=== PATIENT | female | born 1940 | race Caucasian/White ===

== ENCOUNTER → 2016-03-09 | Outpatient (CLI) | payer OTHER ==
[~2016-03-09] MED LIST: ACET-1311 PO; AMX500 PO; ATOR-24 PO; BACIOIN15 TD; BISA10SU3 PR; BUSP-8 PO; CLC150 PO; DEXT40GE PO; DIVA125C PO; DONE10TA12 SL; DPKSR250 PO; DPKSR500 PO; GABA-113 PO; GLGKIT IM; HALO5INJ IM; HYDR-5688 PO; HYDR25TA5 PO; KLN5 PO; KPP250 PO; LEVE500T13 PO; LIDO1PAD2 TOP; LORA-741 PO; MEGE40SU PO; MEGE40TA13 PO; MELA1TAB54 PO; MGNO400 PO; MOML PO; MULT-1042 PO; MULT-506 PO; NRN/600 PO; NUTR1LIQ52 PO; POLY335019 PO; POTA10CA28 PO; POTA10TA PO; RIVA1TAB7 PO; SERT25TA PO; SERT50TA PO; SODI1ENE PR; SRQ25 PO; TRAZ50TA35 PO; TRIA1SPR4 NAE; VALP250S16 PO; [UNRECOGNIZED DRUG - CODE] PO; [UNRECOGNIZED DRUG - OTHER] IM
--- NOTE | 2016-03-18 09:49 | CODING QUERY NO DIAGNOSIS ---
: 1940 TREATMENT RENDERED WITHOUT A DIAGNOSIS To promote full compliance with coding requirements relating to patient care, physician participation is requested in all cases of aircraft fueler uncertainty. Please assist us with providing a diagnosis/symptom for the test(s) below: A diagnosis/symptom was not documented on your Order. A valid diagnosis/symptom is required to bill all insurances. Please remember that we are unable to code a diagnosis of rule out, probable, possible, questionable, or suspected. Tests that require a diagnosis: * VALPROIC ACID DOS: 03/09/16 DIAGNOSIS: Provider Signature: Date: Thank you Alyce Umanzor [employer] Information Management Once completed, please kindly fax back to [phone] For questions please call [phone]
== END ==
LOC: C.LABUPHEI 07:56
PROVIDERS: ATTEND Family Medicine
DX: R56.9 Unspecified convulsions (principal); Z79.01 Long term (current) use of anticoagulants; Z51.81 Encounter for therapeutic drug level monitoring

== ENCOUNTER → 2016-03-22 | Outpatient (CLI) | payer OTHER ==
[2016-03-22 10:16] LABS: URINE APPEARANCE CLEAR (CLEAR); URINE BILIRUBIN NEG (NEG); URINE COLOR DK YELLOW; URINE EPITHELIAL CELL AUTO 20-30 /lpf (0-5); URINE NITRITE NEG (NEG); URINE PH 5.5 (4.5-7.5); URINE SPECIFIC GRAVITY 1.024 (1.000-1.030); UROBILINOGEN NEG (NEG)
[2016-03-22 10:17] LABS: MANUAL MICROSCOPIC REQUIRED? NO; REVIEW REQ? NO
== END ==
LOC: C.LABUPHEI 09:39
PROVIDERS: ATTEND Family Medicine
DX: R39.15 Urgency of urination (principal)

== ENCOUNTER → 2016-04-08 | Outpatient (CLI) | payer OTHER ==
[2016-04-08 09:28] LABS: ALT/SGPT 10 U/L (12-78); BLOOD UREA NITROGEN 23 mg/dl (7-18); BUN/CREATININE RATIO 29.9 (10-20); CALCIUM 8.8 mg/dl (8.5-10.1); CARBON DIOXIDE 26 mmol/L (21-32); CHLORIDE 103 mmol/L (98-107); CREATININE 0.76 mg/dl (0.60-1.20); GLUCOSE 54 mg/dl (70-99); POTASSIUM 3.6 mmol/L (3.5-5.1); SODIUM 139 mmol/L (136-145)
[2016-04-08 09:31] LABS: ALB/GLOB RATIO 0.7 (0.9-2); ALKALINE PHOSPHATASE 141 U/L (45-117); AST/SGOT 18 U/L (15-37)
--- NOTE | 2016-04-15 08:46 | CODING QUERY NO DIAGNOSIS ---
TREATMENT RENDERED WITHOUT A DIAGNOSIS : 1940 To promote full compliance with coding requirements relating to patient care, physician participation is requested in all cases of pipe liner uncertainty. Please assist us with providing a diagnosis/symptom for the test(s) below: A diagnosis/symptom was not documented on your Order. A valid diagnosis/symptom is required to bill all insurances. Please remember that we are unable to code a diagnosis of rule out, probable, possible, questionable, or suspected. DOS: 04/08/16 Tests that require a diagnosis: * COMPREHENSIVE METABO DIAGNOSIS: * VALPROIC ACID (DEPAK_. DIAGNOSIS: Provider Signature: Date: Thank you Alyce Umanzor [employer] Information Management Once completed, please kindly fax back to [phone] For questions please call [phone]
== END ==
LOC: C.LABUPHEI 08:40
PROVIDERS: ATTEND Family Medicine
DX: R56.9 Unspecified convulsions (principal); F41.9 Anxiety disorder, unspecified

== ENCOUNTER → 2016-04-12 | Outpatient (CLI) | payer OTHER ==
[2016-04-12 10:15] LABS: PREALBUMIN 15.5 mg/dl (20-40); THYROID STIMULATING HORMONE 1.05 uIu/ml (0.300-4.500)
== END | disposition home or self-care (01) ==
LOC: C.LABUPHEI 09:28
PROVIDERS: ATTEND Family Medicine
DX: E04.1 Nontoxic single thyroid nodule (principal); I10 Essential (primary) hypertension

== ENCOUNTER → 2016-04-21 | Outpatient (CLI) | payer OTHER ==
--- NOTE | 2016-04-21 16:02 | DIAGNOSTIC IMAGING REPORT ---
CT OF THE CHEST WITHOUT IV CONTRAST CLINICAL HISTORY: Right lower chest and back pain. COMPARISON STUDY: Chest radiograph January 28, 2016. CT DOSE: 338.35 mGycm TECHNIQUE: Axial images of the chest were obtained without IV contrast. Images were reviewed in the axial, sagittal, and coronal planes. IV contrast was not administered for this examination. FINDINGS: There is no pneumothorax or pleural effusion. The size of the heart is normal. No enlarged thoracic lymph nodes are present. Several thyroid nodules are noted. The lungs are clear. Central airways are patent. There are multiple healing right-sided rib fractures. No acute rib fractures are identified although sensitivity is diminished due to motion artifact. There are several old left-sided rib fractures. There is a mild fracture involving the superior endplate of T6 which is age-indeterminate. There is a moderate compression fracture of L1 which is likely old. The gallbladder is surgically absent. IMPRESSION: 1. No acute intrathoracic findings. Lungs clear. No pneumothorax. 2. Numerous healing right-sided rib fractures which are subacute to chronic. No acute rib fractures identified although sensitivity diminished due to respiratory motion. 3. Age indeterminate but likely old mild T6 compression fracture and old L1 compression fracture. Electronically signed by: Josue Tapia M.D. 04/21/2016 4:00 PM Dictated Date/Time: 04/21/2016 3:51 PM
== END ==
LOC: C.CTS 15:27
PROVIDERS: ATTEND Family Medicine
DX: R07.9 Chest pain, unspecified (principal); M54.5 Low back pain; S22.41XD Multiple fractures of ribs, right side, subsequent encounter for fracture with routine healing; S32.010D Wedge compression fracture of first lumbar vertebra, subsequent encounter for fracture with routine healing; S22.060D Wedge compression fracture of T7-T8 vertebra, subsequent encounter for fracture with routine healing; X58.XXXD Exposure to other specified factors, subsequent encounter

== ENCOUNTER 2016-04-22 13:24 | Emergency (ER) | payer OTHER ==
[~2016-04-22 13:24] MED LIST changes: -BISA10SU3 PR; -BUSP-8 PO; -CLC150 PO; -DIVA125C PO; -DPKSR250 PO; -DPKSR500 PO; -HALO5INJ IM; -HYDR-5688 PO; -KLN5 PO; -KPP250 PO; -LEVE500T13 PO; -LIDO1PAD2 TOP; -MEGE40SU PO; -MEGE40TA13 PO; -MELA1TAB54 PO; -MOML PO; -MULT-1042 PO; -NRN/600 PO; -NUTR1LIQ52 PO; -POTA10TA PO; -RIVA1TAB7 PO; -SERT50TA PO; -SODI1ENE PR; -SRQ25 PO; -TRAZ50TA35 PO; -[UNRECOGNIZED DRUG - CODE] PO; -[UNRECOGNIZED DRUG - OTHER] IM
--- NOTE | 2016-04-22 13:35 | EMERGENCY ROOM VISIT NOTE ---
History Report prepared by Iggy: Juan Manuel Boudreaux Under the Supervision of: Dr. Luis Alfredo Diez M.D. First contact with patient: 13:29 Stated Complaint: FALL History of Present Illness The patient is a 75 year old female who presents to the Emergency Room with complaints of a sudden fall that occurred prior to arrival at [facility]. She has a seizure history, per the nursing staff. The patient's fall was unwitnessed , but it is known that she bumped her head. She is demented. Per the patient, she says nothing is hurting her, but she does note that she hurt her head. She denies any nausea, headaches, or chest pain. Per the nursing staff, the patient was given Ativan last night for seizures. History limited secondary to patient' s dementia. Source of History: patient, nursing staff Onset: Prior to arrival Position: other (global - fall) Quality: other (bumped her head) Timing: other (sudden) Associated Symptoms: No chest pain, No headache, No nausea Review of Systems ROS limited secondary to patient's dementia. Past Medical & Surgical Medical Problems: (1) Anxiety (2) Dementia (3) Depression (4) Diabetes mellitus, type II (5) Dyslipidemia (6) Epilepsy (7) Hypertension (8) UTI (urinary tract infection) Surgical Problems: (1) History of cholecystectomy Family History Diabetes mellitus Hypertension Social History Smoking Status: Former Smoker Alcohol Use: none Drug Use: none Marital Status: Housing Status: correction Occupation Status: retired Current/Historical Medications Scheduled Acetaminophen (Tylenol), 650 MG PO Q6H Atorvastatin (Lipitor), 40 MG PO DAILY Buspirone Hcl (Buspirone Hcl), 10 MG PO TID Donepezil Hydrochloride (Aricept), 10 MG SL HS Gabapentin (Neurontin), 300 MG PO HS Gabapentin (Neurontin), 600 MG PO QAM Hydrochlorothiazide (Hydrochlorothiazide), 1 TAB PO QAM Lidocaine (Lidocaine), 1 PATCH TOP DAILY Lorazepam (Ativan), 0.5 MG PO Q6H Magnesium Oxide (Magnesium-Oxide), 400 MG PO QAM Megestrol Acetate (Megace Oral), 40 MG PO BID Melatonin (Melatonin), 1 TAB PO HS Multivitamin (Multivitamin), 1 TAB PO DAILY Nutritional Supplements (Nutritional Shake), 1 CAN PO TIDM Polyethylene Glycol 3350 (Miralax), 17 GM PO DAILY Potassium Chloride (Micro-K Ext Rel), 10 MEQ PO DAILY Sertraline Hcl (Zoloft), 25 MG PO DAILY Valproic Acid Syrup (Depakene), 250 MG PO DAILY Scheduled PRN Dextrose (Diabetic Use) (Insta-Glucose), 1 APPLN PO Q15M PRN for HYPOGLYCEMIA PROTOCOL Glucagon (Glucagon Emergency Kit), 1 APPLN IM Q15M PRN for HYPOGLYCEMIA PROTOCOL Hydrocodone/Acetaminophen 5MG/325MG ([place] 5MG/325MG), 1 TABLET PO Q4H PRN for Pain Hydrocodone/Acetaminophen 5MG/325MG ([place] 5MG/325MG), 2 TABLETS PO for Pain Lorazepam (Lorazepam), 1 MG PO Q5M PRN for seizures Miscellaneous Medications Megestrol Acetate (Megace), 40 MG PO Allergies Coded Allergies: Meloxicam (Verified Allergy, Intermediate, unknown, 01/28/16) Tramadol (Verified Allergy, Intermediate, unknown, 01/28/16) Cephalexin (Verified Allergy, Unknown, ., 01/28/16) Ciprofloxacin (Verified Allergy, Unknown, unknown, 01/28/16) Rofecoxib (Verified Allergy, Unknown, ., 01/28/16) Physical Exam Vital Signs Date Time Temp Pulse Resp B/P Pulse Ox O2 Delivery O2 Flow Rate FiO2 04/22/16 15:25 36.6 93 20 132/81 96 04/22/16 13:42 93 04/22/16 13:33 36.6 94 20 132/81 96 Room Air Physical Exam GENERAL: Patient is elderly, demented, in no distress. HEENT: Posterior left scalp hematoma, mucous membranes moist, no nasal congestion, no scleral icterus. NECK: No stridor, no adenopathy, no meningismus, trachea is midline. LUNGS: No dyspnea. Clear to auscultation and equal bilaterally. No wheeze, no rhonchi. HEART: Regular rate and rhythm. No murmurs, rubs, gallops appreciated. ABDOMEN: Soft, nontender, bowel sounds positive, no masses appreciated, no peritonitis. BACK: No midline tenderness, no CVA tenderness EXTREMITIES: Normal motion all extremities, no cyanosis, no edema. NEUROLOGIC: Dementia, no acute motor or sensory deficits, no focal weakness, cranial nerves grossly intact. SKIN: No rash, no jaundice, no diaphoresis. Medical Decision & Procedures ER Provider Diagnostic Interpretation: X ray results and stated below per my interpretation and radiologist interpretation. Other radiology results and stated below per my review and radiologist interpretation: SINGLE VIEW PELVIS CLINICAL HISTORY: Trauma. Fall. FINDINGS: An AP pelvic radiograph is obtained. No prior studies are available for comparison at the time of dictation. The skeletal structures are osteopenic. There is no radiographic evidence of fracture in the hips or bony pelvis. Mild arthritic change and joint space narrowing is seen in the hips. There is mild sclerosis of the sacroiliac joints. Lumbosacral spondylosis is partially imaged. The overlying soft tissues are within normal limits. Small phleboliths are noted in the pelvis. There is a nonobstructed abdominal bowel gas pattern. IMPRESSION: Osteopenia and mild degenerative change as above. No fracture is seen in the hips or bony pelvis. Electronically signed by: Noe Lambert M.D. 04/22/2016 2:34 PM Dictated Date/Time: 04/22/2016 2:[address] OF THE HEAD WITHOUT CONTRAST CLINICAL HISTORY: Fall with posterior head injury. COMPARISON STUDY: Head CT January 16, 2016. CT DOSE: 638.56 mGycm TECHNIQUE: Helical axial images of the head were obtained without IV contrast. Automated exposure control was utilized for the study. FINDINGS: No acute intracranial hemorrhage, midline shift or mass effect is present. Ventricular system is normal. The basilar cisterns are patent. There are no extra-axial collections. Ventura-white differentiation is maintained. Mild white matter hypodensity suggests small vessel disease. There are no findings to suggest acute dural sinus thrombosis or acute territorial infarct. There is no calvarial fracture. There is a small left posterior scalp contusion. There is trace fluid within the bilateral mastoid air cells. IMPRESSION: 1. No acute intracranial findings. 2. Small left posterior scalp contusion with no calvarial fracture. Electronically signed by: Josue Tapia M.D. 04/22/2016 2:16 PM Dictated Date/Time: 04/22/2016 2:12 PM CHEST ONE VIEW PORTABLE HISTORY: fall posterior head injury COMPARISON: Chest 01/28/2016. FINDINGS: There again noted multiple healing right-sided rib fractures. No pneumothorax. No pleural effusions. The lungs are clear. The heart is normal in size. The bones are osteopenic. Prior cholecystectomy. IMPRESSION: Healing right-sided rib fractures. Otherwise, no acute process within the chest. Electronically signed by: Cornel Finn M.D. 04/22/2016 2:26 PM Dictated Date/Time: 04/22/2016 2:[address] SCAN OF THE CERVICAL SPINE CLINICAL HISTORY: Fall. Head injury. COMPARISON STUDY: Chest CT dated 04/21/2016. TECHNIQUE: CT scan of the cervical spine is performed from the skull base to the upper thoracic spine. Images are reviewed in the axial, sagittal, and coronal planes. IV contrast was not administered for this examination. CT DOSE: 441.47 mGycm FINDINGS: Skeletal structures: The skeletal structures are osteopenic. There is no evidence of fracture or subluxation involving the cervical spine. Vertebral body height and alignment are maintained. The odontoid process and lateral masses are intact. The atlantoaxial articulation is preserved. A segmentation anomaly is incidentally noted involving the posterior elements on the right at C2-C3. The spinous processes appear intact. Anterior osteophytes are seen at C5-C6. There is a mild superior compression deformity of T2. This was also seen on yesterday's chest CT. Minimal facet arthropathy is noted. Intervertebral discs: There is moderate degenerative disc space narrowing at C5-C6. The remaining disc spaces are well maintained. Central canal: A posterior disc osteophyte complex at C5-C6 likely contributes to mild acquired compromise of the central canal. Soft tissues: The prevertebral and paraspinous soft tissues are within normal limits. Atherosclerotic calcification is noted in the carotid bulbs. A 2.3 cm nodule is again noted in the right lobe of the thyroid gland. Calvarium: The visualized calvarium at the skull base appears intact. Brain parenchyma: Partially visualized brain parenchyma the skull base is within normal limits. Sinuses and mastoids: There is trace mucosal thickening within the right maxillary antrum. Trace fluid is noted within the sphenoid sinuses. Trace fluid is seen within the mastoid air cells bilaterally. Lung apices: Clear as visualized. IMPRESSION: 1. There is no evidence of fracture or subluxation involving the cervical spine. 2. Osteopenia and minimal degenerative change as above. 3. There is a 2.3 cm low-attenuation nodule identified in the right lobe of the thyroid gland. Follow-up with a nonemergent thyroid ultrasound is recommended for further assessment. Electronically signed by: Noe Lambert M.D. 04/22/2016 2:15 PM Dictated Date/Time: 04/22/2016 2:09 PM ED Course 1330: The patient was evaluated in room A3. A complete history and physical exam was performed. 1444: I reevaluated the patient and she is resting comfortably. The patient's daughter verbally expressed understanding and agreement of the treatment plan. The patient will be discharged. The patient's daughter noted that the patient is currently at baseline, and I discussed the CT findings with the daughter. Medical Decision 75 yr old female with severe dementia and ambulatory dysfunction who had fall without prolonged down time. She has contusion to posterior scalp but no other injury findings. Imaging including ct head/cspine, cxr, pelv-xray all negative for emergent findings. She is at her baseline per EMS, nursing and daughter. She is in no distress. She had mechanical fall. No other issues currently. Impression Primary Impression: Fall Additional Impression: Head injury, closed Scribe Attestation The scribe's documentation has been prepared under my direction and personally reviewed by me in its entirety. I confirm that the note above accurately reflects all work, treatment, procedures, and medical decision making performed by me. Departure Information Dispostion Home / Self-Care Referrals Lenka Espinal (PCP) Patient Instructions ED Mechanical Fall, [facility] Health Problem Qualifiers Primary Impression: Fall Encounter type: initial encounter Qualified Codes: W19.XXXA - Unspecified fall, initial encounter Additional Impression: Head injury, closed Encounter type: initial encounter Qualified Codes: S09.90XA - Unspecified injury of head, initial encounter
--- NOTE | 2016-04-22 14:16 | DIAGNOSTIC IMAGING REPORT ---
CT SCAN OF THE CERVICAL SPINE CLINICAL HISTORY: Fall. Head injury. COMPARISON STUDY: Chest CT dated 04/21/2016. TECHNIQUE: CT scan of the cervical spine is performed from the skull base to the upper thoracic spine. Images are reviewed in the axial, sagittal, and coronal planes. IV contrast was not administered for this examination. CT DOSE: 441.47 mGycm FINDINGS: Skeletal structures: The skeletal structures are osteopenic. There is no evidence of fracture or subluxation involving the cervical spine. Vertebral body height and alignment are maintained. The odontoid process and lateral masses are intact. The atlantoaxial articulation is preserved. A segmentation anomaly is incidentally noted involving the posterior elements on the right at C2-C3. The spinous processes appear intact. Anterior osteophytes are seen at C5-C6. There is a mild superior compression deformity of T2. This was also seen on yesterday's chest CT. Minimal facet arthropathy is noted. Intervertebral discs: There is moderate degenerative disc space narrowing at C5-C6. The remaining disc spaces are well maintained. Central canal: A posterior disc osteophyte complex at C5-C6 likely contributes to mild acquired compromise of the central canal. Soft tissues: The prevertebral and paraspinous soft tissues are within normal limits. Atherosclerotic calcification is noted in the carotid bulbs. A 2.3 cm nodule is again noted in the right lobe of the thyroid gland. Calvarium: The visualized calvarium at the skull base appears intact. Brain parenchyma: Partially visualized brain parenchyma the skull base is within normal limits. Sinuses and mastoids: There is trace mucosal thickening within the right maxillary antrum. Trace fluid is noted within the sphenoid sinuses. Trace fluid is seen within the mastoid air cells bilaterally. Lung apices: Clear as visualized. IMPRESSION: 1. There is no evidence of fracture or subluxation involving the cervical spine. 2. Osteopenia and minimal degenerative change as above. 3. There is a 2.3 cm low-attenuation nodule identified in the right lobe of the thyroid gland. Follow-up with a nonemergent thyroid ultrasound is recommended for further assessment. Electronically signed by: Noe Lambert M.D. 04/22/2016 2:15 PM Dictated Date/Time: 04/22/2016 2:09 PM
--- NOTE | 2016-04-22 14:18 | DIAGNOSTIC IMAGING REPORT ---
CT OF THE HEAD WITHOUT CONTRAST CLINICAL HISTORY: Fall with posterior head injury. COMPARISON STUDY: Head CT January 16, 2016. CT DOSE: 638.56 mGycm TECHNIQUE: Helical axial images of the head were obtained without IV contrast. Automated exposure control was utilized for the study. FINDINGS: No acute intracranial hemorrhage, midline shift or mass effect is present. Ventricular system is normal. The basilar cisterns are patent. There are no extra-axial collections. Ventura-white differentiation is maintained. Mild white matter hypodensity suggests small vessel disease. There are no findings to suggest acute dural sinus thrombosis or acute territorial infarct. There is no calvarial fracture. There is a small left posterior scalp contusion. There is trace fluid within the bilateral mastoid air cells. IMPRESSION: 1. No acute intracranial findings. 2. Small left posterior scalp contusion with no calvarial fracture. Electronically signed by: Josue Tapia M.D. 04/22/2016 2:16 PM Dictated Date/Time: 04/22/2016 2:12 PM
--- NOTE | 2016-04-22 14:27 | DIAGNOSTIC IMAGING REPORT ---
CHEST ONE VIEW PORTABLE HISTORY: fall posterior head injury COMPARISON: Chest 01/28/2016. FINDINGS: There again noted multiple healing right-sided rib fractures. No pneumothorax. No pleural effusions. The lungs are clear. The heart is normal in size. The bones are osteopenic. Prior cholecystectomy. IMPRESSION: Healing right-sided rib fractures. Otherwise, no acute process within the chest. Electronically signed by: Cornel Finn M.D. 04/22/2016 2:26 PM Dictated Date/Time: 04/22/2016 2:24 PM
--- NOTE | 2016-04-22 14:35 | DIAGNOSTIC IMAGING REPORT ---
SINGLE VIEW PELVIS CLINICAL HISTORY: Trauma. Fall. FINDINGS: An AP pelvic radiograph is obtained. No prior studies are available for comparison at the time of dictation. The skeletal structures are osteopenic. There is no radiographic evidence of fracture in the hips or bony pelvis. Mild arthritic change and joint space narrowing is seen in the hips. There is mild sclerosis of the sacroiliac joints. Lumbosacral spondylosis is partially imaged. The overlying soft tissues are within normal limits. Small phleboliths are noted in the pelvis. There is a nonobstructed abdominal bowel gas pattern. IMPRESSION: Osteopenia and mild degenerative change as above. No fracture is seen in the hips or bony pelvis. Electronically signed by: Noe Lambert M.D. 04/22/2016 2:34 PM Dictated Date/Time: 04/22/2016 2:33 PM
[2016-04-22] MEDS ORDERED: HYDR-5688 PO ×2 (15:08)
[2016-04-22] MEDS ORDERED: NUTR1LIQ52 PO (15:08)
[2016-04-22] MEDS ORDERED: BUSP-8 PO (15:08)
[2016-04-22] MEDS ORDERED: MEGE40SU PO (15:08)
[2016-04-22] MEDS ORDERED: MELA1TAB54 PO (15:08)
[2016-04-22] MEDS ORDERED: VALP250S16 PO (15:08)
[2016-04-22] MEDS ORDERED: MEGE40TA13 PO (15:08)
[2016-04-22] MEDS ORDERED: NRN/600 PO (15:08)
[2016-04-22] MEDS ORDERED: [UNRECOGNIZED DRUG - OTHER] IM (15:08)
[2016-04-22] MEDS ORDERED: LIDO1PAD2 TOP (15:08)
[2016-04-22 15:25] VITALS: BP 132/81; PULSE 93; TEMP 36.6; O2SAT 96
[2016-05-29] MEDS ORDERED: DPKSR500 PO (09:58)
[2016-05-29] MEDS ORDERED: KPP250 PO (09:58)
[2016-05-29] MEDS ORDERED: KLN5 PO (09:58)
[2016-05-29] MEDS ORDERED: DPKSR250 PO (09:58)
[2016-05-29] MEDS ORDERED: SRQ25 PO ×3 (09:58)
[2016-06-05] MEDS ORDERED: DIVA125C PO ×2 (20:25)
[2016-06-05] MEDS ORDERED: LEVE500T13 PO (20:31)
[2016-06-05] MEDS ORDERED: BISA10SU3 PR (20:36)
[2016-06-05] MEDS ORDERED: SODI1ENE PR (20:38)
[2016-06-05] MEDS ORDERED: MOML PO (20:38)
[2016-06-09] MEDS ORDERED: RIVA1TAB7 PO ×2 (13:09→14:57)
== END 2016-04-22 15:27 | disposition home or self-care (01) ==
LOC: EDBD 13:24 → C.EDA 13:26
DX: S09.90XA Unspecified injury of head, initial encounter (principal); W19.XXXA Unspecified fall, initial encounter; Y92.129 Unspecified place in nursing home as the place of occurrence of the external cause; F03.90 Unspecified dementia, unspecified severity, without behavioral disturbance, psychotic disturbance, mood disturbance, and anxiety; F41.9 Anxiety disorder, unspecified; F32.9 Major depressive disorder, single episode, unspecified; E11.9 Type 2 diabetes mellitus without complications; E78.5 Hyperlipidemia, unspecified; G40.909 Epilepsy, unspecified, not intractable, without status epilepticus; I10 Essential (primary) hypertension; Z87.891 Personal history of nicotine dependence; Z83.3 Family history of diabetes mellitus; Z82.49 Family history of ischemic heart disease and other diseases of the circulatory system; Z79.899 Other long term (current) drug therapy

== ENCOUNTER → 2016-05-02 | Outpatient (CLI) | payer OTHER ==
[~2016-05-02] MED LIST changes: -AMX500 PO; -BACIOIN15 TD; +BISA10SU3 PR; +BUSP-8 PO; +CLC150 PO; +DIVA125C PO; +DPKSR250 PO; +DPKSR500 PO; +HALO5INJ IM; +HYDR-5688 PO; +KLN5 PO; +KPP250 PO; +LEVE500T13 PO; +LIDO1PAD2 TOP; +MEGE40SU PO; +MEGE40TA13 PO; +MELA1TAB54 PO; +MOML PO; +MULT-1042 PO; +NRN/600 PO; +NUTR1LIQ52 PO; +POTA10TA PO; +RIVA1TAB7 PO; +SERT50TA PO; +SODI1ENE PR; +SRQ25 PO; +TRAZ50TA35 PO; +[UNRECOGNIZED DRUG - CODE] PO; +[UNRECOGNIZED DRUG - OTHER] IM
[2016-05-02 07:05] LABS: URINE APPEARANCE CLEAR (CLEAR); URINE BILIRUBIN NEG (NEG); URINE COLOR YELLOW; URINE NITRITE NEG (NEG); URINE PH 6.5 (4.5-7.5); URINE SPECIFIC GRAVITY 1.019 (1.000-1.030); UROBILINOGEN NEG (NEG)
[2016-05-02 07:13] LABS: MANUAL MICROSCOPIC REQUIRED? NO; REVIEW REQ? NO
== END ==
LOC: C.LABUPHEI 11:13
PROVIDERS: ATTEND Family Medicine
DX: Z00.00 Encounter for general adult medical examination without abnormal findings (principal)

== ENCOUNTER 2016-05-03 23:54 | Emergency (ER) | payer OTHER ==
[~2016-05-03 23:54] MED LIST changes: -BISA10SU3 PR; -CLC150 PO; -DIVA125C PO; -DPKSR250 PO; -DPKSR500 PO; -HALO5INJ IM; -KLN5 PO; -KPP250 PO; -LEVE500T13 PO; -MOML PO; -MULT-1042 PO; -POTA10TA PO; -RIVA1TAB7 PO; -SERT50TA PO; -SODI1ENE PR; -SRQ25 PO; -TRAZ50TA35 PO; -TRIA1SPR4 NAE; -[UNRECOGNIZED DRUG - CODE] PO
[2016-05-03 23:58] VITALS: TEMP 36.5; O2SAT 94
[2016-05-04] MEDS ORDERED: DIPHTHERIA/TETANUS/PERTUSSIS 0.5 ML SYR/VIAL IM. ONE
[2016-05-04] MEDS ORDERED: HALOPERIDOL LACTATE 5 MG/ML 1 ML VIAL IM STA (00:06)
[2016-05-04] MEDS ORDERED: LORAZEPAM 2 MG/ML 1 ML VIAL IV STA ×3 (00:08→00:22)
[2016-05-04 00:28] LABS: BASO % 0.2 %; BASO ABS # 0.02 K/uL (0-0.2); COMPLETE YES; EOS % 0.4 %; HEMATOCRIT 42.3 % (37-47); IG% 0.5 %; LYMPH % 36.3 %; LYMPH ABS # 4.53 K/uL (1.2-3.4); MEAN CELL VOLUME 80.1 fL (80-100); MEAN CORPUSCULAR HEMOGLOBIN 27.3 pg (25-34); MEAN PLATELET VOLUME 10.2 fL (7.4-10.4); MONO % 10.9 %; NEUT % 51.7 %; PLATELET COUNT 235 K/uL (130-400); RED BLOOD COUNT 5.28 M/uL (4.2-5.4); WHITE BLOOD COUNT 12.49 K/uL (4.8-10.8)
[2016-05-04 00:46] LABS: INR 1.2 (0.9-1.1); PROTHROMBIN TIME (PATIENT) 12.6 SECONDS (9.0-12.0)
[2016-05-04 00:50] LABS: ALT/SGPT 12 U/L (12-78); AST/SGOT 12 U/L (15-37); BLOOD UREA NITROGEN 22 mg/dl (7-18); CALCIUM 9.4 mg/dl (8.5-10.1); CARBON DIOXIDE 27 mmol/L (21-32); CHLORIDE 101 mmol/L (98-107); CREATININE 0.97 mg/dl (0.60-1.20); GLUCOSE 106 mg/dl (70-99); POTASSIUM 4.5 mmol/L (3.5-5.1); SODIUM 141 mmol/L (136-145)
[2016-05-04 00:55] LABS: ALKALINE PHOSPHATASE 131 U/L (45-117)
[2016-05-04 01:28] LABS: URINE APPEARANCE CLEAR (CLEAR); URINE BILIRUBIN NEG (NEG); URINE COLOR YELLOW; URINE EPITHELIAL CELL AUTO 0-5 /lpf (0-5); URINE NITRITE NEG (NEG); URINE PH 7.5 (4.5-7.5); URINE SPECIFIC GRAVITY 1.016 (1.000-1.030); UROBILINOGEN NEG (NEG); ZZURINE CULT IF INDIC CATH NO
[2016-05-04] MEDS ORDERED: SERT50TA PO (01:30)
[2016-05-04] MEDS ORDERED: TRIA1SPR4 NAE (01:34)
[2016-05-04] MEDS ORDERED: MULT-1042 PO (01:34)
[2016-05-04 01:40] LABS: MANUAL MICROSCOPIC REQUIRED? NO; REVIEW REQ? NO
[2016-05-04] MEDS ORDERED: POLY335019 PO (01:47)
[2016-05-04] MEDS ORDERED: POTA10TA PO (01:47)
[2016-05-04] MEDS ORDERED: TRAZ50TA35 PO (01:48)
[2016-05-04] MEDS ORDERED: NUTR1LIQ52 PO (01:49)
[2016-05-04] MEDS ORDERED: HALO5INJ IM (01:50)
[2016-05-04] MEDS ORDERED: [UNRECOGNIZED DRUG - CODE] PO (01:52)
[2016-05-04 04:14] VITALS: BP 162/70; PULSE 103; O2SAT 92
--- NOTE | 2016-05-04 04:53 | EMERGENCY ROOM VISIT NOTE ---
History Report prepared by Iggy: Misael Sloan Under the Supervision of: Dr. Ryan Lozano D.O. First contact with patient: 23:54 Chief Complaint: SEIZURE Stated Complaint: SEIZURE/FALL History of Present Illness The patient is a 75 year old female who presents to the Emergency Room with complaints of a sudden seizure and fall occurring prior to arrival. Per the EMS , the patient had an unwitnessed fall where she was found on the ground tense with seizure-like activity. She then had a witnessed seizure while waiting for the EMS. Patient is on a every 15 check due to her seizure history. She has about 2 seizures per week. She is currently being worked up and followed by providers at [facility]. She was also wearing a helmet which has now been removed recently due to her frequent falls. She is brought in via EMS. They state that she has a history of seizures, and she is currently in the dementia tran. They additionally states that she was at her baseline before this incident. The EMS states that she is not taking any blood thinners, and she is diabetic. Limited history from the patient as she was responsive but nonverbal. Source of History: EMS Onset: prior to arrival Position: other (global) Quality: other (seizure) Timing: other (sudden) Review of Systems See HPI for pertinent positives & negatives. A total of 10 systems reviewed and were otherwise negative. Past Medical & Surgical Medical Problems: (1) Anxiety (2) Dementia (3) Depression (4) Diabetes mellitus, type II (5) Dyslipidemia (6) Epilepsy (7) Hypertension (8) UTI (urinary tract infection) Surgical Problems: (1) History of cholecystectomy Family History Diabetes mellitus Hypertension Social History Smoking Status: Never Smoker Alcohol Use: none Drug Use: none Marital Status: Housing Status: alf Occupation Status: retired Current/Historical Medications Scheduled Atorvastatin (Lipitor), 40 MG PO DAILY Buspirone Hcl (Buspirone Hcl), 10 MG PO TID Gabapentin (Neurontin), 300 MG PO TID Hydrochlorothiazide (Hydrochlorothiazide), 1 TAB PO QAM Lidocaine (Lidocaine), 1 PATCH TOP DAILY Lorazepam (Ativan), 0.5 MG PO Q6H Magnesium Oxide (Magnesium-Oxide), 400 MG PO QAM Megestrol Acetate (Megace Oral), 400 MG PO BID Multiple Vitamins W/ Minerals (Multi Vitamin and Mineral), 1 TAB PO DAILY Nutritional Supplements (Nutritional Shake), 1 CAN PO BID Nutritional Supplements (Nutritional Shake), 1 PO DAILY AT NOON Polyethylene Glycol 3350 (Miralax), 17 GM PO DAILY Potassium Chloride (K-Tabs), 10 MEQ PO DAILY Sertraline (Zoloft), 50 MG PO DAILY Trazodone Hcl (Trazodone), 25 MG PO HS Triamcinolone Acetonide (Nasal (Nasacort Allergy 24Hr), 2 SPRAYS KELSIE DAILY Valproic Acid (Depakene), 10 ML PO DAILY AT NOON Valproic Acid Syrup (Depakene), 15 ML PO AMPM Scheduled PRN Acetaminophen (Tylenol), 650 MG PO Q6H PRN for Pain or Fever Dextrose (Diabetic Use) (Insta-Glucose), 1 APPLN PO Q15M PRN for HYPOGLYCEMIA PROTOCOL Glucagon (Glucagon Emergency Kit), 1 APPLN IM Q15M PRN for HYPOGLYCEMIA PROTOCOL Haloperidol Lactate (Haldol), 1 MG IM Q4 PRN for Agitation Hydrocodone/Acetaminophen 5MG/325MG (Francisco 5MG/325MG), 1 TABLET PO Q4H PRN for Pain Hydrocodone/Acetaminophen 5MG/325MG (Francisco 5MG/325MG), 2 TABLETS PO Q4 PRN for Pain Lorazepam (Lorazepam), 1 MG IM Q5M PRN for seizures Allergies Coded Allergies: Meloxicam (Verified Allergy, Intermediate, unknown, 05/04/16) Tramadol (Verified Allergy, Intermediate, unknown, 05/04/16) Cephalexin (Verified Allergy, Unknown, ., 05/04/16) Ciprofloxacin (Verified Allergy, Unknown, unknown, 05/04/16) Rofecoxib (Verified Allergy, Unknown, ., 05/04/16) Physical Exam Vital Signs Date Time Temp Pulse Resp B/P Pulse Ox O2 Delivery O2 Flow Rate FiO2 05/04/16 04:14 103 20 162/70 92 05/04/16 02:46 89 20 149/78 94 Room Air 05/04/16 01:44 94 20 137/90 96 Room Air 05/04/16 01:20 108 20 144/79 94 Room Air 05/04/16 00:34 109 20 156/100 96 Room Air 05/04/16 00:05 106 05/03/16 23:58 36.5 108 20 173/103 96 Room Air 05/03/16 23:58 94 Room Air Physical Exam GENERAL: Laying in bed not following commands. HEAD: Large septal hematoma in the parietal region with slight venous oozing from abrasion. normal cephalic EYE EXAM: normal conjunctiva, PERRL and EOM's grossly intact OROPHARYNX: no exudate, no erythema, lips, buccal mucosa, and tongue normal and mucous membranes are moist NOSE: No septal hematoma EARS: TMs clear b/l NECK: supple, no nuchal rigidity, no adenopathy, non-tender CHEST: stable to compression anteriorly and posteriorly LUNGS: clear to auscultation. Normal chest wall mechanics HEART: no murmurs, S1 normal and S2 normal ABDOMEN: abdomen soft, non-tender, normo-active bowel sounds, no masses, no rebound or guarding. PELVIS: stable to compression anteriorly and posteriorly BACK: Back is symmetrical on inspection and there is no deformity, no midline tenderness, no CVA tenderness. UPPER EXTREMITIES: Old bruising to left hand no obvious tenderness. Old abrasions to the right elbow. Full active and passive range of motion of all joints without tenderness to palpation LOWER EXTREMITIES: full active and passive range of motion of all joints without tenderness to palpation NEURO EXAM: Alert, not following commands. Intermittently stating "Mommy". Moving all extremities Non-focal. Cranial nerves II-XII grossly intact, no gross weakness of arms, no gross weakness of legs. GCS: 14. Medical Decision & Procedures ER Provider Diagnostic Interpretation: Xray results per the radiologist and my interpretation. Other results have been interpreted by the radiologist and reviewed by me. CT HEAD: Comparison: CT head 04/22/2016 No ICH, mass effect or edema. No skull fracture. Large right parietal scalp hematoma. CT C SPINE: Comparison: CT cervical spine 04/22/2016 No evidence of fracture or malalignment. Degenerative changes greatest at C5-C6. Stable 2.4 cm hypodense nodule in the right lobe of the thyroid. Recommend ultrasound/FNA for further evaluation. Radiologist: Leonardo Ortiz MD Laboratory Results 05/03/16 23:50 Red Blood Count 5.28, Mean Corpuscular Volume 80.1, Mean Corpuscular Hemoglobin 27.3, Mean Corpuscular Hemoglobin Concent 34.0, Mean Platelet Volume 10.2, Neutrophils (%) (Auto) 51.7, Lymphocytes (%) (Auto) 36.3, Monocytes (%) (Auto) 10.9, Eosinophils (%) (Auto) 0.4, Basophils (%) (Auto) 0.2, Neutrophils # (Auto ) 6.47, Lymphocytes # (Auto) 4.53, Monocytes # (Auto) 1.36, Eosinophils # (Auto ) 0.05, Basophils # (Auto) 0.02 05/03/16 23:50 Test 05/03/16 23:50 05/04/16 00:02 05/04/16 01:15 White Blood Count 12.49 K/uL (4.8-10.8) Red Blood Count 5.28 M/uL (4.2-5.4) Hemoglobin 14.4 g/dL (12.0-16.0) Hematocrit 42.3 % (37-47) Mean Corpuscular Volume 80.1 fL (80-100) Mean Corpuscular Hemoglobin 27.3 pg (25-34) Mean Corpuscular Hemoglobin Concent 34.0 g/dl (32-36) Platelet Count 235 K/uL (130-400) Mean Platelet Volume 10.2 fL (7.4-10.4) Neutrophils (%) (Auto) 51.7 % Lymphocytes (%) (Auto) 36.3 % Monocytes (%) (Auto) 10.9 % Eosinophils (%) (Auto) 0.4 % Basophils (%) (Auto) 0.2 % Neutrophils # (Auto) 6.47 K/uL (1.4-6.5) Lymphocytes # (Auto) 4.53 K/uL (1.2-3.4) Monocytes # (Auto) 1.36 K/uL (0.11-0.59) Eosinophils # (Auto) 0.05 K/uL (0-0.5) Basophils # (Auto) 0.02 K/uL (0-0.2) RDW Standard Deviation 48.7 fL (36.4-46.3) RDW Coefficient of Variation 16.6 % (11.5-14.5) Immature Granulocyte % (Auto) 0.5 % Immature Granulocyte # (Auto) 0.06 K/uL (0.00-0.02) Prothrombin Time 12.6 SECONDS (9.0-12.0) Prothromb Time International Ratio 1.2 (0.9-1.1) Activated Partial Thromboplast Time 25.0 SECONDS (21.0-31.0) Partial Thromboplastin Ratio 1.0 Anion Gap 13.0 mmol/L (3-11) Estimated GFR () 67.2 Estimated GFR (Non- 57.9 BUN/Creatinine Ratio 23.0 (10-20) Calcium Level 9.4 mg/dl (8.5-10.1) Total Bilirubin 0.3 mg/dl (0.2-1) Direct Bilirubin 0.1 mg/dl (0-0.2) Aspartate Amino Transf (AST/SGOT) 12 U/L (15-37) Alanine Aminotransferase (ALT/SGPT) 12 U/L (12-78) Alkaline Phosphatase 131 U/L (45-117) Troponin I < 0.015 ng/ml (0-0.045) Total Protein 7.7 gm/dl (6.4-8.2) Albumin 3.5 gm/dl (3.4-5.0) Urine Color YELLOW Urine Appearance CLEAR (CLEAR) Urine pH 7.5 (4.5-7.5) Urine Specific [place] 1.016 (1.000-1.030) Urine Protein NEG (NEG) Urine Glucose (UA) 1+ (NEG) Urine Ketones NEG (NEG) Urine Occult Blood NEG (NEG) Urine Nitrite NEG (NEG) Urine Bilirubin NEG (NEG) Urine Urobilinogen NEG (NEG) Urine Leukocyte Esterase NEG (NEG) Urine WBC (Auto) 0 /hpf (0-5) Urine RBC (Auto) 0-4 /hpf (0-4) Urine Hyaline Casts (Auto) 0 /lpf (0-5) Urine Epithelial Cells (Auto) 0-5 /lpf (0-5) Urine Bacteria (Auto) NEG (NEG) Laboratory results per my review. Medications Administered Medications (Trade) Dose Ordered Sig/Madeline Route Start Time Stop Time Status Last Admin Dose Admin Diphtheria/ Pertussis/Tetanus Vacc (Adacel Inj) 0.5 ml ONCE ONCE IM. 05/04/16 00:00 05/04/16 00:02 DC 05/04/16 00:30 0.5 ML Lorazepam (Ativan Inj) 1 mg NOW STAT IV 05/04/16 00:09 3/1/17 00:10 DC 05/04/16 00:13 1 MG Lorazepam (Ativan Inj) 1 mg NOW STAT IV 05/04/16 00:22 05/04/16 00:23 DC 05/04/16 00:29 1 MG ECG Indication: other (seizure) Rate (beats per minute): 109 Rhythm: sinus rhythm Findings: other (Normal axis, poor baseline, early R wave progression) ED Course ED COURSE: Vital signs were reviewed and showed tachycardia The patients medical record was reviewed The above diagnostic studies were performed and reviewed. ED treatments and interventions as stated above. 2354: The patient was evaluated in room B1. A complete history and physical examination was performed. 0000: Adacel Inj 0.5ml IM 0006: Haldol Inj 5mg IM 0008: Ativan Inj 0.5mg IV 0009: Ativan Inj 1mg IV 0022: Ativan Inj 1mg IV 0022: I reevaluated the patient, and she was still agitated 0223: I reassessed the patient, and she was alert and answered questions in regard to pain. She knows her name, though she did not know where she was. 0247: I discussed the patient's case with Dr. Edward, Neurology, and he states to increase her valproic level as long as she is non-toxic. 0350: Upon reevaluation, the patient is feeling better.I discussed my findings with the patient and she understands and agrees with the treatment plan. Based on the patients age, coexisting illnesses, exam and lab findings the decision to treat as an outpatient was made. The patient remained stable while under my care. The patient appeared well at the time of discharge. Medical Decision Differential diagnoses include major intracranial, cervical, spinal, thoracic, abdominal, pelvic and neurologic injury. Fracture, contusion, sprain, strain, laceration, abrasions included as well. Patient is a 75-year-old female who presents the following 2 seizures and hitting her head. She return to her baseline. She is at her baseline prior to seizures. She is from heart side. CT of her head and cervical spine were unremarkable. X-rays of her chest and hand showed no acute fractures. Labs show a mild leukocytosis of 12,000 which I favor secondary to trauma. BMP along with LFTs and troponin are unremarkable. INR was normal. Valproic acid was 98. UA was negative. Patient was afebrile. There is no signs of infection. Based on her symptoms I do feels though this consistent with 2 seizures. She has been worked up by neurology previously. She is currently at [facility] I thought it was reasonable to have her discharged back following discussion with neurology who recommended increasing her valproic acid level by 250 mg if it is deemed appropriate by primary care doctor at [facility]. I did put this information on her discharge instructions. She is transferred back. Charge nurse discussed her findings as I did earlier in the night with [facility] and they're agreeable to taking the patient back. Consults Time Called: 235 Consulting Physician: Dr. Edward, Neurology Returned Call: [phone] I discussed the patient's case with Dr. Edward, Neurology, and he states to increase her valproic level as long as she is non-toxic. Impression Primary Impression: Seizure Additional Impression: Hematoma Scribe Attestation The scribe's documentation has been prepared under my direction and personally reviewed by me in its entirety. I confirm that the note above accurately reflects all work, treatment, procedures, and medical decision making performed by me. Departure Information Dispostion Home / Self-Care Referrals Lenka Espinal (PCP) Forms HOME CARE DOCUMENTATION FORM, IMPORTANT VISIT INFORMATION Patient Instructions ED Seizure Recurrent, My [facility] Additional Instructions Please follow up with your primary care doctor at [facility] with in the next 24 hours. Any worsening of your symptoms, please return to the ED immediately. This includes fevers greater than 100.4, confusion, persistent falls, or any other concerning signs or symptoms from the alf standpoint. Case was discussed with neurology and they recommended possibly increasing the dose of Depakote. This should be discussed with the primary care doctor at nursing facility tomorrow and increased accordingly. Problem Qualifiers
--- NOTE | 2016-05-04 06:45 | DIAGNOSTIC IMAGING REPORT ---
HEAD CT NONCONTRAST CT DOSE: 1106.92 mGy.cm HISTORY: Trauma AMS TECHNIQUE: Multiaxial CT images of the head were performed without the use of intravenous contrast. Comparison: 04/22/2016 Findings: The paranasal sinuses and mastoid air cells are clear. The calvarium and skull base are intact. The ventricles and sulci are within normal limits. There is no mass, hematoma, midline shift, or acute infarct. Extracranial right hematoma Impression: No acute intracranial abnormality. Electronically signed by: Lionel Dey M.D. 05/04/2016 6:44 AM Dictated Date/Time: 05/04/2016 6:40 AM
--- NOTE | 2016-05-04 07:14 | DIAGNOSTIC IMAGING REPORT ---
CT SCAN OF THE CERVICAL SPINE CLINICAL HISTORY: Fall. Head injury. COMPARISON STUDY: CT scan of cervical spine dated 04/22/2016. TECHNIQUE: CT scan of the cervical spine is performed from the skull base to the upper thoracic spine. Images are reviewed in the axial, sagittal, and coronal planes. IV contrast was not administered for this examination. FINDINGS: Skeletal structures: The skeletal structures are osteopenic. There is no evidence of fracture or subluxation involving the cervical spine. Vertebral body height and alignment are maintained. The odontoid process and lateral masses are intact. The atlantoaxial articulation is preserved. A segmentation anomaly is incidentally noted involving the posterior elements on the right at C2-C3. The spinous processes appear intact. Anterior osteophytes are seen at C5-C6. There is a mild superior compression deformity of T2, unchanged from prior examinations minimal facet arthropathy is noted. Intervertebral discs: There is moderate degenerative disc space narrowing at C5-C6. The remaining disc spaces are well maintained. Central canal: A posterior disc osteophyte complex at C5-C6 likely contributes to mild acquired compromise of the central canal. Soft tissues: The prevertebral and paraspinous soft tissues are within normal limits. Atherosclerotic calcification is noted in the carotid bulbs. A 2.3 cm nodule is present in the right lobe of the thyroid gland. Calvarium: The visualized calvarium at the skull base appears intact. Brain parenchyma: Partially visualized brain parenchyma the skull base is within normal limits noting age-related involutional change. Sinuses and mastoids: Trace fluid is noted within the sphenoid sinuses. Trace fluid is seen within he mastoid air cells bilaterally. Lung apices: A calcified granuloma is noted in the right upper lobe. Otherwise clear as visualized. IMPRESSION: 1. There is no evidence of fracture or subluxation involving the cervical spine. 2. Osteopenia and minimal degenerative change as above. 3. A 2.3 cm low-attenuation nodule is again noted in the right thyroid lobe. Electronically signed by: Noe Lambert M.D. 05/04/2016 7:12 AM Dictated Date/Time: 05/04/2016 7:09 AM
--- NOTE | 2016-05-04 07:20 | DIAGNOSTIC IMAGING REPORT ---
SINGLE VIEW CHEST CLINICAL HISTORY: Trauma. Fall. FINDINGS: An AP, portable, supine chest radiograph is compared to study dated 04/22/2016. Correlation is made with chest CT dated . The examination is degraded by portable technique and patient rotation. The cardiomediastinal silhouette is unremarkable. Chronic interstitial thickening is similar to previous. No airspace consolidation, pleural effusion, or pneumothorax is seen. The skeletal structures are osteopenic. There are healed bilateral rib fractures. IMPRESSION: No acute cardiopulmonary abnormality. Electronically signed by: Noe Lambert M.D. 05/04/2016 7:19 AM Dictated Date/Time: 05/04/2016 7:17 AM
--- NOTE | 2016-05-04 07:22 | DIAGNOSTIC IMAGING REPORT ---
LEFT HAND 3 VIEWS CLINICAL HISTORY: Left hand pain. FINDINGS: 3 views of the left hand are obtained. No prior studies are available for comparison at the time of dictation. The examination is degraded by inability to extend the fingers. The skeletal structures are osteopenic. There is no radiographic evidence of fracture. Mild arthritic change is present involving the interphalangeal joints. Mild hypothenar soft tissue swelling is suggested. IMPRESSION: Soft tissue swelling with no radiographic evidence of acute fracture. Electronically signed by: Noe Lambert M.D. 05/04/2016 7:21 AM Dictated Date/Time: 05/04/2016 7:19 AM
[2016-05-29] MEDS ORDERED: KPP250 PO (09:58)
[2016-05-29] MEDS ORDERED: SRQ25 PO ×3 (09:58)
[2016-05-29] MEDS ORDERED: KLN5 PO (09:58)
[2016-05-29] MEDS ORDERED: DPKSR500 PO (09:58)
[2016-05-29] MEDS ORDERED: DPKSR250 PO (09:58)
[2016-06-05] MEDS ORDERED: DIVA125C PO ×2 (20:25)
[2016-06-05] MEDS ORDERED: LEVE500T13 PO (20:31)
[2016-06-05] MEDS ORDERED: BISA10SU3 PR (20:36)
[2016-06-05] MEDS ORDERED: MOML PO (20:38)
[2016-06-05] MEDS ORDERED: SODI1ENE PR (20:38)
[2016-06-09] MEDS ORDERED: RIVA1TAB7 PO ×2 (13:09→14:57)
== END 2016-05-04 04:17 | disposition home or self-care (01) ==
LOC: EDBD 23:54 → C.EDB 23:55
DX: G40.909 Epilepsy, unspecified, not intractable, without status epilepticus (principal); S00.83XA Contusion of other part of head, initial encounter; X58.XXXA Exposure to other specified factors, initial encounter; Z23 Encounter for immunization; I10 Essential (primary) hypertension; E11.9 Type 2 diabetes mellitus without complications; E78.5 Hyperlipidemia, unspecified; F03.90 Unspecified dementia, unspecified severity, without behavioral disturbance, psychotic disturbance, mood disturbance, and anxiety; F32.9 Major depressive disorder, single episode, unspecified; F41.9 Anxiety disorder, unspecified; Z87.440 Personal history of urinary (tract) infections; Z90.49 Acquired absence of other specified parts of digestive tract; Z79.899 Other long term (current) drug therapy; Z88.2 Allergy status to sulfonamides; Z88.8 Allergy status to other drugs, medicaments and biological substances; Z83.3 Family history of diabetes mellitus; Z82.49 Family history of ischemic heart disease and other diseases of the circulatory system

== ENCOUNTER → 2016-05-06 | Outpatient (CLI) | payer OTHER ==
[~2016-05-06] MED LIST changes: +BISA10SU3 PR; +CLC150 PO; +DIVA125C PO; -DONE10TA12 SL; +DPKSR250 PO; +DPKSR500 PO; +HALO5INJ IM; +KLN5 PO; +KPP250 PO; +LEVE500T13 PO; -MEGE40TA13 PO; -MELA1TAB54 PO; +MOML PO; +MULT-1042 PO; -MULT-506 PO; -NRN/600 PO; -POTA10CA28 PO; +POTA10TA PO; +RIVA1TAB7 PO; -SERT25TA PO; +SERT50TA PO; +SODI1ENE PR; +SRQ25 PO; +TRAZ50TA35 PO; +TRIA1SPR4 NAE; +[UNRECOGNIZED DRUG - CODE] PO
[2016-05-06 08:43] LABS: ALT/SGPT 35 U/L (12-78); BLOOD UREA NITROGEN 30 mg/dl (7-18); BUN/CREATININE RATIO 34.8 (10-20); CALCIUM 8.8 mg/dl (8.5-10.1); CARBON DIOXIDE 27 mmol/L (21-32); CHLORIDE 103 mmol/L (98-107); CREATININE 0.86 mg/dl (0.60-1.20); GLUCOSE 82 mg/dl (70-99); POTASSIUM 4.2 mmol/L (3.5-5.1); SODIUM 139 mmol/L (136-145)
[2016-05-06 08:46] LABS: ALB/GLOB RATIO 0.7 (0.9-2); ALKALINE PHOSPHATASE 150 U/L (45-117); AST/SGOT 38 U/L (15-37)
== END ==
LOC: C.LABUPHEI 08:10
PROVIDERS: ATTEND Family Medicine
DX: M62.81 Muscle weakness (generalized) (principal); R56.9 Unspecified convulsions

== ENCOUNTER → 2016-05-14 | Outpatient (CLI) | payer OTHER | LOC: C.LABUPHEI 11:15 | PROVIDERS: ATTEND Family Medicine | DX: G47.33 Obstructive sleep apnea (adult) (pediatric) (principal) ==

== ENCOUNTER 2016-05-18 13:35 | Inpatient (IN) | payer OTHER ==
[~2016-05-18] VITALS: Ht 167.6 cm; Wt 68.0 kg
[~2016-05-18 13:35] MED LIST changes: -BISA10SU3 PR; -CLC150 PO; -DIVA125C PO; -DPKSR250 PO; -DPKSR500 PO; -KLN5 PO; -KPP250 PO; -LEVE500T13 PO; -MOML PO; -RIVA1TAB7 PO; -SODI1ENE PR; -SRQ25 PO
[2016-05-18 15:00] VITALS: BP 97/65; PULSE 87; TEMP 36.9; O2SAT 98; Ht 167.6 cm; Wt 68.0 kg
[2016-05-18] MEDS ORDERED: HYDROCODONE/ACETAMOPHEN 5/325MG TAB PO PRN (15:15)
[2016-05-18] MEDS ORDERED: LORAZEPAM INJ 1 MG in SYRINGE 0.5 ML IV PRN ×2 (15:30)
[2016-05-18 16:00] VITALS: O2SAT 93
[2016-05-18] MEDS ORDERED: LEVETIRACETAM IV 1,000 MG in DEXTROSE 5% 100ML 100 ML IV ONE (16:00)
[2016-05-18] MEDS ORDERED: CLONAZEPAM 0.5 MG TAB PO PRN (16:00)
--- NOTE | 2016-05-18 16:13 | History and Physical ---
History & Physical Date & Time of Service: May 18, 2016 at 15:47 Chief Complaint: Uncontrolled Seizures Primary Care Physician: Lenka Espinal History of Present Illness Source: family This is a 76-year-old female with a past medical history of recurrent seizure, Ativan dependence, hypertension, dementia, depression, and anxiety who was transported as a direct admission from [facility] for refractory seizures. The patient has been on Ativan 0.5 every 6 hours, Keppra 500 mg twice a day, and has been receiving Ativan 1 mg IM every 4 hours as needed for seizure. Daughter , dad, is present at bedside. She reports that patient has had refractory-like seizure where her eyes roll upward and to the right when she is having a seizure , patient also begins to moan. Daughter reports that she has 36 seizures within a 45 minute period today. The patient has been seen by [place] [facility] in the past, December 2015, where she had several grand mal seizures. Extensive workup was completed at that time for hematological, oncological, and infectious etiology which was completely negative. She has not had a grand mal since that time. On transfer here the patient received 1 mg Ativan IM at approximately 13:15 and and another dose Ativan 1 mg IV at ~14:30 on transport. The patient is unable to provide any ROS due to altered mental status. Past Medical/Surgical History Medical Problems: (1) Anxiety Status: Chronic (2) Dementia Status: Chronic (3) Depression Status: Chronic (4) Diabetes mellitus, type II Status: Chronic (5) Dyslipidemia Status: Chronic (6) Epilepsy Status: Chronic (7) Hypertension Status: Chronic Surgical Problems: (1) History of cholecystectomy Status: Resolved Family History Diabetes mellitus Hypertension Social History Smoking Status: Former Smoker (half pack per day 60 years) Smokeless Tobacco Use: No Alcohol Use: socially (previously) Drug Use: none Marital Status: Housing status: prison Occupational Status: retired Multi-Drug Resistant Organisms History of MDRO: No Allergies Coded Allergies: Meloxicam (Verified Allergy, Intermediate, unknown, 05/04/16) Tramadol (Verified Allergy, Intermediate, unknown, 05/04/16) Cephalexin (Verified Allergy, Unknown, ., 05/04/16) Ciprofloxacin (Verified Allergy, Unknown, unknown, 05/04/16) Rofecoxib (Verified Allergy, Unknown, ., 05/04/16) Home Medications Scheduled Atorvastatin (Lipitor), 40 MG PO DAILY Buspirone Hcl (Buspirone Hcl), 10 MG PO TID Gabapentin (Neurontin), 300 MG PO TID Hydrochlorothiazide (Hydrochlorothiazide), 1 TAB PO QAM Lidocaine (Lidocaine), 1 PATCH TOP DAILY Lorazepam (Ativan), 0.5 MG PO Q6H Magnesium Oxide (Magnesium-Oxide), 400 MG PO QAM Megestrol Acetate (Megace Oral), 400 MG PO BID Multiple Vitamins W/ Minerals (Multi Vitamin and Mineral), 1 TAB PO DAILY Nutritional Supplements (Nutritional Shake), 1 CAN PO BID Nutritional Supplements (Nutritional Shake), 1 PO DAILY AT NOON Polyethylene Glycol 3350 (Miralax), 17 GM PO DAILY Potassium Chloride (K-Tabs), 10 MEQ PO DAILY Sertraline (Zoloft), 50 MG PO DAILY Trazodone Hcl (Trazodone), 25 MG PO HS Triamcinolone Acetonide (Nasal (Nasacort Allergy 24Hr), 2 SPRAYS KELSIE DAILY Valproic Acid (Depakene), 10 ML PO DAILY AT NOON Valproic Acid Syrup (Depakene), 15 ML PO AMPM Scheduled PRN Acetaminophen (Tylenol), 650 MG PO Q6H PRN for Pain or Fever Dextrose (Diabetic Use) (Insta-Glucose), 1 APPLN PO Q15M PRN for HYPOGLYCEMIA PROTOCOL Glucagon (Glucagon Emergency Kit), 1 APPLN IM Q15M PRN for HYPOGLYCEMIA PROTOCOL Haloperidol Lactate (Haldol), 1 MG IM Q4 PRN for Agitation Hydrocodone/Acetaminophen 5MG/325MG ([place] 5MG/325MG), 1 TABLET PO Q4H PRN for Pain Hydrocodone/Acetaminophen 5MG/325MG ([place] 5MG/325MG), 2 TABLETS PO Q4 PRN for Pain Lorazepam (Lorazepam), 1 MG IM Q5M PRN for seizures Review of Systems ROS unobtainable due to altered mental status Physical Exam Vital Signs Date Time Temp Pulse Resp B/P Pulse Ox O2 Delivery O2 Flow Rate FiO2 05/18/16 15:00 36.9 87 18 97/65 98 Room Air General Appearance: WD/WN, + mild distress, + pertinent finding (agitated, restless. ) Head: normocephalic, + pertinent finding (patient is wearing a soft helmet, right parietal contusion present measuring about 3 x 3 cm) Eyes: PERRL, EOMI ENT: hearing grossly normal, pharynx normal Neck: supple, no JVD, + pertinent finding (ecchymosis on the right border of the neck) Respiratory/Chest: chest non-tender, lungs clear, no respiratory distress, no accessory muscle use Cardiovascular: regular rate, rhythm, no murmur, + tachycardia Abdomen/GI: normal bowel sounds, non tender, soft Genitourinary - Female: + pertinent finding (incontinence) Back: normal inspection, no CVA tenderness Extremities/Musculoskelatal: no calf tenderness, + pedal edema (2+ pitting edema bilateral ankles and feet) Neurologic/Psych: alert, + pertinent finding (the patient is arousable to verbal commands, appears restless, patient is not oriented, repeating words "sister", she is difficult to redirect even by daughter present at bedside) Skin: normal color, warm/dry Impression Assessment and Plan 76 yo F with a PMHx of recurrent seizure, Ativan dependence, hypertension, dementia, depression, and anxiety who was transported as a direct admission from [facility] for refractory seizures. Refractory seizures - Admitted to [facility] - Neurology consult, spoke with Dr. Fall over the phone who suggested starting Klonopin 0.5 mg to 1 mg every 8 H for seizure-like activity. She recommended Ativan be given less frequently. Agrees with Keppra 1000mg IV administration now. Keppra 500 mg BID was started about 2 weeks ago - Continue Depakote 750 mg QAM and QPM, and 500 mg at noon - check Keppra and valproic acid levels - Seizure precautions - 1:1 bedside sitter needed for reorientation - Awake/drowsy EEG ordered Depression Anxiety -Continue sertraline 50 mg daily, [id number] mg daily Hypertension - Continue hydrochlorothiazide 25 mg daily DVT prophylaxis: Teds, SCDs CODE STATUS: Full code- Code was discussed in detail with the daughter present at bedside, she plans to speak with her brother regarding code status - please have the day team follow this. Disposition: Patient from [facility], to assist with discharge planning Level of Care Med/Surg Advanced Directives Existing Advance Directive: No Existing Living Will: No Existing Power of Sports Lawyer: No Existing Health Care Proxy: No Resuscitation Status FULL RESUSCITATION VTE Prophylaxis VTE Risk Assessment Done? Y/N: Yes Risk Level: Low Given or contraindicated: MARGE Leblanc's Assessment and Plan Attending Addendum: I have physically seen and examined this patient, have directed their medical care, have supervised the PA's activity, and agree with the H&P as noted above, with the following changes: The patient is mildly agitated, nonresponsive, in no acute distress. HEENT--PERRL, EOMI, mucous membranes and oropharynx dry. Neck--supple, no JVD or bruits, thyroid normal, trachea midline, no adenopathy. Heart--normal S1 and S2, no extra beats, no murmurs, rubs or gallops. Lungs--clear bilaterally , no respiratory distress, no accessory muscle use. Abdomen--normal bowel sounds and soft, nontender and nondistended, no hernias or masses, no organomegaly. Extremities--no cyanosis, clubbing or edema. There are good distal pulses b/l. Dermatologic--scattered ecchymoses as noted in nursing record Neurologic--cranial nerves II through XII grossly intact. Rheumatologic--no apparent deficits but limited exam. Psychiatric--nonresponsive due to underlying dementia. Assessment and Plan: Dementia/seizure disorder/increased frequency of seizures--give Keppra 1000 mg IV now, continue Keppra 500 mg by mouth twice a day, and Depakote 750 mg by mouth a.m. and p.m. and 500 mg by mouth at noon. Check Keppra and valproic acid levels. Seizure precautions. Order EEG. Phone consult with Dr. Fall from neurology requests starting Klonopin 0.5-1 mg every 8 hours for seizure- like activity. Depression/anxiety--continue sertraline 50 mg by mouth daily and trazodone 25 mg by mouth at bedtime. Hypertension--continue HCTZ 25 mg by mouth daily
[2016-05-18 16:19] LABS: BASO % 0.1 %; BASO ABS # 0.01 K/uL (0-0.2); COMPLETE YES; EOS % 1.9 %; HEMATOCRIT 37.2 % (37-47); IG% 0.2 %; LYMPH % 32.7 %; MEAN CELL VOLUME 80.9 fL (80-100); MEAN CORPUSCULAR HEMOGLOBIN 26.5 pg (25-34); MEAN CORPUSCULAR HGB CONC 32.8 g/dl (32-36); MEAN PLATELET VOLUME 10.2 fL (7.4-10.4); MONO % 10.6 %; NEUT % 54.5 %; PLATELET COUNT 192 K/uL (130-400); WHITE BLOOD COUNT 10.71 K/uL (4.8-10.8)
[2016-05-18] MEDS: HALOPERIDOL LACTATE 5 MG/ML 1 ML VIAL IM PRN ×2 (16:30→22:16)
[2016-05-18 16:42] LABS: ALT/SGPT 12 U/L (12-78); AST/SGOT 15 U/L (15-37); BLOOD UREA NITROGEN 29 mg/dl (7-18); CARBON DIOXIDE 30 mmol/L (21-32); CHLORIDE 103 mmol/L (98-107); CREATININE 0.97 mg/dl (0.60-1.20); GLUCOSE 181 mg/dl (70-99); POTASSIUM 4.2 mmol/L (3.5-5.1); SODIUM 140 mmol/L (136-145)
[2016-05-18 16:44] LABS: ALKALINE PHOSPHATASE 136 U/L (45-117)
[2016-05-18] MEDS ORDERED: PNEUMOCOCCAL POLYSACCHARIDES 25 MCG/0.5 ML VIAL/SYR IM. ONE (16:45)
[2016-05-18] MEDS ORDERED: PNEUMOCOCCAL ADMINISTRATION CHARGE ONE (16:45)
[2016-05-18] MEDS ORDERED: INFLUENZA ADMINISTRATION CHARGE ONE (16:45)
[2016-05-18] MEDS ORDERED: INFLUENZA VIRUS QUAD VACCINE 0.5 ML SYR IM. ONE (16:45)
[2016-05-18 17:17] LABS: MANUAL MICROSCOPIC REQUIRED? NO; REVIEW REQ? YES; URINE APPEARANCE CLEAR (CLEAR); URINE BILIRUBIN NEG (NEG); URINE COLOR YELLOW; URINE EPITHELIAL CELL AUTO >30 /lpf (0-5); URINE NITRITE NEG (NEG); URINE PH 7.5 (4.5-7.5); URINE SPECIFIC GRAVITY 1.013 (1.000-1.030); UROBILINOGEN NEG (NEG)
[2016-05-18 17:19] LABS: SULFASALICYLIC ACID POS (NEG)
[2016-05-18] MEDS: LORAZEPAM 0.5 MG TAB PO SCH (18:37)
[2016-05-18] MEDS: SODIUM CHLOR 0.45% + 20MEQ KCL 1,000 ML IV SCH (20:57)
[2016-05-18] MEDS: MEGESTROL ACETATE 400 MG/10 ML UDP PO SCH (21:01)
[2016-05-18] MEDS: VALPROIC ACID SYRUP 250 MG/5 ML PO SCH (21:01)
[2016-05-18] MEDS: GABAPENTIN 300 MG CAP PO SCH (21:01)
[2016-05-18] MEDS: TRAZODONE HCL 50 MG TAB PO SCH (21:03)
[2016-05-19] MEDS: LORAZEPAM 0.5 MG TAB PO SCH ×4 (00:58→18:05)
[2016-05-19] MEDS: SODIUM CHLOR 0.45% + 20MEQ KCL 1,000 ML IV SCH ×2 (05:59→19:03)
[2016-05-19 07:24] VITALS: BP 134/74; PULSE 73; TEMP 36.8; O2SAT 100
[2016-05-19] MEDS: LIDODERM (LIDOCAINE) PATCH 5% TD SCH (07:40)
[2016-05-19] MEDS: VALPROIC ACID SYRUP 250 MG/5 ML PO SCH ×2 (07:40→20:16)
[2016-05-19] MEDS: GABAPENTIN 300 MG CAP PO SCH ×3 (07:48→20:14)
[2016-05-19] MEDS: SERTRALINE HCL 50 MG TAB PO SCH (07:48)
[2016-05-19] MEDS: POLYETHYLENE (MIRALAX) 17 GM PACK PO SCH (07:49)
[2016-05-19] MEDS: HYDROCHLOROTHIAZIDE 25 MG TAB PO SCH (07:49)
[2016-05-19] MEDS: MEGESTROL ACETATE 400 MG/10 ML UDP PO SCH ×2 (07:49→20:15)
[2016-05-19] MEDS: TRIAMCINOLONE ACET NASAL SPRAY 10.8ML BTL NAE SCH (07:49)
[2016-05-19] MEDS ORDERED: LEVETIRACETAM 500 MG TAB PO ONE (09:11)
--- NOTE | 2016-05-19 11:22 | ELECTROENCEPHALOGRAPH REPORT ---
REQUESTING: Luiza Shah PA-C. CLINICAL DIAGNOSIS: Encephalopathy, possible seizures. ELECTROENCEPHALOGRAM DIAGNOSIS: Extremely technically limited EEG due to muscle movement artifacts. Only brief periods of artifact-free recording are available during which the EEG does appear to be grossly normal. DESCRIPTION OF TRACING: This EEG was performed as a bedside study with simultaneous video analysis of patient movement and behavior. There were nearly continuous head and upper extremity movements throughout most of the recording and this is reflected in the tracing. There are perhaps 30- to 40-second periods of time during which artifacts are relatively infrequent, and during these intervals, there appears to be a background rhythm in the alpha range of about 10 Hz and 30 microvolts in amplitude, which seems more evident in the posterior head regions. Theta activity appears in the mid central regions. Beta activity cannot be distinguished from the muscle artifacts. No activation procedures were utilized. Drowsiness and light sleep were not clearly seen. At no time during the tracing is there unequivocal episodes of potentially epileptogenic nature, but again with all the muscle movement artifacts, it would be very difficult to state that these were not present. INTERPRETATION: Overall then, this tracing is very technically limited. Interpretation is marginal, but a few periods of artifact-free recording do not appear to be that abnormal with what appears to be a normal background rhythm and normal amounts of theta activity. A repeat recording when the patient is less agitated is certainly advised as on the basis of the current study, very few conclusions can be reached regarding underlying potential seizure activity.
[2016-05-19] MEDS: VALPROIC ACID 500 MG/10 ML UDP PO SCH (12:08)
[2016-05-19] MEDS ORDERED: PIPERACILL/TAZOBAC IV 3.375 GM in DEXTROSE 5% 100ML IV ONE (13:00)
--- NOTE | 2016-05-19 13:07 | Neurology Consultation ---
Neurology Consultation Date of Consultation: May 19, 2016. Attending Physician: Chris Espinosa M.D. Primary Care Physician: Lenka Espinal Reason for Consultation: uncontrolled seizures History of Present Illness Source: patient, family, hospital records Digna is a 76-year-old female with a PMH of recurrent seizure, Ativan dependence, hypertension, dementia, depression, and anxiety who was transported as a direct admission from [facility] for refractory seizures. She is currently on Keppra 500 mg twice a day, and has been receiving Ativan 1 mg IM every 4 hours as needed for seizure. Daughter is bedside and states . She reports that patient has had refractory-like seizure where her eyes roll upward and to the right when she is having a seizure, she had 36 seizures within a 45 minute period today. December 2015, after being evaluated at [facility]. Daughter report she had an MRI, LP hematological, oncological, and infectious etiology which was completely negative. She has not had a grand mal since that time. Her daughter also reports that she does not sleep at night and she is always agitated and sometimes combative and is given Haldol IM daily. Daughter denies mom has been sick or complaining of pain, and has been eating well. Past Medical/Surgical History Medical Problems: (1) Altered mental status Status: Acute (2) Altered mental status Status: Acute (3) Encephalopathy Status: Acute (4) Fall Status: Acute (5) Head injury, closed Status: Acute (6) Hematoma Status: Acute (7) Hypokalemia Status: Acute (8) Seizure Status: Acute (9) Seizure Status: Acute (10) Seizure Status: Acute (11) Status epilepticus Status: Acute (12) UTI (urinary tract infection) Status: Acute Social History Smoking Status: Former smoker Smokeless Tobacco Use: No Alcohol Use: socially (previously) Drug Use: none Marital Status: Housing Status: detention Occupation Status: retired Allergies Coded Allergies: Meloxicam (Verified Allergy, Intermediate, unknown, 05/04/16) Tramadol (Verified Allergy, Intermediate, unknown, 05/04/16) Cephalexin (Verified Allergy, Unknown, ., 05/04/16) Ciprofloxacin (Verified Allergy, Unknown, unknown, 05/04/16) Rofecoxib (Verified Allergy, Unknown, ., 05/04/16) Current Inpatient Medications Current Inpatient Medications Medications (Trade) Dose Ordered Sig/Madeline Route Start Time Stop Time Status Last Admin Dose Admin Gabapentin (Neurontin Cap) 300 mg TID PO 05/18/16 20:00 06/17/16 19:59 05/18/16 21:01 300 MG Hydrochlorothiazide (Hydrochlorothiazide Tab) 25 mg QAM PO 05/19/16 08:00 06/18/16 07:59 Acetaminophen/ Hydrocodone Bitart ([place] 5/325 Tab) 1 tab Q4H PRN PO 05/18/16 15:15 06/01/16 15:14 Lidocaine (Lidoderm Patch 5%) 1 patch DAILY TD 05/19/16 08:00 06/18/16 07:59 Lorazepam (Ativan Tab) 0.5 mg Q6 PO 05/18/16 18:00 06/17/16 17:59 05/19/16 12:08 0.5 MG Megestrol Acetate (Megace Susp) 400 mg BID PO 05/18/16 20:00 06/17/16 19:59 05/18/16 21:01 400 MG Sertraline HCl (Zoloft Tab) 50 mg DAILY PO 05/19/16 08:00 06/18/16 07:59 Trazodone HCl (Desyrel Tab) 25 mg HS PO 05/18/16 22:00 06/17/16 21:59 05/18/16 21:03 25 MG Triamcinolone Acetonide (Nasacort Allergy 24hr) 2 sprays DAILY KELSIE 05/19/16 08:00 06/18/16 07:59 Valproic Acid (Depakene Syrup) 500 mg DAILY@1200 PO 05/19/16 12:00 06/18/16 11:59 05/19/16 12:08 500 MG Valproic Acid (Depakene Syrup) 750 mg AMHS PO 05/18/16 20:00 06/17/16 19:59 05/19/16 07:40 750 MG Buspirone HCl (Buspar Tab) 10 mg TID PO 05/18/16 20:00 06/17/16 19:59 05/18/16 21:00 10 MG Polyethylene (Miralax Powder Packet) 17 gm DAILY PO 05/19/16 08:00 06/18/16 07:59 Miscellaneous (Remove Lidoderm Patch) 1 ea DAILY@21 N/A 05/18/16 21:00 06/17/16 20:59 05/18/16 21:02 1 EA Haloperidol Lactate (Haldol Inj) 5 mg Q6H PRN IM 05/18/16 16:00 06/17/16 15:59 05/18/16 22:16 5 MG Clonazepam Can give 0.5 to 1 mg q 8H... Q8 PRN PO 05/18/16 16:00 06/17/16 15:59 Potassium Chloride/Sodium Chloride (1/2 Nss + 20meq KCl 1000ml) 1,000 ml @ 100 mls/hr Q10H IV 05/18/16 20:00 05/20/16 01:59 05/19/16 05:59 100 MLS/HR Levetiracetam 500 mg 500 mg BID PO 05/19/16 20:00 06/18/16 19:59 Piperacillin Sod/ Tazobactam Sod/ Dextrose (Zosyn Iv/D5 100ml) 115 ml @ 28.75 mls/ hr Q8 IV 05/19/16 14:00 05/24/16 13:59 UNV Physical Exam Vital Signs (Past 24 Hrs): Date Time Temp Pulse Resp B/P Pulse Ox O2 Delivery O2 Flow Rate FiO2 05/19/16 08:15 Room Air 05/19/16 07:24 36.8 73 16 134/74 100 05/19/16 00:35 Room Air 05/18/16 16:00 93 Room Air 05/18/16 15:00 36.9 87 18 97/65 98 Room Air 05/18/16 15:00 36.9 87 18 97/65 98 Room Air Gen: alert very agitated trying to get OOB pupils are reactive but miotic, follows some EOMI lungs course BS CV RRR moving all extremities but not with command continues to repeat the same words and states she wants her daughter when asked if she has pain she states "no" Laboratory Results Past 24 Hours: 05/18/16 14:30 Red Blood Count 4.60, Mean Corpuscular Volume 80.9, Mean Corpuscular Hemoglobin 26.5, Mean Corpuscular Hemoglobin Concent 32.8, Mean Platelet Volume 10.2, Neutrophils (%) (Auto) 54.5, Lymphocytes (%) (Auto) 32.7, Monocytes (%) (Auto) 10.6, Eosinophils (%) (Auto) 1.9, Basophils (%) (Auto) 0.1, Neutrophils # (Auto ) 5.85, Lymphocytes # (Auto) 3.50, Monocytes # (Auto) 1.13, Eosinophils # (Auto ) 0.20, Basophils # (Auto) 0.01 05/18/16 14:30 Test 05/18/16 14:30 05/19/16 11:42 White Blood Count 10.71 K/uL (4.8-10.8) Red Blood Count 4.60 M/uL (4.2-5.4) Hemoglobin 12.2 g/dL (12.0-16.0) Hematocrit 37.2 % (37-47) Mean Corpuscular Volume 80.9 fL (80-100) Mean Corpuscular Hemoglobin 26.5 pg (25-34) Mean Corpuscular Hemoglobin Concent 32.8 g/dl (32-36) Platelet Count 192 K/uL (130-400) Mean Platelet Volume 10.2 fL (7.4-10.4) Neutrophils (%) (Auto) 54.5 % Lymphocytes (%) (Auto) 32.7 % Monocytes (%) (Auto) 10.6 % Eosinophils (%) (Auto) 1.9 % Basophils (%) (Auto) 0.1 % Neutrophils # (Auto) 5.85 K/uL (1.4-6.5) Lymphocytes # (Auto) 3.50 K/uL (1.2-3.4) Monocytes # (Auto) 1.13 K/uL (0.11-0.59) Eosinophils # (Auto) 0.20 K/uL (0-0.5) Basophils # (Auto) 0.01 K/uL (0-0.2) RDW Standard Deviation 49.0 fL (36.4-46.3) RDW Coefficient of Variation 16.4 % (11.5-14.5) Immature Granulocyte % (Auto) 0.2 % Immature Granulocyte # (Auto) 0.02 K/uL (0.00-0.02) Anion Gap 7.0 mmol/L (3-11) Est Creatinine Clear Calc Drug Dose 47.6 ml/min Estimated GFR () 66.7 Estimated GFR (Non- 57.5 BUN/Creatinine Ratio 30.0 (10-20) Calcium Level 9.0 mg/dl (8.5-10.1) Total Bilirubin 0.2 mg/dl (0.2-1) Direct Bilirubin < 0.1 mg/dl (0-0.2) Aspartate Amino Transf (AST/SGOT) 15 U/L (15-37) Alanine Aminotransferase (ALT/SGPT) 12 U/L (12-78) Alkaline Phosphatase 136 U/L (45-117) Total Protein 6.8 gm/dl (6.4-8.2) Albumin 2.8 gm/dl (3.4-5.0) Valproic Acid (Depakene) Level 90 mcg/ml (50-100) Bedside Glucose 93 mg/dl (70-90) Date/Time Source Procedure Growth Status 05/18/16 16:35 Nasal MRSA DNA Surveillance Screen - Final Specimen Negative for MRSA by DNA Probe Complete Imaging MRI attempted but unable to cooperate Impression 76 year old female with seizure disorder and progressive dementia Plan 1. requesting records from [facility]-daughter in room states MRI did show something that they said was a source of seizures 2. 1:1 need patient is a fall risk 3. continue Keppra 500 mg BID- daughter states this was just started question why this was stopped 4. ativan 1 mg q 6 hours and klonopin 0.5 mg - 1 mg q 8 h was started and the ativan was stopped at admission 5. has been on trazodone and haldol for behavior issues seraquel may be a better option will defer to psych 6. UTI -has been started on zoysn for possible UTI awaiting culture 7. EEG read but poor quality due to motion artifact - may repeat if able 8. Depakote 750 mg am and 500 mg pm 9. would consult psych for further management of behavior issues I have seen and discussed above patient with Dr Katya Jesus, neurology Pt seen and examined, hx reviewed, reviewed MRI brain combo from 01/2016 and [facility] recs. It is unclear to me whether pt has had any of her typical episodes while on continuous EEG monitor. That having been said the episodes were apparently well controlled until recently. By report greater than 30 yesterday, although description NA. We have seen pt with spells of eye and head deviation to the right on prior admissions. Pt is modestly agitated trying to get OOB, speech minimal, perservarative. No gaze pref. Echymosis R face, neck, resolving hematoma R scalp> perrl, unable to vis fundus. Moves all four extremities symmetrically, bl gegenhalten, symmetric reflexes mute toes. Imp reported multiple breakthrough sz in a pt with significant dementia, hx of recent falls. P CT head c spine as none done on this admission and pt has signs of trauma. Increase Keppra to 750 mg twice a day. EEG shows no current sz or subclinical status. If recurrent sz could load IV Dilantin, if refractory would need to be transferred to an EMU. Apparent UTI may lower sz threshold. REc psych eval re meds for agitation. PARISA Jesus MD
[2016-05-19] MEDS: DOXYCYCLINE HYCLATE 100 MG in DEXTROSE 5% 100ML IV SCH (13:46)
[2016-05-19 15:05] VITALS: BP 182/79; PULSE 123; TEMP 37; O2SAT 96
[2016-05-19] MEDS: HALOPERIDOL LACTATE 5 MG/ML 1 ML VIAL IM PRN (15:54)
[2016-05-19 16:00] VITALS: O2SAT 96
[2016-05-19] MEDS ORDERED: PIPERACILL/TAZOBAC IV 3.375 GM in DEXTROSE 5% 100ML 100 ML IV SCH (18:00)
--- NOTE | 2016-05-19 19:47 | Hospitalist Progress Note ---
Hospitalist Progress Note Date of Service May 19, 2016. Subjective Pt evaluation today including: conversation w/ patient, conversation w/ family (son on phone), physical exam, chart review, lab review, review of studies, conversation w/ test consultant (Neuro PA), review of inpatient medication list Pt very restless adn confused todya, repeating herself, not following any commands, but awake and alert. No seizure activity since admission. Son reports on phone that this sounds like her baseline and she has been progressively worsening over the last month. Additional Comments: could not obtain to due to dementia Objective Vital Signs Date Time Temp Pulse Resp B/P Pulse Ox O2 Delivery O2 Flow Rate FiO2 05/19/16 16:00 96 Room Air 05/19/16 15:05 37.0 123 18 182/79 96 Room Air 05/19/16 08:15 Room Air 05/19/16 07:24 36.8 73 16 134/74 100 05/19/16 00:35 Room Air Physical Exam General Appearance: WD/WN, + mild distress (restless, repeating self and calling out for her sister) Eyes: normal inspection, sclerae normal ENT: hearing grossly normal Neck: trachea midline Respiratory/Chest: normal breath sounds, no respiratory distress, no accessory muscle use Cardiovascular: regular rate, rhythm, no edema, no murmur Abdomen: normal bowel sounds, non tender, soft Extremities: normal inspection, no pedal edema, no calf tenderness Neurologic/Psychiatric: alert, + disoriented, + pertinent finding (oriented only to name, not following commands, moving all extremities) Skin: normal color, warm/dry Laboratory Results Last 24 Hours Test 05/18/16 21:55 05/19/16 00:49 05/19/16 06:09 05/19/16 11:42 Bedside Glucose 104 mg/dl 94 mg/dl 85 mg/dl 93 mg/dl Test 05/19/16 17:06 Bedside Glucose 104 mg/dl Assessment and Plan 76 yo F with a PMHx of recurrent seizures, Ativan dependence, hypertension, dementia, depression, and anxiety who was transported as a direct admission from [facility] for refractory seizures. Refractory seizures, Agitation-improved since admission and received IV Keppra - Admitted to [facility] - Neurology consult appreciated. EEG nondiagnostic due to too much movement but no definite seizure activity -continue Keppra 500 mg po BID which was started about 2 weeks ago - Continue Depakote and increase to 750 mg bid -clonazepam po or ativan po or IV prn seziure or anxiety -Agree with Psych consult for agitation management--> maybe Seroquel for sleep rather than trazodone - check Keppra and valproic acid levels - Seizure precautions - 1:1 bedside sitter needed for reorientation -Haldol IM prn -check CT Head and neck as per Neuro for trauma although did have CT head and neck after a fall 2 weeks ago and I suspect current bruises are from that but not sure -UA abnl, treat with Doxy IV given allergies to other abx and await ur cx result --> could be contributing to worsening seizures Depression Anxiety-worsening but hard to tell due to dementia and agitation -Continue sertraline 50 mg daily, [id number] mg daily for now Hypertension - Continue hydrochlorothiazide 25 mg daily DVT prophylaxis: Teds SCDs CODE STATUS: Full code Disposition: Patient from [facility] to assist with discharge planning
[2016-05-19] MEDS ORDERED: LEVETIRACETAM 500 MG TAB PO SCH (20:00)
[2016-05-19] MEDS: LEVETIRACETAM 250 MG TAB PO SCH (20:17)
[2016-05-19] MEDS: TRAZODONE HCL 50 MG TAB PO SCH (20:18)
[2016-05-19 20:35] VITALS: BP 72/40; PULSE 98; TEMP 36.8; O2SAT 99
[2016-05-20] VITALS (9 sets, daily range): BP systolic 114–185; BP diastolic 75–113; PULSE 87–120; TEMP 36.3–36.8; O2SAT 95–98
[2016-05-20] MEDS ORDERED: GADAVIST IV PRN (01:00)
[2016-05-20] MEDS: DOXYCYCLINE HYCLATE 100 MG in DEXTROSE 5% 100ML IV SCH ×2 (01:50→13:33)
[2016-05-20] MEDS: LORAZEPAM 0.5 MG TAB PO SCH ×2 (06:05)
--- NOTE | 2016-05-20 06:33 | DIAGNOSTIC IMAGING REPORT ---
CT OF THE HEAD WITHOUT CONTRAST CLINICAL HISTORY: Falls, bruising. COMPARISON STUDY: Head CT May 04, 2016. CT DOSE: 1055.38 mGy.cm TECHNIQUE: Helical axial images of the head were obtained without IV contrast. Automated exposure control was utilized for the study. FINDINGS: No acute intracranial hemorrhage, midline shift or mass effect is present. Ventricular system is stable. Basilar cisterns are patent. There are no extra-axial collections. There are no findings to suggest acute dural sinus thrombosis or acute territorial infarct. White matter hypodensity suggests small vessel disease. A right sided scalp contusion has decreased in size since exam of May 04, 2016. There is no calvarial fracture. There is an air-fluid level within the left sphenoid sinus with mucosal thickening. IMPRESSION: 1. No acute intracranial findings. 2. Decrease in size of the right-sided scalp contusion since CT of May 04, 2016. No calvarial fracture. 3. Left sphenoid sinus air-fluid level. Electronically signed by: Josue Tapia M.D. 05/20/2016 6:31 AM Dictated Date/Time: 05/20/2016 6:29 AM
--- NOTE | 2016-05-20 07:07 | DIAGNOSTIC IMAGING REPORT ---
MRI OF THE BRAIN WITHOUT AND WITH IV CONTRAST SEIZURE PROTOCOL CLINICAL HISTORY: Uncontrolled seizure. COMPARISON STUDY: MRI of the brain January 07, [address] May 19, 2016. TECHNIQUE: Utilizing a 1.5 Jen magnet and dedicated coil, multiplanar, multiecho imaging of the brain was performed pre and postcontrast administration. IV administration of 6.5 mL of Gadavist contrast was uneventful. Thin cut coronal T2 imaging was performed according to seizure protocol. FINDINGS: There are no areas of restricted diffusion. No acute intracranial hemorrhage, midline shift or mass effect is present. Brain volume is normal for age. Ventricular system is normal. Basilar cisterns are patent. There are no extra-axial collections. Flow-voids for the major intracranial vessels are present. There are no intracranial masses or areas of pathologic enhancement. Periventricular white matter T2 hyperintense foci are similar to MRI of January 07, 2016. There is mucosal thickening within air-fluid level within the left sphenoid sinus. A right sided scalp contusion has decreased in size since head CT May 04, 2016. IMPRESSION: 1. No acute intracranial findings. 2. No intracranial masses or pathologic enhancement. 3. No change in appearance of the brain since MRI of January 07, 2016. 4. Left sphenoid sinus air-fluid level. 5. Interval decrease in size of a right scalp contusion since head CT of May 04, 2016. Electronically signed by: Josue Tapia M.D. 05/20/2016 7:06 AM Dictated Date/Time: 05/20/2016 6:58 AM
--- NOTE | 2016-05-20 07:12 | DIAGNOSTIC IMAGING REPORT ---
CT SCAN OF THE CERVICAL SPINE CLINICAL HISTORY: Fall. Head injury. COMPARISON STUDY: CT scan of cervical spine dated 05/04/2016. TECHNIQUE: CT scan of the cervical spine is performed from the skull base to the upper thoracic spine. Images are reviewed in the axial, sagittal, and coronal planes. IV contrast was not administered for this examination. FINDINGS: Skeletal structures: The skeletal structures are osteopenic. There is no evidence of fracture or subluxation involving the cervical spine. Vertebral body height and alignment are maintained. The odontoid process and lateral masses are intact. The atlantoaxial articulation is preserved. 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 The spinous processes appear intact. Anterior osteophytes are seen at C5-C6. There is a mild superior compression deformity of T2, unchanged from prior examinations. Minimal facet arthropathy is noted. Intervertebral discs: There is moderate degenerative disc space narrowing at C5-C6. The remaining disc spaces are well maintained. Central canal: A posterior disc osteophyte complex at C5-C6 likely contributes to mild acquired compromise of the central canal. Soft tissues: The prevertebral and paraspinous soft tissues are within normal limits. Atherosclerotic calcification is noted in the carotid bulbs. A 2.3 cm nodule is present in the right lobe of the thyroid gland. Calvarium: The visualized calvarium at the skull base appears intact. Brain parenchyma: Partially visualized brain parenchyma the skull base is within normal limits noting age-related involutional change. Sinuses and mastoids: Trace fluid is noted within the sphenoid sinuses. Trace fluid is seen within he mastoid air cells bilaterally. Lung apices: A calcified granuloma is noted in the right upper lobe. Otherwise clear as visualized. IMPRESSION: 1. There is no evidence of fracture or subluxation involving the cervical spine. 2. Osteopenia and minimal degenerative change as above. 3. A 2.3 cm low-attenuation nodule is again noted in the right thyroid lobe. Electronically signed by: Noe Lambert M.D. 05/20/2016 7:10 AM Dictated Date/Time: 05/20/2016 7:08 AM
[2016-05-20] MEDS: TRIAMCINOLONE ACET NASAL SPRAY 10.8ML BTL NAE SCH (08:53)
[2016-05-20] MEDS: VALPROIC ACID SYRUP 250 MG/5 ML PO SCH ×2 (08:55→19:42)
[2016-05-20] MEDS: HYDROCHLOROTHIAZIDE 25 MG TAB PO SCH (08:56)
[2016-05-20] MEDS: LEVETIRACETAM 250 MG TAB PO SCH ×2 (08:57→19:42)
[2016-05-20] MEDS: POLYETHYLENE (MIRALAX) 17 GM PACK PO SCH (08:57)
[2016-05-20] MEDS: MEGESTROL ACETATE 400 MG/10 ML UDP PO SCH ×3 (08:57→20:00)
[2016-05-20] MEDS: GABAPENTIN 300 MG CAP PO SCH ×3 (08:58→19:41)
[2016-05-20] MEDS: SERTRALINE HCL 50 MG TAB PO SCH (08:58)
[2016-05-20] MEDS: LIDODERM (LIDOCAINE) PATCH 5% TD SCH (09:16)
--- NOTE | 2016-05-20 09:44 | Clinical Documentation Query ---
CLINICAL DOCUMENTATION QUERY 76-year-old female with refractory seizures. In your clinical opinion is this patient being managed for: ( x ) UTI evidenced by abnormal UA and urine culture treated with IV Unasyn ( ) Other explanation of clinical findings (Please Explain) ( ) Unable to determine (Please Define) ( ) Need to Discuss ( ) Not Agree The medical record reflects the following clinical findings, treatment, and risk factors. Clinical Indicators: latest progress note states, "UA abnl, treat with Doxy IV given allergies to other abx and await ur cx result--> could be contributing to worsening seizures" Treatment: IV Doxycycline Risk Factors: Age, sex Please clarify and document your clinical opinion in the progress notes and discharge summary. Terms such as "probable", "suspected", "likely", "questionable", "possible", or "still to be ruled out" are acceptable. IF IN AGREEMENT, YOU MUST DOCUMENT ABOVE DIAGNOSTIC STATEMENT IN DAILY PROGRESS NOTES AND DISCHARGE SUMMARY. This document is not part of the patient's record. Thank You, Thomas Santillan, RN [phone]
--- NOTE | 2016-05-20 11:54 | Neurology Progress Notes ---
Neurology Progress Note Date of Service May 20, 2016. Alecia Sawyer is a 76-year-old female with a PMH of recurrent seizure, Ativan dependence, hypertension, dementia, depression, and anxiety who was transported as a direct admission from [facility] for refractory seizures. She is currently on Keppra 500 mg twice a day, and has been receiving Ativan 1 mg IM every 4 hours as needed for seizure. Daughter is bedside and states . She reports that patient has had refractory-like seizure where her eyes roll upward and to the right when she is having a seizure, she had 36 seizures within a 45 minute period today. December 2015, after being evaluated at [facility]. Daughter report she had an MRI, LP hematological, oncological, and infectious etiology which was completely negative. She has not had a grand mal since that time. Her daughter also reports that she does not sleep at night and she is always agitated and sometimes combative and is given Haldol IM daily. Daughter denies mom has been sick or complaining of pain, and has been eating well. She is sleep this am. According to aid in room she was up all night very confused and restless. Her daughter is no in the room this am. Objective Date Time Temp Pulse Resp B/P Pulse Ox O2 Delivery O2 Flow Rate FiO2 05/20/16 08:45 98 Room Air 05/20/16 08:29 36.8 87 18 151/77 98 Room Air 05/20/16 01:40 36.6 88 18 185/96 97 Room Air 05/20/16 01:00 Room Air 05/19/16 20:35 36.8 98 18 72/40 99 Room Air 05/19/16 16:00 96 Room Air 05/19/16 15:05 37.0 123 18 182/79 96 Room Air Last 24 Hours Test 05/19/16 17:06 05/20/16 01:10 05/20/16 05:49 05/20/16 07:58 Bedside Glucose 104 mg/dl 94 mg/dl 85 mg/dl Ammonia 35.0 umol/L Imaging: no new imaging Exam: Gen: sleeping lungs CTA CV RRR move all extremities spontaneously Current Inpatient Medications Medications (Trade) Dose Ordered Sig/Madeline Route Start Time Stop Time Status Last Admin Dose Admin Gabapentin (Neurontin Cap) 300 mg TID PO 05/18/16 20:00 4/14/17 19:59 05/20/16 08:58 300 MG Hydrochlorothiazide (Hydrochlorothiazide Tab) 25 mg QAM PO 05/19/16 08:00 06/18/16 07:59 05/20/16 08:56 25 MG Acetaminophen/ Hydrocodone Bitart ([place] 5/325 Tab) 1 tab Q4H PRN PO 05/18/16 15:15 06/01/16 15:14 Lidocaine (Lidoderm Patch 5%) 1 patch DAILY TD 05/19/16 08:00 06/18/16 07:59 05/20/16 09:16 1 PATCH Lorazepam (Ativan Tab) 0.5 mg Q6 PO 05/18/16 18:00 06/17/16 17:59 05/20/16 06:05 0.5 MG Megestrol Acetate (Megace Susp) 400 mg BID PO 05/18/16 20:00 06/17/16 19:59 05/20/16 08:57 400 MG Sertraline HCl (Zoloft Tab) 50 mg DAILY PO 05/19/16 08:00 06/18/16 07:59 05/20/16 08:58 50 MG Trazodone HCl (Desyrel Tab) 25 mg HS PO 05/18/16 22:00 06/17/16 21:59 05/19/16 20:18 25 MG Triamcinolone Acetonide (Nasacort Allergy 24hr) 2 sprays DAILY KELSIE 05/19/16 08:00 06/18/16 07:59 05/20/16 08:53 2 SPRAYS Valproic Acid (Depakene Syrup) 500 mg DAILY@1200 PO 05/19/16 12:00 06/18/16 11:59 05/19/16 12:08 500 MG Valproic Acid (Depakene Syrup) 750 mg AMHS PO 05/18/16 20:00 06/17/16 19:59 05/20/16 08:55 750 MG Buspirone HCl (Buspar Tab) 10 mg TID PO 05/18/16 20:00 06/17/16 19:59 05/20/16 08:54 10 MG Polyethylene (Miralax Powder Packet) 17 gm DAILY PO 05/19/16 08:00 06/18/16 07:59 Miscellaneous (Remove Lidoderm Patch) 1 ea DAILY@21 N/A 05/18/16 21:00 06/17/16 20:59 05/19/16 20:17 1 EA Haloperidol Lactate (Haldol Inj) 5 mg Q6H PRN IM 05/18/16 16:00 06/17/16 15:59 05/19/16 15:54 5 MG Clonazepam Can give 0.5 to 1 mg q 8H... Q8 PRN PO 05/18/16 16:00 06/17/16 15:59 05/20/16 02:42 0.5 MG Doxycycline Hyclate/Dextrose (Vibramycin IV/ D5 100ml) 110 ml @ 55 mls/hr Q12@0000,1200 IV 05/19/16 13:30 05/24/16 13:29 05/20/16 01:50 55 MLS/HR Levetiracetam 750 mg 750 mg BID PO 05/19/16 20:00 06/18/16 19:59 05/20/16 08:57 750 MG Lorazepam/Syringe (Ativan Inj/ Syringe) 1 ml @ 0.5 mls/min Q4 PRN IV 05/19/16 19:45 06/18/16 19:44 Gadobutrol (Gadavist) 6.5 mmol UD PRN IV 05/20/16 01:00 05/24/16 00:59 Impression 76 year old female with seizure disorder and progressive dementia Plan 1. requesting records from [facility]-daughter in room states MRI did show something that they said was a source of seizures 2. 1:1 need patient is a fall risk 3. Keppra 500 mg BID was increased yesterday to 750 mg BID - daughter states this was just started question why this was stopped 4. ativan 1 mg q 6 hours and klonopin 0.5 mg - 1 mg q 8 h was started and the ativan was stopped at admission 5. has been on trazodone and haldol for behavior issues seraquel may be a better option will defer to psych 6. UTI -has been started on zoysn for possible UTI awaiting culture -now changed to Doxy IV due to returned culture findings 7. EEG read but poor quality due to motion artifact - may repeat if able 8. Depakote 750 mg am and 500 mg pm 9. would consult psych for further management of behavior issues I have seen and discussed above patient with Dr Vignesh Tobias, neurology Reviewed with Katya Duran patient seen but was being evaluated by speech and was only moderately cooperative no focal signs no seizure activity seen will continue the keppra in increased doses and the depakote and hopefully psych will be able to offer advice re management of behavioral issues may repeat eeg at some point as the recording yesterday was very limited due to movement and behaviour will see again tomorrow Vignesh Tobias MD
--- NOTE | 2016-05-20 12:06 | Psychiatric Consultation ---
Consultation Identifying Data Ms. Phan is a 76 yo female who resides at [facility]. Consult is by Dr. Scott for behavioral support for AMS/dementia. Chief Complaint "I want water". History of Present Illness patient is admitted for seizures. Son seemed unaware of her dementia diagnosis. Concerned about her ongoing seizures and AMS, staring at times so hard to tell what is delirium vs. seizure activity. Explained why MRI can be normal in dementia and seizures. He expressed concerned about polypharmacy and prns. Did receive Ativan in middle of night for restlessness, dose of IM haldol yesterday afternoon. is in low bed with 1-on-1, confused and trying to get up but redirected. speech hasn't been particularly intelligible. Past Psychiatric History Current OP Treatment: psychiatrist (Cj with additional [facility]) denied psych history prior to onset of dementia Past Medical/Surgical History Problem List: (1) UTI (urinary tract infection) (2) Refractory seizure (3) Hypertension (4) Dyslipidemia (5) Diabetes mellitus, type II (6) Dementia Allergies Allergies: Coded Allergies: Meloxicam (Verified Allergy, Intermediate, unknown, 05/04/16) Tramadol (Verified Allergy, Intermediate, unknown, 05/04/16) Cephalexin (Verified Allergy, Unknown, ., 05/04/16) Ciprofloxacin (Verified Allergy, Unknown, unknown, 05/04/16) Rofecoxib (Verified Allergy, Unknown, ., 05/04/16) Home Medications Scheduled Atorvastatin (Lipitor), 40 MG PO DAILY Buspirone Hcl (Buspirone Hcl), 10 MG PO TID Gabapentin (Neurontin), 300 MG PO TID Hydrochlorothiazide (Hydrochlorothiazide), 1 TAB PO QAM Lidocaine (Lidocaine), 1 PATCH TOP DAILY Lorazepam (Ativan), 0.5 MG PO Q6H Magnesium Oxide (Magnesium-Oxide), 400 MG PO QAM Megestrol Acetate (Megace Oral), 400 MG PO BID Multiple Vitamins W/ Minerals (Multi Vitamin and Mineral), 1 TAB PO DAILY Nutritional Supplements (Nutritional Shake), 1 CAN PO BID Nutritional Supplements (Nutritional Shake), 1 PO DAILY AT NOON Polyethylene Glycol 3350 (Miralax), 17 GM PO DAILY Potassium Chloride (K-Tabs), 10 MEQ PO DAILY Sertraline (Zoloft), 50 MG PO DAILY Trazodone Hcl (Trazodone), 25 MG PO HS Triamcinolone Acetonide (Nasal (Nasacort Allergy 24Hr), 2 SPRAYS KELSIE DAILY Valproic Acid (Depakene), 10 ML PO DAILY AT NOON Valproic Acid Syrup (Depakene), 15 ML PO AMPM Scheduled PRN Acetaminophen (Tylenol), 650 MG PO Q6H PRN for Pain or Fever Dextrose (Diabetic Use) (Insta-Glucose), 1 APPLN PO Q15M PRN for HYPOGLYCEMIA PROTOCOL Glucagon (Glucagon Emergency Kit), 1 APPLN IM Q15M PRN for HYPOGLYCEMIA PROTOCOL Haloperidol Lactate (Haldol), 1 MG IM Q4 PRN for Agitation Hydrocodone/Acetaminophen 5MG/325MG ([place] 5MG/325MG), 1 TABLET PO Q4H PRN for Pain Hydrocodone/Acetaminophen 5MG/325MG ([place] 5MG/325MG), 2 TABLETS PO Q4 PRN for Pain Lorazepam (Lorazepam), 1 MG IM Q5M PRN for seizures Family History Diabetes mellitus Hypertension denied psych hx Alcohol Use Alcohol Use In Past 12 Months: No Substance History no Personal History Additional Comments: son Nam Phan [phone], sister also local and plans to visit, did not obtain additional social history as [facility] Review of Systems patient is unable to complete, has D. Examination Vital Signs Vital Signs Past 12 Hours Date Time Temp Pulse Resp B/P Pulse Ox O2 Delivery O2 Flow Rate FiO2 05/20/16 08:45 98 Room Air 05/20/16 08:29 36.8 87 18 151/77 98 Room Air 05/20/16 01:40 36.6 88 18 185/96 97 Room Air 05/20/16 01:00 Room Air Laboratory Results Last 24 Hours Test 05/19/16 17:06 05/20/16 01:10 05/20/16 05:49 05/20/16 07:58 Bedside Glucose 104 mg/dl 94 mg/dl 85 mg/dl Ammonia 35.0 umol/L Mental Examination During interview pt is: other (disoriented) Eye contact is: poor Motor behavior is: other (restless) Speech: other (poorly articulated, delay in response, likely also [place]) Affect: blunted Mood is: anxious (due to confusion) Thought process: other (very disorganized) unable to answer questions re: leticia, SI/TRANG. Impression / Recommendations Impression 76 yo female with refractory seizure disorder, dementia, AMS experiencing behavioral disturbance requiring prns, consult for consideration of Seroquel. Risk Factors Assessment Access to guns: No Recommendations cognitive disorder with comorbid seizure disorder--reviewed with son risks/ benefits/alternatives re: antipsychotic medications for behavioral disturbance related to dementia/AMS, including but not limited to increase in mortality risk (cardiovascular or infectious events) in elderly dementia patients on conventional or atypical antipsychotics has been reported. Reviewed that safer option than prn Haldol as less dystonia with Seroquel and likely better agent for sleep and anxiety than trazodone and Buspar. Son was agreeable to trial and med changes listed. Reviewed that given AMS I had ordered ammonia level for this am which is just above normal but may be clinically significant in this patient. Dr. Chaparro notified and agrees to med changes as above.
[2016-05-20] MEDS ORDERED: QUETIAPINE FUMARATE 25 MG TAB PO PRN (12:15)
[2016-05-20] MEDS: VALPROIC ACID 500 MG/10 ML UDP PO SCH (13:23)
[2016-05-20] MEDS: LORAZEPAM INJ 1 MG in SYRINGE 0.5 ML IV PRN (15:50)
--- NOTE | 2016-05-20 15:53 | Hospitalist Progress Note ---
Hospitalist Progress Note Date of Service May 20, 2016. Subjective Pt evaluation today including: conversation w/ patient, physical exam, review of inpatient medication list Pt awake but not cooperative for exam. When asked questions, keeps saying "Bill , Bill." Tachycardia noted by ST today. ECG with sinus tach, BP elevated Additional Comments: ROS unobtainable due to dementia All Other Systems: Reviewed and Negative Objective Vital Signs Date Time Temp Pulse Resp B/P Pulse Ox O2 Delivery O2 Flow Rate FiO2 05/20/16 14:44 162/76 05/20/16 13:50 147/75 05/20/16 08:45 98 Room Air 05/20/16 08:29 36.8 87 18 151/77 98 Room Air 05/20/16 01:40 36.6 88 18 185/96 97 Room Air 05/20/16 01:00 Room Air 05/19/16 20:35 36.8 98 18 72/40 99 Room Air 05/19/16 16:00 96 Room Air Physical Exam General Appearance: WD/WN, + mild distress (anxious, repeating self. restless) Eyes: normal inspection, sclerae normal Neck: trachea midline Respiratory/Chest: lungs clear, normal breath sounds, no respiratory distress, no accessory muscle use Cardiovascular: no edema, no murmur, + tachycardia (with reg rhythm) Abdomen: normal bowel sounds, non tender, soft Extremities: non-tender, normal inspection, no calf tenderness Neurologic/Psychiatric: alert, + disoriented (x 3), + pertinent finding ( moving all extremities, repeating words, not answering any questions) Skin: normal color, warm/dry, no rash Laboratory Results Last 24 Hours Test 05/19/16 17:06 05/20/16 01:10 05/20/16 05:49 05/20/16 07:58 Bedside Glucose 104 mg/dl 94 mg/dl 85 mg/dl Ammonia 35.0 umol/L Test 05/20/16 11:53 Bedside Glucose 102 mg/dl Assessment and Plan 76 yo F with a PMHx of recurrent seizures, Ativan dependence, hypertension, dementia, depression, and anxiety who was transported as a direct admission from [facility] for refractory seizures. Refractory seizures-improved since admission and received IV Keppra, none witnessed here, Neurology following and have increased Keppra dose Neurology consult appreciated. EEG nondiagnostic due to too much movement but no definite seizure activity Depakote level normal at 90, Keppra level pending H/o falls with head and neck trauma 2 weeks ago--> repeat CT head and neck here without acute findings Does have UTI which may account for increased sz activity -continue Keppra 500 mg po BID which was started about 2 weeks ago - Continue Depakote and increased to 750 mg bid -change clonazepam to 0.5mg bid standing order given h/o benzo dependence and only give IV ativan prn seizures or anxiety, stop po ativan -f/u Keppra level - Seizure precautions - 1:1 bedside sitter needed for reorientation and for safety -Haldol IM prn -change abx to Zosyn today for Proteus mirabilis UTI POA Depression/Anxiety, Agitation, Dementia-still worsening but hard to tell due to dementia and agitation. Agree with Psych consult for agitation management. D/w Dr. Kulkarni. -give Seroquel 12.5 for bedtime and prn for anxiety/agitation rather than trazodone -Continue sertraline 50 mg daily -Psych consult appreciated -dc trazodone -increase Buspar -SPeech Therapist noted coughing for bedside swallow, recommends repeat testing tomorrow, NPO for now except meds Hypertension, Sinus tachycardia-worsening BP and new tachycardia, could be secondary to relative benzo withdrawal - Continue hydrochlorothiazide 25 mg daily -give ativan IV now for anxiety and possible benzo withdrawal -start IVFs as is now NPO again for possible dysphagia DVT prophylaxis: Teds, SCDs CODE STATUS: Full code Disposition: Patient from [facility] to assist with discharge planning
[2016-05-20] MEDS ORDERED: PIPERACILL/TAZOBAC CONSULT ACTIVE PRN (16:00)
[2016-05-20] MEDS ORDERED: PIPERACILL/TAZOBAC IV 3.375 GM in DEXTROSE 5% 100ML 100 ML IV ONE (16:00)
[2016-05-20] MEDS ORDERED: HALOPERIDOL LACTATE 5 MG/ML 1 ML VIAL IM PRN (16:00)
[2016-05-20] MEDS ORDERED: AMPICILLIN/SULBACTAM CONSULT ACTIVE PRN ×2 (16:15)
[2016-05-20] MEDS: D5W AND 1/2NSS + 20MEQ KCL 1,000 ML IV SCH (16:56)
[2016-05-20] MEDS: AMPICILLIN/SULBACTAM SOD INJ 3,000 MG in SODIUM CHLORIDE 0.9% 100ML 100 ML IV SCH ×2 (16:56→21:39)
[2016-05-20] MEDS: CLONAZEPAM 0.5 MG TAB PO SCH (19:41)
[2016-05-20] MEDS: QUETIAPINE FUMARATE 25 MG TAB PO SCH (20:03)
[2016-05-21] VITALS (7 sets, daily range): BP systolic 107–152; BP diastolic 58–86; PULSE 89–120; TEMP 36.4–37; O2SAT 92–95
[2016-05-21] MEDS ORDERED: PIPERACILL/TAZOBAC IV 3.375 GM in DEXTROSE 5% 100ML 100 ML IV SCH ×2
[2016-05-21] MEDS: AMPICILLIN/SULBACTAM SOD INJ 3,000 MG in SODIUM CHLORIDE 0.9% 100ML 100 ML IV SCH ×4 (03:53→21:57)
[2016-05-21] MEDS: D5W AND 1/2NSS + 20MEQ KCL 1,000 ML IV SCH ×2 (05:27→17:47)
[2016-05-21 07:50] LABS: BUN/CREATININE RATIO 25.5 (10-20); CALCIUM 8.8 mg/dl (8.5-10.1); CREATININE 0.73 mg/dl (0.60-1.20); MAGNESIUM 1.8 mg/dl (1.8-2.4); POTASSIUM 4.4 mmol/L (3.5-5.1)
[2016-05-21] MEDS: GABAPENTIN 300 MG CAP PO SCH ×3 (08:00→19:50)
[2016-05-21] MEDS: SERTRALINE HCL 50 MG TAB PO SCH (08:00)
[2016-05-21] MEDS: MEGESTROL ACETATE 400 MG/10 ML UDP PO SCH ×2 (08:00→19:50)
[2016-05-21] MEDS: CLONAZEPAM 0.5 MG TAB PO SCH ×2 (08:00→20:07)
[2016-05-21] MEDS: TRIAMCINOLONE ACET NASAL SPRAY 10.8ML BTL NAE SCH (08:00)
[2016-05-21] MEDS: POLYETHYLENE (MIRALAX) 17 GM PACK PO SCH (08:00)
[2016-05-21] MEDS: HYDROCHLOROTHIAZIDE 25 MG TAB PO SCH (08:00)
[2016-05-21 08:09] LABS: BASO % 0.1 %; BASO ABS # 0.01 K/uL (0-0.2); COMPLETE YES; EOS % 1.9 %; HEMATOCRIT 43.3 % (37-47); IG% 0.2 %; LYMPH % 40.3 %; LYMPH ABS # 3.46 K/uL (1.2-3.4); MEAN CELL VOLUME 80.2 fL (80-100); MEAN CORPUSCULAR HEMOGLOBIN 26.5 pg (25-34); MEAN PLATELET VOLUME 10.3 fL (7.4-10.4); MONO % 13.6 %; NEUT % 43.9 %; PLATELET COUNT 164 K/uL (130-400); WHITE BLOOD COUNT 8.58 K/uL (4.8-10.8)
[2016-05-21] MEDS: LORAZEPAM INJ 1 MG in SYRINGE 0.5 ML IV PRN (10:04)
[2016-05-21] MEDS: LEVETIRACETAM IV 750 MG in DEXTROSE 5% 100ML 100 ML IV SCH ×2 (10:47→19:50)
[2016-05-21] MEDS: LIDODERM (LIDOCAINE) PATCH 5% TD SCH (10:47)
[2016-05-21] MEDS: VALPROATE SOD IV 500 MG in DEXTROSE 5% 50ML 50 ML IV SCH ×3 (11:00→21:09)
--- NOTE | 2016-05-21 12:22 | PROGRESS NOTE ---
DATE: 05/21/2016 DATE: 05/21/2016. Digna is a little more sedated today. She apparently is having trouble getting her medications in. We have converted her to IV Depakote 500 mg every 6 hours and the Keppra has been converted to 750 IV every 12 hours. This should hold her. I would get another set of anticonvulsant levels in a few days once the dose has been established and maintained just be sure she is not getting into a toxic range as when she arrived the Keppra and Depakote levels were both in the therapeutic ranges, the Depakote being a little higher in the range and the Keppra being mid range but the range is quite wide at 3 to 63, so level of 21 might have been sufficient to control her seizures. It is not clear what was going on at the [facility]. Report is that she had 30 seizures. I find this a little hard to believe. Right now, no seizure activity has been seen and our EEG was limited unfortunately by her movements but between the movements no potentially epileptogenic activity was noted. I will continue to visit her on a daily basis and I will probably obtain some drug levels the day after tomorrow. MAY
--- NOTE | 2016-05-21 16:06 | Psychiatric Consultation ---
Psychiatric Consultation Date of Service: May 21, 2016. Psychiatric follow up consultation. Subjective: Patient non verbal when interview. Nursing staff provided history that patient was sedated this morning but less so as day progresses. Somewhat less agitated. Objective: Patient non verbal. Patient reached out hand and attempted to hold my hand. She was pleasant but confused. Appeared comfortable and alert. Assessment: Less agitated on combination of Seroquel and Klonopin. Plan: Due to increased sedation this morning will hold off further increase in Seroquel today but will reassess and consider gradual tapering of Klonopin given potential for cognitive side effects but doing so gradually given history of seizures.
--- NOTE | 2016-05-21 19:30 | Hospitalist Progress Note ---
Hospitalist Progress Note Date of Service May 21, 2016. Subjective Pt evaluation today including: conversation w/ patient, conversation w/ family Pt calmer today, eating pureed diet when I saw her. Still not able to talk to me or answer questions. Daughter reports she was able to answer yes/no questions about 1 month ago. No seizure activity Additional Comments: unobtainable due to dementia Objective Vital Signs Date Time Temp Pulse Resp B/P Pulse Ox O2 Delivery O2 Flow Rate FiO2 05/21/16 16:00 94 Room Air 05/21/16 14:30 36.4 120 18 150/86 92 Room Air 05/21/16 08:00 95 Room Air 05/21/16 07:27 37.0 106 18 107/58 95 Room Air 05/21/16 01:34 36.5 94 18 117/75 95 Room Air 05/21/16 00:00 95 Room Air 05/20/16 21:44 114/82 Physical Exam General Appearance: no apparent distress Eyes: normal inspection, sclerae normal Neck: trachea midline Respiratory/Chest: lungs clear, normal breath sounds, no respiratory distress, no accessory muscle use Cardiovascular: regular rate, rhythm, no edema, no murmur Abdomen: normal bowel sounds, non tender, soft Extremities: normal inspection (except with sarcopenia), no pedal edema, no calf tenderness Neurologic/Psychiatric: alert, + disoriented, + pertinent finding (says "Bill" repeatedly) Skin: normal color, + pertinent finding (several small ecchymoses on head and arms) Laboratory Results Last 24 Hours Test 05/20/16 23:48 05/21/16 06:51 05/21/16 07:20 05/21/16 11:44 Bedside Glucose 133 mg/dl 117 mg/dl 97 mg/dl White Blood Count 8.58 K/uL Red Blood Count 5.40 M/uL Hemoglobin 14.3 g/dL Hematocrit 43.3 % Mean Corpuscular Volume 80.2 fL Mean Corpuscular Hemoglobin 26.5 pg Mean Corpuscular Hemoglobin Concent 33.0 g/dl Platelet Count 164 K/uL Mean Platelet Volume 10.3 fL Neutrophils (%) (Auto) 43.9 % Lymphocytes (%) (Auto) 40.3 % Monocytes (%) (Auto) 13.6 % Eosinophils (%) (Auto) 1.9 % Basophils (%) (Auto) 0.1 % Neutrophils # (Auto) 3.76 K/uL Lymphocytes # (Auto) 3.46 K/uL Monocytes # (Auto) 1.17 K/uL Eosinophils # (Auto) 0.16 K/uL Basophils # (Auto) 0.01 K/uL RDW Standard Deviation 49.0 fL RDW Coefficient of Variation 16.5 % Immature Granulocyte % (Auto) 0.2 % Immature Granulocyte # (Auto) 0.02 K/uL Sodium Level 138 mmol/L Potassium Level 4.4 mmol/L Chloride Level 106 mmol/L Carbon Dioxide Level 22 mmol/L Anion Gap 10.0 mmol/L Blood Urea Nitrogen 19 mg/dl Creatinine 0.73 mg/dl Est Creatinine Clear Calc Drug Dose 63.3 ml/min Estimated GFR () 94.0 Estimated GFR (Non- 81.1 BUN/Creatinine Ratio 25.5 Random Glucose 105 mg/dl Calcium Level 8.8 mg/dl Magnesium Level 1.8 mg/dl Test 05/21/16 15:47 Bedside Glucose 129 mg/dl Assessment and Plan 76 yo F with a PMHx of recurrent seizures, Ativan dependence, hypertension, dementia, depression, and anxiety who was transported as a direct admission from [facility] for refractory seizures. Refractory seizures-improved since admission and received IV Keppra, none witnessed here, Neurology following and have increased Keppra dose Neurology consult appreciated. EEG nondiagnostic due to too much movement but no definite seizure activity Depakote level normal at 90, Keppra level pending H/o falls with head and neck trauma 2 weeks ago--> repeat CT head and neck here without acute findings UTI may account for increased sz activity It seems at [place] her anxiety related to dementia was worsening and she was getting ativan 3-4x/day on most days and then once daily on others--> may have some component of benzo withdrawal? -continue Keppra 500 mg po BID - Continue Depakote and increased to 750 mg bid -change clonazepam to 0.5mg bid standing order given h/o benzo dependence and only give IV ativan prn seizures or anxiety, stopped po ativan -f/u Keppra level - Seizure precautions - 1:1 bedside sitter needed for reorientation and for safety, will need to get off 1:1 to get to SNF -Haldol IM prn -change abx to Zosyn today for Proteus mirabilis UTI POA Depression/Anxiety, Agitation, Dementia-less agitated today after starting Seroquel. Apprecaite Psych consult -continue Seroquel 12.5 for bedtime and prn for anxiety/agitation rather than trazodone -Continue sertraline 50 mg daily -increase Buspar -Speech Therapist eval again today and much improved--> start feeding Hypertension, Sinus tachycardia-worsening BP and new tachycardia, could be secondary to relative benzo withdrawal--> Improved - Continue hydrochlorothiazide 25 mg daily -Ativan IV prn tachycardia as is sign of withdrawal from benzos, but attempting to taper down off benzos DVT prophylaxis: Job Elkins CODE STATUS: Full code Disposition: Patient from [facility] to assist with discharge planning. Family wants different SNF now.Awaiting placement
[2016-05-21] MEDS: QUETIAPINE FUMARATE 25 MG TAB PO SCH (21:13)
[2016-05-22 00:01] VITALS: O2SAT 94
[2016-05-22] MEDS: VALPROATE SOD IV 500 MG in DEXTROSE 5% 50ML 50 ML IV SCH ×4 (05:29→21:17)
[2016-05-22] MEDS: AMPICILLIN/SULBACTAM SOD INJ 3,000 MG in SODIUM CHLORIDE 0.9% 100ML 100 ML IV SCH ×4 (05:30→22:40)
[2016-05-22] MEDS: QUETIAPINE FUMARATE 25 MG TAB PO SCH ×2 (05:36→20:08)
[2016-05-22 08:00] VITALS: O2SAT 94
[2016-05-22] MEDS: POLYETHYLENE (MIRALAX) 17 GM PACK PO SCH (08:00)
[2016-05-22] MEDS: TRIAMCINOLONE ACET NASAL SPRAY 10.8ML BTL NAE SCH (08:00)
[2016-05-22] MEDS: LIDODERM (LIDOCAINE) PATCH 5% TD SCH (08:29)
[2016-05-22] MEDS: LEVETIRACETAM IV 750 MG in DEXTROSE 5% 100ML 100 ML IV SCH ×2 (08:29→20:07)
[2016-05-22] MEDS: MEGESTROL ACETATE 400 MG/10 ML UDP PO SCH ×2 (08:31→20:06)
[2016-05-22] MEDS: GABAPENTIN 300 MG CAP PO SCH ×3 (08:31→20:06)
[2016-05-22] MEDS: SERTRALINE HCL 50 MG TAB PO SCH (08:32)
[2016-05-22] MEDS: CLONAZEPAM 0.5 MG TAB PO SCH ×2 (08:34→20:06)
[2016-05-22 08:36] VITALS: BP 122/77; PULSE 110; TEMP 36.7; O2SAT 98
[2016-05-22] MEDS: HYDROCHLOROTHIAZIDE 25 MG TAB PO SCH (08:53)
[2016-05-22] MEDS: LORAZEPAM INJ 1 MG in SYRINGE 0.5 ML IV PRN (09:24)
--- NOTE | 2016-05-22 11:03 | Hospitalist Progress Note ---
Hospitalist Progress Note Date of Service May 22, 2016. Subjective Pt evaluation today including: conversation w/ patient, physical exam, review of inpatient medication list RN reports pt very agitated this AM and was given the prn Seroquel and ativan, now just fell asleep. Also having foul smelling stools the last day, 3x/day Additional Comments: ROS unobtainable Objective Vital Signs Date Time Temp Pulse Resp B/P Pulse Ox O2 Delivery O2 Flow Rate FiO2 05/22/16 08:36 36.7 110 20 122/77 98 Room Air 05/22/16 08:00 94 Room Air 05/22/16 00:01 94 Room Air 05/21/16 23:10 36.7 89 20 152/75 95 Room Air 05/21/16 16:00 94 Room Air 05/21/16 14:30 36.4 120 18 150/86 92 Room Air Physical Exam General Appearance: no apparent distress (sleeping) Neck: trachea midline Respiratory/Chest: lungs clear, normal breath sounds, no respiratory distress, no accessory muscle use Cardiovascular: regular rate, rhythm, no edema, no murmur Abdomen: normal bowel sounds, non tender, soft Extremities: non-tender, normal inspection, no calf tenderness Skin: warm/dry Laboratory Results Last 24 Hours Test 05/21/16 11:44 05/21/16 15:47 05/21/16 23:52 05/22/16 08:10 Bedside Glucose 97 mg/dl 129 mg/dl 109 mg/dl 84 mg/dl Assessment and Plan 76 yo F with a PMHx of recurrent seizures, Ativan dependence, hypertension, dementia, depression, and anxiety who was transported as a direct admission from [facility] for refractory seizures. Refractory seizures-improved since admission and received IV Keppra, none witnessed here, Neurology following and have increased Keppra dose from outpt regimen. Neurology consult appreciated. EEG nondiagnostic due to too much movement but no definite seizure activity Depakote level normal at 90, Keppra level 21 (normal) H/o falls with head and neck trauma 2 weeks ago--> repeat CT head and neck here without acute findings UTI may account for increased sz activity It seems at [place] her anxiety related to dementia was worsening and she was getting ativan 3-4x/day on most days and then once daily on others--> may have some component of benzo withdrawal? Is on IV AEDs right now due to some intermittent refusal to take po meds. Stable -continue Keppra 750 mg IV BID and transition back to po when consistently taking po - Continue Depakote 500mg IV q6 and transition back to 750/500/750 po when able to -check valproic acid and Keppra levels on Monday as per Neuro-Appreciate Neurology consultation -changed clonazepam to 0.5mg bid standing order given h/o benzo dependence and only give IV ativan prn seizures or anxiety, stopped po ativan - Seizure precautions - 1:1 bedside sitter needed for reorientation and for safety, will need to get off 1:1 to get to SNF -treating UTI UTI POA-Proteus mirabilis in Ur cx 20k CFUs but with increased sz activity, will treat as true infection -change abx to Unasyn for Proteus mirabilis UTI POA and transition to amoxicillin on Monday for 7 day course Depression/Anxiety, Agitation, Dementia-less agitated after starting Seroquel. 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 diff -check for C. diff stool ag Hypertension, Sinus tachycardia-worsening BP and new tachycardia, could be secondary to relative benzo withdrawal--> Improved, still intermittently occurring and improves with ativan - Continue hydrochlorothiazide 25 mg daily -Ativan IV prn tachycardia as is sign of withdrawal from benzos, but attempting to taper down off benzos as much as possible DVT prophylaxis: Teds, SCDs CODE STATUS: Full code Disposition: Patient from [facility] to assist with discharge planning. Family wants different SNF now.Awaiting placement
--- NOTE | 2016-05-22 13:21 | PROGRESS NOTE ---
DATE: 05/22/2016 DATE: 05/22/2016. Digna was agitated according to her 1 on 1 aide and finally got to sleep a few minutes ago. No seizure activity has been reported. I did not awaken her today. She is now on intravenous medications with Depakote and Keppra in doses of a total of 2 grams of the Depakote per day, 500 IV every 6 hours and 1500 total for the Keppra at 750 IV every 12 hours. I am going to order drug levels tomorrow morning after a few days of this just to be sure that these doses are not associated with toxic levels of either anticonvulsant. From a neurologic point of view I do not think we can offer much else. Attempts to reduce the Keppra in the past apparently resulted in more seizure activity though I have some significant questions about what happened over at [facility]. Unfortunately, Keppra is notorious for causing psychosis or exacerbating an underlying psychosis and it would be great if we could get that drug off at some point in the future. We will see how things play out and right now she is requiring IV doses rather than oral so will await to see what psychiatry has to say and also where she is going to end up being placed as I do not think the plans include getting back to [facility]. KLEBERD
[2016-05-22 16:07] VITALS: BP 144/90; PULSE 98; O2SAT 99
[2016-05-22 22:55] VITALS: BP 146/91; PULSE 87; TEMP 36.5; O2SAT 100
[2016-05-23] VITALS: O2SAT 94
[2016-05-23] MEDS: VALPROATE SOD IV 500 MG in DEXTROSE 5% 50ML 50 ML IV SCH ×4 (03:22→22:05)
[2016-05-23] MEDS: AMPICILLIN/SULBACTAM SOD INJ 3,000 MG in SODIUM CHLORIDE 0.9% 100ML 100 ML IV SCH ×4 (04:48→23:23)
[2016-05-23 06:57] VITALS: BP 138/84; PULSE 91; TEMP 36.3; O2SAT 100
[2016-05-23] MEDS: LEVETIRACETAM IV 750 MG in DEXTROSE 5% 100ML 100 ML IV SCH ×2 (08:28→21:14)
[2016-05-23 09:14] LABS: BASO % 0.1 %; BASO ABS # 0.01 K/uL (0-0.2); COMPLETE YES; EOS % 2.1 %; HEMATOCRIT 42.8 % (37-47); IG% 0.2 %; LYMPH % 38.3 %; LYMPH ABS # 4.64 K/uL (1.2-3.4); MEAN CELL VOLUME 81.5 fL (80-100); MEAN CORPUSCULAR HGB CONC 33.2 g/dl (32-36); MEAN PLATELET VOLUME 10.3 fL (7.4-10.4); MONO % 9.8 %; NEUT % 49.5 %; PLATELET COUNT 179 K/uL (130-400); RED BLOOD COUNT 5.25 M/uL (4.2-5.4)
[2016-05-23 09:39] LABS: BLOOD UREA NITROGEN 20 mg/dl (7-18); BUN/CREATININE RATIO 25.5 (10-20); CALCIUM 9.7 mg/dl (8.5-10.1); CARBON DIOXIDE 25 mmol/L (21-32); CHLORIDE 106 mmol/L (98-107); CREATININE 0.77 mg/dl (0.60-1.20); GLUCOSE 116 mg/dl (70-99); MAGNESIUM 1.9 mg/dl (1.8-2.4); POTASSIUM 4.1 mmol/L (3.5-5.1); SODIUM 140 mmol/L (136-145)
[2016-05-23] MEDS: MEGESTROL ACETATE 400 MG/10 ML UDP PO SCH ×2 (09:43→19:37)
[2016-05-23] MEDS: GABAPENTIN 300 MG CAP PO SCH ×3 (09:43→19:37)
[2016-05-23] MEDS: SERTRALINE HCL 50 MG TAB PO SCH (09:43)
[2016-05-23] MEDS: CLONAZEPAM 0.5 MG TAB PO SCH ×2 (09:43→19:37)
[2016-05-23] MEDS: TRIAMCINOLONE ACET NASAL SPRAY 10.8ML BTL NAE SCH (09:43)
[2016-05-23] MEDS: HYDROCHLOROTHIAZIDE 25 MG TAB PO SCH (09:43)
[2016-05-23] MEDS: POLYETHYLENE (MIRALAX) 17 GM PACK PO SCH (09:44)
[2016-05-23] MEDS: LIDODERM (LIDOCAINE) PATCH 5% TD SCH (09:44)
[2016-05-23 09:48] LABS: ALKALINE PHOSPHATASE 127 U/L (45-117); ALT/SGPT 10 U/L (12-78); AST/SGOT 12 U/L (15-37)
--- NOTE | 2016-05-23 10:13 | Psychiatric Progress Notes ---
Psychiatric Progress Note Date of Service May 23, 2016. Notes ID: Patient reviewed with liaison nurse. Interim progress reviewed. Dr. Fontana increased hs dose of Seroquel over weekend. CC: patient unable to answer, per 1-on-1 remains confused but not combative HPI: last rx of prn Atiavan 05/22, remains on Klonopin per neuro, hx of foul smelling stools over past few days ROS: unable to complete MSE: awake, a bit restless, speech largely unintelligible Imp: demential with behavioral disturbance with refractory seizures Plan: will start Zoloft taper to 25 mg for 2 days then stop, Ativan standing order and Buspar already d/c'd add lower dose am of Seroquel 12.5 mg, continue 25 mg hs
[2016-05-23 11:27] VITALS: BP 138/84; PULSE 113; TEMP 36.8; O2SAT 98
--- NOTE | 2016-05-23 14:35 | Progress Note ---
Subjective Date of Service: May 23, 2016. Subjective Pt evaluation today including: conversation w/ patient, conversation w/ family , physical exam, lab review, conversation w/ marketing database consultant, review of inpatient medication list Pain: no clear pain PO Intake: ate all her breakfast Voiding: no voiding problems patient confused, mildly agitated but better than on admission, was more lethargic this AM long talk with patient's daughter at bedside to discuss plan appreciate psychiatry note, tapering off Zoloft, increasing Seroquel, off of Buspar and Ativan d/w CM, going to be difficult to place, she will d/w family about options Problem List Medical Problems: (1) Altered mental status Status: Acute (2) Altered mental status Status: Acute (3) Encephalopathy Status: Acute (4) Fall Status: Acute (5) Head injury, closed Status: Acute (6) Hematoma Status: Acute (7) Hypokalemia Status: Acute (8) Seizure Status: Acute (9) Seizure Status: Acute (10) Seizure Status: Acute (11) Status epilepticus Status: Acute (12) UTI (urinary tract infection) Status: Acute Review of Systems cannot review in detail due to agitation, no clear verbal responses Medications Current Inpatient Medications Medications (Trade) Dose Ordered Sig/Madeline Route Start Time Stop Time Status Last Admin Dose Admin Gabapentin (Neurontin Cap) 300 mg TID PO 05/18/16 20:00 06/17/16 19:59 05/23/16 09:43 300 MG Hydrochlorothiazide (Hydrochlorothiazide Tab) 25 mg QAM PO 05/19/16 08:00 06/18/16 07:59 05/23/16 09:43 25 MG Lidocaine (Lidoderm Patch 5%) 1 patch DAILY TD 05/19/16 08:00 06/18/16 07:59 05/23/16 09:44 1 PATCH Megestrol Acetate (Megace Susp) 400 mg BID PO 05/18/16 20:00 06/17/16 19:59 05/23/16 09:43 400 MG Triamcinolone Acetonide (Nasacort Allergy 24hr) 2 sprays DAILY KELSIE 05/19/16 08:00 06/18/16 07:59 05/23/16 09:43 2 SPRAYS Polyethylene (Miralax Powder Packet) 17 gm DAILY PO 05/19/16 08:00 06/18/16 07:59 Miscellaneous 1 ea 1 ea DAILY@21 N/A 05/18/16 21:00 06/17/16 20:59 05/22/16 20:06 1 EA Lorazepam/Syringe (Ativan Inj/ Syringe) 1 ml @ 0.5 mls/min Q4 PRN IV 05/19/16 19:45 06/18/16 19:44 05/22/16 09:24 0.5 MLS/MIN Gadobutrol (Gadavist) 6.5 mmol UD PRN IV 05/20/16 01:00 05/24/16 00:59 Haloperidol Lactate (Haldol Inj) 2 mg Q6H PRN IM 05/20/16 16:00 06/19/16 15:59 Quetiapine Fumarate (seroQUEL TAB) 12.5 mg Q6 PRN PO 05/20/16 12:15 06/19/16 12:14 Clonazepam (Klonopin Tab) 0.5 mg BID PO 05/20/16 20:00 06/19/16 19:59 05/23/16 09:43 0.5 MG Ampicillin Sodium/ Sulbactam Sodium 1 ea 1 ea UD PRN N/A 05/20/16 16:15 06/19/16 16:14 Ampicillin Sodium/ Sulbactam Sodium 3000 mg/Sodium Chloride 108 ml @ 216 mls/hr Q6@0400,1000,1600,2200 IV 05/20/16 16:30 05/30/16 15:59 05/23/16 09:44 216 MLS/HR Valproate Sodium 500 mg/Dextrose 55 ml @ 55 mls/hr Q6@0400,1000,1600,2200 IV 05/21/16 11:00 06/20/16 10:59 05/23/16 10:46 55 MLS/HR Levetiracetam/ Dextrose (Keppra Iv/D5 100ml) 107.5 ml @ 420 mls/hr Q12@0900,2100 IV 05/21/16 11:00 06/20/16 10:59 05/23/16 08:28 420 MLS/HR Quetiapine Fumarate (seroQUEL TAB) 25 mg HS PO 05/22/16 22:00 06/21/16 21:59 05/22/16 20:08 25 MG Sertraline HCl (Zoloft Tab) 25 mg DAILY PO 05/24/16 08:00 05/26/16 07:59 Quetiapine Fumarate (seroQUEL TAB) 12.5 mg QAM PO 05/24/16 08:00 06/23/16 07:59 Objective Vital Signs Date Time Temp Pulse Resp B/P Pulse Ox O2 Delivery O2 Flow Rate FiO2 05/23/16 11:27 36.8 113 18 138/84 98 Room Air 05/23/16 08:15 Room Air 05/23/16 06:57 36.3 91 18 138/84 100 Room Air 05/23/16 00:00 94 Room Air 05/22/16 22:55 36.5 87 18 146/91 100 Room Air 05/22/16 16:07 98 16 144/90 99 Room Air Physical Exam General Appearance: + mild distress, + thin Eyes: normal inspection, EOMI, sclerae normal ENT: normal ENT inspection, hearing grossly normal, pharynx normal Neck: supple, no adenopathy, no JVD, trachea midline Respiratory/Chest: chest non-tender, lungs clear, normal breath sounds, no respiratory distress, no accessory muscle use Cardiovascular: regular rate, rhythm, no edema, no gallop, no JVD, no murmur Abdomen: normal bowel sounds, non tender, soft, no organomegaly Extremities: normal range of motion, non-tender, normal inspection, no pedal edema, no calf tenderness Neurologic/Psychiatric: peer counselor II-XII nml as tested, no motor/sensory deficits, + disoriented, + pertinent finding (agitated, trying to get out of bed at times, easily redirected) Skin: normal color, warm/dry, no rash Laboratory Results Last 24 Hours Test 05/22/16 16:57 05/22/16 20:05 05/23/16 07:40 05/23/16 08:54 Bedside Glucose 143 mg/dl 125 mg/dl 79 mg/dl White Blood Count 12.10 K/uL Red Blood Count 5.25 M/uL Hemoglobin 14.2 g/dL Hematocrit 42.8 % Mean Corpuscular Volume 81.5 fL Mean Corpuscular Hemoglobin 27.0 pg Mean Corpuscular Hemoglobin Concent 33.2 g/dl Platelet Count 179 K/uL Mean Platelet Volume 10.3 fL Neutrophils (%) (Auto) 49.5 % Lymphocytes (%) (Auto) 38.3 % Monocytes (%) (Auto) 9.8 % Eosinophils (%) (Auto) 2.1 % Basophils (%) (Auto) 0.1 % Neutrophils # (Auto) 5.97 K/uL Lymphocytes # (Auto) 4.64 K/uL Monocytes # (Auto) 1.19 K/uL Eosinophils # (Auto) 0.26 K/uL Basophils # (Auto) 0.01 K/uL RDW Standard Deviation 49.3 fL RDW Coefficient of Variation 16.4 % Immature Granulocyte % (Auto) 0.2 % Immature Granulocyte # (Auto) 0.03 K/uL Sodium Level 140 mmol/L Potassium Level 4.1 mmol/L Chloride Level 106 mmol/L Carbon Dioxide Level 25 mmol/L Anion Gap 9.0 mmol/L Blood Urea Nitrogen 20 mg/dl Creatinine 0.77 mg/dl Est Creatinine Clear Calc Drug Dose 60.0 ml/min Estimated GFR () 88.2 Estimated GFR (Non- 76.1 BUN/Creatinine Ratio 25.5 Random Glucose 116 mg/dl Calcium Level 9.7 mg/dl Magnesium Level 1.9 mg/dl Total Bilirubin 0.4 mg/dl Direct Bilirubin < 0.1 mg/dl Aspartate Amino Transf (AST/SGOT) 12 U/L Alanine Aminotransferase (ALT/SGPT) 10 U/L Alkaline Phosphatase 127 U/L Total Protein 6.8 gm/dl Albumin 2.9 gm/dl Valproic Acid (Depakene) Level 89 mcg/ml Test 05/23/16 11:55 Bedside Glucose 120 mg/dl Assessment and Plan 76 yo F with a PMHx of recurrent seizures, Ativan dependence, hypertension, dementia, depression, and anxiety who was transported as a direct admission from [facility] for refractory seizures. - Refractory seizures: stable for now, no seizure activity, continue Keppra 750mg IV q12 and Depakote 500mg IV q6 appreciate note from neurology, difficult situation with Keppra controlling seizures but making psychosis worse has been through this in the past, Keppra clearly worsened mental state according to daughter follow up on drug levels no evidence of intracranial cause of increased seizure activity treat UTI as potential contributing factor - UTI: Proteus, continue Unasyn, complete 7 days total will try to change to PO once taking PO more reliably - Dementia with mood disorder, anxiety, agitation appreciate psychiatry recommendations tapering off Zoloft Seroquel increased to 12.5 qAM and 25 qPM off of Buspar and standing order of Ativan - Diarrhea: negative for C diff, improved since admission DVT prophylaxis: Teds, SCDs CODE STATUS: Full code Disposition: Patient from [facility], will need new SNF, placement will be difficult, d/w CM today
--- NOTE | 2016-05-23 14:56 | Neurology Progress Notes ---
Neurology Progress Note Date of Service May 23, 2016. Alecia Sawyer is a 76-year-old female with a PMH of recurrent seizure, Ativan dependence, hypertension, dementia, depression, and anxiety who was transported as a direct admission from [facility] for refractory seizures. She is currently on Keppra 500 mg twice a day, and has been receiving Ativan 1 mg IM every 4 hours as needed for seizure. Daughter is bedside and states . She reports that patient has had refractory-like seizure where her eyes roll upward and to the right when she is having a seizure, she had 36 seizures within a 45 minute period today. December 2015, after being evaluated at [facility]. Daughter report she had an MRI, LP hematological, oncological, and infectious etiology which was completely negative. She has not had a grand mal since that time. Her daughter also reports that she does not sleep at night and she is always agitated and sometimes combative and is given Haldol IM daily. Daughter denies mom has been sick or complaining of pain, and has been eating well. Today she is awake but 1:1 states she has been very restless. She is not answering questions repeating words that are not understandable. She is taking orals and per nursing report was taking orals at lunch time. No family currently in room. Objective Date Time Temp Pulse Resp B/P Pulse Ox O2 Delivery O2 Flow Rate FiO2 05/23/16 11:27 36.8 113 18 138/84 98 Room Air 05/23/16 08:15 Room Air 05/23/16 06:57 36.3 91 18 138/84 100 Room Air 05/23/16 00:00 94 Room Air 05/22/16 22:55 36.5 87 18 146/91 100 Room Air 05/22/16 16:07 98 16 144/90 99 Room Air Last 24 Hours Test 05/22/16 16:57 05/22/16 20:05 05/23/16 07:40 05/23/16 08:54 Bedside Glucose 143 mg/dl 125 mg/dl 79 mg/dl White Blood Count 12.10 K/uL Red Blood Count 5.25 M/uL Hemoglobin 14.2 g/dL Hematocrit 42.8 % Mean Corpuscular Volume 81.5 fL Mean Corpuscular Hemoglobin 27.0 pg Mean Corpuscular Hemoglobin Concent 33.2 g/dl Platelet Count 179 K/uL Mean Platelet Volume 10.3 fL Neutrophils (%) (Auto) 49.5 % Lymphocytes (%) (Auto) 38.3 % Monocytes (%) (Auto) 9.8 % Eosinophils (%) (Auto) 2.1 % Basophils (%) (Auto) 0.1 % Neutrophils # (Auto) 5.97 K/uL Lymphocytes # (Auto) 4.64 K/uL Monocytes # (Auto) 1.19 K/uL Eosinophils # (Auto) 0.26 K/uL Basophils # (Auto) 0.01 K/uL RDW Standard Deviation 49.3 fL RDW Coefficient of Variation 16.4 % Immature Granulocyte % (Auto) 0.2 % Immature Granulocyte # (Auto) 0.03 K/uL Sodium Level 140 mmol/L Potassium Level 4.1 mmol/L Chloride Level 106 mmol/L Carbon Dioxide Level 25 mmol/L Anion Gap 9.0 mmol/L Blood Urea Nitrogen 20 mg/dl Creatinine 0.77 mg/dl Est Creatinine Clear Calc Drug Dose 60.0 ml/min Estimated GFR () 88.2 Estimated GFR (Non- 76.1 BUN/Creatinine Ratio 25.5 Random Glucose 116 mg/dl Calcium Level 9.7 mg/dl Magnesium Level 1.9 mg/dl Total Bilirubin 0.4 mg/dl Direct Bilirubin < 0.1 mg/dl Aspartate Amino Transf (AST/SGOT) 12 U/L Alanine Aminotransferase (ALT/SGPT) 10 U/L Alkaline Phosphatase 127 U/L Total Protein 6.8 gm/dl Albumin 2.9 gm/dl Valproic Acid (Depakene) Level 89 mcg/ml Test 05/23/16 11:55 Bedside Glucose 120 mg/dl Imaging: no new images Exam: keppra level pending Current Inpatient Medications Medications (Trade) Dose Ordered Sig/Madeline Route Start Time Stop Time Status Last Admin Dose Admin Gabapentin (Neurontin Cap) 300 mg TID PO 05/18/16 20:00 06/17/16 19:59 05/23/16 09:43 300 MG Hydrochlorothiazide (Hydrochlorothiazide Tab) 25 mg QAM PO 05/19/16 08:00 06/18/16 07:59 05/23/16 09:43 25 MG Lidocaine (Lidoderm Patch 5%) 1 patch DAILY TD 05/19/16 08:00 06/18/16 07:59 05/23/16 09:44 1 PATCH Megestrol Acetate (Megace Susp) 400 mg BID PO 05/18/16 20:00 06/17/16 19:59 05/23/16 09:43 400 MG Triamcinolone Acetonide (Nasacort Allergy 24hr) 2 sprays DAILY KELSIE 05/19/16 08:00 06/18/16 07:59 05/23/16 09:43 2 SPRAYS Polyethylene (Miralax Powder Packet) 17 gm DAILY PO 05/19/16 08:00 06/18/16 07:59 Miscellaneous 1 ea 1 ea DAILY@21 N/A 05/18/16 21:00 06/17/16 20:59 05/22/16 20:06 1 EA Lorazepam/Syringe (Ativan Inj/ Syringe) 1 ml @ 0.5 mls/min Q4 PRN IV 05/19/16 19:45 06/18/16 19:44 05/22/16 09:24 0.5 MLS/MIN Gadobutrol (Gadavist) 6.5 mmol UD PRN IV 05/20/16 01:00 05/24/16 00:59 Haloperidol Lactate (Haldol Inj) 2 mg Q6H PRN IM 05/20/16 16:00 06/19/16 15:59 Quetiapine Fumarate (seroQUEL TAB) 12.5 mg Q6 PRN PO 05/20/16 12:15 06/19/16 12:14 Clonazepam (Klonopin Tab) 0.5 mg BID PO 05/20/16 20:00 06/19/16 19:59 05/23/16 09:43 0.5 MG Ampicillin Sodium/ Sulbactam Sodium 1 ea 1 ea UD PRN N/A 05/20/16 16:15 06/19/16 16:14 Ampicillin Sodium/ Sulbactam Sodium 3000 mg/Sodium Chloride 108 ml @ 216 mls/hr Q6@0400,1000,1600,2200 IV 05/20/16 16:30 05/30/16 15:59 05/23/16 09:44 216 MLS/HR Valproate Sodium 500 mg/Dextrose 55 ml @ 55 mls/hr Q6@0400,1000,1600,2200 IV 05/21/16 11:00 06/20/16 10:59 05/23/16 10:46 55 MLS/HR Levetiracetam/ Dextrose (Keppra Iv/D5 100ml) 107.5 ml @ 420 mls/hr Q12@0900,2100 IV 05/21/16 11:00 06/20/16 10:59 05/23/16 08:28 420 MLS/HR Quetiapine Fumarate (seroQUEL TAB) 25 mg HS PO 05/22/16 22:00 06/21/16 21:59 05/22/16 20:08 25 MG Sertraline HCl (Zoloft Tab) 25 mg DAILY PO 05/24/16 08:00 05/26/16 07:59 Quetiapine Fumarate (seroQUEL TAB) 12.5 mg QAM PO 05/24/16 08:00 06/23/16 07:59 Impression 76 year old female with seizure disorder and progressive dementia Plan 1. requesting records from [facility]-daughter in room states MRI did show something that they said was a source of seizures 2. 1:1 need patient is a fall risk 3. Keppra 500 mg BID was increased yesterday to 750 mg BID - daughter states this was just started question why this was stopped- new level pending 4. ativan 1 mg q 6 hours and klonopin 0.5 mg - 1 mg q 8 h was started and the ativan was stopped at admission 5. psychiatry on board for medication adjustments 6. UTI - treated with doxy 7. EEG read but poor quality due to motion artifact - may repeat if able 8. Depakote 750 mg am and 500 mg pm continue 9. no reported seizures since admission 10. currently discharge pending due to placement issues 11. current Keppra level 21.6-05/18-repeat pending. Depakote 90 and 89 stable would not adjust 12. will continue to follow I have seen and discussed above patient with Dr Vignesh Tobias, neurology
[2016-05-23 15:17] VITALS: BP 135/99; PULSE 105; TEMP 36.5; O2SAT 97
--- NOTE | 2016-05-23 21:52 | PROGRESS NOTE ---
DATE: 05/23/2016 I saw Digna today and reviewed her status with Katya Bradley PA-C and agree with Katya's note. Today Digna is more awake and alert, but still very noncommunicative and less aggressive. I see no evidence for seizure activity and the nurses do not report any. She is taking oral food at the present time along with fluids, so we can probably switch her anticonvulsants over to oral intake. I will let this up to the category specialist taking care of her. We can obtain drug levels today to see how she is doing and we will continue to follow her along. The longterm plans are still unclear. She is going to need placement, but is not certain where this is going to be, but fairly certainly will not be a return to [facility]. MAY
[2016-05-23] MEDS: QUETIAPINE FUMARATE 25 MG TAB PO SCH (22:05)
[2016-05-23 22:51] VITALS: BP 136/94; PULSE 101; TEMP 36.7; O2SAT 99
[2016-05-24] MEDS: VALPROATE SOD IV 500 MG in DEXTROSE 5% 50ML 50 ML IV SCH ×2 (04:11→08:40)
[2016-05-24] MEDS: AMPICILLIN/SULBACTAM SOD INJ 3,000 MG in SODIUM CHLORIDE 0.9% 100ML 100 ML IV SCH ×4 (05:35→22:41)
[2016-05-24] MEDS: SERTRALINE HCL 50 MG TAB PO SCH (07:37)
[2016-05-24] MEDS: TRIAMCINOLONE ACET NASAL SPRAY 10.8ML BTL NAE SCH (07:37)
[2016-05-24] MEDS: MEGESTROL ACETATE 400 MG/10 ML UDP PO SCH ×2 (07:37→20:58)
[2016-05-24] MEDS: GABAPENTIN 300 MG CAP PO SCH ×3 (07:38→20:58)
[2016-05-24] MEDS: HYDROCHLOROTHIAZIDE 25 MG TAB PO SCH (07:38)
[2016-05-24] MEDS: CLONAZEPAM 0.5 MG TAB PO SCH ×2 (07:38→20:53)
[2016-05-24] MEDS: QUETIAPINE FUMARATE 25 MG TAB PO SCH ×2 (07:38→22:42)
[2016-05-24] MEDS: POLYETHYLENE (MIRALAX) 17 GM PACK PO SCH (07:39)
[2016-05-24] MEDS: LIDODERM (LIDOCAINE) PATCH 5% TD SCH (07:39)
[2016-05-24 08:01] VITALS: BP 175/84; PULSE 94; TEMP 36.4; O2SAT 90
[2016-05-24] MEDS: LEVETIRACETAM IV 750 MG in DEXTROSE 5% 100ML 100 ML IV SCH (08:12)
[2016-05-24] MEDS: DIVALPROEX 250 MG EXTENDED REL TAB PO SCH (10:21)
[2016-05-24] MEDS ORDERED: DIVALPROEX 500 MG EXTENDED RELEASE TAB PO SCH (12:00)
--- NOTE | 2016-05-24 15:14 | Neurology Progress Notes ---
Neurology Progress Note Date of Service May 24, 2016. Alecia Sawyer is a 76-year-old female with a PMH of recurrent seizure, Ativan dependence, hypertension, dementia, depression, and anxiety who was transported as a direct admission from [facility] for refractory seizures. She is currently on Keppra 500 mg twice a day, and has been receiving Ativan 1 mg IM every 4 hours as needed for seizure. Daughter is bedside and states . She reports that patient has had refractory-like seizure where her eyes roll upward and to the right when she is having a seizure, she had 36 seizures within a 45 minute period today. December 2015, after being evaluated at [facility]. Daughter report she had an MRI, LP hematological, oncological, and infectious etiology which was completely negative. She has not had a grand mal since that time. Her daughter also reports that she does not sleep at night and she is always agitated and sometimes combative and is given Haldol IM daily. Daughter denies mom has been sick or complaining of pain, and has been eating well. She appear to be very somnolent today. The aid in the room states she ate her breakfast but after that she has been sleeping. no additional falls or seizure- like activity.Psych is still adjusting medications and is decreasing dose of Seraquel and tapering off Zoloft and already d/c 'd Buspar. Objective Date Time Temp Pulse Resp B/P Pulse Ox O2 Delivery O2 Flow Rate FiO2 05/24/16 08:01 36.4 94 22 175/84 90 Room Air 05/24/16 08:00 Room Air 05/24/16 00:00 Room Air 05/23/16 22:51 36.7 101 18 136/94 99 Room Air 05/23/16 20:00 Room Air 05/23/16 15:17 36.5 105 18 135/99 97 Room Air Last 24 Hours Test 05/23/16 17:10 05/23/16 19:41 05/24/16 07:44 05/24/16 11:19 Bedside Glucose 88 mg/dl 146 mg/dl 76 mg/dl 97 mg/dl Imaging: no new imaging Exam: gen: somnolent awakes opens eyes to voice lungs CTA, CV RRR moves all ext spontaneously Current Inpatient Medications Medications (Trade) Dose Ordered Sig/Madeline Route Start Time Stop Time Status Last Admin Dose Admin Gabapentin (Neurontin Cap) 300 mg TID PO 3/15/17 20:00 06/17/16 19:59 05/24/16 13:33 300 MG Hydrochlorothiazide (Hydrochlorothiazide Tab) 25 mg QAM PO 05/19/16 08:00 06/18/16 07:59 05/24/16 07:38 25 MG Lidocaine (Lidoderm Patch 5%) 1 patch DAILY TD 05/19/16 08:00 06/18/16 07:59 05/24/16 07:39 1 PATCH Megestrol Acetate (Megace Susp) 400 mg BID PO 05/18/16 20:00 06/17/16 19:59 05/24/16 07:37 400 MG Triamcinolone Acetonide (Nasacort Allergy 24hr) 2 sprays DAILY KELSIE 05/19/16 08:00 06/18/16 07:59 05/24/16 07:37 2 SPRAYS Polyethylene (Miralax Powder Packet) 17 gm DAILY PO 05/19/16 08:00 06/18/16 07:59 Miscellaneous 1 ea 1 ea DAILY@21 N/A 05/18/16 21:00 06/17/16 20:59 05/23/16 21:15 1 EA Lorazepam/Syringe (Ativan Inj/ Syringe) 1 ml @ 0.5 mls/min Q4 PRN IV 05/19/16 19:45 06/18/16 19:44 05/22/16 09:24 0.5 MLS/MIN Haloperidol Lactate (Haldol Inj) 2 mg Q6H PRN IM 05/20/16 16:00 06/19/16 15:59 Quetiapine Fumarate (seroQUEL TAB) 12.5 mg Q6 PRN PO 05/20/16 12:15 06/19/16 12:14 Clonazepam (Klonopin Tab) 0.5 mg BID PO 05/20/16 20:00 06/19/16 19:59 05/24/16 07:38 0.5 MG Ampicillin Sodium/ Sulbactam Sodium 1 ea 1 ea UD PRN N/A 05/20/16 16:15 06/19/16 16:14 Ampicillin Sodium/ Sulbactam Sodium/ Sodium Chloride (Unasyn Inj/Nss 100ml) 108 ml @ 216 mls/hr Q6@0400,1000,1600,2200 IV 05/20/16 16:30 05/30/16 15:59 05/24/16 10:11 216 MLS/HR Quetiapine Fumarate (seroQUEL TAB) 25 mg HS PO 05/22/16 22:00 06/21/16 21:59 05/23/16 22:05 25 MG Sertraline HCl (Zoloft Tab) 25 mg DAILY PO 05/24/16 08:00 05/26/16 07:59 05/24/16 07:37 25 MG Quetiapine Fumarate (seroQUEL TAB) 12.5 mg QAM PO 05/24/16 08:00 06/23/16 07:59 05/24/16 07:38 12.5 MG Levetiracetam (Keppra Tab) 750 mg BID PO 05/24/16 20:00 06/23/16 19:59 Divalproex Sodium (Depakote Extended Rel Tab) 500 mg QPM PO 05/24/16 21:00 06/23/16 20:59 Divalproex Sodium (Depakote Extended Rel Tab) 750 mg QAM PO 05/24/16 10:30 06/23/16 10:29 Impression 76 year old female with seizure disorder and progressive dementia Plan 1. all medications should be reviewed and eliminate all non essential medications 2. 1:1 need patient is a fall risk 3. Keppra 500 mg BID reduced the Keppra back to 500 mg - daughter states this was just started question why this was stopped- new level pending 4. ativan 1 mg q 6 hours and klonopin 0.5 mg - 1 mg q 8 h was started and the ativan was stopped at admission questions whether she needs klonopin at this point now that psych is on board and adjusting the Seraquel. reduced the Klonopin to 0.25 BID x 1 week then decrease to once a week x 1 week then stop. 5. psychiatry on board for medication adjustments 6. UTI - treatment in process 7. EEG read but poor quality due to motion artifact no new events reported by nursing 8. Depakote 750 mg am and 500 mg pm continue 9. will need placement at dementia facility when appropriate placement is found 10. currently discharge pending due to placement issues I have seen and discussed above patient with Dr Vignesh Tobias, neurology above discussed patient is incresaaingly lethargic and no seizures have been seen [facility] [place] furthermore indicate no events or eeg abnormalities and csf and mri there were negative with the latter being limited by patient movement We will be cutting back on the keppra and klonopin ( we really did not start the latter ) and see if she begins to awaken Is already on depakote and neurontin with the latter being in a low therapeutic dose for seizures anyway so multiple anticonsulsants already on board will continue to follow placement plans still up in the arir Vignesh Tobias MD
[2016-05-24 15:53] VITALS: BP 109/74; PULSE 86; TEMP 36.8; O2SAT 96
--- NOTE | 2016-05-24 16:25 | Progress Note ---
Subjective Date of Service: May 24, 2016. Subjective Pt evaluation today including: conversation w/ patient, physical exam, lab review, conversation w/ performance management consultant, review of inpatient medication list Pain: appears comfortable today PO Intake: adequate Voiding: incontinence mild improvement from yesterday, alert, minimal verbal communication, off of one on one appreciate neurology notes Problem List Medical Problems: (1) Altered mental status Status: Acute (2) Altered mental status Status: Acute (3) Encephalopathy Status: Acute (4) Fall Status: Acute (5) Head injury, closed Status: Acute (6) Hematoma Status: Acute (7) Hypokalemia Status: Acute (8) Seizure Status: Acute (9) Seizure Status: Acute (10) Seizure Status: Acute (11) Status epilepticus Status: Acute (12) UTI (urinary tract infection) Status: Acute Review of Systems cannot review systems, no verbal responses Medications Current Inpatient Medications Medications (Trade) Dose Ordered Sig/Madeline Route Start Time Stop Time Status Last Admin Dose Admin Gabapentin (Neurontin Cap) 300 mg TID PO 05/18/16 20:00 06/17/16 19:59 05/24/16 13:33 300 MG Hydrochlorothiazide (Hydrochlorothiazide Tab) 25 mg QAM PO 05/19/16 08:00 06/18/16 07:59 05/24/16 07:38 25 MG Lidocaine (Lidoderm Patch 5%) 1 patch DAILY TD 05/19/16 08:00 06/18/16 07:59 05/24/16 07:39 1 PATCH Megestrol Acetate (Megace Susp) 400 mg BID PO 05/18/16 20:00 06/17/16 19:59 05/24/16 07:37 400 MG Triamcinolone Acetonide (Nasacort Allergy 24hr) 2 sprays DAILY KELSIE 05/19/16 08:00 06/18/16 07:59 05/24/16 07:37 2 SPRAYS Polyethylene (Miralax Powder Packet) 17 gm DAILY PO 05/19/16 08:00 06/18/16 07:59 Miscellaneous 1 ea 1 ea DAILY@21 N/A 05/18/16 21:00 06/17/16 20:59 05/23/16 21:15 1 EA Lorazepam/Syringe (Ativan Inj/ Syringe) 1 ml @ 0.5 mls/min Q4 PRN IV 05/19/16 19:45 06/18/16 19:44 05/22/16 09:24 0.5 MLS/MIN Haloperidol Lactate (Haldol Inj) 2 mg Q6H PRN IM 05/20/16 16:00 06/19/16 15:59 Quetiapine Fumarate (seroQUEL TAB) 12.5 mg Q6 PRN PO 05/20/16 12:15 06/19/16 12:14 Clonazepam (Klonopin Tab) 0.5 mg BID PO 05/20/16 20:00 06/19/16 19:59 05/24/16 07:38 0.5 MG Ampicillin Sodium/ Sulbactam Sodium 1 ea 1 ea UD PRN N/A 05/20/16 16:15 06/19/16 16:14 Ampicillin Sodium/ Sulbactam Sodium/ Sodium Chloride (Unasyn Inj/Nss 100ml) 108 ml @ 216 mls/hr Q6@0400,1000,1600,2200 IV 05/20/16 16:30 05/30/16 15:59 05/24/16 15:33 216 MLS/HR Quetiapine Fumarate (seroQUEL TAB) 25 mg HS PO 05/22/16 22:00 06/21/16 21:59 05/23/16 22:05 25 MG Sertraline HCl (Zoloft Tab) 25 mg DAILY PO 05/24/16 08:00 05/26/16 07:59 05/24/16 07:37 25 MG Quetiapine Fumarate (seroQUEL TAB) 12.5 mg QAM PO 05/24/16 08:00 06/23/16 07:59 05/24/16 07:38 12.5 MG Levetiracetam (Keppra Tab) 750 mg BID PO 05/24/16 20:00 06/23/16 19:59 Divalproex Sodium (Depakote Extended Rel Tab) 500 mg QPM PO 05/24/16 21:00 06/23/16 20:59 Divalproex Sodium (Depakote Extended Rel Tab) 750 mg QAM PO 05/24/16 10:30 06/23/16 10:29 Objective Vital Signs Date Time Temp Pulse Resp B/P Pulse Ox O2 Delivery O2 Flow Rate FiO2 3/21/17 15:53 36.8 86 22 109/74 96 Room Air 05/24/16 08:01 36.4 94 22 175/84 90 Room Air 05/24/16 08:00 Room Air 05/24/16 00:00 Room Air 05/23/16 22:51 36.7 101 18 136/94 99 Room Air 05/23/16 20:00 Room Air Physical Exam General Appearance: WD/WN, no apparent distress ENT: normal ENT inspection, hearing grossly normal, pharynx normal Neck: supple, no adenopathy, no JVD, trachea midline Respiratory/Chest: chest non-tender, lungs clear, no respiratory distress, no accessory muscle use, + decreased breath sounds (bases) Cardiovascular: regular rate, rhythm, no edema, no gallop, no JVD, no murmur Abdomen: normal bowel sounds, non tender, soft, no organomegaly Extremities: normal range of motion, non-tender, normal inspection, no pedal edema, no calf tenderness Neurologic/Psychiatric: lag screwer II-XII nml as tested, no motor/sensory deficits, alert, + disoriented, + pertinent finding (minimal verbal responses) Skin: normal color, warm/dry, no rash Laboratory Results Last 24 Hours Test 05/23/16 17:10 05/23/16 19:41 05/24/16 07:44 05/24/16 11:19 Bedside Glucose 88 mg/dl 146 mg/dl 76 mg/dl 97 mg/dl Assessment and Plan 76 yo F with a PMHx of recurrent seizures, Ativan dependence, hypertension, dementia, depression, and anxiety who was transported as a direct admission from [facility] for refractory seizures. - Refractory seizures: stable for now, no seizure activity, continue Keppra 750mg PO q12 and Depakote 750 PO qAM and 500 qPM appreciate note from neurology, difficult situation with Keppra controlling seizures but making psychosis worse has been through this in the past, Keppra clearly worsened mental state according to daughter follow up on drug levels, have been normal thus far no evidence of intracranial cause of increased seizure activity treat UTI as potential contributing factor - UTI: Proteus, continue Unasyn, complete 7 days total change to Keflex tomorrow - Dementia with mood disorder, anxiety, agitation appreciate psychiatry recommendations tapering off Zoloft Seroquel increased to 12.5 qAM and 25 qPM off of Buspar and standing order of Ativan - Diarrhea: negative for C diff, improved since admission DVT prophylaxis: Teds, SCDs CODE STATUS: Full code Disposition: Patient from [facility], will need new SNF, placement will be difficult, no real changes in plans today
[2016-05-24] MEDS ORDERED: LEVETIRACETAM 250 MG TAB PO SCH (20:00)
[2016-05-24] MEDS: LEVETIRACETAM 250 MG TAB PO SCH (20:48)
[2016-05-24] MEDS: DIVALPROEX 500 MG EXTENDED RELEASE TAB PO SCH (20:59)
[2016-05-25 01:31] VITALS: BP 140/81; PULSE 119; TEMP 36.7; O2SAT 90
[2016-05-25] MEDS: AMPICILLIN/SULBACTAM SOD INJ 3,000 MG in SODIUM CHLORIDE 0.9% 100ML 100 ML IV SCH ×4 (03:44→22:39)
[2016-05-25 08:24] VITALS: BP 143/97; PULSE 60; TEMP 36.7; O2SAT 93
[2016-05-25] MEDS: CLONAZEPAM 0.5 MG TAB PO SCH ×2 (08:25→20:00)
[2016-05-25] MEDS: LIDODERM (LIDOCAINE) PATCH 5% TD SCH (08:25)
[2016-05-25] MEDS: POLYETHYLENE (MIRALAX) 17 GM PACK PO SCH (08:25)
[2016-05-25] MEDS: QUETIAPINE FUMARATE 25 MG TAB PO SCH ×2 (08:25→22:39)
[2016-05-25] MEDS: GABAPENTIN 300 MG CAP PO SCH ×3 (08:26→22:40)
[2016-05-25] MEDS: DIVALPROEX 250 MG EXTENDED REL TAB PO SCH ×2 (08:26→22:40)
[2016-05-25] MEDS: MEGESTROL ACETATE 400 MG/10 ML UDP PO SCH ×2 (08:26→22:41)
[2016-05-25] MEDS: TRIAMCINOLONE ACET NASAL SPRAY 10.8ML BTL NAE SCH (08:26)
[2016-05-25] MEDS: LEVETIRACETAM 250 MG TAB PO SCH ×2 (08:26→22:41)
[2016-05-25] MEDS: HYDROCHLOROTHIAZIDE 25 MG TAB PO SCH (08:26)
[2016-05-25] MEDS: SERTRALINE HCL 50 MG TAB PO SCH (08:26)
--- NOTE | 2016-05-25 14:44 | Progress Note ---
Subjective Date of Service: May 25, 2016. Subjective Pt evaluation today including: conversation w/ patient, conversation w/ family , physical exam, conversation w/ cardiology consultant, review of inpatient medication list Pain: no pain or distress PO Intake: adequate, eating full meals Voiding: incontinence patient more alert today, appreciate neurology note, decreasing Keppra and weaning off Klonopin daughter concerned that patient not talking as much explained that the whole picture is muddled, lots of medications with side effects, baseline dementia, possible hospital delirium good that she is more alert and eating trying to have a good plan for discharge Problem List Medical Problems: (1) Altered mental status Status: Acute (2) Altered mental status Status: Acute (3) Encephalopathy Status: Acute (4) Fall Status: Acute (5) Head injury, closed Status: Acute (6) Hematoma Status: Acute (7) Hypokalemia Status: Acute (8) Seizure Status: Acute (9) Seizure Status: Acute (10) Seizure Status: Acute (11) Status epilepticus Status: Acute (12) UTI (urinary tract infection) Status: Acute Review of Systems cannot review, non-verbal, no distress, no new issues overnight, more alert today Medications Current Inpatient Medications Medications (Trade) Dose Ordered Sig/Madeline Route Start Time Stop Time Status Last Admin Dose Admin Gabapentin (Neurontin Cap) 300 mg TID PO 05/18/16 20:00 06/17/16 19:59 05/25/16 14:10 300 MG Hydrochlorothiazide (Hydrochlorothiazide Tab) 25 mg QAM PO 05/19/16 08:00 06/18/16 07:59 05/25/16 08:26 25 MG Lidocaine (Lidoderm Patch 5%) 1 patch DAILY TD 05/19/16 08:00 06/18/16 07:59 05/25/16 08:25 1 PATCH Megestrol Acetate (Megace Susp) 400 mg BID PO 05/18/16 20:00 06/17/16 19:59 05/25/16 08:26 400 MG Triamcinolone Acetonide (Nasacort Allergy 24hr) 2 sprays DAILY KELSIE 05/19/16 08:00 06/18/16 07:59 05/25/16 08:26 2 SPRAYS Polyethylene (Miralax Powder Packet) 17 gm DAILY PO 05/19/16 08:00 06/18/16 07:59 05/25/16 08:25 17 GM Miscellaneous 1 ea 1 ea DAILY@21 N/A 05/18/16 21:00 06/17/16 20:59 05/24/16 20:58 1 EA Lorazepam/Syringe (Ativan Inj/ Syringe) 1 ml @ 0.5 mls/min Q4 PRN IV 05/19/16 19:45 06/18/16 19:44 05/22/16 09:24 0.5 MLS/MIN Haloperidol Lactate (Haldol Inj) 2 mg Q6H PRN IM 05/20/16 16:00 06/19/16 15:59 Quetiapine Fumarate (seroQUEL TAB) 12.5 mg Q6 PRN PO 05/20/16 12:15 06/19/16 12:14 Ampicillin Sodium/ Sulbactam Sodium 1 ea 1 ea UD PRN N/A 05/20/16 16:15 06/19/16 16:14 Ampicillin Sodium/ Sulbactam Sodium/ Sodium Chloride (Unasyn Inj/Nss 100ml) 108 ml @ 216 mls/hr Q6@0400,1000,1600,2200 IV 05/20/16 16:30 05/30/16 15:59 05/25/16 10:09 216 MLS/HR Quetiapine Fumarate (seroQUEL TAB) 25 mg HS PO 05/22/16 22:00 06/21/16 21:59 05/23/16 22:05 25 MG Sertraline HCl (Zoloft Tab) 25 mg DAILY PO 05/24/16 08:00 05/26/16 07:59 05/25/16 08:26 25 MG Quetiapine Fumarate (seroQUEL TAB) 12.5 mg QAM PO 05/24/16 08:00 06/23/16 07:59 05/25/16 08:25 12.5 MG Divalproex Sodium (Depakote Extended Rel Tab) 500 mg QPM PO 05/24/16 21:00 06/23/16 20:59 Divalproex Sodium (Depakote Extended Rel Tab) 750 mg QAM PO 05/24/16 10:30 06/23/16 10:29 05/25/16 08:26 750 MG Levetiracetam (Keppra Tab) 500 mg BID PO 05/24/16 20:00 06/23/16 19:59 05/25/16 08:26 500 MG Clonazepam (Klonopin Tab) 0.25 mg BID PO 05/24/16 20:00 06/23/16 19:59 05/25/16 08:25 0.25 MG Objective Vital Signs Date Time Temp Pulse Resp B/P Pulse Ox O2 Delivery O2 Flow Rate FiO2 05/25/16 08:24 36.7 60 16 143/97 93 Room Air 05/25/16 08:00 Room Air 05/25/16 01:31 36.7 119 16 140/81 90 Room Air 05/25/16 00:00 Room Air 05/24/16 20:00 Room Air 05/24/16 16:00 Room Air 05/24/16 15:53 36.8 86 22 109/74 96 Room Air Physical Exam General Appearance: no apparent distress, + thin Eyes: normal inspection, EOMI, sclerae normal ENT: normal ENT inspection, hearing grossly normal, pharynx normal Neck: supple, no adenopathy, no JVD, trachea midline Respiratory/Chest: chest non-tender, lungs clear, normal breath sounds, no respiratory distress, no accessory muscle use Cardiovascular: regular rate, rhythm, no edema, no gallop, no JVD, no murmur Abdomen: normal bowel sounds, non tender, soft, no organomegaly Extremities: normal range of motion, non-tender, normal inspection, no pedal edema, no calf tenderness, pelvis stable Neurologic/Psychiatric: radiology services manager II-XII nml as tested, no motor/sensory deficits, alert, + disoriented, + pertinent finding (calm today, no signs of agitation) Skin: normal color, warm/dry, no rash Lymphatic: no adenopathy Laboratory Results Last 24 Hours Test 05/24/16 16:17 05/24/16 20:18 05/25/16 08:11 05/25/16 11:32 Bedside Glucose 77 mg/dl 158 mg/dl 109 mg/dl 114 mg/dl Assessment and Plan 76 yo F with a PMHx of recurrent seizures, Ativan dependence, hypertension, dementia, depression, and anxiety who was transported as a direct admission from [facility] for refractory seizures. - Refractory seizures: stable for now, no seizure activity, Keppra reduced to 500mg PO q12 and Depakote 750 PO qAM and 500 qPM appreciate note from neurology, difficult situation with Keppra controlling seizures but making psychosis worse, backing off on dose Klonopin should be tapered to off, 0.25mg BID x one week, 0.25mg daily x one week then stop has been through this in the past, Keppra clearly worsened mental state according to daughter follow up on drug levels, have been normal thus far no evidence of intracranial cause of increased seizure activity treat UTI as potential contributing factor - UTI: Proteus, continue Unasyn, complete 7 days total PO options limited by allergies, continue Unasyn for now - Dementia with mood disorder, anxiety, agitation appreciate psychiatry recommendations tapering off Zoloft Seroquel increased to 12.5 qAM and 25 qPM off of Buspar and standing order of Ativan - Diarrhea: negative for C diff, improved since admission DVT prophylaxis: Teds, SCDs CODE STATUS: Full code Disposition: Patient from [facility], try to d/c tomorrow if she continues to be calm and alert and eating and no seizure activity
--- NOTE | 2016-05-25 15:53 | Neurology Progress Notes ---
Neurology Progress Note Date of Service May 25, 2016. Alecia Sawyer is a 76-year-old female with a PMH of recurrent seizure, Ativan dependence, hypertension, dementia, depression, and anxiety who was transported as a direct admission from [facility] for refractory seizures. She is currently on Keppra 500 mg twice a day, and has been receiving Ativan 1 mg IM every 4 hours as needed for seizure. Daughter is bedside and states . She reports that patient has had refractory-like seizure where her eyes roll upward and to the right when she is having a seizure, she had 36 seizures within a 45 minute period today. December 2015, after being evaluated at [facility]. Daughter report she had an MRI, LP hematological, oncological, and infectious etiology which was completely negative. She has not had a grand mal since that time. Her daughter also reports that she does not sleep at night and she is always agitated and sometimes combative and is given Haldol IM daily. Daughter denies mom has been sick or complaining of pain, and has been eating well. Currently there is no one in the room and she is awake and keeps say "mommy". Objective Date Time Temp Pulse Resp B/P Pulse Ox O2 Delivery O2 Flow Rate FiO2 05/25/16 08:24 36.7 60 16 143/97 93 Room Air 05/25/16 08:00 Room Air 05/25/16 01:31 36.7 119 16 140/81 90 Room Air 05/25/16 00:00 Room Air 05/24/16 20:00 Room Air 05/24/16 16:00 Room Air 05/24/16 15:53 36.8 86 22 109/74 96 Room Air Last 24 Hours Test 05/24/16 16:17 05/24/16 20:18 05/25/16 08:11 05/25/16 11:32 Bedside Glucose 77 mg/dl 158 mg/dl 109 mg/dl 114 mg/dl Imaging: no new imaging Exam: gen: alert NAD lying in bed lungs course breath sounds CV RRR squeezes with right hand with command but then won't let go. moves all extremities spontaneously Current Inpatient Medications Medications (Trade) Dose Ordered Sig/Madeline Route Start Time Stop Time Status Last Admin Dose Admin Gabapentin (Neurontin Cap) 300 mg TID PO 05/18/16 20:00 06/17/16 19:59 05/25/16 14:10 300 MG Hydrochlorothiazide (Hydrochlorothiazide Tab) 25 mg QAM PO 05/19/16 08:00 06/18/16 07:59 05/25/16 08:26 25 MG Lidocaine (Lidoderm Patch 5%) 1 patch DAILY TD 05/19/16 08:00 06/18/16 07:59 05/25/16 08:25 1 PATCH Megestrol Acetate (Megace Susp) 400 mg BID PO 05/18/16 20:00 06/17/16 19:59 05/25/16 08:26 400 MG Triamcinolone Acetonide (Nasacort Allergy 24hr) 2 sprays DAILY KELSIE 05/19/16 08:00 06/18/16 07:59 05/25/16 08:26 2 SPRAYS Polyethylene (Miralax Powder Packet) 17 gm DAILY PO 05/19/16 08:00 06/18/16 07:59 05/25/16 08:25 17 GM Miscellaneous 1 ea 1 ea DAILY@21 N/A 05/18/16 21:00 06/17/16 20:59 05/24/16 20:58 1 EA Lorazepam/Syringe (Ativan Inj/ Syringe) 1 ml @ 0.5 mls/min Q4 PRN IV 05/19/16 19:45 06/18/16 19:44 05/22/16 09:24 0.5 MLS/MIN Haloperidol Lactate (Haldol Inj) 2 mg Q6H PRN IM 05/20/16 16:00 06/19/16 15:59 Quetiapine Fumarate (seroQUEL TAB) 12.5 mg Q6 PRN PO 05/20/16 12:15 06/19/16 12:14 Ampicillin Sodium/ Sulbactam Sodium 1 ea 1 ea UD PRN N/A 05/20/16 16:15 06/19/16 16:14 Ampicillin Sodium/ Sulbactam Sodium/ Sodium Chloride (Unasyn Inj/Nss 100ml) 108 ml @ 216 mls/hr Q6@0400,1000,1600,2200 IV 05/20/16 16:30 05/30/16 15:59 05/25/16 10:09 216 MLS/HR Quetiapine Fumarate (seroQUEL TAB) 25 mg HS PO 05/22/16 22:00 06/21/16 21:59 05/23/16 22:05 25 MG Sertraline HCl (Zoloft Tab) 25 mg DAILY PO 05/24/16 08:00 05/26/16 07:59 05/25/16 08:26 25 MG Quetiapine Fumarate (seroQUEL TAB) 12.5 mg QAM PO 05/24/16 08:00 06/23/16 07:59 05/25/16 08:25 12.5 MG Divalproex Sodium (Depakote Extended Rel Tab) 500 mg QPM PO 05/24/16 21:00 06/23/16 20:59 Divalproex Sodium (Depakote Extended Rel Tab) 750 mg QAM PO 05/24/16 10:30 06/23/16 10:29 05/25/16 08:26 750 MG Levetiracetam (Keppra Tab) 500 mg BID PO 05/24/16 20:00 06/23/16 19:59 05/25/16 08:26 500 MG Clonazepam (Klonopin Tab) 0.25 mg BID PO 05/24/16 20:00 06/23/16 19:59 05/25/16 08:25 0.25 MG Impression 76 year old female with seizure disorder and progressive dementia Plan 1. all medications should be reviewed and eliminate all non essential medications 2. patient does not seem as agitated today and there is no 1:1 in room 3. Keppra 500 mg BID reduced the Keppra back to 500 mg - daughter states this was just started question why this was stopped- new level pending 4. ativan 1 mg q 6 hours and klonopin 0.5 mg - 1 mg q 8 h was started and the ativan is now PRN tapering off klonopin at this point now that psych is on board and adjusting the Seraquel. reduced the Klonopin to 0.25 mg BID x 1 week then decrease to 0.25 mg once a week x 1 week then stop. 5. psychiatry on board for medication adjustments 6. UTI - no current indication, C diff negative 7. EEG read but poor quality due to motion artifact no new events reported by nursing 8. Depakote 750 mg am and 500 mg pm continue 9. will need placement at dementia facility when appropriate placement is found 10. currently discharge pending due to placement issues I have seen and discussed above patient with Dr Vignesh Tobias, neurology It appears that sh may be going back to [facility] she is a bit better today but still confused barely verbal and tearful with almost pseudobulbar affect keppra was hig so dose is being corrected back to 500 bid and depakote remains unchanged also on neurontin in low doses along with klonopin bu the latter is halley reduced and is very low at present Neurology will continue to follow but at this time beyond the above recommendations have not much more to offer in this setting Vignesh Tobias MD
[2016-05-25 16:00] VITALS: BP 122/72; PULSE 82; TEMP 36.6; O2SAT 97
[2016-05-25] MEDS: DIVALPROEX 500 MG EXTENDED RELEASE TAB PO SCH (22:39)
[2016-05-26] VITALS: O2SAT 94
[2016-05-26 00:05] VITALS: BP 136/59; PULSE 92; TEMP 35.6; O2SAT 94
[2016-05-26] MEDS: AMPICILLIN/SULBACTAM SOD INJ 3,000 MG in SODIUM CHLORIDE 0.9% 100ML 100 ML IV SCH ×4 (04:00→22:09)
[2016-05-26 08:00] VITALS: O2SAT 94
[2016-05-26] MEDS: TRIAMCINOLONE ACET NASAL SPRAY 10.8ML BTL NAE SCH (08:01)
[2016-05-26 08:02] VITALS: BP 152/82; PULSE 83; TEMP 36.4; O2SAT 98
[2016-05-26] MEDS: MEGESTROL ACETATE 400 MG/10 ML UDP PO SCH ×3 (08:02→19:50)
[2016-05-26] MEDS: LEVETIRACETAM 250 MG TAB PO SCH ×2 (08:02→08:45)
[2016-05-26] MEDS: QUETIAPINE FUMARATE 25 MG TAB PO SCH ×3 (08:03→21:24)
[2016-05-26] MEDS: GABAPENTIN 300 MG CAP PO SCH ×4 (08:03→19:50)
[2016-05-26] MEDS: POLYETHYLENE (MIRALAX) 17 GM PACK PO SCH ×2 (08:04→08:49)
[2016-05-26] MEDS: LIDODERM (LIDOCAINE) PATCH 5% TD SCH (08:04)
[2016-05-26] MEDS: HYDROCHLOROTHIAZIDE 25 MG TAB PO SCH ×2 (08:05→08:49)
[2016-05-26] MEDS: CLONAZEPAM 0.5 MG TAB PO SCH ×5 (08:09→19:48)
[2016-05-26] MEDS ORDERED: LEVETIRACETAM IV 500 MG in DEXTROSE 5% 100ML 100 ML IV ONE (10:15)
[2016-05-26] MEDS: VALPROATE SOD IV 500 MG in DEXTROSE 5% 50ML 50 ML IV SCH ×3 (11:48→23:16)
[2016-05-26 15:24] VITALS: BP 142/83; PULSE 91; TEMP 36.7; O2SAT 90
--- NOTE | 2016-05-26 16:37 | Progress Note ---
Subjective Date of Service: May 26, 2016. Subjective Pt evaluation today including: conversation w/ patient, physical exam, conversation w/ consultant dietitian, review of inpatient medication list Pain: no pain PO Intake: poor today Voiding: incontinence more somnolent today, had Seroquel early today woke up, more agitated and getting out of bed, received Haldol, now sedated again not taking PO meds changed Keppra and Depakote to IV Problem List Medical Problems: (1) Altered mental status Status: Acute (2) Altered mental status Status: Acute (3) Encephalopathy Status: Acute (4) Fall Status: Acute (5) Head injury, closed Status: Acute (6) Hematoma Status: Acute (7) Hypokalemia Status: Acute (8) Seizure Status: Acute (9) Seizure Status: Acute (10) Seizure Status: Acute (11) Status epilepticus Status: Acute (12) UTI (urinary tract infection) Status: Acute Review of Systems cannot review due to sedation, non-verbal Medications Current Inpatient Medications Medications (Trade) Dose Ordered Sig/Madeline Route Start Time Stop Time Status Last Admin Dose Admin Gabapentin (Neurontin Cap) 300 mg TID PO 05/18/16 20:00 06/17/16 19:59 05/25/16 22:40 300 MG Hydrochlorothiazide (Hydrochlorothiazide Tab) 25 mg QAM PO 05/19/16 08:00 06/18/16 07:59 05/25/16 08:26 25 MG Lidocaine (Lidoderm Patch 5%) 1 patch DAILY TD 05/19/16 08:00 06/18/16 07:59 05/26/16 08:04 1 PATCH Megestrol Acetate (Megace Susp) 400 mg BID PO 05/18/16 20:00 06/17/16 19:59 05/25/16 22:41 400 MG Triamcinolone Acetonide (Nasacort Allergy 24hr) 2 sprays DAILY KELSIE 05/19/16 08:00 06/18/16 07:59 05/26/16 08:01 2 SPRAYS Polyethylene (Miralax Powder Packet) 17 gm DAILY PO 05/19/16 08:00 06/18/16 07:59 05/25/16 08:25 17 GM Miscellaneous 1 ea 1 ea DAILY@21 N/A 05/18/16 21:00 06/17/16 20:59 05/25/16 21:00 1 EA Lorazepam/Syringe (Ativan Inj/ Syringe) 1 ml @ 0.5 mls/min Q4 PRN IV 05/19/16 19:45 06/18/16 19:44 05/22/16 09:24 0.5 MLS/MIN Haloperidol Lactate (Haldol Inj) 2 mg Q6H PRN IM 05/20/16 16:00 06/19/16 15:59 05/26/16 11:19 2 MG Quetiapine Fumarate (seroQUEL TAB) 12.5 mg Q6 PRN PO 05/20/16 12:15 06/19/16 12:14 05/26/16 05:40 12.5 MG Ampicillin Sodium/ Sulbactam Sodium 1 ea 1 ea UD PRN N/A 05/20/16 16:15 06/19/16 16:14 Ampicillin Sodium/ Sulbactam Sodium/ Sodium Chloride (Unasyn Inj/Nss 100ml) 108 ml @ 216 mls/hr Q6@0400,1000,1600,2200 IV 05/20/16 16:30 05/30/16 15:59 05/26/16 09:34 216 MLS/HR Quetiapine Fumarate (seroQUEL TAB) 25 mg HS PO 05/22/16 22:00 06/21/16 21:59 05/25/16 22:39 25 MG Quetiapine Fumarate (seroQUEL TAB) 12.5 mg QAM PO 05/24/16 08:00 06/23/16 07:59 05/25/16 08:25 12.5 MG Divalproex Sodium (Depakote Extended Rel Tab) 500 mg QPM PO 05/24/16 21:00 06/23/16 20:59 Future Hold 05/25/16 22:39 500 MG Divalproex Sodium (Depakote Extended Rel Tab) 750 mg QAM PO 05/24/16 10:30 06/23/16 10:29 Future Hold 05/25/16 22:40 750 MG Levetiracetam (Keppra Tab) 500 mg BID PO 05/24/16 20:00 06/23/16 19:59 Future Hold 05/25/16 22:41 500 MG Clonazepam 0.25 mg 0.25 mg BID PO 05/24/16 20:00 06/23/16 19:59 05/26/16 11:25 0.25 MG Levetiracetam 500 mg/Dextrose 105 ml @ 420 mls/hr Q12H IV 05/26/16 22:00 06/25/16 21:59 Valproate Sodium/ Dextrose (Depacon Iv/D5 50ml) 55 ml @ 55 mls/hr Q6H IV 05/26/16 12:00 06/25/16 11:59 05/26/16 11:48 55 MLS/HR Objective Vital Signs Date Time Temp Pulse Resp B/P Pulse Ox O2 Delivery O2 Flow Rate FiO2 05/26/16 15:24 36.7 91 18 142/83 90 Room Air 05/26/16 08:02 36.4 83 18 152/82 98 Room Air 05/26/16 08:00 94 Room Air 05/26/16 00:05 35.6 92 18 136/59 94 Room Air 05/26/16 00:00 94 Room Air Physical Exam General Appearance: WD/WN, no apparent distress Neck: supple, no adenopathy, no JVD, trachea midline Respiratory/Chest: chest non-tender, lungs clear, normal breath sounds, no respiratory distress, no accessory muscle use Cardiovascular: regular rate, rhythm, no edema, no gallop, no JVD, no murmur Abdomen: normal bowel sounds, non tender, soft, no organomegaly Extremities: normal range of motion, non-tender, normal inspection, no pedal edema, no calf tenderness Neurologic/Psychiatric: energy technician II-XII nml as tested, no motor/sensory deficits, normal mood/affect, oriented x 3, + disoriented, + pertinent finding (sedated) Skin: normal color, warm/dry, no rash Lymphatic: no adenopathy Laboratory Results Last 24 Hours Test 05/25/16 16:36 05/25/16 21:20 05/26/16 07:51 05/26/16 11:53 Bedside Glucose 146 mg/dl 151 mg/dl 100 mg/dl 127 mg/dl Assessment and Plan 76 yo F with a PMHx of recurrent seizures, Ativan dependence, hypertension, dementia, depression, and anxiety who was transported as a direct admission from [facility] for refractory seizures. - Refractory seizures: stable for now, no seizure activity, changed keppra and depakote to IV since not taking PO Klonopin should be tapered to off, 0.25mg BID x one week, 0.25mg daily x one week then stop has been through this in the past, Keppra clearly worsened mental state according to daughter follow up on drug levels, have been normal thus far no evidence of intracranial cause of increased seizure activity treat UTI as potential contributing factor - UTI: Proteus, continue Unasyn, complete 7 days total PO options limited by allergies, continue Unasyn for now - Dementia with mood disorder, anxiety, agitation, sedated today, mental status waxes and wanes suspect delirium on top of dementia, polypharmacy appreciate psychiatry recommendations tapering off Zoloft Seroquel increased to 12.5 qAM and 25 qPM off of Buspar and standing order of Ativan - Diarrhea: negative for C diff, improved since admission DVT prophylaxis: Teds, SCDs CODE STATUS: Full code Disposition: Patient from [facility], no d/c today due to more sedation
--- NOTE | 2016-05-26 20:14 | Neurology Progress Notes ---
Neurology Progress Note Date of Service May 26, 2016. Alecia Sawyer is a 76-year-old female with a PMH of recurrent seizure, Ativan dependence, hypertension, dementia, depression, and anxiety who was transported as a direct admission from [facility] for refractory seizures. She is currently on Keppra 500 mg twice a day, and has been receiving Ativan 1 mg IM every 4 hours as needed for seizure. Daughter is bedside and states . She reports that patient has had refractory-like seizure where her eyes roll upward and to the right when she is having a seizure, she had 36 seizures within a 45 minute period today. December 2015, after being evaluated at [facility]. Daughter report she had an MRI, LP hematological, oncological, and infectious etiology which was completely negative. She has not had a grand mal since that time. Her daughter also reports that she does not sleep at night and she is always agitated and sometimes combative and is given Haldol IM daily. Daughter denies mom has been sick or complaining of pain, and has been eating well. she is lying in bed sleeping. awakes easily with voice command. does not respond to questions. she is saying some unrecognizable babbling. Objective Date Time Temp Pulse Resp B/P Pulse Ox O2 Delivery O2 Flow Rate FiO2 05/26/16 15:24 36.7 91 18 142/83 90 Room Air 05/26/16 08:02 36.4 83 18 152/82 98 Room Air 05/26/16 08:00 94 Room Air 05/26/16 00:05 35.6 92 18 136/59 94 Room Air 05/26/16 00:00 94 Room Air Last 24 Hours Test 05/25/16 21:20 05/26/16 07:51 05/26/16 11:53 05/26/16 16:46 Bedside Glucose 151 mg/dl 100 mg/dl 127 mg/dl 70 mg/dl Test 05/26/16 18:34 Bedside Glucose 78 mg/dl Imaging: no new imaging Exam: gen: alert NAD lungs CTA CV RRR moves all ext spontaneously but not with command squeezes hand but will not let go when asked to let go Current Inpatient Medications Medications (Trade) Dose Ordered Sig/Madeline Route Start Time Stop Time Status Last Admin Dose Admin Gabapentin (Neurontin Cap) 300 mg TID PO 05/18/16 20:00 06/17/16 19:59 05/26/16 19:50 300 MG Hydrochlorothiazide (Hydrochlorothiazide Tab) 25 mg QAM PO 05/19/16 08:00 06/18/16 07:59 05/25/16 08:26 25 MG Lidocaine (Lidoderm Patch 5%) 1 patch DAILY TD 05/19/16 08:00 06/18/16 07:59 05/26/16 08:04 1 PATCH Megestrol Acetate (Megace Susp) 400 mg BID PO 05/18/16 20:00 06/17/16 19:59 05/26/16 19:50 400 MG Triamcinolone Acetonide (Nasacort Allergy 24hr) 2 sprays DAILY KELSIE 05/19/16 08:00 06/18/16 07:59 05/26/16 08:01 2 SPRAYS Polyethylene (Miralax Powder Packet) 17 gm DAILY PO 05/19/16 08:00 06/18/16 07:59 05/25/16 08:25 17 GM Miscellaneous 1 ea 1 ea DAILY@21 N/A 05/18/16 21:00 06/17/16 20:59 05/26/16 20:02 1 EA Lorazepam/Syringe (Ativan Inj/ Syringe) 1 ml @ 0.5 mls/min Q4 PRN IV 05/19/16 19:45 06/18/16 19:44 05/22/16 09:24 0.5 MLS/MIN Haloperidol Lactate (Haldol Inj) 2 mg Q6H PRN IM 05/20/16 16:00 06/19/16 15:59 05/26/16 11:19 2 MG Quetiapine Fumarate (seroQUEL TAB) 12.5 mg Q6 PRN PO 05/20/16 12:15 06/19/16 12:14 05/26/16 05:40 12.5 MG Ampicillin Sodium/ Sulbactam Sodium 1 ea 1 ea UD PRN N/A 05/20/16 16:15 06/19/16 16:14 Ampicillin Sodium/ Sulbactam Sodium/ Sodium Chloride (Unasyn Inj/Nss 100ml) 108 ml @ 216 mls/hr Q6@0400,1000,1600,2200 IV 05/20/16 16:30 05/30/16 15:59 05/26/16 18:20 216 MLS/HR Quetiapine Fumarate (seroQUEL TAB) 25 mg HS PO 05/22/16 22:00 06/21/16 21:59 05/25/16 22:39 25 MG Quetiapine Fumarate (seroQUEL TAB) 12.5 mg QAM PO 05/24/16 08:00 06/23/16 07:59 05/25/16 08:25 12.5 MG Divalproex Sodium (Depakote Extended Rel Tab) 500 mg QPM PO 05/24/16 21:00 06/23/16 20:59 Future Hold 05/25/16 22:39 500 MG Divalproex Sodium (Depakote Extended Rel Tab) 750 mg QAM PO 05/24/16 10:30 06/23/16 10:29 Future Hold 05/25/16 22:40 750 MG Levetiracetam (Keppra Tab) 500 mg BID PO 05/24/16 20:00 06/23/16 19:59 Future Hold 05/25/16 22:41 500 MG Clonazepam 0.25 mg 0.25 mg BID PO 05/24/16 20:00 06/23/16 19:59 05/26/16 19:48 0.25 MG Levetiracetam 500 mg/Dextrose 105 ml @ 420 mls/hr Q12H IV 05/26/16 22:00 06/25/16 21:59 Valproate Sodium/ Dextrose (Depacon Iv/D5 50ml) 55 ml @ 55 mls/hr Q6H IV 05/26/16 12:00 06/25/16 11:59 05/26/16 18:17 55 MLS/HR Impression 76 year old female with seizure disorder and progressive dementia Plan 1. all medications should be reviewed and eliminate all non essential medications 2. patient does not seem as agitated today and there is no 1:1 in room 3. Keppra 500 mg BID reduced the Keppra back to 500 mg - daughter states this was just started question why this was stopped- new level pending 4. ativan 1 mg q 6 hours and klonopin 0.5 mg - 1 mg q 8 h was started and the ativan is now PRN tapering off klonopin at this point now that psych is on board and adjusting the Seraquel. reduced the Klonopin to 0.25 mg BID x 1 week then decrease to 0.25 mg once a week x 1 week then stop. 5. psychiatry on board for medication adjustments 6. UTI - no current indication, C diff negative 7. EEG read but poor quality due to motion artifact no new events reported by nursing 8. Depakote 750 mg am and 500 mg pm continue 9. will need placement at dementia facility when appropriate placement is found 10. currently discharge pending due to placement issues 11. would not use ativan for agitation causing excessive sedation. Haldol prn or adjust seraquel dose- psychiatry for revisions. Pt seen and examined. no noted sz. Pt sleepy, arousable, , not currently following commanded. Agree with management as above, PARISA Jesus MD I have seen and discussed above patient with Dr Katya Jesus, neurology
[2016-05-26] MEDS: LEVETIRACETAM IV 500 MG in DEXTROSE 5% 100ML 100 ML IV SCH (21:24)
[2016-05-27] VITALS: BP 137/61; PULSE 96; TEMP 36.9; O2SAT 92
[2016-05-27] MEDS: LORAZEPAM INJ 1 MG in SYRINGE 0.5 ML IV PRN (03:14)
[2016-05-27] MEDS: AMPICILLIN/SULBACTAM SOD INJ 3,000 MG in SODIUM CHLORIDE 0.9% 100ML 100 ML IV SCH ×4 (03:41→22:20)
[2016-05-27] MEDS: VALPROATE SOD IV 500 MG in DEXTROSE 5% 50ML 50 ML IV SCH ×3 (05:19→18:16)
[2016-05-27] MEDS: QUETIAPINE FUMARATE 25 MG TAB PO SCH ×2 (08:00→22:20)
[2016-05-27 08:09] VITALS: BP 178/97; PULSE 93; TEMP 36.6; O2SAT 97
[2016-05-27] MEDS: GABAPENTIN 300 MG CAP PO SCH ×3 (08:11→20:49)
[2016-05-27] MEDS: LIDODERM (LIDOCAINE) PATCH 5% TD SCH (08:12)
[2016-05-27] MEDS: HYDROCHLOROTHIAZIDE 25 MG TAB PO SCH (08:12)
[2016-05-27] MEDS: POLYETHYLENE (MIRALAX) 17 GM PACK PO SCH (08:13)
[2016-05-27] MEDS: MEGESTROL ACETATE 400 MG/10 ML UDP PO SCH ×2 (08:13→20:48)
[2016-05-27] MEDS: TRIAMCINOLONE ACET NASAL SPRAY 10.8ML BTL NAE SCH (08:14)
[2016-05-27] MEDS: CLONAZEPAM 0.5 MG TAB PO SCH ×2 (08:22→20:48)
[2016-05-27] MEDS: LEVETIRACETAM IV 500 MG in DEXTROSE 5% 100ML 100 ML IV SCH ×2 (09:56→22:20)
--- NOTE | 2016-05-27 11:18 | Psychiatric Progress Notes ---
Psychiatric Progress Note Date of Service May 27, 2016. Notes ID: Patient reviewed with liaison nurse. Interim progress reviewed. am dose of Seroquel added 05/24/15. CC: patient unable to answer HPI: patient remains confused, ROS: moving upper extremities, tells me she loves me otherwise speech unintelligible. Nurse tells me she was sleepy earlier. Received prn Ativan overnight, midday dose of Haldol prn yesterday. MSE: awake, a bit restless, speech largely unintelligible Imp: demential with behavioral disturbance with refractory seizures Plan: continue Seroquel current dose as may be leaving today for snf and concerns about sedation interimittently. If minimal progress behaviorally and still requiring prns would titrate hs dose over am dose Seroquel.
[2016-05-27] MEDS ORDERED: LORAZEPAM INJ 0.5 MG in SYRINGE 0.75 ML IV PRN (12:30)
--- NOTE | 2016-05-27 15:02 | Neurology Progress Notes ---
Neurology Progress Note Date of Service May 27, 2016. Alecia Sawyer is a 76-year-old female with a PMH of recurrent seizure, Ativan dependence, hypertension, dementia, depression, and anxiety who was transported as a direct admission from [facility] for refractory seizures. She is currently on Keppra 500 mg twice a day, and has been receiving Ativan 1 mg IM every 4 hours as needed for seizure. Daughter is bedside and states . She reports that patient has had refractory-like seizure where her eyes roll upward and to the right when she is having a seizure, she had 36 seizures within a 45 minute period today. December 2015, after being evaluated at [facility]. Daughter report she had an MRI, LP hematological, oncological, and infectious etiology which was completely negative. She has not had a grand mal since that time. Her daughter also reports that she does not sleep at night and she is always agitated and sometimes combative and is given Haldol IM daily. Daughter denies mom has been sick or complaining of pain, and has been eating well. she is lying in bed sleeping. awakes easily with voice command. does not respond to questions. She keep repeating "love you". Objective Date Time Temp Pulse Resp B/P Pulse Ox O2 Delivery O2 Flow Rate FiO2 05/27/16 08:09 36.6 93 17 178/97 97 Room Air 05/27/16 00:00 36.9 96 22 137/61 92 Room Air 05/27/16 00:00 Room Air 05/26/16 20:00 Room Air 05/26/16 15:24 36.7 91 18 142/83 90 Room Air Last 24 Hours Test 05/26/16 16:46 05/26/16 18:34 05/26/16 20:29 05/27/16 07:41 Bedside Glucose 70 mg/dl 78 mg/dl 93 mg/dl 103 mg/dl Test 05/27/16 12:08 Bedside Glucose 150 mg/dl Imaging: no new imaging Exam: Gen: alert with voice command, NAD lungs CTA CV RRR squeezes hands with command but doesn't let go moves all ext spontaneously but not with command Current Inpatient Medications Medications (Trade) Dose Ordered Sig/Madeline Route Start Time Stop Time Status Last Admin Dose Admin Gabapentin (Neurontin Cap) 300 mg TID PO 05/18/16 20:00 06/17/16 19:59 05/27/16 14:22 300 MG Hydrochlorothiazide (Hydrochlorothiazide Tab) 25 mg QAM PO 05/19/16 08:00 06/18/16 07:59 05/27/16 08:12 25 MG Lidocaine (Lidoderm Patch 5%) 1 patch DAILY TD 05/19/16 08:00 06/18/16 07:59 05/27/16 08:12 1 PATCH Megestrol Acetate (Megace Susp) 400 mg BID PO 05/18/16 20:00 06/17/16 19:59 05/27/16 08:13 400 MG Triamcinolone Acetonide (Nasacort Allergy 24hr) 2 sprays DAILY KELSIE 05/19/16 08:00 06/18/16 07:59 05/27/16 08:14 2 SPRAYS Polyethylene (Miralax Powder Packet) 17 gm DAILY PO 05/19/16 08:00 06/18/16 07:59 05/27/16 08:13 17 GM Miscellaneous (Remove Lidoderm Patch) 1 ea DAILY@21 N/A 05/18/16 21:00 06/17/16 20:59 05/26/16 20:02 1 EA Haloperidol Lactate (Haldol Inj) 2 mg Q6H PRN IM 05/20/16 16:00 06/19/16 15:59 05/26/16 11:19 2 MG Quetiapine Fumarate (seroQUEL TAB) 12.5 mg Q6 PRN PO 05/20/16 12:15 06/19/16 12:14 05/26/16 05:40 12.5 MG Ampicillin Sodium/ Sulbactam Sodium 1 ea 1 ea UD PRN N/A 05/20/16 16:15 06/19/16 16:14 Ampicillin Sodium/ Sulbactam Sodium/ Sodium Chloride (Unasyn Inj/Nss 100ml) 108 ml @ 216 mls/hr Q6@0400,1000,1600,2200 IV 05/20/16 16:30 05/30/16 15:59 05/27/16 10:49 216 MLS/HR Quetiapine Fumarate (seroQUEL TAB) 25 mg HS PO 05/22/16 22:00 06/21/16 21:59 05/26/16 21:24 25 MG Quetiapine Fumarate (seroQUEL TAB) 12.5 mg QAM PO 05/24/16 08:00 06/23/16 07:59 05/25/16 08:25 12.5 MG Divalproex Sodium (Depakote Extended Rel Tab) 500 mg QPM PO 05/24/16 21:00 06/23/16 20:59 Future Hold 05/25/16 22:39 500 MG Divalproex Sodium (Depakote Extended Rel Tab) 750 mg QAM PO 05/24/16 10:30 06/23/16 10:29 Future Hold 05/25/16 22:40 750 MG Levetiracetam (Keppra Tab) 500 mg BID PO 05/24/16 20:00 06/23/16 19:59 Future Hold 05/25/16 22:41 500 MG Clonazepam 0.25 mg 0.25 mg BID PO 05/24/16 20:00 06/23/16 19:59 05/27/16 08:22 0.25 MG Levetiracetam 500 mg/Dextrose 105 ml @ 420 mls/hr Q12H IV 05/26/16 22:00 06/25/16 21:59 05/27/16 09:56 420 MLS/HR Valproate Sodium 500 mg/Dextrose 55 ml @ 55 mls/hr Q6H IV 05/26/16 12:00 06/25/16 11:59 05/27/16 12:09 55 MLS/HR Lorazepam/Syringe (Ativan Inj/ Syringe) 1 ml @ 0.5 mls/min Q4 PRN IV 05/27/16 12:30 06/26/16 12:29 Impression 76 year old female with seizure disorder and progressive dementia Plan 1. all medications should be reviewed and eliminate all non essential medications 2. patient does not seem as agitated today and there is no 1:1 in room 3. Keppra 500 mg BID reduced the Keppra back to 500 mg - daughter states this was just started question why this was stopped- new level pending 4. ativan 1 mg q 6 hours and klonopin 0.5 mg - 1 mg q 8 h was started and the ativan is now PRN tapering off klonopin at this point now that psych is on board and adjusting the Seraquel. reduced the Klonopin to 0.25 mg BID x 1 week then decrease to 0.25 mg once a week x 1 week then stop. 5. psychiatry on board for medication adjustments 6. UTI - no current indication, C diff negative 7. EEG read but poor quality due to motion artifact no new events reported by nursing 8. Depakote 750 mg am and 500 mg pm continue 9. will need placement at dementia facility when appropriate placement is found 10. currently discharge pending due to placement issues 11. would not use ativan for agitation causing excessive sedation. Haldol prn or adjust seraquel dose- psychiatry for revisions. follow up with neurology as outpatient previously seen by [facility]. May follow with [facility] if family requests. Katya Bradley PAC schedule in 4-6 weeks or sooner if needed I have seen and discussed above patient with Dr Katya Jesus, neurology Pt seen and examined,No sz have been noted by nursing. sleepy, able to state name, not following commands. Imp dementia with sz, recent flurry which has responded to reinstitution of keppra. Awaiting NH placement. PARISA Jesus MD
[2016-05-27 16:06] VITALS: BP 146/81; PULSE 97; TEMP 36.6; O2SAT 95
--- NOTE | 2016-05-27 16:08 | Progress Note ---
Subjective Date of Service: May 27, 2016. Subjective Pt evaluation today including: conversation w/ family (daughter), physical exam , conversation w/ senior science consultant, review of inpatient medication list Pain: no pain PO Intake: poor, lethargic Voiding: incontinence patient with agitation last night, got Ativan 1mg IV, will decrease to 0.5mg, try Haldol first was awake today, now lethargic long talk with daughter, discussed that this very well may be patient's baseline going forward hopeful that tapering off Klonopin will help with alertness but difficult to know yet appreciate psychiatry input Problem List Medical Problems: (1) Altered mental status Status: Acute (2) Altered mental status Status: Acute (3) Encephalopathy Status: Acute (4) Fall Status: Acute (5) Head injury, closed Status: Acute (6) Hematoma Status: Acute (7) Hypokalemia Status: Acute (8) Seizure Status: Acute (9) Seizure Status: Acute (10) Seizure Status: Acute (11) Status epilepticus Status: Acute (12) UTI (urinary tract infection) Status: Acute Review of Systems cannot review, sedated Medications Current Inpatient Medications Medications (Trade) Dose Ordered Sig/Madeline Route Start Time Stop Time Status Last Admin Dose Admin Gabapentin (Neurontin Cap) 300 mg TID PO 05/18/16 20:00 06/17/16 19:59 05/27/16 14:22 300 MG Hydrochlorothiazide (Hydrochlorothiazide Tab) 25 mg QAM PO 05/19/16 08:00 06/18/16 07:59 05/27/16 08:12 25 MG Lidocaine (Lidoderm Patch 5%) 1 patch DAILY TD 05/19/16 08:00 06/18/16 07:59 05/27/16 08:12 1 PATCH Megestrol Acetate (Megace Susp) 400 mg BID PO 05/18/16 20:00 06/17/16 19:59 05/27/16 08:13 400 MG Triamcinolone Acetonide (Nasacort Allergy 24hr) 2 sprays DAILY KELSIE 05/19/16 08:00 06/18/16 07:59 05/27/16 08:14 2 SPRAYS Polyethylene (Miralax Powder Packet) 17 gm DAILY PO 05/19/16 08:00 06/18/16 07:59 05/27/16 08:13 17 GM Miscellaneous (Remove Lidoderm Patch) 1 ea DAILY@21 N/A 05/18/16 21:00 06/17/16 20:59 05/26/16 20:02 1 EA Haloperidol Lactate (Haldol Inj) 2 mg Q6H PRN IM 05/20/16 16:00 06/19/16 15:59 05/26/16 11:19 2 MG Quetiapine Fumarate (seroQUEL TAB) 12.5 mg Q6 PRN PO 05/20/16 12:15 06/19/16 12:14 05/26/16 05:40 12.5 MG Ampicillin Sodium/ Sulbactam Sodium 1 ea 1 ea UD PRN N/A 05/20/16 16:15 06/19/16 16:14 Ampicillin Sodium/ Sulbactam Sodium/ Sodium Chloride (Unasyn Inj/Nss 100ml) 108 ml @ 216 mls/hr Q6@0400,1000,1600,2200 IV 05/20/16 16:30 05/30/16 15:59 05/27/16 10:49 216 MLS/HR Quetiapine Fumarate (seroQUEL TAB) 25 mg HS PO 05/22/16 22:00 06/21/16 21:59 05/26/16 21:24 25 MG Quetiapine Fumarate (seroQUEL TAB) 12.5 mg QAM PO 05/24/16 08:00 06/23/16 07:59 05/25/16 08:25 12.5 MG Divalproex Sodium (Depakote Extended Rel Tab) 500 mg QPM PO 05/24/16 21:00 06/23/16 20:59 Future Hold 05/25/16 22:39 500 MG Divalproex Sodium (Depakote Extended Rel Tab) 750 mg QAM PO 05/24/16 10:30 06/23/16 10:29 Future Hold 05/25/16 22:40 750 MG Levetiracetam (Keppra Tab) 500 mg BID PO 05/24/16 20:00 06/23/16 19:59 Future Hold 05/25/16 22:41 500 MG Clonazepam 0.25 mg 0.25 mg BID PO 05/24/16 20:00 06/23/16 19:59 05/27/16 08:22 0.25 MG Levetiracetam 500 mg/Dextrose 105 ml @ 420 mls/hr Q12H IV 05/26/16 22:00 06/25/16 21:59 05/27/16 09:56 420 MLS/HR Valproate Sodium 500 mg/Dextrose 55 ml @ 55 mls/hr Q6H IV 05/26/16 12:00 06/25/16 11:59 05/27/16 12:09 55 MLS/HR Lorazepam/Syringe (Ativan Inj/ Syringe) 1 ml @ 0.5 mls/min Q4 PRN IV 05/27/16 12:30 06/26/16 12:29 Objective Vital Signs Date Time Temp Pulse Resp B/P Pulse Ox O2 Delivery O2 Flow Rate FiO2 05/27/16 08:09 36.6 93 17 178/97 97 Room Air 05/27/16 00:00 36.9 96 22 137/61 92 Room Air 05/27/16 00:00 Room Air 05/26/16 20:00 Room Air Physical Exam General Appearance: WD/WN, no apparent distress Neck: supple, no adenopathy, no JVD, trachea midline Respiratory/Chest: chest non-tender, lungs clear, normal breath sounds, no respiratory distress, no accessory muscle use Cardiovascular: regular rate, rhythm, no edema, no gallop, no JVD, no murmur Abdomen: normal bowel sounds, non tender, soft, no organomegaly Extremities: normal range of motion, non-tender, normal inspection, no pedal edema, no calf tenderness Neurologic/Psychiatric: tobacco grader II-XII nml as tested, + disoriented, + pertinent finding (lethargic, won't arouse easily, language unintelligible) Skin: normal color, warm/dry, no rash Lymphatic: no adenopathy Laboratory Results Last 24 Hours Test 05/26/16 16:46 05/26/16 18:34 05/26/16 20:29 05/27/16 07:41 Bedside Glucose 70 mg/dl 78 mg/dl 93 mg/dl 103 mg/dl Test 05/27/16 12:08 Bedside Glucose 150 mg/dl Assessment and Plan 76 yo F with a PMHx of recurrent seizures, Ativan dependence, hypertension, dementia, depression, and anxiety who was transported as a direct admission from [facility] for refractory seizures. - Refractory seizures: stable for now, no seizure activity, changed keppra and depakote to IV since not taking PO, continue this for now Klonopin should be tapered to off, 0.25mg BID x one week, 0.25mg daily x one week then stop has been through this in the past, Keppra clearly worsened mental state according to daughter follow up on drug levels, have been normal thus far no evidence of intracranial cause of increased seizure activity treat UTI as potential contributing factor - UTI: Proteus, continue Unasyn, complete 7 days total PO options limited by allergies, continue Unasyn for now - Dementia with mood disorder, anxiety, agitation, sedated today, mental status waxes and wanes suspect delirium on top of dementia, polypharmacy appreciate psychiatry recommendations tapering off Zoloft Seroquel increased to 12.5 qAM and 25 qPM off of Buspar and standing order of Ativan decreased PRN Ativan to 0.5mg, try to use Haldol first if needing PRN's will then increase evening Seroquel - Diarrhea: negative for C diff, improved since admission DVT prophylaxis: Teds, SCDs CODE STATUS: Full code Disposition: Patient from [facility], no d/c today due to more sedation
[2016-05-28] MEDS: VALPROATE SOD IV 500 MG in DEXTROSE 5% 50ML 50 ML IV SCH ×4 (00:07→18:21)
[2016-05-28 00:17] VITALS: BP 117/75; PULSE 100; TEMP 36.7; O2SAT 94
[2016-05-28] MEDS: AMPICILLIN/SULBACTAM SOD INJ 3,000 MG in SODIUM CHLORIDE 0.9% 100ML 100 ML IV SCH ×4 (04:01→23:02)
[2016-05-28 07:44] VITALS: BP 150/82; PULSE 91; TEMP 36.7; O2SAT 94
[2016-05-28] MEDS: GABAPENTIN 300 MG CAP PO SCH ×3 (08:14→20:39)
[2016-05-28] MEDS: QUETIAPINE FUMARATE 25 MG TAB PO SCH ×2 (08:14→23:03)
[2016-05-28] MEDS: HYDROCHLOROTHIAZIDE 25 MG TAB PO SCH (08:14)
[2016-05-28] MEDS: POLYETHYLENE (MIRALAX) 17 GM PACK PO SCH (08:15)
[2016-05-28] MEDS: MEGESTROL ACETATE 400 MG/10 ML UDP PO SCH ×2 (08:15→20:38)
[2016-05-28] MEDS: TRIAMCINOLONE ACET NASAL SPRAY 10.8ML BTL NAE SCH (08:15)
[2016-05-28] MEDS: CLONAZEPAM 0.5 MG TAB PO SCH ×2 (08:15→20:46)
[2016-05-28] MEDS: LIDODERM (LIDOCAINE) PATCH 5% TD SCH (08:16)
[2016-05-28 08:47] LABS: CREATININE 0.82 mg/dl (0.60-1.20)
[2016-05-28] MEDS: LEVETIRACETAM IV 500 MG in DEXTROSE 5% 100ML 100 ML IV SCH ×2 (10:24→23:02)
--- NOTE | 2016-05-28 15:38 | Progress Note ---
Subjective Date of Service: May 28, 2016. Subjective Pt evaluation today including: conversation w/ patient, physical exam, review of inpatient medication list Pain: no clear pain PO Intake: poor Voiding: incontinence lethargic this AM, no meaningful responses agitated at times, not trying to get out of bed Problem List Medical Problems: (1) Altered mental status Status: Acute (2) Altered mental status Status: Acute (3) Encephalopathy Status: Acute (4) Fall Status: Acute (5) Head injury, closed Status: Acute (6) Hematoma Status: Acute (7) Hypokalemia Status: Acute (8) Seizure Status: Acute (9) Seizure Status: Acute (10) Seizure Status: Acute (11) Status epilepticus Status: Acute (12) UTI (urinary tract infection) Status: Acute Review of Systems cannot review due to delirium, dementia Medications Current Inpatient Medications Medications (Trade) Dose Ordered Sig/Madeline Route Start Time Stop Time Status Last Admin Dose Admin Gabapentin (Neurontin Cap) 300 mg TID PO 05/18/16 20:00 06/17/16 19:59 05/28/16 14:33 300 MG Hydrochlorothiazide (Hydrochlorothiazide Tab) 25 mg QAM PO 05/19/16 08:00 06/18/16 07:59 05/28/16 08:14 25 MG Lidocaine (Lidoderm Patch 5%) 1 patch DAILY TD 05/19/16 08:00 06/18/16 07:59 05/28/16 08:16 1 PATCH Megestrol Acetate (Megace Susp) 400 mg BID PO 05/18/16 20:00 06/17/16 19:59 05/28/16 08:15 400 MG Triamcinolone Acetonide (Nasacort Allergy 24hr) 2 sprays DAILY KELSIE 05/19/16 08:00 06/18/16 07:59 05/28/16 08:15 2 SPRAYS Polyethylene (Miralax Powder Packet) 17 gm DAILY PO 05/19/16 08:00 06/18/16 07:59 05/28/16 08:15 17 GM Miscellaneous (Remove Lidoderm Patch) 1 ea DAILY@21 N/A 05/18/16 21:00 06/17/16 20:59 05/27/16 20:49 1 EA Haloperidol Lactate (Haldol Inj) 2 mg Q6H PRN IM 05/20/16 16:00 06/19/16 15:59 05/26/16 11:19 2 MG Quetiapine Fumarate (seroQUEL TAB) 12.5 mg Q6 PRN PO 05/20/16 12:15 06/19/16 12:14 05/26/16 05:40 12.5 MG Ampicillin Sodium/ Sulbactam Sodium 1 ea 1 ea UD PRN N/A 05/20/16 16:15 06/19/16 16:14 Ampicillin Sodium/ Sulbactam Sodium/ Sodium Chloride (Unasyn Inj/Nss 100ml) 108 ml @ 216 mls/hr Q6@0400,1000,1600,2200 IV 05/20/16 16:30 05/30/16 15:59 05/28/16 10:51 216 MLS/HR Quetiapine Fumarate (seroQUEL TAB) 25 mg HS PO 05/22/16 22:00 06/21/16 21:59 05/27/16 22:20 25 MG Quetiapine Fumarate (seroQUEL TAB) 12.5 mg QAM PO 05/24/16 08:00 06/23/16 07:59 05/28/16 08:14 12.5 MG Divalproex Sodium (Depakote Extended Rel Tab) 500 mg QPM PO 05/24/16 21:00 06/23/16 20:59 Future Hold 05/25/16 22:39 500 MG Divalproex Sodium (Depakote Extended Rel Tab) 750 mg QAM PO 05/24/16 10:30 06/23/16 10:29 Future Hold 05/25/16 22:40 750 MG Levetiracetam (Keppra Tab) 500 mg BID PO 05/24/16 20:00 06/23/16 19:59 Future Hold 05/25/16 22:41 500 MG Clonazepam 0.25 mg 0.25 mg BID PO 05/24/16 20:00 06/23/16 19:59 05/28/16 08:15 0.25 MG Levetiracetam 500 mg/Dextrose 105 ml @ 420 mls/hr Q12H IV 05/26/16 22:00 06/25/16 21:59 05/28/16 10:24 420 MLS/HR Valproate Sodium 500 mg/Dextrose 55 ml @ 55 mls/hr Q6H IV 05/26/16 12:00 06/25/16 11:59 05/28/16 11:53 55 MLS/HR Lorazepam/Syringe (Ativan Inj/ Syringe) 1 ml @ 0.5 mls/min Q4 PRN IV 05/27/16 12:30 06/26/16 12:29 Objective Vital Signs Date Time Temp Pulse Resp B/P Pulse Ox O2 Delivery O2 Flow Rate FiO2 05/28/16 09:00 Room Air 05/28/16 07:44 36.7 91 18 150/82 94 Room Air 05/28/16 00:17 36.7 100 18 117/75 94 Room Air 05/28/16 00:00 Room Air 05/27/16 16:06 36.6 97 18 146/81 95 Room Air 05/27/16 16:00 Room Air Physical Exam General Appearance: no apparent distress, + thin Neck: supple, no adenopathy, no JVD, trachea midline Respiratory/Chest: chest non-tender, lungs clear, normal breath sounds, no respiratory distress, no accessory muscle use Cardiovascular: no edema, no gallop, no JVD, no murmur, + tachycardia Abdomen: normal bowel sounds, non tender, soft, no organomegaly Extremities: normal range of motion, non-tender, normal inspection, no pedal edema, no calf tenderness, pelvis stable Neurologic/Psychiatric: no motor/sensory deficits, + disoriented, + pertinent finding (agitated, confused) Skin: normal color, warm/dry, no rash Laboratory Results Last 24 Hours Test 05/27/16 16:46 05/27/16 20:10 05/28/16 04:44 05/28/16 07:18 Bedside Glucose 109 mg/dl 209 mg/dl 105 mg/dl Creatinine 0.82 mg/dl Est Creatinine Clear Calc Drug Dose 56.3 ml/min Estimated GFR () 81.7 Estimated GFR (Non- 70.5 Test 05/28/16 12:09 Bedside Glucose 110 mg/dl Assessment and Plan 76 yo F with a PMHx of recurrent seizures, Ativan dependence, hypertension, dementia, depression, and anxiety who was transported as a direct admission from [facility] for refractory seizures. - Refractory seizures: stable for now, no seizure activity, changed keppra and depakote to IV since not taking PO, continue this for now Klonopin should be tapered to off, 0.25mg BID x one week, 0.25mg daily x one week then stop no evidence of intracranial cause of increased seizure activity treat UTI as potential contributing factor - UTI: Proteus, continue Unasyn, complete 7 days total PO options limited by allergies, continue Unasyn for now - Dementia with mood disorder, anxiety, agitation, sedated today, mental status waxes and wanes consistent with delirium suspect delirium on top of dementia, polypharmacy appreciate psychiatry recommendations tapered off Zoloft Seroquel increased to 12.5 qAM and 25 qPM off of Buspar and standing order of Ativan decreased PRN Ativan to 0.5mg, try to use Haldol first if needing PRN's will then increase evening Seroquel - Diarrhea: negative for C diff, improved since admission DVT prophylaxis: Teds, SCDs CODE STATUS: Full code Disposition: Patient from [facility], no d/c today due to more sedation, will be here over weekend
[2016-05-28 15:39] VITALS: BP 146/80; PULSE 82; TEMP 36.6; O2SAT 93
[2016-05-29] MEDS: VALPROATE SOD IV 500 MG in DEXTROSE 5% 50ML 50 ML IV SCH ×3 (00:29→11:53)
[2016-05-29] MEDS: AMPICILLIN/SULBACTAM SOD INJ 3,000 MG in SODIUM CHLORIDE 0.9% 100ML 100 ML IV SCH ×2 (03:34→10:19)
[2016-05-29] MEDS: POLYETHYLENE (MIRALAX) 17 GM PACK PO SCH (08:00)
[2016-05-29 08:02] VITALS: BP 167/90; PULSE 96; TEMP 36.3; O2SAT 95
[2016-05-29] MEDS: QUETIAPINE FUMARATE 25 MG TAB PO SCH (08:27)
[2016-05-29] MEDS: GABAPENTIN 300 MG CAP PO SCH ×2 (08:27→15:29)
[2016-05-29] MEDS: HYDROCHLOROTHIAZIDE 25 MG TAB PO SCH (08:28)
[2016-05-29] MEDS: MEGESTROL ACETATE 400 MG/10 ML UDP PO SCH (08:28)
[2016-05-29] MEDS: LIDODERM (LIDOCAINE) PATCH 5% TD SCH (08:28)
[2016-05-29] MEDS: TRIAMCINOLONE ACET NASAL SPRAY 10.8ML BTL NAE SCH (08:30)
[2016-05-29] MEDS: CLONAZEPAM 0.5 MG TAB PO SCH (09:12)
[2016-05-29] MEDS ORDERED: DPKSR500 PO (09:58)
[2016-05-29] MEDS ORDERED: SRQ25 PO ×3 (09:58)
[2016-05-29] MEDS ORDERED: KLN5 PO (09:58)
[2016-05-29] MEDS ORDERED: DPKSR250 PO (09:58)
[2016-05-29] MEDS ORDERED: KPP250 PO (09:58)
[2016-05-29] MEDS: LEVETIRACETAM IV 500 MG in DEXTROSE 5% 100ML 100 ML IV SCH (10:09)
--- NOTE | 2016-05-29 10:12 | Discharge Instructions ---
Discharge Instructions Date of Service May 29, 2016. Admission Reason for Admission: Uncontrolled Seizures Discharge Discharge Diagnosis / Problem: Dementia with mood disorder, seizures, delirium Discharge Goals Goal(s): Improve function, Improve disease control Activity Recommendations Activity Level: Bedrest (but can advance as tolerated) Therapies: Physical Therapy, Occupational Therapy Lifting Limitations: none Exercise/Sports Limitations: as tolerated Shower/Bathe: no limitations . Additional Information Patient informed of condition: Yes Advance Directives: Yes DNR: No Level of Care: Skilled Communicable Disease: No Prognosis: Improving Oxygen at (LPM): no Mitchell Catheter: No Instructions / Follow-Up Instructions / Follow-Up Medications: please see below, multiple medication changes made while admitted to maximize her alertness while also trying to control seizures - DEPAKOTE: dose changed to 750mg in the AM, 500mg in the PM, taking tablet in the hospital, if needed, can revert back to syrup form - KEPPRA: 500mg twice a day - KLONOPIN: patient is being titrated OFF of this medication, for the past week she was on 0.25mg twice a day, starting tomorrow AM, she should take ONCE a day for a week then STOP completely - SEROQUEL: added by psychiatry during admission, current regimen is 12.5mg in the morning, 25mg at night and can use 12.5mg every six hours as needed for agitation if agitation continues to be an issue during the day, psychiatry recommends titrating up the evening dose to 37.5mg and so forth Please note that BUSPAR, ZOLOFT, ATIVAN were all STOPPED during hospitalization and should not be continued Skin assessment: please note that patient has a stage II sacral ulcer, needs soft mattress, turns every 2 hours if she is going to remain in bed In summary, patient has advanced dementia with mood disturbances exhibited by agitation and then prone to lethargy with polypharmacy. Multiple medications were stopped in an effort to limit sedation and stabilize mood. She has had NO seizures while admitted to the hospital. She had a UTI that received a full 7 day course of Unasyn IV, no further antibiotics needed. For the past two nights she has slept soundly and been easy to arouse during the day, eating her meals, taking her medications as prescribed. FOLLOW UP - physician at [facility] this week - can refer to psychiatry/neurology in the near future for further recommendations on medication adjustments while in hospital she was seen by Dr. Foster with [facility] neurology and Dr. Kulkarni with psychiatry Current Hospital Diet Patient's current hospital diet: Diabetes Type 2 Diet Discharge Diet Recommended Diet: Diabetes Type 2 Diet Procedures Procedures Performed: EEG - no seizure activity MRI - no structural cause of seizures Pending Studies Studies pending at discharge: no Physician Orders On Transfer Additional Orders: please check Keppra and Depakote level weekly on Fridays Discussion: Not Applicable Medical Emergencies . Who to Call and When: Medical Emergencies: If at any time you feel your situation is an emergency, please call 911 immediately. . Non-Emergent Contact Non-Emergency issues call your: Primary Care Provider Call Non-Emergent contact if: you have any medication questions . . "Provider Documentation" section prepared by Wilder Brown. Core Measure Problem Core Measures: None [place] Drug Monitoring Program Search Results: no issues identified
[2016-05-29 10:48] VITALS: BP 167/90; PULSE 96; TEMP 36.3; O2SAT 95
--- NOTE | 2016-05-29 15:39 | Discharge Summary ---
Discharge Summary Date of Service May 29, 2016. Discharge Summary Admission Date: May 18, 2016 at 15:24 Discharge Date: May 29, 2016 Discharge Disposition: long term facility Principal Diagnosis: Seizures Problems/Secondary Diagnoses: Advanced dementia with behavioral disturbance Delirium UTI Sacral pressure ulcer Procedures: EEG - no epileptiform activity MRI brain - no stroke, no masses, white matter lesion seen on prior MRI 2016, stable Consultations: Neurology Psychiatry Medication Reconciliation New Medications: Clonazepam (Clonazepam) 0.5 Mg Tab 0.25 MG PO DAILY for 7 Days, #4 TAB 0 Refills Divalproex Sodium (Divalproex Sodium ER) 500 Mg Tabcr 500 MG PO QPM, #30 TABS 3 Refills Divalproex Sodium (Divalproex Sodium ER) 250 Mg Tabcr 750 MG PO QAM for 30 Days, #90 TABS 3 Refills Levetiractam (Keppra) 250 Mg Tab 500 MG PO BID, #60 TAB 3 Refills Quetiapine Fumarate (Quetiapine Fumarate) 25 Mg Tab 12.5 MG PO QAM, #20 TAB 3 Refills Quetiapine Fumarate (Quetiapine Fumarate) 25 Mg Tab 25 MG PO HS, #30 TAB 3 Refills Quetiapine Fumarate (Quetiapine Fumarate) 25 Mg Tab 12.5 MG PO Q6 PRN for Anxiety/Agitation, #30 TAB 3 Refills Continued Medications: Acetaminophen (Tylenol) 325 Mg Tab 650 MG PO Q6H PRN for Pain or Fever, TAB Atorvastatin (Lipitor) 40 Mg Tab 40 MG PO DAILY, TAB Dextrose (Diabetic Use) (Insta-Glucose) 77.4 % Gel 1 APPLN PO Q15M PRN for HYPOGLYCEMIA PROTOCOL GIVE 1 APPLICATION BY MOUTH EVERY 15 MINUTES NEEDED FOR HYPOGLYCEMIA BLOOD GLUCOSE LESS THAN 60 AND/OR SYMPTOMATIC HYPOGLYCEMIA (MUST BE RESPONSIVE AND ABLE TO SAFELY SWALLOW) Gabapentin (Neurontin) 300 Mg Cap 300 MG PO TID Glucagon (Glucagon Emergency Kit) 1 Mg Kit 1 APPLN IM Q15M PRN for HYPOGLYCEMIA PROTOCOL INJECT 1 APPLICATION IM EVERY 15 MINUTES PRN FOR HYPOGLYCEMIA RELATED TO DIABETES MELLITUS DUE TO UNDERLYING CONDITION BLOOD GLUCOSE <60 AND OR SYMPTOMATIC/UNRESPONSIVE HYPOGLYCEMIA. MAY REPEAT IN 15 MINUTES IF NEEDED. Haloperidol Lactate (Haldol) 5 Mg/Ml Inj 1 MG IM Q4 PRN for Agitation Hydrochlorothiazide (Hydrochlorothiazide) 25 Mg Tab 1 TAB PO QAM Hydrocodone/Acetaminophen 5MG/325MG ([place] 5MG/325MG) Tab 1 TABLET PO Q4H PRN for Pain, TAB PRN 4-6 PAIN Lidocaine (Lidocaine) 5 % Pad 1 PATCH TOP DAILY Lorazepam (Lorazepam) 2 Mg/Ml Soln 1 MG IM Q5M PRN for seizures Magnesium Oxide (Magnesium-Oxide) 400 Mg Tab 400 MG PO QAM, #30 TAB 2 Refills Megestrol Acetate (Megace Oral) 40 Mg/Ml Zuleyma 400 MG PO BID Multiple Vitamins W/ Minerals (Multi Vitamin and Mineral) 1 Tab Tab 1 TAB PO DAILY Nutritional Supplements (Nutritional Shake) 1 Liq Liq 1 CAN PO BID Nutritional Supplements (Nutritional Shake) 1 Liq Liq 1 PO DAILY AT NOON [place] Polyethylene Glycol 3350 (Miralax) 1 Pow Pow 17 GM PO DAILY Potassium Chloride (K-Tabs) 10 Meq Tab 10 MEQ PO DAILY GRANULES Trazodone Hcl (Trazodone) 50 Mg Tab 25 MG PO HS 1/2 TABLET DOSE Triamcinolone Acetonide (Nasal (Nasacort Allergy 24Hr) 55 Mcg/Act Spr 2 SPRAYS KELSIE DAILY Discontinued Medications: Buspirone Hcl (Buspirone Hcl) 10 Mg Tab 10 MG PO TID, TAB Hydrocodone/Acetaminophen 5MG/325MG ([place] 5MG/325MG) Tab 2 TABLETS PO Q4 PRN for Pain 7-10 PAIN Lorazepam (Ativan) 0.5 Mg Tab 0.5 MG PO Q6H for 30 Days, #120 TAB 0 Refills Sertraline (Zoloft) 50 Mg Tab 50 MG PO DAILY, TAB Valproic Acid (Depakene) 250 Mg/5 Ml Syrp 10 ML PO DAILY AT NOON Valproic Acid Syrup (Depakene) 250 Mg/5 Ml Syrp 15 ML PO AMPM Discharge Exam patient awake today, answering or at least attempting to answer questions appropriately slept well all night according to RN, no agitation, no need for PRN's discussed with daughter over the phone, this is likely the patient's best, time to d/c back to [facility] made arrangements for transport Review of Systems: Constitutional: + problem reported (cannot complete detailed ROS due to dementia, denies pain) Physical Exam: General Appearance: no apparent distress, + thin Eyes: normal inspection, EOMI ENT: normal ENT inspection, hearing grossly normal, pharynx normal Neck: supple, no adenopathy, no JVD, trachea midline Respiratory/Chest: chest non-tender, lungs clear, normal breath sounds, no respiratory distress, no accessory muscle use Cardiovascular: regular rate, rhythm, no edema, no gallop, no JVD, no murmur , normal peripheral pulses Abdomen / GI: normal bowel sounds, non tender, soft, no organomegaly Extremities: normal inspection, no calf tenderness, normal capillary refill , no pedal edema, normal range of motion, pelvis stable Neurologic/Psychiatric: acquisitions analyst II-XII nml as tested, + motor weakness, + depressed affect, + disoriented Skin: normal color, warm/dry, no rash, + pertinent finding (stage II sacral ulcer) Hospital Course 76 yo F with a PMHx of recurrent seizures, Ativan dependence, hypertension, dementia, depression, and anxiety who was transported as a direct admission from [facility] for refractory seizures. - Refractory seizures: stable for now, no seizure activity, tolerating Keppra and Depakote PO continue Keppra 500mg BID and Depakote 750mg AM and 500mg PM previously on Klonopin, neurology recommends discontinuing slowly, was on 0.25mg BID this past week, complete 0.25mg daily this week then stop permanently no evidence of intracranial cause of increased seizure activity treated UTI as potential contributing factor - UTI: Proteus, completed 7 days of Proteus, no need for further treatment - Dementia with mood disorder, anxiety, agitation, 36-48 hours of calm behavior two nights in a row sleeping, no extreme agitation requiring PRN medications suspect delirium on top of dementia, polypharmacy appreciate psychiatry recommendations Zoloft discontinued, noted on d/c instructions discontinued Buspar and standing order of Ativan started on Seroquel 12.5 qAM and 25 qPM Seroquel 12.5mg PRN q6 for agitation if continue to need PRN doses, recommend increasing PM dose to 37.5mg - Diarrhea: negative for C diff, improved since admission - Sacral ulcer, stage II: due to bedbound status, soft mattress, turn patient try to increase activity and get OOB DVT prophylaxis: Teds, SCDs CODE STATUS: Full code Disposition: return to [facility] today Total Time Spent: Greater than 30 minutes This includes examination of the patient, discharge planning, medication reconciliation, and communication with other providers. Discharge Instructions Please refer to the electronic Patient Visit Report (Discharge Instructions) for additional information. Follow-Up physician at [facility] this week could refer to psychiatry or neurology outpatient Additional Copies To [facility]
[2016-06-05] MEDS ORDERED: DIVA125C PO ×2 (20:25)
[2016-06-05] MEDS ORDERED: LEVE500T13 PO (20:31)
[2016-06-05] MEDS ORDERED: BISA10SU3 PR (20:36)
[2016-06-05] MEDS ORDERED: MOML PO (20:38)
[2016-06-05] MEDS ORDERED: SODI1ENE PR (20:38)
[2016-06-09] MEDS ORDERED: RIVA1TAB7 PO ×2 (13:09→14:57)
== END 2016-05-29 15:35 | DRG 101 ==
LOC: C.MS4W 15:00 → OBSVTOIN 15:24
PROVIDERS: ADMIT Hospitalist; ATTEND Internal Medicine
DX: G40.919 Epilepsy, unspecified, intractable, without status epilepticus (principal); N39.0 Urinary tract infection, site not specified; F03.91 Unspecified dementia, unspecified severity, with behavioral disturbance; F13.239 Sedative, hypnotic or anxiolytic dependence with withdrawal, unspecified; B96.4 Proteus (mirabilis) (morganii) as the cause of diseases classified elsewhere; F32.9 Major depressive disorder, single episode, unspecified; F41.9 Anxiety disorder, unspecified; I10 Essential (primary) hypertension; R00.0 Tachycardia, unspecified; R19.7 Diarrhea, unspecified; L89.152 Pressure ulcer of sacral region, stage 2; Z91.81 History of falling; Z87.891 Personal history of nicotine dependence; Z79.899 Other long term (current) drug therapy; Z82.49 Family history of ischemic heart disease and other diseases of the circulatory system; Z83.3 Family history of diabetes mellitus

== ENCOUNTER 2016-05-30 13:35 | Inpatient (IN) | payer OTHER ==
[~2016-05-30] VITALS: Ht 170.2 cm; Wt 62.9 kg
[~2016-05-30 13:35] MED LIST changes: -BUSP-8 PO; +DPKSR250 PO; +DPKSR500 PO; +KLN5 PO; +KPP250 PO; -LORA-741 PO; -SERT50TA PO; +SRQ25 PO; -VALP250S16 PO; -[UNRECOGNIZED DRUG - CODE] PO
[2016-05-30] MEDS ORDERED: ALBUT/IPRATROP 3MG/0.5MG NEB 3 ML VIAL INH ONE (14:15)
[2016-05-30] MEDS ORDERED: SODIUM CHLORIDE 0.9% 1000ML 1,000 ML IV STA (14:15)
--- NOTE | 2016-05-30 14:15 | EMERGENCY ROOM VISIT NOTE ---
History Report prepared by Iggy: Rachell Velasquez Under the Supervision of: Dr. Sonu Duran M.D. First contact with patient: 13:37 Stated Complaint: POSSIBLE ASPIRATION History of Present Illness The patient is a 76 year old female who presents to the Emergency Room with complaints of sudden possible aspiration that occurred prior to arrival. Per nursing staff, the patient arrives via ALS from [facility]. They note that the patient was discharged from the hospital yesterday. Nursing staff reports that the patient was found, gargling around 1200. The nursing staff notes that the patient was sent to the emergency department for possible aspiration. The history is limited secondary to aphasia. Source of History: nursing staff History Limited By: aphasia Onset: prior to arrival Position: other (global) Quality: other (possible aspiration) Timing: other (sudden) Review of Systems The history is limited secondary to aphasia. Past Medical & Surgical Medical Problems: (1) Anxiety (2) Dementia (3) Depression (4) Diabetes mellitus, type II (5) Dyslipidemia (6) Epilepsy (7) Hypertension (8) Refractory seizure (9) UTI (urinary tract infection) Surgical Problems: (1) History of cholecystectomy Family History Diabetes mellitus Hypertension Social History Smoking Status: Former Smoker Alcohol Use: none Drug Use: none Marital Status: Housing Status: residential Occupation Status: retired Current/Historical Medications Scheduled Atorvastatin (Lipitor), 40 MG PO DAILY Clonazepam (Clonazepam), 0.25 MG PO DAILY Divalproex Sodium (Divalproex Sodium ER), 500 MG PO QPM Divalproex Sodium (Divalproex Sodium ER), 750 MG PO QAM Gabapentin (Neurontin), 300 MG PO TID Hydrochlorothiazide (Hydrochlorothiazide), 25 MG PO QAM Levetiractam (Keppra), 500 MG PO BID Lidocaine (Lidocaine), 1 PATCH TOP DAILY Magnesium Oxide (Magnesium-Oxide), 400 MG PO QAM Megestrol Acetate (Megace Oral), 400 MG PO BID Multiple Vitamins W/ Minerals (Multi Vitamin and Mineral), 1 TAB PO DAILY Nutritional Supplements (Nutritional Shake), 1 CAN PO BID Nutritional Supplements (Nutritional Shake), 1 PO DAILY AT NOON Polyethylene Glycol 3350 (Miralax), 17 GM PO DAILY Potassium Chloride (K-Tabs), 10 MEQ PO DAILY Quetiapine Fumarate (Quetiapine Fumarate), 12.5 MG PO QAM Quetiapine Fumarate (Quetiapine Fumarate), 25 MG PO HS Trazodone Hcl (Trazodone), 25 MG PO HS Triamcinolone Acetonide (Nasal (Nasacort Allergy 24Hr), 2 SPRAYS KELSIE DAILY Scheduled PRN Acetaminophen (Tylenol), 650 MG PO Q6H PRN for Pain or Fever Dextrose (Diabetic Use) (Insta-Glucose), 1 APPLN PO Q15M PRN for HYPOGLYCEMIA PROTOCOL Glucagon (Glucagon Emergency Kit), 1 APPLN IM Q15M PRN for HYPOGLYCEMIA PROTOCOL Haloperidol Lactate (Haldol), 1 MG IM Q4 PRN for Agitation Hydrocodone/Acetaminophen 5MG/325MG ([place] 5MG/325MG), 1 TABLET PO Q4H PRN for Pain Lorazepam (Lorazepam), 1 MG IM Q5M PRN for seizures Quetiapine Fumarate (Quetiapine Fumarate), 12.5 MG PO Q6 PRN for Anxiety/ Agitation Allergies Coded Allergies: Meloxicam (Verified Allergy, Intermediate, unknown, 05/04/16) Tramadol (Verified Allergy, Intermediate, unknown, 05/04/16) Cephalexin (Verified Allergy, Unknown, ., 05/04/16) Ciprofloxacin (Verified Allergy, Unknown, unknown, 05/04/16) Rofecoxib (Verified Allergy, Unknown, ., 05/04/16) Physical Exam Vital Signs Date Time Temp Pulse Resp B/P Pulse Ox O2 Delivery O2 Flow Rate FiO2 05/30/16 15:35 136 29 100 05/30/16 15:05 128 27 100 05/30/16 14:37 134 23 98 BiPAP/CPAP 50 05/30/16 14:35 144 25 83 05/30/16 14:32 134 98 05/30/16 14:08 95 Non-Rebreather 15.0 05/30/16 13:57 84 Room Air 05/30/16 13:49 93 Venturi Mask 50 05/30/16 13:48 127/74 05/30/16 13:48 37.1 142 24 127/74 84 Room Air 05/30/16 13:48 84 Room Air 05/30/16 13:48 144 05/30/16 13:43 /149 Physical Exam GENERAL: Patient is cachectic in appearance, wearing a helmet. HEAD: Normocephalic atraumatic EYES: Ocular movements intact pupils equal and react to light OROPHARYNX mucous membranes are moist no exudates present no erythema or edema present NECK: Supple no nuchal rigidity CHEST: Good equal expansion LUNGS: Clear and equal to auscultation CARDIAC: Normal S1 and S2 ABDOMEN: Soft nontender no guarding BACK: No CVA tenderness EXTREMITIES: No pain upon palpation normal muscle strength in all groups no clubbing cyanosis or edema NEURO: Patient is following commands is answering questions appropriately. Alert and oriented x3 Cranial Nerves 2-12 grossly intact Medical Decision & Procedures ER Provider Diagnostic Interpretation: X-ray results as stated below per interpretation by me and the radiologist: SINGLE VIEW CHEST CLINICAL HISTORY: Aspiration. FINDINGS: An AP, portable, upright chest radiograph is compared to study dated 05/04/2016 and correlated with chest CT dated 04/21/2016. The examination is degraded by portable technique and patient rotation. The cardiomediastinal silhouette is unremarkable. Atherosclerotic calcification is noted in the thoracic aorta. Chronic interstitial thickening is similar to previous. There is no airspace consolidation, large pleural effusion, or pneumothorax. The skeletal structures are osteopenic. There are numerous healed bilateral rib fractures. Degenerative change is noted throughout the thoracic spine. IMPRESSION: No acute cardiopulmonary abnormality. Electronically signed by: Noe Lambert M.D. 05/30/2016 2:35 PM Dictated Date/Time: 05/30/2016 2:34 PM Laboratory Results 05/30/16 15:48 Red Blood Count 4.84, Mean Corpuscular Volume 80.0, Mean Corpuscular Hemoglobin 27.1, Mean Corpuscular Hemoglobin Concent 33.9, Mean Platelet Volume 10.0, Neutrophils (%) (Auto) 57.3, Lymphocytes (%) (Auto) 25.0, Monocytes (%) (Auto) 17.2, Eosinophils (%) (Auto) 0.1, Basophils (%) (Auto) 0.1, Neutrophils # (Auto ) 9.07, Lymphocytes # (Auto) 3.94, Monocytes # (Auto) 2.71, Eosinophils # (Auto ) 0.01, Basophils # (Auto) 0.01 05/30/16 15:48 Test 05/30/16 14:58 05/30/16 15:48 05/30/16 16:22 Influenza Type A Antigen Neg for Influ A (NEG) Influenza Type B Antigen Neg for Influ B (NEG) White Blood Count 15.79 K/uL (4.8-10.8) Red Blood Count 4.84 M/uL (4.2-5.4) Hemoglobin 13.1 g/dL (12.0-16.0) Hematocrit 38.7 % (37-47) Mean Corpuscular Volume 80.0 fL (80-100) Mean Corpuscular Hemoglobin 27.1 pg (25-34) Mean Corpuscular Hemoglobin Concent 33.9 g/dl (32-36) Platelet Count 197 K/uL (130-400) Mean Platelet Volume 10.0 fL (7.4-10.4) Neutrophils (%) (Auto) 57.3 % Lymphocytes (%) (Auto) 25.0 % Monocytes (%) (Auto) 17.2 % Eosinophils (%) (Auto) 0.1 % Basophils (%) (Auto) 0.1 % Neutrophils # (Auto) 9.07 K/uL (1.4-6.5) Lymphocytes # (Auto) 3.94 K/uL (1.2-3.4) Monocytes # (Auto) 2.71 K/uL (0.11-0.59) Eosinophils # (Auto) 0.01 K/uL (0-0.5) Basophils # (Auto) 0.01 K/uL (0-0.2) RDW Standard Deviation 47.3 fL (36.4-46.3) RDW Coefficient of Variation 16.3 % (11.5-14.5) Immature Granulocyte % (Auto) 0.3 % Immature Granulocyte # (Auto) 0.05 K/uL (0.00-0.02) Anion Gap 10.0 mmol/L (3-11) Est Creatinine Clear Calc Drug Dose 49.0 ml/min Estimated GFR () 65.9 Estimated GFR (Non- 56.8 BUN/Creatinine Ratio 20.2 (10-20) Calcium Level 9.5 mg/dl (8.5-10.1) Total Bilirubin 0.3 mg/dl (0.2-1) Aspartate Amino Transf (AST/SGOT) 17 U/L (15-37) Alanine Aminotransferase (ALT/SGPT) 9 U/L (12-78) Alkaline Phosphatase 88 U/L (45-117) Total Creatine Kinase 171 U/L (26-192) Creatine Kinase MB 2.4 ng/ml (0.5-3.6) Creatine Kinase MB Ratio 1.4 (0-3.0) Troponin I 0.072 ng/ml (0-0.045) Total Protein 6.6 gm/dl (6.4-8.2) Albumin 2.4 gm/dl (3.4-5.0) Globulin 4.2 gm/dl (2.5-4.0) Albumin/Globulin Ratio 0.6 (0.9-2) Beta-Hydroxybutyric Acid 0.73 mg/dL (0.2-2.81) Valproic Acid (Depakene) Level 77 mcg/ml (50-100) Labs reviewed by ED physician. Medications Administered Medications (Trade) Dose Ordered Sig/Madeline Route Start Time Stop Time Status Last Admin Dose Admin Albuterol/ Ipratropium 12 ml 12 ml ONE ONCE INH 05/30/16 14:15 05/30/16 14:16 DC 05/30/16 14:31 12 ML Sodium Chloride (Nss 1000ml) 1,000 ml @ 999 mls/hr Q1H1M STAT IV 05/30/16 14:15 05/30/16 15:15 DC 05/30/16 15:43 999 MLS/HR ECG Indication: other (aspiration) Rate (beats per minute): 130 Rhythm: atrial fibrillation (RVR) Findings: nonspecific-ST abn, no acute ischemic change ED Course 1407: Past medical records reviewed. The patient was evaluated in room C11A. A complete history and physical examination was performed. 1415: Ordered Sodium Chloride 1000 ml @ 999 mls/hr IV, Duoneb 12 ml INH. 1615: Ordered Ampicillin Sodium/Sulbactam Sodium 3,000 mg/Sodium Chloride 108 ml @ 200 mls/hr IV. 1620: I reevaluated the patient and she is resting. I discussed all the exam findings with her daughter and I discussed the treatment plan. She verbalized complete understanding and agreement. The patient will be evaluated for further treatment. 1627: I discussed the patients case with ANTHONY Snyder. He is going to evaluate the patient for further treatment. Medical Decision Differential diagnosis: Etiologies such as viral syndrome, otitis, pharyngitis, pneumonia, influenza, meningitis, urinary tract infection, sepsis, bacteremia, as well as others were entertained. This is a 76-year-old female who presents emergency department complaining of hypoxia. Upon arrival to emergency department patient is hypoxic and restless. She was on a nonrebreather and so was placed on BiPAP with improvement in her symptoms. The patient was sent from her residential over the police that she may have aspirated and she does have a large elevation in her white blood count however chest x-ray is normal. I will cover her for aspiration with Unasyn. Patient was given an hour-long breathing treatment here in emergency department. I did discuss the case with the hospitalist service who agreed to admit the patient. Family was in agreement with the treatment plan. Consults Time Called: [phone] Consulting Physician: ANTHONY Snyder Returned Call: [phone] I discussed the patients case with ANTHONY Snyder. He is going to evaluate the patient for further treatment. Impression Primary Impression: Hypoxia Additional Impression: Aspiration into airway Critical Care I have personally spent greater than 30 minutes of critical care time in the direct management of this patient. This includes bedside care, interpretation of diagnostic studies, and testing, discussion with consultants, patient, and family members, and other required patient management activities. This 30 minutes is in excess of all separately billable procedures. Scribe Attestation The scribe's documentation has been prepared under my direction and personally reviewed by me in its entirety. I confirm that the note above accurately reflects all work, treatment, procedures, and medical decision making performed by me. Departure Information Dispostion Being Evaluated By Hospitalist Referrals Lenka Espinal (PCP) Problem Qualifiers Additional Impression: Aspiration into airway Encounter type: initial encounter Qualified Codes: T17.908A - Unspecified foreign body in respiratory tract, part unspecified causing other injury, initial encounter
[2016-05-30 14:32] VITALS: PULSE 134; O2SAT 98
--- NOTE | 2016-05-30 14:36 | DIAGNOSTIC IMAGING REPORT ---
SINGLE VIEW CHEST CLINICAL HISTORY: Aspiration. FINDINGS: An AP, portable, upright chest radiograph is compared to study dated 05/04/2016 and correlated with chest CT dated 04/21/2016. The examination is degraded by portable technique and patient rotation. The cardiomediastinal silhouette is unremarkable. Atherosclerotic calcification is noted in the thoracic aorta. Chronic interstitial thickening is similar to previous. There is no airspace consolidation, large pleural effusion, or pneumothorax. The skeletal structures are osteopenic. There are numerous healed bilateral rib fractures. Degenerative change is noted throughout the thoracic spine. IMPRESSION: No acute cardiopulmonary abnormality. Electronically signed by: Noe Lambert M.D. 05/30/2016 2:35 PM Dictated Date/Time: 05/30/2016 2:34 PM
[2016-05-30 14:37] VITALS: PULSE 134; O2SAT 98
[2016-05-30 16:00] LABS: BASO % 0.1 %; BASO ABS # 0.01 K/uL (0-0.2); COMPLETE YES; EOS % 0.1 %; HEMATOCRIT 38.7 % (37-47); IG% 0.3 %; LYMPH ABS # 3.94 K/uL (1.2-3.4); MEAN CORPUSCULAR HEMOGLOBIN 27.1 pg (25-34); MEAN CORPUSCULAR HGB CONC 33.9 g/dl (32-36); MONO % 17.2 %; NEUT % 57.3 %; PLATELET COUNT 197 K/uL (130-400); RED BLOOD COUNT 4.84 M/uL (4.2-5.4); WHITE BLOOD COUNT 15.79 K/uL (4.8-10.8)
[2016-05-30] MEDS ORDERED: AMPICILLIN/SULBACTAM SOD INJ 3,000 MG in SODIUM CHLORIDE 0.9% 100ML 100 ML IV ONE (16:15)
[2016-05-30 16:18] LABS: BUN/CREATININE RATIO 20.2 (10-20); CALCIUM 9.5 mg/dl (8.5-10.1); CREATININE 0.98 mg/dl (0.60-1.20); POTASSIUM 3.7 mmol/L (3.5-5.1)
[2016-05-30 16:20] LABS: ALB/GLOB RATIO 0.6 (0.9-2)
[2016-05-30 16:30] LABS: BETA-HYDROXYBUTYRATE 0.73 mg/dL (0.2-2.81); CKMB/CK RATIO 1.4 (0-3.0)
[2016-05-30 17:31] LABS: INFLUENZA A PCR Neg for Influ A (NEG); INFLUENZA B PCR Neg for Influ B (NEG)
[2016-05-30] MEDS ORDERED: QUETIAPINE FUMARATE 25 MG TAB PO PRN (17:45)
[2016-05-30] MEDS ORDERED: LORAZEPAM 2 MG/ML 1 ML VIAL IV PRN (17:45)
[2016-05-30] MEDS ORDERED: HALOPERIDOL LACTATE 5 MG/ML 1 ML VIAL IM PRN (17:45)
[2016-05-30] MEDS ORDERED: ALUMINUM/MAGNESIUM/SIMETH (MAALOX MAX) 30 ML UDC PO PRN (17:45)
[2016-05-30] MEDS ORDERED: MAGNESIUM HYDROXIDE SUSP 30 ML UDC PO PRN (17:45)
--- NOTE | 2016-05-30 18:00 | History and Physical ---
History & Physical Date & Time of Service: May 30, 2016 at 17:28 Chief Complaint: Possible Aspiration Primary Care Physician: Lenka Espinal History of Present Illness Source: family, hospital records This patient is a 76-year-old female with a history of progressing dementia, anxiety and depression that was sent to the emergency department for evaluation from [facility] for hypoxia and possible aspiration. The patient was just discharged from the hospital yesterday. The patient's daughter, Maria Elena, goes to see her daily. She noticed that her voice started sounding "raspy" during her last admission. She asked the nursing staff to listen to the patient's lungs today during her visit. She was then reportedly hypoxic in the 80s. The patient does not have any history of pulmonary disease. She has had an intermittent cough. No reported fevers. The patient's daughter fed her lunch today. There was no reported choking or coughing. Due to severe dementia, no information is obtainable from the patient. Upon review of her last admission, the patient was put on pured solids and thin liquids per speech. She was put on aspiration precautions. Workup in the emergency department shows a chest x-ray with no acute findings. White count was elevated at 15,000. She was afebrile. She was hypoxic upon arrival. She was put on BiPAP and is now saturating in the high 90s. The patient does remain extremely anxious, which is not new. 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 During her last admission, the patient was weaned off of Ativan. She was put on Seroquel and Klonopin. The patient was also tachycardic into the 130s. EKG is consistent with A. fib with RVR however there is significant artifact noted. Past Medical/Surgical History Medical Problems: (1) Anxiety Status: Chronic (2) Dementia Status: Chronic (3) Depression Status: Chronic (4) Diabetes mellitus, type II Status: Chronic (5) Dyslipidemia Status: Chronic (6) Epilepsy Status: Chronic (7) Hypertension Status: Chronic Sacral pressure wound stage II Surgical Problems: (1) History of cholecystectomy Status: Resolved Family History Diabetes mellitus Hypertension Social History Smoking Status: Former Smoker Drug Use: none Marital Status: Housing status: jail ([facility]) Occupational Status: retired Multi-Drug Resistant Organisms History of MDRO: No Allergies Coded Allergies: Meloxicam (Verified Allergy, Intermediate, unknown, 05/04/16) Tramadol (Verified Allergy, Intermediate, unknown, 05/04/16) Cephalexin (Verified Allergy, Unknown, ., 05/04/16) Ciprofloxacin (Verified Allergy, Unknown, unknown, 05/04/16) Rofecoxib (Verified Allergy, Unknown, ., 05/04/16) Home Medications Scheduled Atorvastatin (Lipitor), 40 MG PO DAILY Clonazepam (Clonazepam), 0.25 MG PO DAILY Divalproex Sodium (Divalproex Sodium ER), 500 MG PO QPM Divalproex Sodium (Divalproex Sodium ER), 750 MG PO QAM Gabapentin (Neurontin), 300 MG PO TID Hydrochlorothiazide (Hydrochlorothiazide), 25 MG PO QAM Levetiractam (Keppra), 500 MG PO BID Lidocaine (Lidocaine), 1 PATCH TOP DAILY Magnesium Oxide (Magnesium-Oxide), 400 MG PO QAM Megestrol Acetate (Megace Oral), 400 MG PO BID Multiple Vitamins W/ Minerals (Multi Vitamin and Mineral), 1 TAB PO DAILY Nutritional Supplements (Nutritional Shake), 1 CAN PO BID Nutritional Supplements (Nutritional Shake), 1 PO DAILY AT NOON Polyethylene Glycol 3350 (Miralax), 17 GM PO DAILY Potassium Chloride (K-Tabs), 10 MEQ PO DAILY Quetiapine Fumarate (Quetiapine Fumarate), 12.5 MG PO QAM Quetiapine Fumarate (Quetiapine Fumarate), 25 MG PO HS Trazodone Hcl (Trazodone), 25 MG PO HS Triamcinolone Acetonide (Nasal (Nasacort Allergy 24Hr), 2 SPRAYS KELSIE DAILY Scheduled PRN Acetaminophen (Tylenol), 650 MG PO Q6H PRN for Pain or Fever Dextrose (Diabetic Use) (Insta-Glucose), 1 APPLN PO Q15M PRN for HYPOGLYCEMIA PROTOCOL Glucagon (Glucagon Emergency Kit), 1 APPLN IM Q15M PRN for HYPOGLYCEMIA PROTOCOL Haloperidol Lactate (Haldol), 1 MG IM Q4 PRN for Agitation Hydrocodone/Acetaminophen 5MG/325MG ([place] 5MG/325MG), 1 TABLET PO Q4H PRN for Pain Lorazepam (Lorazepam), 1 MG IM Q5M PRN for seizures Quetiapine Fumarate (Quetiapine Fumarate), 12.5 MG PO Q6 PRN for Anxiety/ Agitation Review of Systems 10 system review of system was performed at the patient's daughter. All pertinent positives are noted in the history of present illness. Physical Exam Vital Signs Date Time Temp Pulse Resp B/P Pulse Ox O2 Delivery O2 Flow Rate FiO2 05/30/16 15:35 136 29 100 05/30/16 15:05 128 27 100 05/30/16 14:37 134 23 98 BiPAP/CPAP 50 05/30/16 14:35 144 25 83 05/30/16 14:32 134 98 05/30/16 14:08 95 Non-Rebreather 15.0 05/30/16 13:57 84 Room Air 05/30/16 13:49 93 Venturi Mask 50 05/30/16 13:48 127/74 05/30/16 13:48 37.1 142 24 127/74 84 Room Air 05/30/16 13:48 84 Room Air 05/30/16 13:48 144 05/30/16 13:43 /149 General Appearance: + moderate distress (anxious in appearance. Tremor noted.) Head: normocephalic (BiPAP in place.) Eyes: EOMI Respiratory/Chest: + pertinent finding (few coarse breath sounds noted at the left base. Otherwise clear. No wheezing or crackles auscultated. Saturating at 100% on BiPAP) Cardiovascular: no murmur, + tachycardia Abdomen/GI: normal bowel sounds, non tender, soft Extremities/Musculoskelatal: no calf tenderness, no pedal edema, + pertinent finding (muscle wasting noted.) Neurologic/Psych: + pertinent finding (severely anxious in appearance. Not following commands. Moving all extremities without difficulty. Tremor noted.) Skin: warm/dry Diagnostics Laboratory Results Results Past 24 Hours Test 05/30/16 14:58 05/30/16 15:48 05/30/16 16:22 Range/Units Influenza Type A Antigen Neg for Influ A NEG Influenza Type B Antigen Neg for Influ B NEG White Blood Count 15.79 4.8-10.8 K/uL Red Blood Count 4.84 4.2-5.4 M/uL Hemoglobin 13.1 12.0-16.0 g/dL Hematocrit 38.7 37-47 % Mean Corpuscular Volume 80.0 80-100 fL Mean Corpuscular Hemoglobin 27.1 25-34 pg Mean Corpuscular Hemoglobin Concent 33.9 32-36 g/dl Platelet Count 197 130-400 K/uL Mean Platelet Volume 10.0 7.4-10.4 fL Neutrophils (%) (Auto) 57.3 % Lymphocytes (%) (Auto) 25.0 % Monocytes (%) (Auto) 17.2 % Eosinophils (%) (Auto) 0.1 % Basophils (%) (Auto) 0.1 % Neutrophils # (Auto) 9.07 1.4-6.5 K/uL Lymphocytes # (Auto) 3.94 1.2-3.4 K/uL Monocytes # (Auto) 2.71 0.11-0.59 K/uL Eosinophils # (Auto) 0.01 0-0.5 K/uL Basophils # (Auto) 0.01 0-0.2 K/uL RDW Standard Deviation 47.3 36.4-46.3 fL RDW Coefficient of Variation 16.3 11.5-14.5 % Immature Granulocyte % (Auto) 0.3 % Immature Granulocyte # (Auto) 0.05 0.00-0.02 K/uL Sodium Level 140 136-145 mmol/L Potassium Level 3.7 3.5-5.1 mmol/L Chloride Level 103 98-107 mmol/L Carbon Dioxide Level 27 21-32 mmol/L Anion Gap 10.0 3-11 mmol/L Blood Urea Nitrogen 20 7-18 mg/dl Creatinine 0.98 0.60-1.20 mg/dl Est Creatinine Clear Calc Drug Dose 49.0 ml/min Estimated GFR () 65.9 Estimated GFR (Non- 56.8 BUN/Creatinine Ratio 20.2 10-20 Random Glucose 308 70-99 mg/dl Calcium Level 9.5 8.5-10.1 mg/dl Total Bilirubin 0.3 0.2-1 mg/dl Aspartate Amino Transf (AST/SGOT) 17 15-37 U/L Alanine Aminotransferase (ALT/SGPT) 9 12-78 U/L Alkaline Phosphatase 88 45-117 U/L Total Creatine Kinase 171 26-192 U/L Creatine Kinase MB 2.4 0.5-3.6 ng/ml Creatine Kinase MB Ratio 1.4 0-3.0 Troponin I 0.072 0-0.045 ng/ml Total Protein 6.6 6.4-8.2 gm/dl Albumin 2.4 3.4-5.0 gm/dl Globulin 4.2 2.5-4.0 gm/dl Albumin/Globulin Ratio 0.6 0.9-2 Beta-Hydroxybutyric Acid 0.73 0.2-2.81 mg/dL Valproic Acid (Depakene) Level 77 50-100 mcg/ml Microbiology Results 05/30/16 Blood Culture, Marylou Batch Pending 05/30/16 Blood Culture, Marylou Batch Pending Diagnostic Radiology Patient: ALIREZA CERVANTES Address1: [address] [place] [address] DR Levine Rec: [id number] Address2: [facility] Acct ID: [id number] [facility] Zip: [place] [address] Date: 1940 Sex: F Room/Bed: Ref Phy: Lenka Espinal SC: [facility] Att Phy: Report #: [id number] Marie Phy: Lenka Espinal Test: [id number] Admit Phy: Health Care Assistant: MARVIN Interpreting Phy: Noe Lambert M.D. Diagnosis: POSSIBLE ASPIRATION Ordering Phy: Sonu Duran MD Service Date: 05/30/16 Admit Date: 05/30/16 MNE: [id number] CONF: DICTATED BY: Noe Lambert M.D.]] CC: Sonu Duran MD [facility] CenterLenka mittal Endcc: [~ rep ct add3]] SINGLE VIEW CHEST CLINICAL HISTORY: Aspiration. FINDINGS: An AP, portable, upright chest radiograph is compared to study dated 05/04/2016 and correlated with chest CT dated 04/21/2016. The examination is degraded by portable technique and patient rotation. The cardiomediastinal silhouette is unremarkable. Atherosclerotic calcification is noted in the thoracic aorta. Chronic interstitial thickening is similar to previous. There is no airspace consolidation, large pleural effusion, or pneumothorax. The skeletal structures are osteopenic. There are numerous healed bilateral rib fractures. Degenerative change is noted throughout the thoracic spine. IMPRESSION: No acute cardiopulmonary abnormality. Electronically signed by: Noe Lambert M.D. 05/30/2016 2:35 PM Dictated Date/Time: 05/30/2016 2:34 PM The status of this report is Signed. Draft = Not yet reviewed or approved by Radiologist. Signed = Reviewed and approved by Radiologist. <AttendingPhy></AttendingPhy> <FamilyPhy>Lenka Espinal</FamilyPhy> < PrimaryPhy>Lenka Espinal</PrimaryPhy> <UnitNumber>[id number]</UnitNumber > <VisitNumber>[id number]</VisitNumber> <PatientName>ALIREZA CERVANTES</ PatientName> <DateOfBirth>1940</DateOfBirth> <Location>[facility]</Location> < ServiceDate>05/30/16</ServiceDate> <MNE>ESINDI</MNE> <OrderingPhy>Sonu Duran MD</OrderingPhy> <OrderingPhyMNE>f rep ord dr oshea</OrderingPhyMNE> < DictatingPhyMNE>f rep dict dr oshea</DictatingPhyMNE> <CCListMNE>f rep ct dayo</ CCListMNE> <AdmittingPhyMNE>f pt admit dr oshea</AdmittingPhyMNE> <AttendingPhyMNE >f pt attend dr oshea</AttendingPhyMNE> <ConsultingPhyMNE>f pt consult dr oshea</ConsultingPhyMNE> <FamilyPhyMNE>f pt fam dr oshea</FamilyPhyMNE> <OtherPhyMNE>f pt other dr oshea</OtherPhyMNE> < PrimaryPhyMNE>f pt prim care dr oshea</PrimaryPhyMNE> <ReferringPhyMNE>f pt referring dr oshea</ReferringPhyMNE> EKG questionable A fib-->looks more like sinus tachycardia with sinus arrhythmia and motion artifact Impression Assessment and Plan 76-year-old female with a history of advanced dementia, severe anxiety and depression sent to the emergency department from [facility] with questionable aspiration pneumonia. The patient did not have any reported choking or coughing with feeding today according to the daughter. She just sounded "raspy. ". She also was found to be hypoxic. Acute respiratory failure with hypoxia-->? Aspiration pneumonia -Admit to telemetry -Continue Unasyn 3 g IV every 6 hours for at least a total of 7 days -NPO except for meds -Last speech evaluation recommendations for last admission noted to be pured diet with thin liquids and aspiration precautions. We will ask speech to reevaluate the patient -Care sounds like is going to be geared more towards making the patient comfortable in the future. Briefly discussed hospice options with the patient' s daughter who seems receptive. -Palliative care consult -Consider CT of the chest tomorrow for evaluation of aspiration pneumonia versus PE. Questionable A. fib with RVR-likely sinus tachycardia -Admit to telemetry -Trend cardiac enzymes -Metoprolol 5 mg IV q 6 hr for HR > 110 -Treat anxiety Mild elevation in troponin-likely secondary to demand ischemia -Trend enzymes as noted above Severe dementia with associated anxiety and behavior disorder -One-on-one sitter -Continue outpatient regimen of Seroquel 12.5 mg in the morning, 12.5 mg every 6 hours as needed and 25 mg at night scheduled -Continue Haldol 1 mg IM every 4 hours as needed for increased agitation -Continue Klonopin 0.25 mg scheduled at night -PRN Ativan will be made available (even though we are trying to wean her off) as I think it is contributing to her tachycardia -Continue trazodone 12.5 mg at night DM-not on outpt regimen. BSGs high possibly secondary to infection. Last hemoglobin A1c in December 2015 5.0 -cover with ISS for now -BSGs q 6 hr DVT prophylaxis -Heparin 5000 units BUD -Teds, SCDs CODE STATUS -LEVEL V DO NO RESUSCITATE-per Daughter, MARIA ELENA This chart was completed in part utilizing [employer] Speech Voice Recognition software. Attempts were made to minimize the grammatical errors, random word insertions, pronoun errors and incomplete sentences. Any formal questions or concerns about the content, text or information contained within the body of this dictation should be directly addressed to the provider for clarification. Level of Care Telemetry Resuscitation Status DO NOT RESUSCITATE VTE Prophylaxis VTE Risk Assessment Done? Y/N: Yes Risk Level: Low Given or contraindicated: Unfractionated heparin SQ, T.E.D. Stockings, SCD's Reviewed: Pt Seen/Exam by Me History Physician Anime Designer Supervision Note: I interviewed and examined the patient. Discussed with PHILIP Healy and agree with findings and plan as documented in the note. Any exceptions or clarifications are listed here: Patient here with acute hypoxemia and presumed aspiration pneumonitis. She is unable to give any history due to severe dementia and possible superimposed delirium. She was just discharged yesterday after a prolonged hospital stay for delirium superimposed on dementia and refractory seizures. She was weaned off of her benzodiazepines except for low-dose of clonazepam once daily. She was not hypoxic on the day of discharge. Vital signs reviewed and is tachycardic, ECG with sinus tachycardia with frequent PACs Mild distress, lying in bed and restless with BiPAP in place Tachycardic with regular rhythm no murmurs gallops or rubs Lungs with coarse breath sounds mostly anteriorly, BiPAP in place, no wheezing Abdomen positive bowel sounds soft nontender nondistended Extremities no edema, 2+ dorsalis pedis pulses Skin no rashes 76-year-old female with history of severe and progressive dementia, seizure disorder, Ativan dependence, anxiety disorder, here with probable aspiration pneumonitis. Treatment with Unasyn and repeat chest x-ray in the morning. Considering palliative care and/or hospice care. Consult palliative care nurse practitioner in the morning. Continue all psychiatric and neurological medications as prescribed previously. It is not clear if she received her clonazepam today and her tachycardia may be withdrawal from benzodiazepines. We have ordered IV Ativan to be given when necessary for anxiety which will improve her tachycardia. Documented By: Enedina Chaparro
[2016-05-30] MEDS ORDERED: ALBUT/IPRATROP 3MG/0.5MG NEB 3 ML VIAL INH PRN (18:45)
[2016-05-30 19:07] VITALS: BP 163/85; PULSE 137; O2SAT 100; Ht 170.2 cm; Wt 62.9 kg
[2016-05-30] MEDS ORDERED: GLUCAGON FOR INJ 1 MG VIAL SQ PRN (20:00)
[2016-05-30] MEDS ORDERED: GLUCOSE 10 TABS/TUBE PO PRN (20:00)
[2016-05-30] MEDS ORDERED: DEXTROSE 50% 50 ML SYR IV PRN (20:00)
[2016-05-30] MEDS ORDERED: GLUCOSE 40% GEL 15 GM TUBE PO PRN (20:00)
[2016-05-30 20:15] LABS: INR 1.3 (0.9-1.1); PROTHROMBIN TIME (PATIENT) 13.8 SECONDS (9.0-12.0)
[2016-05-30] MEDS: MEGESTROL ACETATE SUSP 400 MG/10 ML UDC PO SCH (20:57)
[2016-05-30] MEDS: GABAPENTIN 300 MG CAP PO SCH (20:57)
[2016-05-30] MEDS: QUETIAPINE FUMARATE 25 MG TAB PO SCH (20:57)
[2016-05-30] MEDS: ACETAMINOPHEN 500 MG TAB PO SCH (20:57)
[2016-05-30] MEDS: TRAZODONE HCL 50 MG TAB PO SCH (20:57)
[2016-05-30] MEDS ORDERED: DIVALPROEX 500 MG EXTENDED RELEASE TAB PO SCH (21:00)
[2016-05-30] MEDS ORDERED: LEVETIRACETAM 250 MG TAB PO SCH (21:00)
[2016-05-30] MEDS ORDERED: INSULIN ASPART 100 UNITS/ML 3 ML PEN SC SCH (21:00)
[2016-05-30] MEDS: AMPICILLIN/SULBACTAM SOD INJ 3,000 MG in SODIUM CHLORIDE 0.9% 100ML 100 ML IV SCH (21:19)
[2016-05-30] MEDS ORDERED: NURSING VERBAL MED ORDER ONE (21:30)
[2016-05-30] MEDS: METOPROLOL TARTRATE 1 MG/ML VIAL IV PRN (21:33)
[2016-05-30] MEDS: HEPARIN SOD 5000 UNIT/0.5 ML CARP SQ SCH (21:45)
[2016-05-30] MEDS: LEVETIRACETAM IV 500 MG in DEXTROSE 5% 100ML 100 ML IV SCH (22:34)
[2016-05-30] MEDS: VALPROATE SOD IV 500 MG in DEXTROSE 5% 50ML 50 ML IV SCH (22:34)
[2016-05-30 23:06] VITALS: BP 140/81; PULSE 105; TEMP 36.6; O2SAT 100
[2016-05-30 23:17] LABS: URINE APPEARANCE CLEAR (CLEAR); URINE BILIRUBIN NEG (NEG); URINE COLOR YELLOW; URINE EPITHELIAL CELL AUTO >30 /lpf (0-5); URINE NITRITE NEG (NEG); URINE PH 6.5 (4.5-7.5); URINE SPECIFIC GRAVITY 1.021 (1.000-1.030); UROBILINOGEN NEG (NEG)
[2016-05-30 23:24] LABS: MANUAL MICROSCOPIC REQUIRED? NO; REVIEW REQ? YES
[2016-05-31] VITALS (7 sets, daily range): BP systolic 112–157; BP diastolic 75–107; PULSE 77–120; TEMP 36.3–37.5; O2SAT 99–100
[2016-05-31 00:22] LABS: CKMB/CK RATIO 1.2 (0-3.0)
[2016-05-31] MEDS: AMPICILLIN/SULBACTAM SOD INJ 3,000 MG in SODIUM CHLORIDE 0.9% 100ML 100 ML IV SCH ×4 (01:46→21:14)
[2016-05-31] MEDS: ACETAMINOPHEN 500 MG TAB PO SCH ×4 (02:45→21:07)
[2016-05-31] MEDS: INSULIN ASPART 100 UNITS/ML 3 ML PEN SC SCH ×4 (05:53→17:16)
--- NOTE | 2016-05-31 07:23 | DIAGNOSTIC IMAGING REPORT ---
CHEST ONE VIEW PORTABLE CLINICAL HISTORY: Respiratory difficulty POSSIBLE ASPIRATION PNEUMONIA COMPARISON STUDY: 05/30/2016 FINDINGS: The heart is normal in size. There are old bilateral rib fractures. There is a minimal left basilar opacity. It is unclear whether this is parenchymal or related to an old rib fracture. There is no failure. There are no pleural effusions.[ IMPRESSION: Minimal left basilar opacity. It is unclear whether this is parenchymal, or related to an old rib fracture. Electronically signed by: Maximino Yee M.D. 05/31/2016 7:21 AM Dictated Date/Time: 05/31/2016 7:19 AM
[2016-05-31 07:52] LABS: BASO % 0.1 %; BASO ABS # 0.02 K/uL (0-0.2); COMPLETE YES; EOS % 0.3 %; HEMATOCRIT 38.1 % (37-47); IG% 0.5 %; LYMPH % 23.2 %; MEAN CELL VOLUME 79.7 fL (80-100); MEAN CORPUSCULAR HGB CONC 33.9 g/dl (32-36); MONO % 14.8 %; NEUT % 61.1 %; PLATELET COUNT 216 K/uL (130-400); RED BLOOD COUNT 4.78 M/uL (4.2-5.4); WHITE BLOOD COUNT 17.21 K/uL (4.8-10.8)
[2016-05-31] MEDS ORDERED: INFLUENZA ADMINISTRATION CHARGE ONE (08:00)
[2016-05-31] MEDS ORDERED: INFLUENZA VIRUS QUAD VACCINE 0.5 ML SYR IM. ONE (08:00)
[2016-05-31] MEDS ORDERED: PNEUMOCOCCAL ADMINISTRATION CHARGE ONE (08:00)
[2016-05-31] MEDS ORDERED: PNEUMOCOCCAL POLYSACCHARIDES 25 MCG/0.5 ML VIAL/SYR IM. ONE (08:00)
[2016-05-31] MEDS: GABAPENTIN 300 MG CAP PO SCH ×3 (08:19→21:00)
[2016-05-31] MEDS: ATORVASTATIN 40 MG TAB PO SCH (08:19)
[2016-05-31] MEDS: MAGNESIUM OXIDE 400 MG TAB PO SCH (08:19)
[2016-05-31] MEDS: POTASSIUM CHLORIDE 10 MEQ TABCR PO SCH (08:19)
[2016-05-31] MEDS: QUETIAPINE FUMARATE 25 MG TAB PO SCH ×2 (08:19→21:00)
[2016-05-31] MEDS: CLONAZEPAM 0.5 MG TAB PO SCH (08:19)
[2016-05-31] MEDS: MEGESTROL ACETATE SUSP 400 MG/10 ML UDC PO SCH ×2 (08:19→21:00)
[2016-05-31] MEDS: HEPARIN SOD 5000 UNIT/0.5 ML CARP SQ SCH ×2 (08:21→21:00)
[2016-05-31 08:23] LABS: BUN/CREATININE RATIO 18.1 (10-20); CALCIUM 10.2 mg/dl (8.5-10.1); CREATININE 0.68 mg/dl (0.60-1.20); MAGNESIUM 1.7 mg/dl (1.8-2.4); POTASSIUM 3.8 mmol/L (3.5-5.1)
[2016-05-31 08:38] LABS: CKMB/CK RATIO 1.7 (0-3.0)
[2016-05-31] MEDS ORDERED: DIVALPROEX 250 MG EXTENDED REL TAB PO SCH (09:00)
[2016-05-31] MEDS: LEVETIRACETAM IV 500 MG in DEXTROSE 5% 100ML 100 ML IV SCH ×2 (09:10→21:06)
[2016-05-31] MEDS: METOPROLOL TARTRATE 1 MG/ML VIAL IV PRN (09:35)
[2016-05-31] MEDS: VALPROATE SOD IV 750 MG in DEXTROSE 5% 50ML 50 ML IV SCH (09:35)
--- NOTE | 2016-05-31 10:27 | Progress Note ---
Subjective Date of Service: May 31, 2016. Subjective Pt evaluation today including: conversation w/ family, physical exam, chart review, lab review, review of inpatient medication list Voiding: ryder catheter in place (unable to obtain hx due to baseline dementia) Now off bipap and oxygen saturations are OK on oxygen via NC. Problem List Medical Problems: (1) Altered mental status Status: Acute (2) Altered mental status Status: Acute (3) Aspiration into airway Status: Acute (4) Encephalopathy Status: Acute (5) Fall Status: Acute (6) Head injury, closed Status: Acute (7) Hematoma Status: Acute (8) Hypokalemia Status: Acute (9) Hypoxia Status: Acute (10) Seizure Status: Acute (11) Seizure Status: Acute (12) Seizure Status: Acute (13) Status epilepticus Status: Acute (14) UTI (urinary tract infection) Status: Acute Objective Vital Signs Date Time Temp Pulse Resp B/P Pulse Ox O2 Delivery O2 Flow Rate FiO2 05/31/16 09:35 120 157/107 05/31/16 08:04 36.3 120 18 157/107 100 BiPAP 05/31/16 04:00 BiPAP 50 05/31/16 03:51 36.6 98 21 139/82 100 BiPAP 40 05/31/16 01:10 92 100 05/30/16 23:59 BiPAP 50 05/30/16 23:06 36.6 105 20 140/81 100 BiPAP 05/30/16 21:33 130 160/97 05/30/16 20:00 BiPAP 15.0 50 05/30/16 19:35 118 20 139/72 96 BiPAP 05/30/16 19:07 137 26 163/85 100 Non-Rebreather 15.0 05/30/16 19:00 37.1 122 23 122/74 100 05/30/16 18:27 122 23 122/74 100 Non-Rebreather 15.0 50 05/30/16 17:50 138 05/30/16 17:10 143 23 100 05/30/16 16:40 139 20 100 05/30/16 16:10 137 31 100 05/30/16 15:40 148 18 100 05/30/16 15:35 136 29 100 05/30/16 15:05 128 27 100 05/30/16 14:37 134 23 98 BiPAP/CPAP 50 05/30/16 14:35 144 25 83 05/30/16 14:32 134 98 05/30/16 14:08 95 Non-Rebreather 15.0 05/30/16 13:57 84 Room Air 05/30/16 13:49 93 Venturi Mask 50 05/30/16 13:48 127/74 05/30/16 13:48 37.1 142 24 127/74 84 Room Air 05/30/16 13:48 84 Room Air 05/30/16 13:48 144 05/30/16 13:43 /149 Physical Exam Comments: General Appearance: + moderate distress (anxious in appearance. Tremor noted.) Head: normocephalic Eyes: EOMI Respiratory/Chest: + pertinent finding (few coarse breath sounds noted at the left base. Otherwise clear. No wheezing or crackles auscultated. on oxygen via NC Cardiovascular: no murmur, + tachycardia Abdomen/GI: normal bowel sounds, non tender, soft Extremities/Musculoskelatal: no calf tenderness, no pedal edema, + pertinent finding (muscle wasting noted.) Neurologic/Psych: + pertinent finding (severely anxious in appearance. Not following commands. Moving all extremities without difficulty. Tremor noted.) Skin: warm/dry Laboratory Results Last 24 Hours Test 05/30/16 14:58 05/30/16 15:48 05/30/16 21:16 05/30/16 22:00 Influenza Type A (RT-PCR) Neg for Influ A Influenza Type A Antigen Neg for Influ A Influenza Type B Antigen Neg for Influ B Influenza Type B (RT-PCR) Neg for Influ B White Blood Count 15.79 K/uL Red Blood Count 4.84 M/uL Hemoglobin 13.1 g/dL Hematocrit 38.7 % Mean Corpuscular Volume 80.0 fL Mean Corpuscular Hemoglobin 27.1 pg Mean Corpuscular Hemoglobin Concent 33.9 g/dl Platelet Count 197 K/uL Mean Platelet Volume 10.0 fL Neutrophils (%) (Auto) 57.3 % Lymphocytes (%) (Auto) 25.0 % Monocytes (%) (Auto) 17.2 % Eosinophils (%) (Auto) 0.1 % Basophils (%) (Auto) 0.1 % Neutrophils # (Auto) 9.07 K/uL Lymphocytes # (Auto) 3.94 K/uL Monocytes # (Auto) 2.71 K/uL Eosinophils # (Auto) 0.01 K/uL Basophils # (Auto) 0.01 K/uL RDW Standard Deviation 47.3 fL RDW Coefficient of Variation 16.3 % Immature Granulocyte % (Auto) 0.3 % Immature Granulocyte # (Auto) 0.05 K/uL Prothrombin Time 13.8 SECONDS Prothromb Time International Ratio 1.3 Sodium Level 140 mmol/L Potassium Level 3.7 mmol/L Chloride Level 103 mmol/L Carbon Dioxide Level 27 mmol/L Anion Gap 10.0 mmol/L Blood Urea Nitrogen 20 mg/dl Creatinine 0.98 mg/dl Est Creatinine Clear Calc Drug Dose 49.0 ml/min Estimated GFR () 65.9 Estimated GFR (Non- 56.8 BUN/Creatinine Ratio 20.2 Random Glucose 308 mg/dl Calcium Level 9.5 mg/dl Magnesium Level 1.8 mg/dl Total Bilirubin 0.3 mg/dl Aspartate Amino Transf (AST/SGOT) 17 U/L Alanine Aminotransferase (ALT/SGPT) 9 U/L Alkaline Phosphatase 88 U/L Total Creatine Kinase 171 U/L Creatine Kinase MB 2.4 ng/ml Creatine Kinase MB Ratio 1.4 Troponin I 0.072 ng/ml Total Protein 6.6 gm/dl Albumin 2.4 gm/dl Globulin 4.2 gm/dl Albumin/Globulin Ratio 0.6 Beta-Hydroxybutyric Acid 0.73 mg/dL Valproic Acid (Depakene) Level 77 mcg/ml Bedside Glucose 154 mg/dl Urine Color YELLOW Urine Appearance CLEAR Urine pH 6.5 Urine Specific [place] 1.021 Urine Protein NEG Urine Glucose (UA) TRACE Urine Ketones NEG Urine Occult Blood NEG Urine Nitrite NEG Urine Bilirubin NEG Urine Urobilinogen NEG Urine Leukocyte Esterase SMALL Urine WBC (Auto) 10-30 /hpf Urine RBC (Auto) 0-4 /hpf Urine Hyaline Casts (Auto) 1-5 /lpf Urine Epithelial Cells (Auto) >30 /lpf Urine Bacteria (Auto) NEG Urine Renal Epithelial Cells /lpf Test 05/30/16 23:35 05/30/16 23:36 05/31/16 05:41 05/31/16 07:30 Bedside Glucose 144 mg/dl 112 mg/dl Total Creatine Kinase 118 U/L 72 U/L Creatine Kinase MB 1.4 ng/ml 1.2 ng/ml Creatine Kinase MB Ratio 1.2 1.7 Troponin I 0.067 ng/ml 0.063 ng/ml White Blood Count 17.21 K/uL Red Blood Count 4.78 M/uL Hemoglobin 12.9 g/dL Hematocrit 38.1 % Mean Corpuscular Volume 79.7 fL Mean Corpuscular Hemoglobin 27.0 pg Mean Corpuscular Hemoglobin Concent 33.9 g/dl Platelet Count 216 K/uL Mean Platelet Volume 10.0 fL Neutrophils (%) (Auto) 61.1 % Lymphocytes (%) (Auto) 23.2 % Monocytes (%) (Auto) 14.8 % Eosinophils (%) (Auto) 0.3 % Basophils (%) (Auto) 0.1 % Neutrophils # (Auto) 10.50 K/uL Lymphocytes # (Auto) 4.00 K/uL Monocytes # (Auto) 2.54 K/uL Eosinophils # (Auto) 0.06 K/uL Basophils # (Auto) 0.02 K/uL RDW Standard Deviation 47.8 fL RDW Coefficient of Variation 16.3 % Immature Granulocyte % (Auto) 0.5 % Immature Granulocyte # (Auto) 0.09 K/uL Sodium Level 141 mmol/L Potassium Level 3.8 mmol/L Chloride Level 104 mmol/L Carbon Dioxide Level 28 mmol/L Anion Gap 9.0 mmol/L Blood Urea Nitrogen 12 mg/dl Creatinine 0.68 mg/dl Est Creatinine Clear Calc Drug Dose 69.7 ml/min Estimated GFR () 99.9 Estimated GFR (Non- 86.2 BUN/Creatinine Ratio 18.1 Random Glucose 134 mg/dl Calcium Level 10.2 mg/dl Magnesium Level 1.7 mg/dl Assessment and Plan Acute respiratory failure with hypoxia-->? Aspiration pneumonia -Admit to telemetry -Continue Unasyn 3 g IV every 6 hours for at least a total of 7 days -NPO except for meds -Last speech evaluation recommendations for last admission noted to be pured diet with thin liquids and aspiration precautions. We will ask speech to reevaluate the patient -Care sounds like is going to be geared more towards making the patient comfortable in the future. Briefly discussed hospice options with the patient' s daughter who seems receptive. -Palliative care consult -Will check CT thorax with contrast to rule out PE. CXR not impressive for aspiration PNA. Questionable A. fib with RVR-likely sinus tachycardia -Admit to telemetry -Trend cardiac enzymes -Metoprolol 5 mg IV q 6 hr for HR > 110 -Treat anxiety Mild elevation in troponin-likely secondary to demand ischemia -Trend enzymes as noted above Severe dementia with associated anxiety and behavior disorder -One-on-one sitter -Continue outpatient regimen of Seroquel 12.5 mg in the morning, 12.5 mg every 6 hours as needed and 25 mg at night scheduled -Continue Haldol 1 mg IM every 4 hours as needed for increased agitation -Continue Klonopin 0.25 mg scheduled at night -PRN Ativan will be made available (even though we are trying to wean her off) as I think it is contributing to her tachycardia -Continue trazodone 12.5 mg at night DM-not on outpt regimen. BSGs high possibly secondary to infection. Last hemoglobin A1c in December 2015 5.0 -cover with ISS for now -BSGs q 6 hr DVT prophylaxis -Heparin 5000 units BUD -Teds, SCDs CODE STATUS -LEVEL V DO NO RESUSCITATE-per Daughter, PANKAJ Continued [facility] stay due to: abnormal vital signs
[2016-05-31] MEDS ORDERED: OPTIRAY 320 IV PRN (11:00)
[2016-05-31] MEDS ORDERED: NURSING DECISION MEDICATION ORDER SCH (12:15)
[2016-05-31] MEDS ORDERED: MICONAZOLE NITRATE POWDER 43 GM EXT PRN (13:00)
--- NOTE | 2016-05-31 14:29 | Palliative Care Consultation ---
Consultation Date of Consultation: May 31, 2016. Requesting Physician: Olga Healy PA-C Attending Physician: Olga Healy PA-C Reason for Consultation: Goals of care History of Present Illness This 76 year old female patient presented to the ED from the [facility] yesterday with c/o possible aspiration and hypoxia. She a history of severe dementia and was just discharged from the hospital the day prior to returning, she was being treated for seizures and UTI. She's had 7 ED visits with c/o seizure since January. History was obtained from record and from patient's granddaughter, Hyun, who is at bedside. Patient had a swallow evaluation done during last admission and was recommended to be on a pureed diet with thin liquids. Hyun stated that her mom, Maria Elena Thomas, normally goes to the [facility] to feed the patient every day at lunch time. When she arrived yesterday, the patient sounded very moist and was found to be hypoxic. EMS was called, CXR in ED negative for anything acute, WBC 15k, and Bipap placed for hypoxia. Patient is now on nasal cannula and VS stable, repeat CXR showed a left lung opacity which is indeterminate: parenchymal vs. old rib fracture. Given the patient's advanced dementia, frequent hospital visits, history of frequent seizures and overall decline, palliative care consulted to assist in establishing goals of care. I met with the patient in room 221, granddaughter Hyun at bedside. Patient was sleeping and stayed asleep even during my assessment, so I was not able to assess her mental status. Hyun states that the patient has recently declined, her dementia is worsening, now having trouble eating/drinking, and the family is wondering "where to go from here." Decisions are currently being made by the patient's children, Maria Elena Thomas and Nam Phan. The patient has no living will or POA. I called and left a message with daughter, Maria Elena. Hyun did tell me that Maria Elena had a doctor's appointment today, waiting for call back and will schedule family meeting. Past Medical/Surgical History Medical History: Dementia Anxiety Depression DM Dyslipidemia Epilepsy Hypertension Sacral ulcer Surgical History: Cholecystectomy Social History Smoking Status: Former Smoker History of Alcohol Use: No Drug Use: none Marital Status: Housing Status: [facility] ([facility]) Occupation Status: retired Review of Systems unable to obtain- patient lethargic/sleeping Allergies Coded Allergies: Meloxicam (Verified Allergy, Intermediate, unknown, 05/04/16) Tramadol (Verified Allergy, Intermediate, unknown, 05/04/16) Cephalexin (Verified Allergy, Unknown, ., 05/04/16) Ciprofloxacin (Verified Allergy, Unknown, unknown, 05/04/16) Rofecoxib (Verified Allergy, Unknown, ., 05/04/16) Medications Current Inpatient Medications Medications (Trade) Dose Ordered Sig/Madeline Route Start Time Stop Time Status Last Admin Dose Admin Lorazepam (Ativan Inj) 0.5 mg Q8H PRN IV 05/30/16 17:45 06/29/16 17:44 05/31/16 08:34 0.5 MG Metoprolol Tartrate 5 mg 5 mg Q6 PRN IV 05/30/16 17:45 06/29/16 17:44 05/31/16 09:35 5 MG Ampicillin Sodium/ Sulbactam Sodium/ Sodium Chloride (Unasyn Inj/Nss 100ml) 108 ml @ 200 mls/hr Q6H IV 05/30/16 20:00 06/06/16 19:59 05/31/16 08:18 200 MLS/HR Heparin Sodium (Porcine) (Heparin Sq 5000 Unit/0.5ml) 5,000 unit Q12 SQ 05/30/16 21:00 06/29/16 20:59 05/31/16 08:21 5,000 UNIT Acetaminophen (Tylenol Tab) 500 mg Q6H PO 05/30/16 22:00 06/29/16 21:59 Al Hydrox/Mg Hydrox/Simethicone (Maalox Max Susp) 15 ml Q4H PRN PO 05/30/16 17:45 06/29/16 17:44 Magnesium Hydroxide (Milk Of Magnesia Susp) 30 ml Q12H PRN PO 05/30/16 17:45 06/29/16 17:44 Atorvastatin Calcium (Lipitor Tab) 40 mg DAILY PO 05/31/16 09:00 06/30/16 08:59 Clonazepam (Klonopin Tab) 0.25 mg DAILY PO 05/31/16 09:00 06/30/16 08:59 Divalproex Sodium (Depakote Extended Rel Tab) 750 mg QAM PO 05/31/16 09:00 06/30/16 08:59 Future Hold Divalproex Sodium (Depakote Extended Rel Tab) 500 mg QPM PO 05/30/16 21:00 06/29/16 20:59 Future Hold Gabapentin (Neurontin Cap) 300 mg TID PO 05/30/16 21:00 06/29/16 20:59 Haloperidol Lactate (Haldol Inj) 1 mg Q4 PRN IM 05/30/16 17:45 06/29/16 17:44 Levetiracetam (Keppra Tab) 500 mg BID PO 05/30/16 21:00 06/29/16 20:59 Future Hold Magnesium Oxide (Mag-Ox Tab) 400 mg QAM PO 05/31/16 09:00 06/30/16 08:59 Megestrol Acetate (Megace Susp) 400 mg BID PO 05/30/16 21:00 06/29/16 20:59 Quetiapine Fumarate (seroQUEL TAB) 12.5 mg Q6 PRN PO 05/30/16 17:45 06/29/16 17:44 Quetiapine Fumarate (seroQUEL TAB) 12.5 mg QAM PO 05/31/16 09:00 06/30/16 08:59 Quetiapine Fumarate (seroQUEL TAB) 25 mg HS PO 05/30/16 21:00 06/29/16 20:59 Trazodone HCl (Desyrel Tab) 25 mg HS PO 05/30/16 21:00 06/29/16 20:59 Potassium Chloride (Klor-Con M10) 10 meq DAILY PO 05/31/16 09:00 06/30/16 08:59 Albuterol/ Ipratropium (Duoneb) 3 ml Q6 PRN INH 05/30/16 18:45 06/29/16 18:44 Glucose (Glucose 40% Gel) 15-30 GRAMS 15 GRAMS... UD PRN PO 05/30/16 20:00 06/29/16 19:59 Glucose (Glucose Chew Tab) 4-8 Tablets 4 Tabl... UD PRN PO 05/30/16 20:00 06/29/16 19:59 Dextrose (Dextrose 50% 50ML Syringe) 25-50ML OF 50% DW IV FOR... UD PRN IV 05/30/16 20:00 06/29/16 19:59 Glucagon 1 mg 1 mg UD PRN SQ 05/30/16 20:00 06/29/16 19:59 Levetiracetam 500 mg/Dextrose 105 ml @ 420 mls/hr Q12 IV 05/30/16 21:00 06/29/16 20:59 05/31/16 09:10 420 MLS/HR Valproate Sodium 500 mg/Dextrose 55 ml @ 55 mls/hr QPM IV 05/30/16 21:00 06/29/16 20:59 05/30/16 22:34 55 MLS/HR Valproate Sodium/ Dextrose (Depacon Iv/D5 50ml) 57.5 ml @ 55 mls/hr QAM IV 05/31/16 09:00 06/30/16 08:59 05/31/16 09:35 55 MLS/HR Insulin Aspart (novoLOG ASPART) SLIDING SCALE G... Q6 SC 05/31/16 00:00 06/30/16 00:00 Ioversol (Optiray 320) 100 ml UD PRN IV 05/31/16 11:00 06/04/16 10:59 Physical Exam Date Time Temp Pulse Resp B/P Pulse Ox O2 Delivery O2 Flow Rate FiO2 05/31/16 11:48 37.5 77 18 112/75 100 Nasal Cannula 4.0 05/31/16 09:35 120 157/107 05/31/16 08:04 36.3 120 18 157/107 100 BiPAP 05/31/16 08:00 BiPAP 50 05/31/16 04:00 BiPAP 50 05/31/16 03:51 36.6 98 21 139/82 100 BiPAP 40 05/31/16 01:10 92 100 05/30/16 23:59 BiPAP 50 05/30/16 23:06 36.6 105 20 140/81 100 BiPAP 05/30/16 21:33 130 160/97 05/30/16 20:00 BiPAP 15.0 50 05/30/16 19:35 118 20 139/72 96 BiPAP 05/30/16 19:07 137 26 163/85 100 Non-Rebreather 15.0 05/30/16 19:00 37.1 122 23 122/74 100 05/30/16 18:27 122 23 122/74 100 Non-Rebreather 15.0 50 05/30/16 17:50 138 05/30/16 17:10 143 23 100 05/30/16 16:40 139 20 100 05/30/16 16:10 137 31 100 05/30/16 15:40 148 18 100 05/30/16 15:35 136 29 100 05/30/16 15:05 128 27 100 05/30/16 14:37 134 23 98 BiPAP/CPAP 50 05/30/16 14:35 144 25 83 05/30/16 14:32 134 98 05/30/16 14:08 95 Non-Rebreather 15.0 05/30/16 13:57 84 Room Air 05/30/16 13:49 93 Venturi Mask 50 05/30/16 13:48 127/74 05/30/16 13:48 37.1 142 24 127/74 84 Room Air 05/30/16 13:48 84 Room Air 05/30/16 13:48 144 05/30/16 13:43 /149 General Appearance: + thin, + pertinent finding (chronically ill-appearing, alopecia) Neck: no JVD Respiratory: no respiratory distress, no accessory muscle use, + decreased breath sounds (bilateral bases. no adventitious lung sounds heard), + pertinent finding (nasal cannula) Cardiovascular: regular rate, rhythm, no edema, + normal peripheral pulses Abdomen: normal bowel sounds, non tender, soft Neurologic/Psychiatric: alert, normal mood/affect, oriented x 3 Laboratory Results Last 24 Hours Test 05/30/16 14:58 05/30/16 15:48 05/30/16 21:16 05/30/16 22:00 Influenza Type A (RT-PCR) Neg for Influ A Influenza Type A Antigen Neg for Influ A Influenza Type B Antigen Neg for Influ B Influenza Type B (RT-PCR) Neg for Influ B White Blood Count 15.79 K/uL Red Blood Count 4.84 M/uL Hemoglobin 13.1 g/dL Hematocrit 38.7 % Mean Corpuscular Volume 80.0 fL Mean Corpuscular Hemoglobin 27.1 pg Mean Corpuscular Hemoglobin Concent 33.9 g/dl Platelet Count 197 K/uL Mean Platelet Volume 10.0 fL Neutrophils (%) (Auto) 57.3 % Lymphocytes (%) (Auto) 25.0 % Monocytes (%) (Auto) 17.2 % Eosinophils (%) (Auto) 0.1 % Basophils (%) (Auto) 0.1 % Neutrophils # (Auto) 9.07 K/uL Lymphocytes # (Auto) 3.94 K/uL Monocytes # (Auto) 2.71 K/uL Eosinophils # (Auto) 0.01 K/uL Basophils # (Auto) 0.01 K/uL RDW Standard Deviation 47.3 fL RDW Coefficient of Variation 16.3 % Immature Granulocyte % (Auto) 0.3 % Immature Granulocyte # (Auto) 0.05 K/uL Prothrombin Time 13.8 SECONDS Prothromb Time International Ratio 1.3 Sodium Level 140 mmol/L Potassium Level 3.7 mmol/L Chloride Level 103 mmol/L Carbon Dioxide Level 27 mmol/L Anion Gap 10.0 mmol/L Blood Urea Nitrogen 20 mg/dl Creatinine 0.98 mg/dl Est Creatinine Clear Calc Drug Dose 49.0 ml/min Estimated GFR () 65.9 Estimated GFR (Non- 56.8 BUN/Creatinine Ratio 20.2 Random Glucose 308 mg/dl Calcium Level 9.5 mg/dl Magnesium Level 1.8 mg/dl Total Bilirubin 0.3 mg/dl Aspartate Amino Transf (AST/SGOT) 17 U/L Alanine Aminotransferase (ALT/SGPT) 9 U/L Alkaline Phosphatase 88 U/L Total Creatine Kinase 171 U/L Creatine Kinase MB 2.4 ng/ml Creatine Kinase MB Ratio 1.4 Troponin I 0.072 ng/ml Total Protein 6.6 gm/dl Albumin 2.4 gm/dl Globulin 4.2 gm/dl Albumin/Globulin Ratio 0.6 Beta-Hydroxybutyric Acid 0.73 mg/dL Valproic Acid (Depakene) Level 77 mcg/ml Bedside Glucose 154 mg/dl Urine Color YELLOW Urine Appearance CLEAR Urine pH 6.5 Urine Specific [place] 1.021 Urine Protein NEG Urine Glucose (UA) TRACE Urine Ketones NEG Urine Occult Blood NEG Urine Nitrite NEG Urine Bilirubin NEG Urine Urobilinogen NEG Urine Leukocyte Esterase SMALL Urine WBC (Auto) 10-30 /hpf Urine RBC (Auto) 0-4 /hpf Urine Hyaline Casts (Auto) 1-5 /lpf Urine Epithelial Cells (Auto) >30 /lpf Urine Bacteria (Auto) NEG Urine Renal Epithelial Cells /lpf Test 05/30/16 23:35 05/30/16 23:36 05/31/16 05:41 05/31/16 07:30 Bedside Glucose 144 mg/dl 112 mg/dl Total Creatine Kinase 118 U/L 72 U/L Creatine Kinase MB 1.4 ng/ml 1.2 ng/ml Creatine Kinase MB Ratio 1.2 1.7 Troponin I 0.067 ng/ml 0.063 ng/ml White Blood Count 17.21 K/uL Red Blood Count 4.78 M/uL Hemoglobin 12.9 g/dL Hematocrit 38.1 % Mean Corpuscular Volume 79.7 fL Mean Corpuscular Hemoglobin 27.0 pg Mean Corpuscular Hemoglobin Concent 33.9 g/dl Platelet Count 216 K/uL Mean Platelet Volume 10.0 fL Neutrophils (%) (Auto) 61.1 % Lymphocytes (%) (Auto) 23.2 % Monocytes (%) (Auto) 14.8 % Eosinophils (%) (Auto) 0.3 % Basophils (%) (Auto) 0.1 % Neutrophils # (Auto) 10.50 K/uL Lymphocytes # (Auto) 4.00 K/uL Monocytes # (Auto) 2.54 K/uL Eosinophils # (Auto) 0.06 K/uL Basophils # (Auto) 0.02 K/uL RDW Standard Deviation 47.8 fL RDW Coefficient of Variation 16.3 % Immature Granulocyte % (Auto) 0.5 % Immature Granulocyte # (Auto) 0.09 K/uL Sodium Level 141 mmol/L Potassium Level 3.8 mmol/L Chloride Level 104 mmol/L Carbon Dioxide Level 28 mmol/L Anion Gap 9.0 mmol/L Blood Urea Nitrogen 12 mg/dl Creatinine 0.68 mg/dl Est Creatinine Clear Calc Drug Dose 69.7 ml/min Estimated GFR () 99.9 Estimated GFR (Non- 86.2 BUN/Creatinine Ratio 18.1 Random Glucose 134 mg/dl Calcium Level 10.2 mg/dl Magnesium Level 1.7 mg/dl Assessment & Plan Palliative Performance Scale: 30 % (at this time- bed-bound, not eating, total care, altered mental status) Problem list: Dementia, advanced Hypoxia/respiratory failure- improved ?Aspiration- speech to reevaluate Elevated troponin Goals of care (Z51.5) Palliative care plan: -Continue current care for now with IV antibiotics. -Continue goals of care discussion with family- waiting for call back and will set up family meeting. -Patient is DNR/DNI per conversation with admitting physician. Thank you kindly for this consult. Will continue to follow.
[2016-05-31] MEDS: TRAZODONE HCL 50 MG TAB PO SCH (21:00)
[2016-05-31] MEDS: VALPROATE SOD IV 500 MG in DEXTROSE 5% 50ML 50 ML IV SCH (21:06)
[2016-06-01] VITALS (8 sets, daily range): BP systolic 113–147; BP diastolic 54–91; PULSE 68–110; TEMP 36.3–37; O2SAT 99–100
[2016-06-01] MEDS: AMPICILLIN/SULBACTAM SOD INJ 3,000 MG in SODIUM CHLORIDE 0.9% 100ML 100 ML IV SCH ×4 (01:54→19:40)
[2016-06-01] MEDS: ACETAMINOPHEN 500 MG TAB PO SCH ×4 (01:54→19:50)
[2016-06-01] MEDS: INSULIN ASPART 100 UNITS/ML 3 ML PEN SC SCH ×4 (06:00→17:27)
[2016-06-01] MEDS ORDERED: NURSING VERBAL MED ORDER ONE (06:30)
[2016-06-01] MEDS: D5W AND 1/2NSS 1,000 ML IV SCH (06:58)
[2016-06-01 07:47] LABS: BASO % 0.2 %; BASO ABS # 0.02 K/uL (0-0.2); COMPLETE YES; EOS % 0.4 %; IG% 0.4 %; LYMPH % 31.9 %; MEAN CELL VOLUME 80.1 fL (80-100); MEAN CORPUSCULAR HEMOGLOBIN 27.1 pg (25-34); MEAN CORPUSCULAR HGB CONC 33.8 g/dl (32-36); MEAN PLATELET VOLUME 9.6 fL (7.4-10.4); MONO % 11.3 %; NEUT % 55.8 %; PLATELET COUNT 250 K/uL (130-400); RED BLOOD COUNT 4.62 M/uL (4.2-5.4); WHITE BLOOD COUNT 12.87 K/uL (4.8-10.8)
[2016-06-01] MEDS: HEPARIN SOD 5000 UNIT/0.5 ML CARP SQ SCH ×2 (07:48→19:56)
[2016-06-01] MEDS: POTASSIUM CHLORIDE 10 MEQ TABCR PO SCH ×2 (07:54→11:10)
[2016-06-01] MEDS: ATORVASTATIN 40 MG TAB PO SCH ×2 (07:54→11:08)
[2016-06-01] MEDS: MAGNESIUM OXIDE 400 MG TAB PO SCH ×2 (07:54→11:10)
[2016-06-01] MEDS: CLONAZEPAM 0.5 MG TAB PO SCH ×2 (07:54→11:08)
[2016-06-01] MEDS: MEGESTROL ACETATE SUSP 400 MG/10 ML UDC PO SCH ×3 (07:54→19:50)
[2016-06-01] MEDS: GABAPENTIN 300 MG CAP PO SCH ×3 (07:55→19:49)
[2016-06-01] MEDS: QUETIAPINE FUMARATE 25 MG TAB PO SCH ×3 (07:55→19:49)
[2016-06-01 08:09] LABS: BUN/CREATININE RATIO 18.8 (10-20); CALCIUM 9.8 mg/dl (8.5-10.1); CREATININE 0.59 mg/dl (0.60-1.20); POTASSIUM 3.6 mmol/L (3.5-5.1)
--- NOTE | 2016-06-01 08:13 | Hospitalist Progress Note ---
Hospitalist Progress Note Date of Service Jun 01, 2016. Subjective Pt evaluation today including: physical exam, chart review Medications Medications (Trade) Dose Ordered Sig/Madeline Route Start Time Stop Time Status Last Admin Dose Admin Valproate Sodium 750 mg/Dextrose 57.5 ml @ 55 mls/hr QAM IV 05/31/16 09:00 06/30/16 08:59 05/31/16 09:35 55 MLS/HR Dextrose/Sodium Chloride (D5W And 1/2nss) 1,000 ml @ 60 mls/hr [id number] IV 06/01/16 07:00 07/01/16 06:59 06/01/16 06:58 60 MLS/HR Objective Vital Signs Date Time Temp Pulse Resp B/P Pulse Ox O2 Delivery O2 Flow Rate FiO2 06/01/16 07:10 36.3 68 20 113/60 100 Nasal Cannula 2.0 06/01/16 04:00 Nasal Cannula 2.0 06/01/16 03:52 36.7 98 20 144/91 100 Nasal Cannula 2.0 05/31/16 23:59 Nasal Cannula 2.0 05/31/16 22:57 36.9 104 20 144/78 100 Nasal Cannula 2.0 05/31/16 20:00 Nasal Cannula 2.0 05/31/16 19:24 36.4 110 20 156/93 100 Nasal Cannula 2.0 05/31/16 16:00 Nasal Cannula 4.0 05/31/16 14:45 114 18 141/83 99 Nasal Cannula 4.0 05/31/16 12:00 Nasal Cannula 4.0 05/31/16 11:48 37.5 77 18 112/75 100 Nasal Cannula 4.0 05/31/16 09:35 120 157/107 Laboratory Results Last 24 Hours Test 05/31/16 12:22 05/31/16 16:21 06/01/16 00:55 06/01/16 05:53 Bedside Glucose 100 mg/dl 108 mg/dl 109 mg/dl 76 mg/dl Test 06/01/16 07:23 White Blood Count 12.87 K/uL Red Blood Count 4.62 M/uL Hemoglobin 12.5 g/dL Hematocrit 37.0 % Mean Corpuscular Volume 80.1 fL Mean Corpuscular Hemoglobin 27.1 pg Mean Corpuscular Hemoglobin Concent 33.8 g/dl Platelet Count 250 K/uL Mean Platelet Volume 9.6 fL Neutrophils (%) (Auto) 55.8 % Lymphocytes (%) (Auto) 31.9 % Monocytes (%) (Auto) 11.3 % Eosinophils (%) (Auto) 0.4 % Basophils (%) (Auto) 0.2 % Neutrophils # (Auto) 7.20 K/uL Lymphocytes # (Auto) 4.10 K/uL Monocytes # (Auto) 1.45 K/uL Eosinophils # (Auto) 0.05 K/uL Basophils # (Auto) 0.02 K/uL RDW Standard Deviation 47.4 fL RDW Coefficient of Variation 16.3 % Immature Granulocyte % (Auto) 0.4 % Immature Granulocyte # (Auto) 0.05 K/uL Sodium Level 140 mmol/L Potassium Level 3.6 mmol/L Chloride Level 104 mmol/L Carbon Dioxide Level 27 mmol/L Anion Gap 9.0 mmol/L Blood Urea Nitrogen 11 mg/dl Creatinine 0.59 mg/dl Est Creatinine Clear Calc Drug Dose 80.3 ml/min Estimated GFR () 104.6 Estimated GFR (Non- 90.3 BUN/Creatinine Ratio 18.8 Random Glucose 92 mg/dl Calcium Level 9.8 mg/dl Diagnostic Results 06/01/16 07:23 Red Blood Count 4.62, Mean Corpuscular Volume 80.1, Mean Corpuscular Hemoglobin 27.1, Mean Corpuscular Hemoglobin Concent 33.8, Mean Platelet Volume 9.6, Neutrophils (%) (Auto) 55.8, Lymphocytes (%) (Auto) 31.9, Monocytes (%) (Auto) 11.3, Eosinophils (%) (Auto) 0.4, Basophils (%) (Auto) 0.2, Neutrophils # (Auto ) 7.20, Lymphocytes # (Auto) 4.10, Monocytes # (Auto) 1.45, Eosinophils # (Auto ) 0.05, Basophils # (Auto) 0.02 06/01/16 07:23 Test 05/30/16 14:58 05/30/16 15:48 05/30/16 22:00 05/31/16 07:30 Influenza Type A (RT-PCR) Neg for Influ A (NEG) Influenza Type A Antigen Neg for Influ A (NEG) Influenza Type B Antigen Neg for Influ B (NEG) Influenza Type B (RT-PCR) Neg for Influ B (NEG) Prothrombin Time 13.8 SECONDS (9.0-12.0) Prothromb Time International Ratio 1.3 (0.9-1.1) Total Bilirubin 0.3 mg/dl (0.2-1) Aspartate Amino Transf (AST/SGOT) 17 U/L (15-37) Alanine Aminotransferase (ALT/SGPT) 9 U/L (12-78) Alkaline Phosphatase 88 U/L (45-117) Total Protein 6.6 gm/dl (6.4-8.2) Albumin 2.4 gm/dl (3.4-5.0) Globulin 4.2 gm/dl (2.5-4.0) Albumin/Globulin Ratio 0.6 (0.9-2) Beta-Hydroxybutyric Acid 0.73 mg/dL (0.2-2.81) Valproic Acid (Depakene) Level 77 mcg/ml (50-100) Urine Color YELLOW Urine Appearance CLEAR (CLEAR) Urine pH 6.5 (4.5-7.5) Urine Specific [place] 1.021 (1.000-1.030) Urine Protein NEG (NEG) Urine Glucose (UA) TRACE (NEG) Urine Ketones NEG (NEG) Urine Occult Blood NEG (NEG) Urine Nitrite NEG (NEG) Urine Bilirubin NEG (NEG) Urine Urobilinogen NEG (NEG) Urine Leukocyte Esterase SMALL (NEG) Urine WBC (Auto) 10-30 /hpf (0-5) Urine RBC (Auto) 0-4 /hpf (0-4) Urine Hyaline Casts (Auto) 1-5 /lpf (0-5) Urine Epithelial Cells (Auto) >30 /lpf (0-5) Urine Bacteria (Auto) NEG (NEG) Urine Renal Epithelial Cells /lpf (0-5) Magnesium Level 1.7 mg/dl (1.8-2.4) Total Creatine Kinase 72 U/L (26-192) Creatine Kinase MB 1.2 ng/ml (0.5-3.6) Creatine Kinase MB Ratio 1.7 (0-3.0) Troponin I 0.063 ng/ml (0-0.045) Test 06/01/16 05:53 06/01/16 07:23 Bedside Glucose 76 mg/dl (70-90) White Blood Count 12.87 K/uL (4.8-10.8) Red Blood Count 4.62 M/uL (4.2-5.4) Hemoglobin 12.5 g/dL (12.0-16.0) Hematocrit 37.0 % (37-47) Mean Corpuscular Volume 80.1 fL (80-100) Mean Corpuscular Hemoglobin 27.1 pg (25-34) Mean Corpuscular Hemoglobin Concent 33.8 g/dl (32-36) Platelet Count 250 K/uL (130-400) Mean Platelet Volume 9.6 fL (7.4-10.4) Neutrophils (%) (Auto) 55.8 % Lymphocytes (%) (Auto) 31.9 % Monocytes (%) (Auto) 11.3 % Eosinophils (%) (Auto) 0.4 % Basophils (%) (Auto) 0.2 % Neutrophils # (Auto) 7.20 K/uL (1.4-6.5) Lymphocytes # (Auto) 4.10 K/uL (1.2-3.4) Monocytes # (Auto) 1.45 K/uL (0.11-0.59) Eosinophils # (Auto) 0.05 K/uL (0-0.5) Basophils # (Auto) 0.02 K/uL (0-0.2) RDW Standard Deviation 47.4 fL (36.4-46.3) RDW Coefficient of Variation 16.3 % (11.5-14.5) Immature Granulocyte % (Auto) 0.4 % Immature Granulocyte # (Auto) 0.05 K/uL (0.00-0.02) Anion Gap 9.0 mmol/L (3-11) Est Creatinine Clear Calc Drug Dose 80.3 ml/min Estimated GFR () 104.6 Estimated GFR (Non- 90.3 BUN/Creatinine Ratio 18.8 (10-20) Calcium Level 9.8 mg/dl (8.5-10.1) Date/Time Source Procedure Growth Status 05/30/16 17:36 Blood Blood Culture - Preliminary NO GROWTH TO DATE. Resulted 05/30/16 00:00 Nasal MRSA DNA Surveillance Screen - Final Specimen Negative for MRSA by DNA Probe Complete Assessment and Plan Acute respiratory failure with hypoxia-->? Aspiration pneumonia -Admit to telemetry -Continue Unasyn 3 g IV every 6 hours for at least a total of 7 days -NPO except for meds -Last speech evaluation recommendations for last admission noted to be pured diet with thin liquids and aspiration precautions. We will ask speech to reevaluate the patient -Care sounds like is going to be geared more towards making the patient comfortable in the future. Briefly discussed hospice options with the patient' s daughter who seems receptive. -Palliative care consult input appreciated. Questionable A. 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 BSGs high possibly secondary to infection. Last hemoglobin A1c in December 2015 5.0 -cover with ISS for now -BSGs q 6 hr DVT prophylaxis -Heparin 5000 units LORENZO -Brittni SCDs CODE STATUS -LEVEL V DO NO RESUSCITATE-per Daughter, PANKAJ
[2016-06-01] MEDS: LEVETIRACETAM IV 500 MG in DEXTROSE 5% 100ML 100 ML IV SCH ×2 (08:36→19:50)
[2016-06-01] MEDS: VALPROATE SOD IV 750 MG in DEXTROSE 5% 50ML 50 ML IV SCH (09:02)
[2016-06-01] MEDS: VALPROATE SOD IV 500 MG in DEXTROSE 5% 50ML 50 ML IV SCH (19:50)
[2016-06-01] MEDS: TRAZODONE HCL 50 MG TAB PO SCH (19:50)
[2016-06-02] VITALS (7 sets, daily range): BP systolic 115–142; BP diastolic 74–85; PULSE 78–116; TEMP 36.4–36.7; O2SAT 100
[2016-06-02] MEDS: AMPICILLIN/SULBACTAM SOD INJ 3,000 MG in SODIUM CHLORIDE 0.9% 100ML 100 ML IV SCH ×2 (00:55→07:36)
[2016-06-02] MEDS: INSULIN ASPART 100 UNITS/ML 3 ML PEN SC SCH ×3 (00:55→12:04)
[2016-06-02] MEDS: D5W AND 1/2NSS 1,000 ML IV SCH (00:55)
[2016-06-02] MEDS: ACETAMINOPHEN 500 MG TAB PO SCH ×3 (03:19→15:48)
[2016-06-02 07:32] LABS: BASO % 0.1 %; BASO ABS # 0.01 K/uL (0-0.2); COMPLETE YES; EOS % 0.5 %; HEMATOCRIT 39.1 % (37-47); IG% 0.4 %; LYMPH % 32.3 %; LYMPH ABS # 3.31 K/uL (1.2-3.4); MEAN CELL VOLUME 80.8 fL (80-100); MEAN CORPUSCULAR HEMOGLOBIN 26.9 pg (25-34); MEAN CORPUSCULAR HGB CONC 33.2 g/dl (32-36); MEAN PLATELET VOLUME 9.8 fL (7.4-10.4); MONO % 14.4 %; NEUT % 52.3 %; PLATELET COUNT 227 K/uL (130-400); RED BLOOD COUNT 4.84 M/uL (4.2-5.4); WHITE BLOOD COUNT 10.25 K/uL (4.8-10.8)
[2016-06-02] MEDS: VALPROATE SOD IV 750 MG in DEXTROSE 5% 50ML 50 ML IV SCH (07:36)
[2016-06-02] MEDS: LEVETIRACETAM IV 500 MG in DEXTROSE 5% 100ML 100 ML IV SCH (07:36)
[2016-06-02] MEDS: GABAPENTIN 300 MG CAP PO SCH ×2 (07:37→13:26)
[2016-06-02] MEDS: QUETIAPINE FUMARATE 25 MG TAB PO SCH (07:37)
[2016-06-02] MEDS: MEGESTROL ACETATE SUSP 400 MG/10 ML UDC PO SCH (07:37)
[2016-06-02] MEDS: ATORVASTATIN 40 MG TAB PO SCH (07:38)
[2016-06-02] MEDS: HEPARIN SOD 5000 UNIT/0.5 ML CARP SQ SCH (07:40)
[2016-06-02] MEDS: POTASSIUM CHLORIDE 10 MEQ TABCR PO SCH (07:41)
[2016-06-02] MEDS: MAGNESIUM OXIDE 400 MG TAB PO SCH (07:41)
[2016-06-02] MEDS: CLONAZEPAM 0.5 MG TAB PO SCH (07:54)
[2016-06-02 08:05] LABS: BUN/CREATININE RATIO 18.4 (10-20); CALCIUM 9.7 mg/dl (8.5-10.1); CREATININE 0.8 mg/dl (0.60-1.20); POTASSIUM 3.8 mmol/L (3.5-5.1)
[2016-06-02] MEDS ORDERED: NURSING VERBAL MED ORDER ONE (09:30)
[2016-06-02] MEDS ORDERED: CLINDAMYCIN HCL 150 MG CAP PO SCH (12:00)
[2016-06-02] MEDS ORDERED: CLC150 PO (12:02)
--- NOTE | 2016-06-02 12:05 | Discharge Instructions ---
Discharge Instructions Date of Service Jun 02, 2016. Admission Reason for Admission: Acute Respiratory Failure With Hypoxia Discharge Discharge Diagnosis / Problem: Acute hypoxic respiratory failure secondary to Pneumonia Discharge Goals Goal(s): Improve function Activity Recommendations Activity Limitations: resume your previous activity Lifting Limitations: none Exercise/Sports Limitations: as tolerated Shower/Bathe: no limitations Driving or Machine Use: . Instructions / Follow-Up Instructions / Follow-Up with PCP in one to two weeks Current Hospital Diet Patient's current hospital diet: Regular Diet Discharge Diet Recommended Diet: AHA Diet (Heart Healthy), Diabetes Type 2 Diet Diet Texture: Pureed (blended smooth) Pending Studies Studies pending at discharge: no Medical Emergencies . Who to Call and When: Medical Emergencies: If at any time you feel your situation is an emergency, please call 911 immediately. . Non-Emergent Contact Non-Emergency issues call your: Primary Care Provider . Past History Medical & Surgical History: (1) Acute respiratory failure with hypoxia (2) Hypertension (3) Dyslipidemia (4) Diabetes mellitus, type II (5) Dementia (6) Depression (7) Anxiety (8) Hypoxia (9) Refractory seizure (10) Aspiration into airway . "Provider Documentation" section prepared by Shauna Arshad. VTE Core Measure Inpt VTE Proph given/why not?: Unfractionated heparin CATALINA, T.E.Terrance. Zack, SCD 's
--- NOTE | 2016-06-02 12:10 | Discharge Summary ---
Discharge Summary Date of Service Jun 02, 2016. Discharge Summary Admission Date: May 30, 2016 at 18:11 Discharge Date: Jun 02, 2016 Discharge Disposition: [facility] facility Principal Diagnosis: Acute Hypoxic Respiratory failure Problems/Secondary Diagnoses: Diabetes mellitus type 2 Seizures Anxiety Swallowing dysfunction Hyperlipidemia Procedures: SINGLE VIEW CHEST CLINICAL HISTORY: Aspiration. FINDINGS: An AP, portable, upright chest radiograph is compared to study dated 05/04/2016 and correlated with chest CT dated 04/21/2016. The examination is degraded by portable technique and patient rotation. The cardiomediastinal silhouette is unremarkable. Atherosclerotic calcification is noted in the thoracic aorta. Chronic interstitial thickening is similar to previous. There is no airspace consolidation, large pleural effusion, or pneumothorax. The skeletal structures are osteopenic. There are numerous healed bilateral rib fractures. Degenerative change is noted throughout the thoracic spine. IMPRESSION: No acute cardiopulmonary abnormality. Electronically signed by: Noe Lambert M.D. 05/30/2016 2:35 PM. Medication Reconciliation New Medications: Clindamycin HCl (Clindamycin HCl) 150 Mg Cap 300 MG PO Q6 for 7 Days, #56 CAP Continued Medications: Acetaminophen (Tylenol) 325 Mg Tab 650 MG PO Q6H PRN for Pain or Fever, TAB Atorvastatin (Lipitor) 40 Mg Tab 40 MG PO DAILY, TAB Clonazepam (Clonazepam) 0.5 Mg Tab 0.25 MG PO DAILY for 7 Days, #4 TAB 0 Refills Dextrose (Diabetic Use) (Insta-Glucose) 77.4 % Gel 1 APPLN PO Q15M PRN for HYPOGLYCEMIA PROTOCOL GIVE 1 APPLICATION BY MOUTH EVERY 15 MINUTES NEEDED FOR HYPOGLYCEMIA BLOOD GLUCOSE LESS THAN 60 AND/OR SYMPTOMATIC HYPOGLYCEMIA (MUST BE RESPONSIVE AND ABLE TO SAFELY SWALLOW) Divalproex Sodium (Divalproex Sodium ER) 500 Mg Tabcr 500 MG PO QPM, #30 TABS 3 Refills Divalproex Sodium (Divalproex Sodium ER) 250 Mg Tabcr 750 MG PO QAM for 30 Days, #90 TABS 3 Refills Gabapentin (Neurontin) 300 Mg Cap 300 MG PO TID Glucagon (Glucagon Emergency Kit) 1 Mg Kit 1 APPLN IM Q15M PRN for HYPOGLYCEMIA PROTOCOL INJECT 1 APPLICATION IM EVERY 15 MINUTES PRN FOR HYPOGLYCEMIA RELATED TO DIABETES MELLITUS DUE TO UNDERLYING CONDITION BLOOD GLUCOSE <60 AND OR SYMPTOMATIC/UNRESPONSIVE HYPOGLYCEMIA. MAY REPEAT IN 15 MINUTES IF NEEDED. Haloperidol Lactate (Haldol) 5 Mg/Ml Inj 1 MG IM Q4 PRN for Agitation Hydrochlorothiazide (Hydrochlorothiazide) 25 Mg Tab 25 MG PO QAM Hydrocodone/Acetaminophen 5MG/325MG ([place] 5MG/325MG) Tab 1 TABLET PO Q4H PRN for Pain, TAB PRN 4-6 PAIN Levetiractam (Keppra) 250 Mg Tab 500 MG PO BID, #60 TAB 3 Refills Lidocaine (Lidocaine) 5 % Pad 1 PATCH TOP DAILY Lorazepam (Lorazepam) 2 Mg/Ml Soln 1 MG IM Q5M PRN for seizures Magnesium Oxide (Magnesium-Oxide) 400 Mg Tab 400 MG PO QAM, #30 TAB 2 Refills Megestrol Acetate (Megace Oral) 40 Mg/Ml Zuleyma 400 MG PO BID Multiple Vitamins W/ Minerals (Multi Vitamin and Mineral) 1 Tab Tab 1 TAB PO DAILY Nutritional Supplements (Nutritional Shake) 1 Liq Liq 1 CAN PO BID Nutritional Supplements (Nutritional Shake) 1 Liq Liq 1 PO DAILY AT NOON [place] Polyethylene Glycol 3350 (Miralax) 1 Pow 17 GM PO DAILY Potassium Chloride (K-Tabs) 10 Meq Tab 10 MEQ PO DAILY GRANULES Quetiapine Fumarate (Quetiapine Fumarate) 25 Mg Tab 12.5 MG PO QAM, #20 TAB 3 Refills Quetiapine Fumarate (Quetiapine Fumarate) 25 Mg Tab 25 MG PO HS, #30 TAB 3 Refills Quetiapine Fumarate (Quetiapine Fumarate) 25 Mg Tab 12.5 MG PO Q6 PRN for Anxiety/Agitation, #30 TAB 3 Refills Trazodone Hcl (Trazodone) 50 Mg Tab 25 MG PO HS 1/2 TABLET DOSE Triamcinolone Acetonide (Nasal (Nasacort Allergy 24Hr) 55 Mcg/Act Spr 2 SPRAYS KELSIE DAILY Discharge Exam Physical Exam: General Appearance: + pertinent finding (General Appearance: + moderate distress (anxious in appearance. Tremor noted.)) Hospital Course Acute respiratory failure with hypoxia-->? Aspiration pneumonia -Admit to telemetry -Given Unasyn 3 g IV every 6 hours at admit. Blood cultures negative x 3 days. Pt switched over to Clindamycin at discharge (one week course) -NPO except for meds -Last speech evaluation recommendations for last admission noted to be pured diet with thin liquids and aspiration precautions. 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 Oral intake improved. DM-not on outpt regimen. BSGs high possibly secondary to infection. Last hemoglobin A1c in December 2015 5.0 -cover with ISS for now -BSGs q 6 hr DVT prophylaxis -Heparin 5000 units BUD -Teds, SCDs CODE STATUS -LEVEL V DO NO RESUSCITATE-per Daughter, PANKAJ Total Time Spent: Greater than 30 minutes This includes examination of the patient, discharge planning, medication reconciliation, and communication with other providers. Discharge Instructions Please refer to the electronic Patient Visit Report (Discharge Instructions) for additional information. Follow-Up PCP in one to two weeks.
--- NOTE | 2016-06-02 14:10 | Palliative Care Progress Note ---
Palliative Care Progress Note Date of Service Jun 02, 2016. Subjective Pt evaluation today including: conversation w/ patient, conversation w/ family , physical exam, chart review, conversation w/ personnel consultant Pain: denies PO Intake: tolerating diet at this time Voiding: ryder catheter in place -Patient is much more awake, still confused and trying to crawl out of bed. -Patient denies pain or discomfort. -Daughter, Maria Elena Thomas at bedside. We discussed patient's condition and goals of care. See plan below. Review of Systems unable to obtain ROS due to patient's dementia/confusion. Objective Vital Signs Date Time Temp Pulse Resp B/P Pulse Ox O2 Delivery O2 Flow Rate FiO2 06/02/16 12:42 36.6 116 20 142/75 100 Room Air 06/02/16 12:00 100 Room Air 06/02/16 08:00 100 Room Air 06/02/16 07:58 36.4 99 20 141/79 100 Room Air 06/02/16 04:00 Nasal Cannula 2.0 06/02/16 03:42 36.5 78 18 115/85 100 Room Air 06/02/16 00:01 Nasal Cannula 2.0 06/01/16 22:56 36.4 94 20 147/78 100 Room Air 06/01/16 20:00 Nasal Cannula 2.0 06/01/16 19:06 37.0 110 22 139/83 100 Room Air 06/01/16 16:48 36.6 102 20 142/70 99 Room Air 06/01/16 16:00 Nasal Cannula 2.0 Physical Exam General Appearance: no apparent distress, + thin ENT: hearing grossly normal Neck: no JVD Respiratory/Chest: no respiratory distress, no accessory muscle use, + decreased breath sounds Cardiovascular: regular rate, rhythm, no edema, + normal peripheral pulses Abdomen: normal bowel sounds, non tender, soft Neurologic/Psychiatric: alert, + disoriented (demented. Restless in bed, attempting to get out) Laboratory Results Last 24 Hours Test 06/01/16 19:51 06/02/16 00:10 06/02/16 05:48 06/02/16 07:10 Bedside Glucose 197 mg/dl 160 mg/dl 115 mg/dl White Blood Count 10.25 K/uL Red Blood Count 4.84 M/uL Hemoglobin 13.0 g/dL Hematocrit 39.1 % Mean Corpuscular Volume 80.8 fL Mean Corpuscular Hemoglobin 26.9 pg Mean Corpuscular Hemoglobin Concent 33.2 g/dl Platelet Count 227 K/uL Mean Platelet Volume 9.8 fL Neutrophils (%) (Auto) 52.3 % Lymphocytes (%) (Auto) 32.3 % Monocytes (%) (Auto) 14.4 % Eosinophils (%) (Auto) 0.5 % Basophils (%) (Auto) 0.1 % Neutrophils # (Auto) 5.36 K/uL Lymphocytes # (Auto) 3.31 K/uL Monocytes # (Auto) 1.48 K/uL Eosinophils # (Auto) 0.05 K/uL Basophils # (Auto) 0.01 K/uL RDW Standard Deviation 48.8 fL RDW Coefficient of Variation 16.4 % Immature Granulocyte % (Auto) 0.4 % Immature Granulocyte # (Auto) 0.04 K/uL Sodium Level 142 mmol/L Potassium Level 3.8 mmol/L Chloride Level 106 mmol/L Carbon Dioxide Level 28 mmol/L Anion Gap 8.0 mmol/L Blood Urea Nitrogen 15 mg/dl Creatinine 0.80 mg/dl Est Creatinine Clear Calc Drug Dose 60.0 ml/min Estimated GFR () 84.2 Estimated GFR (Non- 72.6 BUN/Creatinine Ratio 18.4 Random Glucose 129 mg/dl Calcium Level 9.7 mg/dl Test 06/02/16 11:16 Bedside Glucose 152 mg/dl Assessment and Plan Problem list: Dementia, advanced Hypoxia/respiratory failure- resolved ?Aspiration pneumonia Elevated troponin Goals of care (Z51.5) Palliative care plan: discussed with patient's daughter, Maria Elena Thomas, and Dr. Arshad. -Goal is for comfort and to stay out of the hospital. -Remains level 5 DNR/DNI. -After discussion about hospice and the services they provide, Maria Elena is very interested. She chose [facility], referral was made. -Patient going back to the [facility] today at 1700. -Continue all medications as is per patient's daughter. -Continue allowing to eat. Thank you again for this consult. Contact me with any further palliative needs. Palliative Performance Scale: 40 % Discharge planning: halfway facility, other (referral to hospice to follow up once at [facility])
[2016-06-02] MEDS ORDERED: MENTHOL-ZINC OXIDE 360 APPLN/120 GM TUBE EXT SCH (21:00)
[2016-06-05] MEDS ORDERED: DIVA125C PO ×2 (20:25)
[2016-06-05] MEDS ORDERED: LEVE500T13 PO (20:31)
[2016-06-05] MEDS ORDERED: BISA10SU3 PR (20:36)
[2016-06-05] MEDS ORDERED: MOML PO (20:38)
[2016-06-05] MEDS ORDERED: SODI1ENE PR (20:38)
[2016-06-09] MEDS ORDERED: RIVA1TAB7 PO ×2 (13:09→14:57)
== END 2016-06-02 17:20 | disposition hospice, inpatient (51) | DRG 177 ==
LOC: ENRESERVTM → ENRESERVDT → EDBD 13:35 → C.EDB 13:36 → C.2T 18:11
PROVIDERS: ADMIT Family Medicine; ATTEND Family Medicine
DX: J69.0 Pneumonitis due to inhalation of food and vomit (principal); J96.01 Acute respiratory failure with hypoxia; F03.91 Unspecified dementia, unspecified severity, with behavioral disturbance; F13.239 Sedative, hypnotic or anxiolytic dependence with withdrawal, unspecified; R00.0 Tachycardia, unspecified; F41.9 Anxiety disorder, unspecified; F32.9 Major depressive disorder, single episode, unspecified; E11.65 Type 2 diabetes mellitus with hyperglycemia; I10 Essential (primary) hypertension; G40.909 Epilepsy, unspecified, not intractable, without status epilepticus; E78.5 Hyperlipidemia, unspecified; Z66 Do not resuscitate; Z87.891 Personal history of nicotine dependence; Z79.899 Other long term (current) drug therapy; Z83.3 Family history of diabetes mellitus; Z82.49 Family history of ischemic heart disease and other diseases of the circulatory system

== ENCOUNTER 2016-06-05 19:56 | Inpatient (IN) | payer OTHER ==
[~2016-06-05] VITALS: Ht 170.2 cm; Wt 60.4 kg
[~2016-06-05 19:56] MED LIST changes: +CLC150 PO
[2016-06-05] MEDS ORDERED: DIVA125C PO ×4 (20:25)
[2016-06-05] MEDS ORDERED: SODIUM CHLORIDE 0.9% 500ML 500 ML IV STA (20:30)
[2016-06-05] MEDS ORDERED: LEVE500T13 PO ×2 (20:31)
[2016-06-05] MEDS ORDERED: BISA10SU3 PR ×2 (20:36)
[2016-06-05] MEDS ORDERED: MOML PO ×2 (20:38)
[2016-06-05] MEDS ORDERED: SODI1ENE PR ×2 (20:38)
--- NOTE | 2016-06-05 20:40 | EMERGENCY ROOM VISIT NOTE ---
History Report prepared by Iggy: Barb Charlton Under the Supervision of: Dr. Sonu Duran M.D. First contact with patient: 20:02 Chief Complaint: HYPERTENSION Stated Complaint: HTN History of Present Illness The patient is a 76 year old female who presents to the Emergency Room with complaints of an episode of hypertension and tachycardia that began today, prior to arrival. Per records, the patient was evaluated in the emergency department three days ago and was diagnosed with aspiration pneumonia. Per the patient's daughter, the patient is currently taking Clindamycin. She notes that the patient is nonverbal, and is at her baseline neurologically. The history is limited secondary to the patient being nonverbal. Source of History: family (daughter) History Limited By: other (non-verbal) Onset: today, prior to arrival Position: other (global) Quality: other (hypertension, tachycardia) Timing: other (episdoe) Review of Systems The history is limited secondary to the patient being nonverbal. Past Medical & Surgical Medical Problems: (1) Acute respiratory failure with hypoxia (2) Anxiety (3) Dementia (4) Depression (5) Diabetes mellitus, type II (6) Dyslipidemia (7) Epilepsy (8) Hypertension (9) Refractory seizure (10) UTI (urinary tract infection) (11) Yeast infection Surgical Problems: (1) History of cholecystectomy Family History Diabetes mellitus Hypertension Social History Smoking Status: Former Smoker Alcohol Use: none Drug Use: none Marital Status: Housing Status: senior care Occupation Status: retired Current/Historical Medications Scheduled Atorvastatin (Lipitor), 40 MG PO DAILY Clindamycin HCl (Clindamycin HCl), 300 MG PO Q6 Clonazepam (Clonazepam), 0.25 MG PO DAILY Divalproex Sodium (Depakote Sprinkle), 500 MG PO DAILY Divalproex Sodium (Depakote Sprinkle), 750 MG PO HS Gabapentin (Neurontin), 300 MG PO TID Hydrochlorothiazide (Hydrochlorothiazide), 25 MG PO QAM Levetiracetam (Keppra), 500 MG PO BID Lidocaine (Lidocaine), 1 PATCH TOP DAILY Magnesium Oxide (Magnesium-Oxide), 400 MG PO QAM Megestrol Acetate (Megace Oral), 400 MG PO BID Multiple Vitamins W/ Minerals (Multi Vitamin and Mineral), 1 TAB PO DAILY Nutritional Supplements (Nutritional Shake), 1 CAN PO BID Nutritional Supplements (Nutritional Shake), 1 PO DAILY AT NOON Polyethylene Glycol 3350 (Miralax), 17 GM PO DAILY Potassium Chloride (K-Tabs), 10 MEQ PO DAILY Quetiapine Fumarate (Quetiapine Fumarate), 12.5 MG PO QAM Quetiapine Fumarate (Quetiapine Fumarate), 25 MG PO HS Trazodone Hcl (Trazodone), 25 MG PO HS Triamcinolone Acetonide (Nasal (Nasacort Allergy 24Hr), 2 SPRAYS KELSIE DAILY Scheduled PRN Acetaminophen (Tylenol), 650 MG PO Q6H PRN for Pain or Fever Bisacodyl (Dulcolax), 1 SUPP MS UD PRN for Constipation Dextrose (Diabetic Use) (Insta-Glucose), 1 APPLN PO Q15M PRN for HYPOGLYCEMIA PROTOCOL Glucagon (Glucagon Emergency Kit), 1 APPLN IM Q15M PRN for HYPOGLYCEMIA PROTOCOL Haloperidol Lactate (Haldol), 1 MG IM Q4 PRN for Agitation Hydrocodone/Acetaminophen 5MG/325MG ([place] 5MG/325MG), 1 TABLET PO Q4H PRN for Pain Lorazepam (Lorazepam), 1 MG IM Q5M PRN for seizures Magnesium Hydroxide (Milk Of Magnesia), 30 ML PO UD PRN for Constipation Quetiapine Fumarate (Quetiapine Fumarate), 12.5 MG PO Q6 PRN for Anxiety/ Agitation Sodium Phosphates (Fleet Enema Six Pack), 1 APPLN MS UD PRN for Constipation Allergies Coded Allergies: Meloxicam (Verified Allergy, Intermediate, unknown, 05/04/16) Tramadol (Verified Allergy, Intermediate, unknown, 05/04/16) Cephalexin (Verified Allergy, Unknown, ., 05/04/16) Ciprofloxacin (Verified Allergy, Unknown, unknown, 05/04/16) Rofecoxib (Verified Allergy, Unknown, ., 05/04/16) Physical Exam Vital Signs Date Time Temp Pulse Resp B/P Pulse Ox O2 Delivery O2 Flow Rate FiO2 06/06/16 00:04 96 20 127/78 100 Nasal Cannula 2.0 06/05/16 23:49 95 06/05/16 23:31 87 22 164/103 100 Nasal Cannula 2.0 06/05/16 22:59 118 06/05/16 22:18 105 24 181/97 96 Nasal Cannula 2.0 06/05/16 21:00 120 18 171/86 93 Nasal Cannula 2.0 06/05/16 20:53 94 Room Air 06/05/16 20:37 124 06/05/16 20:02 37.1 125 18 187/97 95 Nasal Cannula 2.0 Physical Exam GENERAL: Patient is a healthy-appearing well-nourished HEAD: Normocephalic atraumatic EYES: Ocular movements intact pupils equal and react to light OROPHARYNX mucous membranes are moist no exudates present no erythema or edema present NECK: Supple no nuchal rigidity CHEST: Good equal expansion LUNGS: Clear and equal to auscultation CARDIAC: Normal S1 and S2 ABDOMEN: Soft nontender no guarding BACK: No CVA tenderness EXTREMITIES: No pain upon palpation normal muscle strength in all groups no clubbing cyanosis or edema NEURO: Patient is following commands is answering questions appropriately. Alert and oriented x3 Cranial Nerves 2-12 grossly intact, at her baseline per family Medical Decision & Procedures ER Provider Diagnostic Interpretation: Radiology results as stated below per my review and radiologist interpretation: CT OF THE CHEST WITHOUT IV CONTRAST CLINICAL HISTORY: Shortness of breath. Tachycardia. COMPARISON STUDY: 04/21/2016 CT DOSE: 336.56 mGy.cm TECHNIQUE: CT of the thorax was performed from the thoracic inlet to the lung bases. Images are reviewed in the axial, sagittal, and coronal planes. IV contrast was not administered for this examination. FINDINGS: Thyroid: There is a 19 mm right lobe thyroid nodule. Thoracic aorta: The thoracic aorta is normal in course and caliber, noting standard 3 vessel arch anatomy. Heart: The heart is normal in size and configuration, without pericardial effusion. Lungs and pleural spaces: There is a small left pleural effusion. There are minor left basilar atelectatic changes. There are no areas of airspace consolidation suspicious for pneumonia. Mediastinum: There is a precarinal lymph node the upper limits of normal in size. Nadira: There is no evidence of pathologic hilar adenopathy given the limitations of a noncontrast study. Axilla: There is no evidence of axillary lymphadenopathy. Upper abdomen: Partially visualized upper abdominal viscera is within normal limits. Skeletal structures: There are multiple old rib fractures. There is an old L1 compression deformity. IMPRESSION: 1. Small left pleural effusion 2. Minor left basilar atelectasis 3. No evidence of pneumonia 4. Old right-sided rib fractures. Electronically signed by: Maximino Yee M.D. 06/05/2016 10:22 PM Dictated Date/Time: 06/05/2016 10:[address] HEAD WITHOUT CONTRAST (CT) CLINICAL HISTORY: Acute change in mental status. Hypertension. COMPARISON STUDY: 05/19/2016 TECHNIQUE: Axial CT of the brain is performed from the vertex to the skull base. IV contrast was not administered for this examination. CT DOSE: 691.05 mGy.cm FINDINGS: No intra or extra-axial mass lesions are visualized. There is no CT evidence of acute cortical infarction. There is no evidence of midline shift. There is no acute hemorrhage. No calvarial fractures are visualized. There are patchy white matter hypodensities likely on a small vessel basis. There is no evidence of pathologic ventricular dilatation. There is a small left sphenoid sinus air-fluid level. There is interval decrease in the size of the right scalp contusion. IMPRESSION: 1. No acute intracranial findings 2. Tiny left sphenoid sinus air-fluid level similar to the prior study 3. Interval decrease in the size of the right scalp contusion Electronically signed by: Maximino Yee M.D. 06/05/2016 10:18 PM Dictated Date/Time: 06/05/2016 10:16 PM Laboratory Results 06/05/16 19:49 Test 06/05/16 19:49 06/05/16 20:50 Anion Gap 12.0 mmol/L (3-11) BUN/Creatinine Ratio 15.3 (10-20) Calcium Level 10.1 mg/dl (8.5-10.1) Total Bilirubin 0.3 mg/dl (0.2-1) Direct Bilirubin < 0.1 mg/dl (0-0.2) Aspartate Amino Transf (AST/SGOT) 19 U/L (15-37) Alanine Aminotransferase (ALT/SGPT) 10 U/L (12-78) Alkaline Phosphatase 109 U/L (45-117) Total Creatine Kinase 69 U/L (26-192) Creatine Kinase MB 1.8 ng/ml (0.5-3.6) Creatine Kinase MB Ratio 2.6 (0-3.0) Troponin I < 0.015 ng/ml (0-0.045) Total Protein 7.8 gm/dl (6.4-8.2) Albumin 2.5 gm/dl (3.4-5.0) Procalcitonin 0.13 ng/mL (0-0.5) Urine Color DK YELLOW Urine Appearance CLEAR (CLEAR) Urine pH 5.5 (4.5-7.5) Urine Specific [place] 1.026 (1.000-1.030) Urine Protein 1+ (NEG) Urine Glucose (UA) NEG (NEG) Urine Ketones TRACE (NEG) Urine Occult Blood NEG (NEG) Urine Nitrite NEG (NEG) Urine Bilirubin NEG (NEG) Urine Urobilinogen NEG (NEG) Urine Leukocyte Esterase SMALL (NEG) Urine WBC (Auto) 10-30 /hpf (0-5) Urine RBC (Auto) 5-10 /hpf (0-4) Urine Hyaline Casts (Auto) 10-30 /lpf (0-5) Urine Epithelial Cells (Auto) >30 /lpf (0-5) Urine Bacteria (Auto) NEG (NEG) Labs reviewed by ED physician. Medications Administered Medications (Trade) Dose Ordered Sig/Madeline Route Start Time Stop Time Status Last Admin Dose Admin Sodium Chloride (Nss 500ml) 500 ml @ 999 mls/hr Q31M STAT IV 06/05/16 20:30 06/05/16 21:00 DC 06/05/16 21:19 999 MLS/HR Piperacillin Sod/ Tazobactam Sod 4.5 gm 4.5 gm NOW STAT IV 06/05/16 22:25 06/05/16 22:27 DC 06/05/16 22:54 4.5 GM Vancomycin HCl 1000 mg/Sodium Chloride 270 ml @ 125 mls/hr NOW STAT IV 06/05/16 22:25 06/06/16 00:34 DC 06/05/16 23:30 125 MLS/HR Sodium Chloride (Nss 1000ml) 1,000 ml @ 75 mls/hr [id number] IV 06/06/16 00:19 07/06/16 00:18 06/06/16 03:22 75 MLS/HR ED Course 2023: Past medical records reviewed. The patient was evaluated in room C9. A complete history and physical examination was performed. 2030: NSS 500 ml @ 999 mls/hr IV 5: Vancomycin HCl 1000 mg/Sodium Chloride 270 ml @ 125 mls/hr IV, Zosyn IV 4.5 gm IV. 2228: I consulted with ANTHONY Rich about the patient's case and he agreed to monitor for further evaluation. 2230: I reevaluated the patient and she is hemodynamically stable. I discussed the exam findings with her family and I discussed the treatment plan. They verbalized complete understanding and agreement. The patient will be monitored for further evaluation. Medical Decision Differential diagnosis: Etiologies such as metabolic, infection, hypo/hyperglycemia, electrolyte abnormalities, cardiac sources, intracerebral event, toxicologic, neurologic, as well as others were entertained. This is a 76-year-old female who presents emergency department hypertensive and tachycardic. The patient was sent in from her senior care. Patient recently had an admission for aspiration pneumonia and is currently on clindamycin. Despite this the patient has an increase in her white blood count 16. She does appear to have a urinary tract infection and therefore started on Rocephin and vancomycin. I did discuss the case with the hospitalist service who agreed to admit the patient. Family was in agreement with the treatment plan. Consults Time Called: 2226 Consulting Physician: ANTHONY Rich Returned Call: [phone] I consulted with ANTHONY Rich about the patient's case and he agreed to monitor for further evaluation. Impression Primary Impression: Altered mental status Additional Impressions: SIRS (systemic inflammatory response syndrome) UTI (urinary tract infection) Scribe Attestation The scribe's documentation has been prepared under my direction and personally reviewed by me in its entirety. I confirm that the note above accurately reflects all work, treatment, procedures, and medical decision making performed by me. Departure Information Dispostion Being Evaluated By Hospitalist Referrals Lenka Espinal (PCP) Patient Instructions My [facility] Problem Qualifiers Primary Impression: Altered mental status Altered mental status type: unspecified Qualified Codes: R41.82 - Altered mental status, unspecified Additional Impressions: UTI (urinary tract infection) Urinary tract infection type: acute cystitis Hematuria presence: without hematuria Qualified Codes: N30.00 - Acute cystitis without hematuria
[2016-06-05 20:47] LABS: BASO % 0.1 %; BASO ABS # 0.02 K/uL (0-0.2); COMPLETE YES; EOS % 0.6 %; HEMATOCRIT 40.6 % (37-47); IG% 0.3 %; LYMPH % 18.1 %; LYMPH ABS # 3.03 K/uL (1.2-3.4); MEAN CELL VOLUME 80.7 fL (80-100); MEAN CORPUSCULAR HEMOGLOBIN 27.6 pg (25-34); MEAN CORPUSCULAR HGB CONC 34.2 g/dl (32-36); MONO % 11.8 %; NEUT % 69.1 %; PLATELET COUNT 232 K/uL (130-400); RED BLOOD COUNT 5.03 M/uL (4.2-5.4); WHITE BLOOD COUNT 16.76 K/uL (4.8-10.8)
[2016-06-05 21:04] LABS: ALT/SGPT 10 U/L (12-78); BLOOD UREA NITROGEN 18 mg/dl (7-18); BUN/CREATININE RATIO 15.3 (10-20); CALCIUM 10.1 mg/dl (8.5-10.1); CARBON DIOXIDE 25 mmol/L (21-32); CHLORIDE 101 mmol/L (98-107); GLUCOSE 270 mg/dl (70-99); POTASSIUM 4.6 mmol/L (3.5-5.1); SODIUM 138 mmol/L (136-145)
[2016-06-05 21:09] LABS: ALKALINE PHOSPHATASE 109 U/L (45-117); AST/SGOT 19 U/L (15-37); CKMB/CK RATIO 2.6 (0-3.0)
[2016-06-05] MEDS ORDERED: OPTIRAY 320 IV PRN (21:15)
[2016-06-05 21:16] LABS: URINE APPEARANCE CLEAR (CLEAR); URINE COLOR DK YELLOW; URINE EPITHELIAL CELL AUTO >30 /lpf (0-5); URINE NITRITE NEG (NEG); URINE PH 5.5 (4.5-7.5); URINE SPECIFIC GRAVITY 1.026 (1.000-1.030); UROBILINOGEN NEG (NEG); ZZURINE CULT IF INDIC CATH YES
[2016-06-05 21:21] LABS: MANUAL MICROSCOPIC REQUIRED? NO; REVIEW REQ? NO; URINE BILIRUBIN NEG (NEG)
--- NOTE | 2016-06-05 22:19 | DIAGNOSTIC IMAGING REPORT ---
CT HEAD WITHOUT CONTRAST (CT) CLINICAL HISTORY: Acute change in mental status. Hypertension. COMPARISON STUDY: 05/19/2016 TECHNIQUE: Axial CT of the brain is performed from the vertex to the skull base. IV contrast was not administered for this examination. CT DOSE: 691.05 mGy.cm FINDINGS: No intra or extra-axial mass lesions are visualized. There is no CT evidence of acute cortical infarction. There is no evidence of midline shift. There is no acute hemorrhage. No calvarial fractures are visualized. There are patchy white matter hypodensities likely on a small vessel basis. There is no evidence of pathologic ventricular dilatation. There is a small left sphenoid sinus air-fluid level. There is interval decrease in the size of the right scalp contusion. IMPRESSION: 1. No acute intracranial findings 2. Tiny left sphenoid sinus air-fluid level similar to the prior study 3. Interval decrease in the size of the right scalp contusion Electronically signed by: Maxmiino Yee M.D. 06/05/2016 10:18 PM Dictated Date/Time: 06/05/2016 10:16 PM
--- NOTE | 2016-06-05 22:23 | DIAGNOSTIC IMAGING REPORT ---
CT OF THE CHEST WITHOUT IV CONTRAST CLINICAL HISTORY: Shortness of breath. Tachycardia. COMPARISON STUDY: 04/21/2016 CT DOSE: 336.56 mGy.cm TECHNIQUE: CT of the thorax was performed from the thoracic inlet to the lung bases. Images are reviewed in the axial, sagittal, and coronal planes. IV contrast was not administered for this examination. FINDINGS: Thyroid: There is a 19 mm right lobe thyroid nodule. Thoracic aorta: The thoracic aorta is normal in course and caliber, noting standard 3 vessel arch anatomy. Heart: The heart is normal in size and configuration, without pericardial effusion. Lungs and pleural spaces: There is a small left pleural effusion. There are minor left basilar atelectatic changes. There are no areas of airspace consolidation suspicious for pneumonia. Mediastinum: There is a precarinal lymph node the upper limits of normal in size. Nadira: There is no evidence of pathologic hilar adenopathy given the limitations of a noncontrast study. Axilla: There is no evidence of axillary lymphadenopathy. Upper abdomen: Partially visualized upper abdominal viscera is within normal limits. Skeletal structures: There are multiple old rib fractures. There is an old L1 compression deformity. IMPRESSION: 1. Small left pleural effusion 2. Minor left basilar atelectasis 3. No evidence of pneumonia 4. Old right-sided rib fractures. Electronically signed by: Maximino Yee M.D. 06/05/2016 10:22 PM Dictated Date/Time: 06/05/2016 10:18 PM
[2016-06-05] MEDS ORDERED: PIPERACILLIN/TAZOBACTAM 4.5 GM/100ML D5W IV STA (22:25)
[2016-06-05] MEDS ORDERED: VANCOMYCIN INJ 1,000 MG in SODIUM CHLORIDE 0.9% 250ML 250 ML IV STA (22:25)
--- NOTE | 2016-06-05 23:23 | History and Physical ---
History & Physical Date & Time of Service: Jun 05, 2016 at 23:23 Chief Complaint: HTN Primary Care Physician: Lenka Espinal History of Present Illness This is a 76 y/o F who presents after being found tachycardic and hypertensive at [facility]. Patient is non-verbal. Daughter reports that she had two admissions in the last month; the first for uncontrolled seizures and the second , more recent admit for acute hypoxic resp. failure 2/2 aspiration pneumonia. She is currently on clindamycin. Family reports that she has deteriorated over the few months and is overall not doing well. She was verbal prior to her seizures but is not now. Though they do believe that she understands, she's not communicative. She is incontinent of bowel and bladder Due to dementia/dysphagia, she does have a special diet. History is otherwise limited. Past Medical/Surgical History Medical Problems: (1) Anxiety Status: Chronic (2) Dementia Status: Chronic (3) Depression Status: Chronic (4) Diabetes mellitus, type II Status: Chronic (5) Dyslipidemia Status: Chronic (6) Epilepsy Status: Chronic (7) Hypertension Status: Chronic Surgical Problems: (1) History of cholecystectomy Status: Resolved Family History Diabetes mellitus Hypertension Social History Smoking Status: Former Smoker Drug Use: none Marital Status: Housing status: prison Occupational Status: retired Multi-Drug Resistant Organisms History of MDRO: No Allergies Coded Allergies: Meloxicam (Verified Allergy, Intermediate, unknown, 05/04/16) Tramadol (Verified Allergy, Intermediate, unknown, 05/04/16) Cephalexin (Verified Allergy, Unknown, ., 05/04/16) Ciprofloxacin (Verified Allergy, Unknown, unknown, 05/04/16) Rofecoxib (Verified Allergy, Unknown, ., 05/04/16) Home Medications Scheduled Atorvastatin (Lipitor), 40 MG PO DAILY Clindamycin HCl (Clindamycin HCl), 300 MG PO Q6 Clonazepam (Clonazepam), 0.25 MG PO DAILY Divalproex Sodium (Depakote Sprinkle), 500 MG PO DAILY Divalproex Sodium (Depakote Sprinkle), 750 MG PO HS Gabapentin (Neurontin), 300 MG PO TID Hydrochlorothiazide (Hydrochlorothiazide), 25 MG PO QAM Levetiracetam (Keppra), 500 MG PO BID Lidocaine (Lidocaine), 1 PATCH TOP DAILY Magnesium Oxide (Magnesium-Oxide), 400 MG PO QAM Megestrol Acetate (Megace Oral), 400 MG PO BID Multiple Vitamins W/ Minerals (Multi Vitamin and Mineral), 1 TAB PO DAILY Nutritional Supplements (Nutritional Shake), 1 CAN PO BID Nutritional Supplements (Nutritional Shake), 1 PO DAILY AT NOON Polyethylene Glycol 3350 (Miralax), 17 GM PO DAILY Potassium Chloride (K-Tabs), 10 MEQ PO DAILY Quetiapine Fumarate (Quetiapine Fumarate), 12.5 MG PO QAM Quetiapine Fumarate (Quetiapine Fumarate), 25 MG PO HS Trazodone Hcl (Trazodone), 25 MG PO HS Triamcinolone Acetonide (Nasal (Nasacort Allergy 24Hr), 2 SPRAYS KELSIE DAILY Scheduled PRN Acetaminophen (Tylenol), 650 MG PO Q6H PRN for Pain or Fever Bisacodyl (Dulcolax), 1 SUPP IL UD PRN for Constipation Dextrose (Diabetic Use) (Insta-Glucose), 1 APPLN PO Q15M PRN for HYPOGLYCEMIA PROTOCOL Glucagon (Glucagon Emergency Kit), 1 APPLN IM Q15M PRN for HYPOGLYCEMIA PROTOCOL Haloperidol Lactate (Haldol), 1 MG IM Q4 PRN for Agitation Hydrocodone/Acetaminophen 5MG/325MG ([place] 5MG/325MG), 1 TABLET PO Q4H PRN for Pain Lorazepam (Lorazepam), 1 MG IM Q5M PRN for seizures Magnesium Hydroxide (Milk Of Magnesia), 30 ML PO UD PRN for Constipation Quetiapine Fumarate (Quetiapine Fumarate), 12.5 MG PO Q6 PRN for Anxiety/ Agitation Sodium Phosphates (Fleet Enema Six Pack), 1 APPLN IL UD PRN for Constipation Review of Systems unable to obtain Physical Exam Vital Signs Date Time Temp Pulse Resp B/P Pulse Ox O2 Delivery O2 Flow Rate FiO2 06/05/16 22:59 118 06/05/16 22:18 105 24 181/97 96 Nasal Cannula 2.0 06/05/16 21:00 120 18 171/86 93 Nasal Cannula 2.0 06/05/16 20:53 94 Room Air 06/05/16 20:37 124 06/05/16 20:02 37.1 125 18 187/97 95 Nasal Cannula 2.0 General Appearance: + pertinent finding (non verbal, asleep, somewhat difficult to arouse- at baseline per family) Eyes: PERRL, EOMI Respiratory/Chest: lungs clear, normal breath sounds, no respiratory distress, no accessory muscle use Cardiovascular: no edema, + tachycardia Abdomen/GI: normal bowel sounds, non tender, soft Extremities/Musculoskelatal: no pedal edema Neurologic/Psych: + pertinent finding (unable to assess) Diagnostics Laboratory Results Results Past 24 Hours Test 06/05/16 19:49 06/05/16 20:50 Range/Units White Blood Count 16.76 4.8-10.8 K/uL Red Blood Count 5.03 4.2-5.4 M/uL Hemoglobin 13.9 12.0-16.0 g/dL Hematocrit 40.6 37-47 % Mean Corpuscular Volume 80.7 80-100 fL Mean Corpuscular Hemoglobin 27.6 25-34 pg Mean Corpuscular Hemoglobin Concent 34.2 32-36 g/dl Platelet Count 232 130-400 K/uL Mean Platelet Volume 10.0 7.4-10.4 fL Neutrophils (%) (Auto) 69.1 % Lymphocytes (%) (Auto) 18.1 % Monocytes (%) (Auto) 11.8 % Eosinophils (%) (Auto) 0.6 % Basophils (%) (Auto) 0.1 % Neutrophils # (Auto) 11.59 1.4-6.5 K/uL Lymphocytes # (Auto) 3.03 1.2-3.4 K/uL Monocytes # (Auto) 1.97 0.11-0.59 K/uL Eosinophils # (Auto) 0.10 0-0.5 K/uL Basophils # (Auto) 0.02 0-0.2 K/uL RDW Standard Deviation 47.6 36.4-46.3 fL RDW Coefficient of Variation 16.3 11.5-14.5 % Immature Granulocyte % (Auto) 0.3 % Immature Granulocyte # (Auto) 0.05 0.00-0.02 K/uL Sodium Level 138 136-145 mmol/L Potassium Level 4.6 3.5-5.1 mmol/L Chloride Level 101 98-107 mmol/L Carbon Dioxide Level 25 21-32 mmol/L Anion Gap 12.0 3-11 mmol/L Blood Urea Nitrogen 18 7-18 mg/dl Creatinine 1.20 0.60-1.20 mg/dl Estimated GFR () 51.6 Estimated GFR (Non- 44.5 BUN/Creatinine Ratio 15.3 10-20 Random Glucose 270 70-99 mg/dl Calcium Level 10.1 8.5-10.1 mg/dl Total Bilirubin 0.3 0.2-1 mg/dl Direct Bilirubin < 0.1 0-0.2 mg/dl Aspartate Amino Transf (AST/SGOT) 19 15-37 U/L Alanine Aminotransferase (ALT/SGPT) 10 12-78 U/L Alkaline Phosphatase 109 45-117 U/L Total Creatine Kinase 69 26-192 U/L Creatine Kinase MB 1.8 0.5-3.6 ng/ml Creatine Kinase MB Ratio 2.6 0-3.0 Troponin I < 0.015 0-0.045 ng/ml Total Protein 7.8 6.4-8.2 gm/dl Albumin 2.5 3.4-5.0 gm/dl Urine Color DK YELLOW Urine Appearance CLEAR CLEAR Urine pH 5.5 4.5-7.5 Urine Specific [place] 1.026 1.000-1.030 Urine Protein 1+ NEG Urine Glucose (UA) NEG NEG Urine Ketones TRACE NEG Urine Occult Blood NEG NEG Urine Nitrite NEG NEG Urine Bilirubin NEG NEG Urine Urobilinogen NEG NEG Urine Leukocyte Esterase SMALL NEG Urine WBC (Auto) 10-30 0-5 /hpf Urine RBC (Auto) 5-10 0-4 /hpf Urine Hyaline Casts (Auto) 10-30 0-5 /lpf Urine Epithelial Cells (Auto) >30 0-5 /lpf Urine Bacteria (Auto) NEG NEG Microbiology Results 06/05/16 Urine Culture, Received Pending Impression Assessment and Plan This is a 76 y/o F who presents from [facility] after concerns of tachycardia and hypertension. There is concern of an underlying infection and she meets SIRS criteria SIRS 2/2 possible infection?, source unknown CT chest without evidence of pneumonia U/A- contaminated but uc pending Blood cultures pending Does have some leucocytosis but lactate and Pro-charbel wnl. Patient received Zosyn and Vanc in the ED- will hold on further abx reports of significant candidal vulvovaginitis- did not get to see this as patient was taken to LE Doppler Will start IV fluconazole LE doppler pending Dementia: Dysphagia screen Speech eval NPO Head CT negative for acute hemorrhage/cva Seizures: Continue Depakote and Keppra Depression: Continue Trazodone and Quetiapine ?Diabetes Random glucose of 270 BSG Accuchecks and ISS if needed DVT Proph Lovenox Level of Care Telemetry VTE Prophylaxis Given or contraindicated: Enoxaparin (Lovenox)SQ Assessment and Plan Attending Addendum: I have physically seen and examined this patient, have directed their medical care, have supervised the medical residents activities, and agree with the H&P as noted above, with the following changes: The patient is lying in bed , nonresponsive, and in no acute distress. HEENT--PERRL, EOMI, mucous membranes and oropharynx dry. Neck--supple, no JVD or bruits, thyroid normal, trachea midline, no adenopathy. Heart--normal S1 and S2, no extra beats, no murmurs, rubs or gallops. Lungs--clear bilaterally, no respiratory distress, no accessory muscle use. Abdomen--normal bowel sounds and soft, nontender and nondistended. Extremities--no cyanosis, clubbing or edema. There are good distal pulses b/l. Dermatologic--normal skin turgor, normal color, warm and dry, no abnormal lymph nodes, no rash. Neurologic--cranial nerves II through XII grossly intact. Rheumatologic--deferred Psychiatric--nonresponsive Assessment And Plan: UTI/SIRS/yeast vaginitis and vulvitis--patient will be placed on fluconazole IV. She's been on a number of antibiotics in the past month with previous admissions from May 18 to May 29, and then from May 30 to June 02. She' ll be kept nothing by mouth, and placed on IV fluids. Could also use topical ketoconazole 2% cream. Nonresponsive state--patient will have all oral medications held until she is alert enough to take oral medications, which will hopefully be in the morning. Her Keppra can be changed to equivalent IV doses. Thyroid nodule 19 mm in size--biopsy can be arranged in an elective fashion if not already biopsied.
[2016-06-06] VITALS (9 sets, daily range): BP systolic 109–184; BP diastolic 64–119; PULSE 74–135; TEMP 36.3–37.4; O2SAT 93–98; Ht 170.2 cm; Wt 60.4 kg
[2016-06-06] MEDS ORDERED: ALUMINUM/MAGNESIUM/SIMETH (MAALOX MAX) 30 ML UDC PO PRN (00:30)
[2016-06-06] MEDS ORDERED: NITROGLYCERIN 0.4 MG SL PER TAB CHARGE SL PRN (00:30)
[2016-06-06] MEDS ORDERED: BISACODYL 10 MG SUPP PR PRN (00:30)
[2016-06-06] MEDS ORDERED: GLUCAGON IM PRN (00:30)
[2016-06-06] MEDS ORDERED: ONDANSETRON INJ 2 MG/ML 2 ML VIAL IV PRN (00:30)
[2016-06-06] MEDS ORDERED: MAGNESIUM HYDROXIDE SUSP 30 ML UDC PO PRN ×2 (00:30)
[2016-06-06] MEDS ORDERED: POLYETHYLENE (MIRALAX) 17 GM PACK PO PRN (00:30)
[2016-06-06] MEDS ORDERED: HYDROCODONE/ACETAMOPHEN 5/325MG TAB PO PRN (00:30)
[2016-06-06] MEDS ORDERED: QUETIAPINE FUMARATE 25 MG TAB PO PRN (00:30)
[2016-06-06] MEDS ORDERED: ACETAMINOPHEN 325 MG TAB PO PRN ×2 (00:30)
[2016-06-06] MEDS ORDERED: NON-FORMULARY MEDICATION (Dextrose (Diabetic Use) (Insta-Glucose) 1 APPLN) PO PRN (00:30)
[2016-06-06] MEDS ORDERED: HALOPERIDOL LACTATE 5 MG/ML 1 ML VIAL IM PRN (00:30)
[2016-06-06] MEDS ORDERED: LORAZEPAM 2 MG/ML 1 ML VIAL IV PRN (00:30)
[2016-06-06] MEDS ORDERED: LORAZEPAM INJ 1 MG in SYRINGE 0.5 ML IV PRN (03:00)
[2016-06-06] MEDS ORDERED: PNEUMOCOCCAL ADMINISTRATION CHARGE ONE (03:15)
[2016-06-06] MEDS ORDERED: PNEUMOCOCCAL POLYSACCHARIDES 25 MCG/0.5 ML VIAL/SYR IM. ONE (03:15)
[2016-06-06] MEDS: SODIUM CHLORIDE 0.9% 1000ML 1,000 ML IV SCH ×2 (03:22→14:32)
[2016-06-06] MEDS ORDERED: GLUCOSE 40% GEL 15 GM TUBE PO PRN (05:00)
[2016-06-06] MEDS ORDERED: DEXTROSE 50% 50 ML SYR IV PRN (05:00)
[2016-06-06] MEDS ORDERED: GLUCAGON FOR INJ 1 MG VIAL SQ PRN (05:00)
[2016-06-06] MEDS ORDERED: GLUCOSE 10 TABS/TUBE PO PRN (05:00)
[2016-06-06] MEDS: INSULIN ASPART 100 UNITS/ML 3 ML PEN SC SCH ×4 (06:00→21:47)
[2016-06-06 06:57] LABS: BASO % 0.2 %; BASO ABS # 0.03 K/uL (0-0.2); COMPLETE YES; EOS % 1.1 %; HEMATOCRIT 39.1 % (37-47); IG% 0.6 %; LYMPH % 28.4 %; LYMPH ABS # 4.03 K/uL (1.2-3.4); MEAN CELL VOLUME 81.1 fL (80-100); MEAN CORPUSCULAR HEMOGLOBIN 27.2 pg (25-34); MEAN CORPUSCULAR HGB CONC 33.5 g/dl (32-36); MEAN PLATELET VOLUME 9.8 fL (7.4-10.4); MONO % 14.9 %; NEUT % 54.8 %; PLATELET COUNT 169 K/uL (130-400); RED BLOOD COUNT 4.82 M/uL (4.2-5.4); WHITE BLOOD COUNT 14.17 K/uL (4.8-10.8)
--- NOTE | 2016-06-06 07:08 | DIAGNOSTIC IMAGING REPORT ---
BILATERAL LOWER EXTREMITY VENOUS DOPPLER HISTORY: Pain. Edema. Pt c/o tachycardia COMPARISON STUDY: None. FINDINGS: Study is positive for acute deep venous thrombosis of the left leg. This involves nonocclusive thrombus within the mid left superficial femoral vein. All remaining venous structures are intact. IMPRESSION: Focal acute deep venous thrombosis mid left superficial femoral vein Electronically signed by: Lionel Dey M.D. 06/06/2016 7:07 AM Dictated Date/Time: 06/06/2016 7:06 AM
[2016-06-06] MEDS ORDERED: MEGESTROL ACETATE SUSP 400 MG/10 ML UDC PO SCH (08:00)
[2016-06-06] MEDS: CEROVITE ADV FORMULA TAB PO SCH (09:00)
[2016-06-06] MEDS: TRIAMCINOLONE ACET NASAL SPRAY 10.8ML BTL NAE SCH (09:00)
[2016-06-06] MEDS: GABAPENTIN 300 MG CAP PO SCH ×3 (09:00→21:35)
[2016-06-06] MEDS: ATORVASTATIN 40 MG TAB PO SCH (09:00)
[2016-06-06] MEDS: MAGNESIUM OXIDE 400 MG TAB PO SCH (09:00)
[2016-06-06] MEDS: DIVALPROEX SODIUM SPRINKLE 125 MG CAP PO SCH ×2 (09:00→21:38)
[2016-06-06] MEDS ORDERED: CLONAZEPAM 0.5 MG TAB PO SCH (09:00)
[2016-06-06] MEDS: POTASSIUM CHLORIDE 10 MEQ TABCR PO SCH (09:00)
[2016-06-06] MEDS: QUETIAPINE FUMARATE 25 MG TAB PO SCH ×2 (09:00→21:34)
[2016-06-06] MEDS: LEVETIRACETAM 500 MG TAB PO SCH ×2 (09:00→21:36)
[2016-06-06] MEDS: POLYETHYLENE (MIRALAX) 17 GM PACK PO SCH (09:00)
[2016-06-06] MEDS: HYDROCHLOROTHIAZIDE 25 MG TAB PO SCH (09:00)
[2016-06-06] MEDS: LIDODERM (LIDOCAINE) PATCH 5% TD SCH (09:00)
[2016-06-06] MEDS ORDERED: ENOXAPARIN 40 MG/0.4 ML SYR SC SCH (09:00)
--- NOTE | 2016-06-06 09:14 | Hospitalist Progress Note ---
Hospitalist Progress Note Date of Service Jun 06, 2016. Subjective Pt evaluation today including: conversation w/ patient, conversation w/ family , physical exam, chart review, lab review, review of studies, review of inpatient medication list Pain: Appears to be in pain, cannot communicate where PO Intake: NPO Voiding: no voiding problems The patient was seen and examined this morning. Pt appears scared and unable to communicate, she does follow some commands. I spoke with her daughter, Maria Elena Thomas over the phone this morning about the DVT in the left superficial thigh and that she's been started on therapeutic lovenox. Discussion regarding ongoing anticoagulation was held, and Maria Elena plans to speak with her brother about it prior to coming in to the hospital to visit today. Constitutional: + fever Additional Comments: ROS not obtainable due to altered mental status. Objective Vital Signs Date Time Temp Pulse Resp B/P Pulse Ox O2 Delivery O2 Flow Rate FiO2 06/06/16 07:48 36.8 106 16 163/79 96 Nasal Cannula 2.0 06/06/16 04:00 36.9 74 18 109/64 96 Room Air 06/06/16 04:00 Nasal Cannula 2.0 06/06/16 02:08 36.4 116 20 142/92 96 Nasal Cannula 2.0 06/06/16 01:31 99 22 118/86 95 06/06/16 00:04 96 20 127/78 100 Nasal Cannula 2.0 06/05/16 23:49 95 06/05/16 23:31 87 22 164/103 100 Nasal Cannula 2.0 06/05/16 22:59 118 06/05/16 22:18 105 24 181/97 96 Nasal Cannula 2.0 06/05/16 21:00 120 18 171/86 93 Nasal Cannula 2.0 06/05/16 20:53 94 Room Air 06/05/16 20:37 124 06/05/16 20:02 37.1 125 18 187/97 95 Nasal Cannula 2.0 Physical Exam General Appearance: WD/WN, + mild distress, + pertinent finding (Appears scared , anxious) Eyes: PERRL, EOMI ENT: pharynx normal Neck: supple, no JVD Respiratory/Chest: chest non-tender, no respiratory distress, no accessory muscle use, + pertinent finding (Diminished breath sounds at Left base. No other adventitious breath sounds) Cardiovascular: no murmur, + tachycardia Abdomen: normal bowel sounds, non tender, soft, no organomegaly Extremities: non-tender, no pedal edema, no calf tenderness, + pertinent finding (BLE are cold to touch) Neurologic/Psychiatric: alert, + aphasia, + disoriented, + pertinent finding ( follows commands, +anxious) Skin: normal color, warm/dry Notes: : Pt with erythema at the right inguinal fold extending to the labia majoris. Laboratory Results Last 24 Hours Test 06/05/16 19:49 06/05/16 20:50 06/06/16 03:00 06/06/16 05:58 White Blood Count 16.76 K/uL Red Blood Count 5.03 M/uL Hemoglobin 13.9 g/dL Hematocrit 40.6 % Mean Corpuscular Volume 80.7 fL Mean Corpuscular Hemoglobin 27.6 pg Mean Corpuscular Hemoglobin Concent 34.2 g/dl Platelet Count 232 K/uL Mean Platelet Volume 10.0 fL Neutrophils (%) (Auto) 69.1 % Lymphocytes (%) (Auto) 18.1 % Monocytes (%) (Auto) 11.8 % Eosinophils (%) (Auto) 0.6 % Basophils (%) (Auto) 0.1 % Neutrophils # (Auto) 11.59 K/uL Lymphocytes # (Auto) 3.03 K/uL Monocytes # (Auto) 1.97 K/uL Eosinophils # (Auto) 0.10 K/uL Basophils # (Auto) 0.02 K/uL RDW Standard Deviation 47.6 fL RDW Coefficient of Variation 16.3 % Immature Granulocyte % (Auto) 0.3 % Immature Granulocyte # (Auto) 0.05 K/uL Sodium Level 138 mmol/L Potassium Level 4.6 mmol/L Chloride Level 101 mmol/L Carbon Dioxide Level 25 mmol/L Anion Gap 12.0 mmol/L Blood Urea Nitrogen 18 mg/dl Creatinine 1.20 mg/dl Estimated GFR () 51.6 Estimated GFR (Non- 44.5 BUN/Creatinine Ratio 15.3 Random Glucose 270 mg/dl Calcium Level 10.1 mg/dl Total Bilirubin 0.3 mg/dl Direct Bilirubin < 0.1 mg/dl Aspartate Amino Transf (AST/SGOT) 19 U/L Alanine Aminotransferase (ALT/SGPT) 10 U/L Alkaline Phosphatase 109 U/L Total Creatine Kinase 69 U/L Creatine Kinase MB 1.8 ng/ml Creatine Kinase MB Ratio 2.6 Troponin I < 0.015 ng/ml Total Protein 7.8 gm/dl Albumin 2.5 gm/dl Procalcitonin 0.13 ng/mL Urine Color DK YELLOW Urine Appearance CLEAR Urine pH 5.5 Urine Specific [place] 1.026 Urine Protein 1+ Urine Glucose (UA) NEG Urine Ketones TRACE Urine Occult Blood NEG Urine Nitrite NEG Urine Bilirubin NEG Urine Urobilinogen NEG Urine Leukocyte Esterase SMALL Urine WBC (Auto) 10-30 /hpf Urine RBC (Auto) 5-10 /hpf Urine Hyaline Casts (Auto) 10-30 /lpf Urine Epithelial Cells (Auto) >30 /lpf Urine Bacteria (Auto) NEG Lactic Acid Level 1.1 mmol/L Bedside Glucose 82 mg/dl Test 06/06/16 06:35 06/06/16 08:46 White Blood Count 14.17 K/uL Red Blood Count 4.82 M/uL Hemoglobin 13.1 g/dL Hematocrit 39.1 % Mean Corpuscular Volume 81.1 fL Mean Corpuscular Hemoglobin 27.2 pg Mean Corpuscular Hemoglobin Concent 33.5 g/dl Platelet Count 169 K/uL Mean Platelet Volume 9.8 fL Neutrophils (%) (Auto) 54.8 % Lymphocytes (%) (Auto) 28.4 % Monocytes (%) (Auto) 14.9 % Eosinophils (%) (Auto) 1.1 % Basophils (%) (Auto) 0.2 % Neutrophils # (Auto) 7.76 K/uL Lymphocytes # (Auto) 4.03 K/uL Monocytes # (Auto) 2.11 K/uL Eosinophils # (Auto) 0.16 K/uL Basophils # (Auto) 0.03 K/uL RDW Standard Deviation 48.6 fL RDW Coefficient of Variation 16.5 % Immature Granulocyte % (Auto) 0.6 % Immature Granulocyte # (Auto) 0.08 K/uL Assessment and Plan This is a 76 y/o F who presents from [facility] after concerns of tachycardia and hypertension. There is concern of an underlying infection and she meets SIRS criteria LLE DVT - Venous doppler showed left superficial femoral DVT - Likely the cause of her tachycardia and hypertension - Started on therapeutic lovenox- spoke with daughter on the phone this morning , Maria Elena Thomas, and she plans to speak to her brother about anticoagulation this morning. She will be into the hospital later today. - Mets SIRs criteria however CT chest without evidence of pneumonia, - U/A- contaminated but uc pending, - Follow BCx Blood cultures - mild leukocytosis may be reactive from DVT - possible from candidal vulvovaginitis - + erythema on the right side vulva extending onto the labia majoris, continue on fluconazole IV, continue cream for puritic relief Dementia: - Dysphagia screen - Speech eval - NPO for now - Head CT negative for acute hemorrhage/cva Hx Right rib fractures and chronic back pain - Cont lidoderm patch for pain Seizures: Continue Depakote 500 mg QAM , 750 mg QPM and Keppra 500 mg BID Depression/ Anxiety - Cont Klonopin 25 mg daily for anxiety - Continue Trazodone 25 mg HS and Quetiapine 12.5 QAM, 25 mg HS and 12.5 mg Q6H prn for anxiety ?Diabetes - Random glucose of 270 - Cont ISS with accuchecks Q6H while NPO and with meals and ACHS if passes speech eval. DVT Proph: lovenox CODE STATUS: DNR Disposition: Was on hospice prior to coming to the hospital, family still wants the patient to be comfortable and want to restart hospice upon discharge. Plan to discuss this more with the family in person later today.
[2016-06-06] MEDS: FLUCONAZOLE / NSS 100 MG in PREMIXED NSS 50 ML IV SCH (09:23)
[2016-06-06 09:59] LABS: ESTIMATED AVERAGE GLUCOSE 140 mg/dl; HA1C FLAG Normal (Normal)
[2016-06-06 11:06] LABS: INR 1.5 (0.9-1.1); PARTIAL THROMBOPLASTIN RATIO 1.3; PROTHROMBIN TIME (PATIENT) 16.3 SECONDS (9.0-12.0)
[2016-06-06 11:19] LABS: CREATININE 0.73 mg/dl (0.60-1.20)
[2016-06-06] MEDS ORDERED: ENOXAPARIN 60 MG/0.6 ML SYR SC SCH (12:00)
[2016-06-06] MEDS ORDERED: NURSING VERBAL MED ORDER ONE ×2 (20:15)
[2016-06-06] MEDS ORDERED: ACETAMINOPHEN IV 650 MG / 65ML IV PRN (20:30)
[2016-06-06] MEDS: TRAZODONE HCL 50 MG TAB PO SCH (21:34)
[2016-06-07] VITALS (7 sets, daily range): BP systolic 105–157; BP diastolic 67–91; PULSE 78–93; TEMP 36–36.9; O2SAT 92–97
[2016-06-07] MEDS: ENOXAPARIN 60 MG/0.6 ML SYR SC SCH ×2 (01:28→13:15)
[2016-06-07] MEDS: SODIUM CHLORIDE 0.9% 1000ML 1,000 ML IV SCH ×3 (05:51→17:50)
[2016-06-07] MEDS: FLUCONAZOLE / NSS 100 MG in PREMIXED NSS 50 ML IV SCH (07:45)
[2016-06-07] MEDS: MAGNESIUM OXIDE 400 MG TAB PO SCH (07:45)
[2016-06-07] MEDS: LEVETIRACETAM 500 MG TAB PO SCH ×2 (07:45→21:23)
[2016-06-07] MEDS: GABAPENTIN 300 MG CAP PO SCH ×3 (07:45→21:24)
[2016-06-07] MEDS: QUETIAPINE FUMARATE 25 MG TAB PO SCH ×2 (07:45→21:24)
[2016-06-07] MEDS: ATORVASTATIN 40 MG TAB PO SCH (07:45)
[2016-06-07] MEDS: HYDROCHLOROTHIAZIDE 25 MG TAB PO SCH (07:46)
[2016-06-07] MEDS: DIVALPROEX SODIUM SPRINKLE 125 MG CAP PO SCH ×2 (07:46→21:23)
[2016-06-07] MEDS: CEROVITE ADV FORMULA TAB PO SCH (07:46)
[2016-06-07] MEDS: POLYETHYLENE (MIRALAX) 17 GM PACK PO SCH (07:46)
[2016-06-07] MEDS: POTASSIUM CHLORIDE 10 MEQ TABCR PO SCH (07:46)
[2016-06-07] MEDS: TRIAMCINOLONE ACET NASAL SPRAY 10.8ML BTL NAE SCH (07:47)
[2016-06-07] MEDS: LIDODERM (LIDOCAINE) PATCH 5% TD SCH (07:47)
[2016-06-07] MEDS: INSULIN ASPART 100 UNITS/ML 3 ML PEN SC SCH ×4 (07:47→21:00)
--- NOTE | 2016-06-07 13:05 | Progress Note ---
Subjective Date of Service: Jun 07, 2016. Subjective Pt evaluation today including: conversation w/ patient, physical exam, lab review, review of inpatient medication list Pain: no pain today PO Intake: adequate Voiding: no voiding problems patient stable today, ate breakfast and lunch discussed with RN, doing well, will transfer off tele discussed with patient's daughter, trying to make arrangements for home hospice plan to meet tomorrow to complete POLST form Problem List Medical Problems: (1) Altered mental status Status: Acute (2) Altered mental status Status: Acute (3) Altered mental status Status: Acute (4) Aspiration into airway Status: Acute (5) Encephalopathy Status: Acute (6) Fall Status: Acute (7) Head injury, closed Status: Acute (8) Hematoma Status: Acute (9) Hypokalemia Status: Acute (10) Hypoxia Status: Acute (11) Seizure Status: Acute (12) Seizure Status: Acute (13) Seizure Status: Acute (14) SIRS (systemic inflammatory response syndrome) Status: Acute (15) Status epilepticus Status: Acute (16) UTI (urinary tract infection) Status: Acute Review of Systems cannot complete detailed ROS due to altered status Medications Current Inpatient Medications Medications (Trade) Dose Ordered Sig/Madeline Route Start Time Stop Time Status Last Admin Dose Admin Ioversol 116 ml 116 ml UD PRN IV 06/05/16 21:15 06/09/16 21:14 Sodium Chloride (Nss 1000ml) 1,000 ml @ 75 mls/hr [id number] IV 06/06/16 00:19 07/06/16 00:18 06/07/16 05:51 150 MLS/HR Acetaminophen (Tylenol Tab) 650 mg Q4H PRN PO 06/06/16 00:30 07/06/16 00:29 Al Hydrox/Mg Hydrox/Simethicone (Maalox Max Susp) 15 ml Q4H PRN PO 06/06/16 00:30 07/06/16 00:29 Magnesium Hydroxide (Milk Of Magnesia Susp) 30 ml Q12H PRN PO 06/06/16 00:30 07/06/16 00:29 Ondansetron HCl (Zofran Inj) 4 mg Q6H PRN IV 06/06/16 00:30 07/06/16 00:29 Nitroglycerin (Nitrostat Tab) 0.4 mg UD PRN SL 06/06/16 00:30 07/06/16 00:29 Polyethylene (Miralax Powder Packet) 17 gm DAILY PRN PO 06/06/16 00:30 07/06/16 00:29 Atorvastatin Calcium (Lipitor Tab) 40 mg DAILY PO 06/06/16 09:00 07/06/16 08:59 06/07/16 07:45 40 MG Bisacodyl (Dulcolax Supp) 5 mg UD PRN WI 06/06/16 00:30 07/06/16 00:29 Divalproex Sodium (Depakote Sprinkle Cap) 500 mg DAILY PO 06/06/16 09:00 07/06/16 08:59 06/07/16 07:46 500 MG Divalproex Sodium (Depakote Sprinkle Cap) 750 mg HS PO 06/06/16 21:00 07/06/16 20:59 06/06/16 21:38 750 MG Gabapentin (Neurontin Cap) 300 mg TID PO 06/06/16 09:00 07/06/16 08:59 06/07/16 07:45 300 MG Haloperidol Lactate (Haldol Inj) 1 mg Q4 PRN IM 06/06/16 00:30 07/06/16 00:29 Hydrochlorothiazide (Hydrochlorothiazide Tab) 25 mg QAM PO 06/06/16 09:00 07/06/16 08:59 06/07/16 07:46 25 MG Acetaminophen/ Hydrocodone Bitart ([place] 5/325 Tab) 1 tab Q4H PRN PO 06/06/16 00:30 06/20/16 00:29 Levetiracetam (Keppra Tab) 500 mg BID PO 06/06/16 09:00 07/06/16 08:59 06/07/16 07:45 500 MG Lidocaine (Lidoderm Patch 5%) 1 patch DAILY TD 06/06/16 09:00 07/06/16 08:59 06/07/16 07:47 1 PATCH Lorazepam (Ativan Inj) 1 mg Q5M PRN IV 06/06/16 00:30 07/06/16 00:29 Magnesium Oxide (Mag-Ox Tab) 400 mg QAM PO 06/06/16 09:00 07/06/16 08:59 06/07/16 07:45 400 MG Multivitamins/ Minerals (Multivitamin W/ Minerals Tab) 1 tab DAILY PO 06/06/16 09:00 07/06/16 08:59 06/07/16 07:46 1 TAB Quetiapine Fumarate (seroQUEL TAB) 12.5 mg Q6 PRN PO 06/06/16 00:30 07/06/16 00:29 06/06/16 18:00 12.5 MG Quetiapine Fumarate (seroQUEL TAB) 12.5 mg QAM PO 06/06/16 09:00 07/06/16 08:59 06/07/16 07:45 12.5 MG Quetiapine Fumarate (seroQUEL TAB) 25 mg HS PO 06/06/16 21:00 07/06/16 20:59 06/06/16 21:34 25 MG Trazodone HCl (Desyrel Tab) 25 mg HS PO 06/06/16 21:00 07/06/16 20:59 06/06/16 21:34 25 MG Triamcinolone Acetonide (Nasacort Allergy 24hr) 2 sprays DAILY KELSIE 06/06/16 09:00 07/06/16 08:59 Polyethylene (Miralax Powder Packet) 17 gm DAILY PO 06/06/16 09:00 07/06/16 08:59 06/07/16 07:46 17 GM Potassium Chloride (Klor-Con M10) 10 meq DAILY PO 06/06/16 09:00 07/06/16 08:59 06/07/16 07:46 10 MEQ Miscellaneous 1 ea 1 ea DAILY@21 N/A 06/06/16 21:00 07/06/16 20:59 Fluconazole/ Sodium Chloride 100 mg/Prmx 50 ml @ 100 mls/hr Q24H IV 06/06/16 08:00 07/06/16 07:59 06/07/16 07:45 100 MLS/HR Lorazepam/Syringe (Ativan Inj/ Syringe) 1 ml @ 1 mls/min Q5M PRN IV 06/06/16 03:00 07/06/16 02:59 Glucose (Glucose 40% Gel) 15-30 GRAMS 15 GRAMS... UD PRN PO 06/06/16 05:00 07/06/16 04:59 Glucose (Glucose Chew Tab) 4-8 Tablets 4 Tabl... UD PRN PO 06/06/16 05:00 07/06/16 04:59 Dextrose (Dextrose 50% 50ML Syringe) 25-50ML OF 50% DW IV FOR... UD PRN IV 06/06/16 05:00 07/06/16 04:59 Glucagon (Glucagon Inj) 1 mg UD PRN SQ 06/06/16 05:00 07/06/16 04:59 Enoxaparin Sodium (Lovenox Inj) 60 mg Q12H SC 06/07/16 01:00 07/07/16 00:59 06/07/16 01:28 60 MG Insulin Aspart SLIDING SCALE G... ACHS SC 06/06/16 16:30 07/06/16 16:29 06/06/16 21:47 1 UNITS Acetaminophen/ Empty Bag (Ofirmev Iv/ Empty Iv Bag 100ml) 65 ml @ 260 mls/hr Q6H PRN IV 06/06/16 20:30 07/06/16 20:29 06/06/16 21:51 260 MLS/HR Objective Vital Signs Date Time Temp Pulse Resp B/P Pulse Ox O2 Delivery O2 Flow Rate FiO2 06/07/16 08:00 Room Air 06/07/16 07:24 36.5 87 20 127/78 96 Room Air 06/07/16 04:00 93 Room Air 06/07/16 03:53 36.9 78 20 105/67 96 Room Air 06/07/16 00:00 93 Room Air 06/06/16 23:24 36.3 94 20 148/92 93 Room Air 06/06/16 20:05 37.4 135 20 175/119 93 Room Air 2.0 06/06/16 20:04 37.4 135 20 175/119 93 Room Air 06/06/16 20:00 98 Nasal Cannula 2.0 06/06/16 16:00 98 Nasal Cannula 2.0 06/06/16 15:30 36.4 95 20 184/96 98 Physical Exam General Appearance: WD/WN, no apparent distress Neck: supple, no adenopathy, no JVD, trachea midline Respiratory/Chest: chest non-tender, lungs clear, normal breath sounds, no respiratory distress, no accessory muscle use Cardiovascular: regular rate, rhythm, no edema, no gallop, no JVD, no murmur Abdomen: normal bowel sounds, non tender, soft, no organomegaly Extremities: normal range of motion, non-tender, normal inspection, no pedal edema, no calf tenderness Neurologic/Psychiatric: telephone appointment clerk II-XII nml as tested, + depressed affect, + disoriented Laboratory Results Last 24 Hours Test 06/06/16 15:55 06/06/16 20:45 06/07/16 07:44 06/07/16 11:36 Bedside Glucose 106 mg/dl 181 mg/dl 92 mg/dl 112 mg/dl Assessment and Plan This is a 76 y/o F who presents from [facility] after concerns of tachycardia and hypertension. There is concern of an underlying infection and she meets SIRS criteria LLE DVT - Venous doppler showed left superficial femoral DVT - Likely the cause of her tachycardia and hypertension - continue Lovenox q12, will discuss with family tomorrow about retirement AC if they desire - mild leukocytosis may be reactive from DVT - possible from candidal vulvovaginitis - + erythema on the right side vulva extending onto the labia majoris, continue on fluconazole IV, continue cream for puritic relief Dementia: - Dysphagia screen, allowed to eat - Head CT negative for acute hemorrhage/cva - advanced, recommend hospice services, planning to complete POLST tomorrow Hx Right rib fractures and chronic back pain - Cont lidoderm patch for pain Seizures: Continue Depakote 500 mg QAM , 750 mg QPM and Keppra 500 mg BID Depression/ Anxiety - stop Klonopin today as recommended by psychiatry last admission - Continue Trazodone 25 mg HS and Quetiapine 12.5 QAM, 25 mg HS and 12.5 mg Q6H prn for anxiety ?Diabetes - Random glucose of 270 - Cont ISS with accuchecks Q6H while NPO and with meals and ACHS if passes speech eval. DVT Proph: lovenox CODE STATUS: DNR Disposition: plan for hospice on discharge, determining if it will be at SNF or home, meeting with daughter tomorrow for POLST form and to discuss anticoagulation going forward
[2016-06-07] MEDS: TRAZODONE HCL 50 MG TAB PO SCH (21:23)
[2016-06-08 00:01] VITALS: O2SAT 97
[2016-06-08] MEDS: ENOXAPARIN 60 MG/0.6 ML SYR SC SCH ×2 (01:11→13:11)
[2016-06-08 07:14] VITALS: BP 162/89; PULSE 99; TEMP 36.9; O2SAT 93
--- NOTE | 2016-06-08 07:51 | Hospitalist Progress Note ---
Hospitalist Progress Note Date of Service Jun 08, 2016. Subjective Pt evaluation today including: physical exam, chart review, lab review, review of studies, review of inpatient medication list The patient was seen and examined this morning. Pt appears anxious, scared, but easily calmed with talking softly and holding her hand. She is in a low bed position, has a mat on the floor beside the bed. No bedside sitter present. ROS unobtainable due to mental status and inability to communicate. Objective Vital Signs Date Time Temp Pulse Resp B/P Pulse Ox O2 Delivery O2 Flow Rate FiO2 06/08/16 07:30 Room Air 06/08/16 07:14 36.9 99 20 162/89 93 Room Air 06/08/16 00:01 97 Room Air 06/07/16 23:04 93 18 148/85 92 Room Air 06/07/16 16:00 97 Room Air 06/07/16 14:55 36.0 93 18 157/91 97 Room Air 06/07/16 08:00 Room Air Physical Exam General Appearance: + moderate distress (anxious, scared), + thin Eyes: PERRL, EOMI ENT: pharynx normal, + pertinent finding (mucous membranes moist) Neck: no JVD Respiratory/Chest: lungs clear, no respiratory distress, no accessory muscle use Cardiovascular: no murmur, + tachycardia, + pertinent finding (regular rhythm) Abdomen: normal bowel sounds, non tender, soft Extremities: non-tender, no pedal edema, no calf tenderness Neurologic/Psychiatric: alert, + disoriented, + pertinent finding (unable to communicate through speech, pt is babbling and reaches for things, gripping bedrail with one hand.) Skin: normal color, warm/dry Laboratory Results Last 24 Hours Test 06/07/16 11:36 06/07/16 16:25 06/07/16 20:00 06/08/16 07:17 Bedside Glucose 112 mg/dl 91 mg/dl 142 mg/dl 72 mg/dl Assessment and Plan This is a 76 y/o F who presents from [facility] after concerns of tachycardia and hypertension. There is concern of an underlying infection and she meets SIRS criteria LLE DVT - Venous doppler showed left superficial femoral DVT - Likely the cause of her tachycardia and hypertension - continue Lovenox q12, will discuss retirement AC with family later today. - mild leukocytosis may be reactive from DVT - possible from candidal vulvovaginitis - + erythema on the right side vulva extending onto the labia majoris, continue on fluconazole IV, continue cream for puritic relief Dementia: - Dysphagia screen, allowed to eat - Head CT negative for acute hemorrhage/cva - advanced, recommend hospice services, planning to complete POLST today Hx Right rib fractures and chronic back pain - Cont lidoderm patch for pain Seizures: Continue Depakote 500 mg QAM , 750 mg QPM and Keppra 500 mg BID Depression/ Anxiety - stop Klonopin yesterday as recommended by psychiatry last admission - pt does appear scared and anxious but this may be her baseline. - Continue Trazodone 25 mg HS and Quetiapine 12.5 QAM, 25 mg HS and 12.5 mg Q6H prn for anxiety DM II - Hgb A1C 6.5 - Glucose under much better control now with insulin sliding scale - Cont ISS with accuchecks Q6H while NPO and with meals and ACHS - Since pt is going home on hospice, no need to initiate insulin at home. DVT Proph: lovenox CODE STATUS: DNR Disposition: plan for hospice on discharge, determining if it will be at SNF or home, meeting with daughter today for POLST form and to discuss anticoagulation going forward
[2016-06-08] MEDS: INSULIN ASPART 100 UNITS/ML 3 ML PEN SC SCH ×4 (07:52→20:18)
[2016-06-08] MEDS: SODIUM CHLORIDE 0.9% 1000ML 1,000 ML IV SCH ×2 (07:57→20:12)
[2016-06-08] MEDS: POTASSIUM CHLORIDE 10 MEQ TABCR PO SCH (07:58)
[2016-06-08] MEDS: ATORVASTATIN 40 MG TAB PO SCH (07:59)
[2016-06-08] MEDS: QUETIAPINE FUMARATE 25 MG TAB PO SCH ×2 (07:59→20:18)
[2016-06-08] MEDS: LEVETIRACETAM 500 MG TAB PO SCH ×2 (07:59→20:15)
[2016-06-08] MEDS: DIVALPROEX SODIUM SPRINKLE 125 MG CAP PO SCH ×2 (08:00→20:13)
[2016-06-08] MEDS: GABAPENTIN 300 MG CAP PO SCH ×3 (08:01→20:18)
[2016-06-08] MEDS: CEROVITE ADV FORMULA TAB PO SCH (08:01)
[2016-06-08] MEDS: HYDROCHLOROTHIAZIDE 25 MG TAB PO SCH (08:01)
[2016-06-08] MEDS: TRIAMCINOLONE ACET NASAL SPRAY 10.8ML BTL NAE SCH (08:02)
[2016-06-08] MEDS: MAGNESIUM OXIDE 400 MG TAB PO SCH (08:02)
[2016-06-08] MEDS: POLYETHYLENE (MIRALAX) 17 GM PACK PO SCH (08:02)
[2016-06-08] MEDS: LIDODERM (LIDOCAINE) PATCH 5% TD SCH (08:03)
[2016-06-08] MEDS: FLUCONAZOLE / NSS 100 MG in PREMIXED NSS 50 ML IV SCH (08:44)
[2016-06-08 15:24] VITALS: BP 152/83; PULSE 89; TEMP 36.4; O2SAT 99
[2016-06-08 16:00] VITALS: O2SAT 99
[2016-06-08] MEDS: TRAZODONE HCL 50 MG TAB PO SCH (20:17)
[2016-06-08 23:40] VITALS: BP 110/82; PULSE 90; TEMP 36.3; O2SAT 96
[2016-06-09] MEDS: ENOXAPARIN 60 MG/0.6 ML SYR SC SCH ×2 (00:45→14:10)
[2016-06-09] MEDS: INSULIN ASPART 100 UNITS/ML 3 ML PEN SC SCH ×2 (06:30→11:00)
[2016-06-09 07:01] LABS: CREATININE 0.64 mg/dl (0.60-1.20)
[2016-06-09 07:04] LABS: HEMATOCRIT 38.5 % (37-47); MEAN CELL VOLUME 81.9 fL (80-100); MEAN CORPUSCULAR HEMOGLOBIN 27.4 pg (25-34); MEAN CORPUSCULAR HGB CONC 33.5 g/dl (32-36); MEAN PLATELET VOLUME 9.4 fL (7.4-10.4); PLATELET COUNT 216 K/uL (130-400); WHITE BLOOD COUNT 8.25 K/uL (4.8-10.8)
[2016-06-09 07:31] VITALS: BP 155/78; PULSE 95; TEMP 36.6; O2SAT 97
[2016-06-09] MEDS: TRIAMCINOLONE ACET NASAL SPRAY 10.8ML BTL NAE SCH (08:27)
[2016-06-09] MEDS: FLUCONAZOLE / NSS 100 MG in PREMIXED NSS 50 ML IV SCH (08:27)
[2016-06-09] MEDS: HYDROCHLOROTHIAZIDE 25 MG TAB PO SCH (08:28)
[2016-06-09] MEDS: DIVALPROEX SODIUM SPRINKLE 125 MG CAP PO SCH (08:28)
[2016-06-09] MEDS: ATORVASTATIN 40 MG TAB PO SCH (08:29)
[2016-06-09] MEDS: MAGNESIUM OXIDE 400 MG TAB PO SCH (08:29)
[2016-06-09] MEDS: POTASSIUM CHLORIDE 10 MEQ TABCR PO SCH (08:29)
[2016-06-09] MEDS: LEVETIRACETAM 500 MG TAB PO SCH (08:29)
[2016-06-09] MEDS: GABAPENTIN 300 MG CAP PO SCH ×2 (08:30→14:09)
[2016-06-09] MEDS: CEROVITE ADV FORMULA TAB PO SCH (08:30)
[2016-06-09] MEDS: POLYETHYLENE (MIRALAX) 17 GM PACK PO SCH ×2 (08:30→09:00)
[2016-06-09] MEDS: QUETIAPINE FUMARATE 25 MG TAB PO SCH (08:30)
[2016-06-09] MEDS: LIDODERM (LIDOCAINE) PATCH 5% TD SCH (08:31)
[2016-06-09] MEDS: SODIUM CHLORIDE 0.9% 1000ML 1,000 ML IV SCH (10:17)
--- NOTE | 2016-06-09 11:09 | Discharge Instructions ---
Discharge Instructions Date of Service Jun 09, 2016. Admission Reason for Admission: Sirs, Yeast Infection Discharge Discharge Diagnosis / Problem: Left lower extremity DVT (deep venous thrombosis ), yeast infection Discharge Goals Goal(s): Decrease discomfort, Improve function Activity Recommendations Activity Limitations: resume your previous activity Lifting Limitations: no more than 10 pounds Exercise/Sports Limitations: rest today Shower/Bathe: no limitations (with assistance) Driving or Machine Use: Do Not Drive . Instructions / Follow-Up Instructions / Follow-Up You were admitted to [facility] with elevated heart rate and white blood cell count and diagnosed with Left lower extremity DVT and yeast infection. DVT: During your stay here you were treated with lovenox for anticoagulation to help prevent further clots from developing. Chronic anticoagulation was discussed during your stay and your family decided that they want to continue anticoagulation. You have been started on a medication, xarelto 15 mg twice daily x 21 days. You will then need to change dosage to 20 mg once daily from there on after. Please follow up with the PCP at [facility] for further details. Vaginal Yeast Infection: This was treated x 3 days with fluconazole while in the hospital. Maintain good hygiene to help prevent further development of yeast infection. An indwelling ryder catheter was placed during this hospitalization per request of your family. It is also in place to help prevent further breakdown of the sacral pressure ulcer. Follow up with the physician about maintaining this catheter once back at [facility]. Risks including urinary tract infection were discussed in detail. Klonopin was stopped during this hospitalization. Do not take this medication! Continue taking all other medications as prescribed. Follow up with physician at [facility] within 24-48 hours of arrival. Current Hospital Diet Patient's current hospital diet: Diabetes Type 2 Diet Discharge Diet Recommended Diet: Diabetes Type 2 Diet Procedures Procedures Performed: None Pending Studies Studies pending at discharge: no Laboratory Results Hemoglobin A1c Test 06/06/16 08:46 Range/Units Estimated Average Glucose 140 mg/dl Hemoglobin A1c 6.5 H 4.5-5.6 % Medical Emergencies . Who to Call and When: Medical Emergencies: If at any time you feel your situation is an emergency, please call 911 immediately. . Non-Emergent Contact Non-Emergency issues call your: Primary Care Provider Call Non-Emergent contact if: temperature is above 100.5, your pain is not controlled, your pain is worsening, you have any medication questions . Past History Medical & Surgical History: (1) Deep vein thrombosis (DVT) of femoral vein of left lower extremity (2) Yeast infection (3) SIRS (systemic inflammatory response syndrome) (4) Diabetes mellitus, type II (5) Anxiety (6) Epilepsy (7) Dyslipidemia (8) Hypertension . "Provider Documentation" section prepared by Luiza Shah. VTE Core Measure Inpt VTE Proph given/why not?: Enoxaparin (Lovenox)SQ, T.E.D. Stockings, SCD's
--- NOTE | 2016-06-09 11:23 | Discharge Summary ---
Discharge Summary Date of Service Jun 09, 2016. Discharge Summary Admission Date: Jun 06, 2016 at 00:35 Discharge Date: Jun 09, 2016 Discharge Disposition: intermediate facility Principal Diagnosis: LLE DVT, yeast infection Problems/Secondary Diagnoses: Dementia, seizure disorder, HTN, DM II, depression, anxiety, LLE DVT Procedures: CT of the head without contrast 06/05/16 IMPRESSION: 1. No acute intracranial findings 2. Tiny left sphenoid sinus air-fluid level similar to the prior study 3. Interval decrease in the size of the right scalp contusion CT chest without contrast 06/05/16 IMPRESSION: 1. Small left pleural effusion 2. Minor left basilar atelectasis 3. No evidence of pneumonia 4. Old right-sided rib fractures. Bilateral lower extremity venous Doppler 06/05/16 IMPRESSION: Focal acute deep venous thrombosis mid left superficial femoral vein Consultations: None Medication Reconciliation New Medications: Rivaroxaban (Xarelto Starter Pack 15 & 20 mg) 1 Tab Tab 15 MG PO BID for 21 Days, #42 TAB Follow 15 mg BID x 21 days with 20 mg tab daily x 30 days Continued Medications: Acetaminophen (Tylenol) 325 Mg Tab 650 MG PO Q6H PRN for Pain or Fever, TAB Atorvastatin (Lipitor) 40 Mg Tab 40 MG PO DAILY, TAB Bisacodyl (Dulcolax) 10 Mg Sup 1 SUPP TX UD PRN for Constipation, SUP Dextrose (Diabetic Use) (Insta-Glucose) 77.4 % Gel 1 APPLN PO Q15M PRN for HYPOGLYCEMIA PROTOCOL GIVE 1 APPLICATION BY MOUTH EVERY 15 MINUTES NEEDED FOR HYPOGLYCEMIA BLOOD GLUCOSE LESS THAN 60 AND/OR SYMPTOMATIC HYPOGLYCEMIA (MUST BE RESPONSIVE AND ABLE TO SAFELY SWALLOW) Divalproex Sodium (Depakote Sprinkle) 125 Mg Cap 500 MG PO DAILY *4 CAPSULES* Divalproex Sodium (Depakote Sprinkle) 125 Mg Cap 750 MG PO HS *6 CAPSULES* Gabapentin (Neurontin) 300 Mg Cap 300 MG PO TID Glucagon (Glucagon Emergency Kit) 1 Mg Kit 1 APPLN IM Q15M PRN for HYPOGLYCEMIA PROTOCOL INJECT 1 APPLICATION IM EVERY 15 MINUTES PRN FOR HYPOGLYCEMIA RELATED TO DIABETES MELLITUS DUE TO UNDERLYING CONDITION BLOOD GLUCOSE <60 AND OR SYMPTOMATIC/UNRESPONSIVE HYPOGLYCEMIA. MAY REPEAT IN 15 MINUTES IF NEEDED. Haloperidol Lactate (Haldol) 5 Mg/Ml Inj 1 MG IM Q4 PRN for Agitation Hydrochlorothiazide (Hydrochlorothiazide) 25 Mg Tab 25 MG PO QAM Hydrocodone/Acetaminophen 5MG/325MG ([place] 5MG/325MG) Tab 1 TABLET PO Q4H PRN for Pain, TAB PRN 4-6 PAIN Levetiracetam (Keppra) 500 Mg Tab 500 MG PO BID Lidocaine (Lidocaine) 5 % Pad 1 PATCH TOP DAILY Lorazepam (Lorazepam) 2 Mg/Ml Soln 1 MG IM Q5M PRN for seizures Magnesium Hydroxide (Milk Of Magnesia) 30 Ml Susp 30 ML PO UD PRN for Constipation Magnesium Oxide (Magnesium-Oxide) 400 Mg Tab 400 MG PO QAM, #30 TAB 2 Refills Megestrol Acetate (Megace Oral) 40 Mg/Ml Zuleyma 400 MG PO BID Multiple Vitamins W/ Minerals (Multi Vitamin and Mineral) 1 Tab Tab 1 TAB PO DAILY Nutritional Supplements (Nutritional Shake) 1 Liq Liq 1 CAN PO BID Nutritional Supplements (Nutritional Shake) 1 Liq Liq 1 PO DAILY AT NOON [place] Polyethylene Glycol 3350 (Miralax) 1 Pow Pow 17 GM PO DAILY Potassium Chloride (K-Tabs) 10 Meq Tab 10 MEQ PO DAILY GRANULES Quetiapine Fumarate (Quetiapine Fumarate) 25 Mg Tab 12.5 MG PO QAM, #20 TAB 3 Refills Quetiapine Fumarate (Quetiapine Fumarate) 25 Mg Tab 25 MG PO HS, #30 TAB 3 Refills Quetiapine Fumarate (Quetiapine Fumarate) 25 Mg Tab 12.5 MG PO Q6 PRN for Anxiety/Agitation, #30 TAB 3 Refills Sodium Phosphates (Fleet Enema Six Pack) 1 Elsie Elsie 1 APPLN [place] UD PRN for Constipation Trazodone Hcl (Trazodone) 50 Mg Tab 25 MG PO HS 1/2 TABLET DOSE Triamcinolone Acetonide (Nasal (Nasacort Allergy 24Hr) 55 Mcg/Act Spr 2 SPRAYS KELSIE DAILY Discontinued Medications: Clindamycin HCl (Clindamycin HCl) 150 Mg Cap 300 MG PO Q6 for 7 Days, #56 CAP Clonazepam (Clonazepam) 0.5 Mg Tab 0.25 MG PO DAILY for 7 Days, #4 TAB 0 Refills Discharge Exam The patient was seen and examined this morning. Patient is noncommunicative, but appears more relaxed today than in the past. Spoke with the daughter over the phone this morning, she already filled out the POLST form with her brother. Discussion was held regarding anticoagulation with the daughter by attending at bedside. Review of systems was not obtainable due to the patient's mental status, dementia, noncommunicative state. Physical Exam: General Appearance: WD/WN, no apparent distress, + pertinent finding ( appears calm today) Eyes: PERRL, EOMI ENT: hearing grossly normal, pharynx normal Neck: supple, no JVD Respiratory/Chest: lungs clear, normal breath sounds, no respiratory distress, no accessory muscle use Cardiovascular: regular rate, rhythm, normal peripheral pulses, + tachycardia (mild, heart rate= ~90) Abdomen / GI: normal bowel sounds, non tender, soft Neurologic/Psychiatric: alert, normal mood/affect, oriented x 3 Skin: normal color, warm/dry Hospital Course History of Present Illness per Merle Wheeler MD. resident This is a 76 y/o F who presents after being found tachycardic and hypertensive at [facility]. Patient is non-verbal. Daughter reports that she had two admissions in the last month; the first for uncontrolled seizures and the second , more recent admit for acute hypoxic resp. failure 2/2 aspiration pneumonia. She is currently on clindamycin. Family reports that she has deteriorated over the few months and is overall not doing well. She was verbal prior to her seizures but is not now. Though they do believe that she understands, she's not communicative. She is incontinent of bowel and bladder Due to dementia/dysphagia, she does have a special diet. History is otherwise limited. This is a 76 y/o F who presents from [facility] after concerns of tachycardia and hypertension. There is concern of an underlying infection and she meets SIRS criteria Physical Exam Vital Signs Date Time Temp Pulse Resp B/P Pulse Ox O2 Delivery O2 Flow Rate FiO2 06/05/16 22:59 118 06/05/16 22:18 105 24 181/97 96 Nasal Cannula 2.0 06/05/16 21:00 120 18 171/86 93 Nasal Cannula 2.0 06/05/16 20:53 94 Room Air 06/05/16 20:37 124 06/05/16 20:02 37.1 125 18 187/97 95 Nasal Cannula 2.0 General Appearance: + pertinent finding (non verbal, asleep, somewhat difficult to arouse- at baseline per family) Eyes: PERRL, EOMI Respiratory/Chest: lungs clear, normal breath sounds, no respiratory distress, no accessory muscle use Cardiovascular: no edema, + tachycardia Abdomen/GI: normal bowel sounds, non tender, soft Extremities/Musculoskelatal: no pedal edema Neurologic/Psych: + pertinent finding (unable to assess) Hospital Course: LLE DVT - Venous doppler showed left superficial femoral DVT - Likely the cause of her tachycardia and hypertension - pt was on Lovenox q12 during hospital stay, pt family decided that they wanted to continue anticoagulation. The risks and benefits were discussed with the family in detail. They are agreeable to starting xarelto upon discharge. Will start 15 mg BID x 21 days and then 20 mg daily from there on after. - mild leukocytosis likely reactive from DVT or candidal vulvovaginitis, trending downward. Vulvovaginitis, candidal - improved, received 3 days of fluconazole orally, no need for further treatment. Dementia: - Dysphagia screen, allowed to eat - Head CT negative for acute hemorrhage/cva - advanced, POLST completed- signed and scanned into the chart Sacral Wound - Lesion is grade II, approximately 1 cm in diameter and was present prior to admission. - Pt family has opted for chronic indwelling ryder to prevent further skin breakdown as the patient is unable to ambulate on her own and primarily bed bound when as SNF. Discussion regarding catheter associated UTI was discussed with the family in detail. Hx Right rib fractures and chronic back pain - Cont lidoderm patch for pain Seizures: Continue Depakote 500 mg QAM , 750 mg QPM and Keppra 500 mg BID Depression/ Anxiety - stopped Klonopin as recommended by psychiatry last admission - pt appears more calm today - pt should not be placed on this in the future - Continue Trazodone 25 mg HS and Quetiapine 12.5 QAM, 25 mg HS and 12.5 mg Q6H prn for anxiety DM II - Hgb A1C 6.5 - Glucose under much better control now with insulin sliding scale - Cont ISS with accuchecks Q6H while NPO and with meals and ACHS - Since pt is going home on hospice, no need to initiate insulin at home. DVT Proph: lovenox CODE STATUS: DNR Disposition: Pt family still want medical treatment and not comfort measures or hospice, POLST completed, discharge back to [facility] today. Total Time Spent: Greater than 30 minutes This includes examination of the patient, discharge planning, medication reconciliation, and communication with other providers. Discharge Instructions Please refer to the electronic Patient Visit Report (Discharge Instructions) for additional information. Follow-Up Follow up with your Primary Care Provider at [facility] within 24 hours of arrival.
[2016-06-09] MEDS ORDERED: RIVA1TAB7 PO ×3 (13:09→14:57)
[2016-06-09 14:30] VITALS: BP 155/78; PULSE 95; TEMP 36.6; O2SAT 97
[2016-06-09 15:04] VITALS: BP 142/86; PULSE 91; TEMP 36.5; O2SAT 94
== END 2016-06-09 16:10 | DRG 758 ==
LOC: CANRESERV → ENRESERVDT → ENRESERVTM → EDBD 19:56 → C.EDC 19:56 → C.MED 06-06 00:35
PROVIDERS: ADMIT Student in an Organized Health Care Education/Training Program; ATTEND Internal Medicine
DX: B37.3 Candidiasis of vulva and vagina (principal); I82.412 Acute embolism and thrombosis of left femoral vein; F03.91 Unspecified dementia, unspecified severity, with behavioral disturbance; G40.909 Epilepsy, unspecified, not intractable, without status epilepticus; R13.10 Dysphagia, unspecified; I10 Essential (primary) hypertension; G89.29 Other chronic pain; M54.9 Dorsalgia, unspecified; G89.21 Chronic pain due to trauma; R32 Unspecified urinary incontinence; R15.9 Full incontinence of feces; E04.1 Nontoxic single thyroid nodule; S31.000A Unspecified open wound of lower back and pelvis without penetration into retroperitoneum, initial encounter; E11.9 Type 2 diabetes mellitus without complications; F32.9 Major depressive disorder, single episode, unspecified; F41.9 Anxiety disorder, unspecified; E78.5 Hyperlipidemia, unspecified; Z51.81 Encounter for therapeutic drug level monitoring; Z79.899 Other long term (current) drug therapy; Z66 Do not resuscitate; Z87.01 Personal history of pneumonia (recurrent); Z87.891 Personal history of nicotine dependence; Z82.49 Family history of ischemic heart disease and other diseases of the circulatory system; Z83.3 Family history of diabetes mellitus; X58.XXXA Exposure to other specified factors, initial encounter

== ENCOUNTER → 2016-06-15 | Outpatient (CLI) | payer OTHER ==
[~2016-06-15] MED LIST changes: +BISA10SU3 PR; +DIVA125C PO; +LEVE500T13 PO; +MOML PO; +RIVA1TAB7 PO; +SODI1ENE PR
[2016-06-15 09:46] LABS: ALT/SGPT 12 U/L (12-78); AST/SGOT 20 U/L (15-37); BLOOD UREA NITROGEN 18 mg/dl (7-18); BUN/CREATININE RATIO 20.9 (10-20); CARBON DIOXIDE 28 mmol/L (21-32); CHLORIDE 107 mmol/L (98-107); CREATININE 0.86 mg/dl (0.60-1.20); GLUCOSE 91 mg/dl (70-99); POTASSIUM 4.1 mmol/L (3.5-5.1); SODIUM 141 mmol/L (136-145)
[2016-06-15 09:51] LABS: ALB/GLOB RATIO 0.6 (0.9-2); ALKALINE PHOSPHATASE 79 U/L (45-117)
[2016-06-15 11:20] LABS: HEMATOCRIT 38.9 % (37-47); MEAN CELL VOLUME 82.8 fL (80-100); MEAN CORPUSCULAR HEMOGLOBIN 27.9 pg (25-34); MEAN CORPUSCULAR HGB CONC 33.7 g/dl (32-36); MEAN PLATELET VOLUME 10.4 fL (7.4-10.4); PLATELET COUNT 279 K/uL (130-400); WHITE BLOOD COUNT 11.27 K/uL (4.8-10.8)
[2016-06-15 13:17] LABS: BASO % 0.2 %; BASO ABS # 0.02 K/uL (0-0.2); COMPLETE YES; ECHINOCYTES 1+; EOS % 1.9 %; IG% 0.2 %; LYMPH % 44.8 %; LYMPH ABS # 5.05 K/uL (1.2-3.4); MONO % 8.9 %; SMUDGE CELLS PRESENT
== END | disposition home or self-care (01) ==
LOC: C.LABUPHEI 08:53
PROVIDERS: ATTEND Family Medicine
DX: R56.9 Unspecified convulsions (principal)

== ENCOUNTER → 2016-06-30 | Outpatient (CLI) | payer OTHER ==
[~2016-06-30] MED LIST changes: -CLC150 PO; -DPKSR250 PO; -DPKSR500 PO; -KLN5 PO; -KPP250 PO
== END | disposition home or self-care (01) ==
LOC: C.LABUPHEI 09:06
PROVIDERS: ATTEND Family Medicine
DX: R56.9 Unspecified convulsions (principal)

== ENCOUNTER → 2016-07-14 | Outpatient (CLI) | payer OTHER ==
[2016-07-14 08:52] LABS: HEMATOCRIT 43.7 % (37-47); MEAN CELL VOLUME 89.9 fL (80-100); MEAN CORPUSCULAR HEMOGLOBIN 28.4 pg (25-34); MEAN CORPUSCULAR HGB CONC 31.6 g/dl (32-36); MEAN PLATELET VOLUME 12.1 fL (7.4-10.4); PLATELET COUNT 235 K/uL (130-400); RED BLOOD COUNT 4.86 M/uL (4.2-5.4); WHITE BLOOD COUNT 14.85 K/uL (4.8-10.8)
[2016-07-14 09:02] LABS: BLOOD UREA NITROGEN 47 mg/dl (7-18); CARBON DIOXIDE 31 mmol/L (21-32); CHLORIDE 113 mmol/L (98-107); CREATININE 0.87 mg/dl (0.60-1.20); GLUCOSE 151 mg/dl (70-99); POTASSIUM 3.3 mmol/L (3.5-5.1); SODIUM 150 mmol/L (136-145); URIC ACID 9.1 mg/dl (2.6-7.2)
[2016-07-14 09:18] LABS: CALCIUM 11.1 mg/dl (8.5-10.1)
== END ==
LOC: C.LABUPHEI 08:41
PROVIDERS: ATTEND Nurse Practitioner Family
DX: I10 Essential (primary) hypertension (principal); F03.90 Unspecified dementia, unspecified severity, without behavioral disturbance, psychotic disturbance, mood disturbance, and anxiety; R63.0 Anorexia